=== PATIENT | female | born 1995 | race Two or more races ===

== ENCOUNTER 2021-10-23 14:34 | Inpatient (IN) | payer OTHER, MEDICAID, SELFPAY ==
[2021-10-23 14:47] VITALS: BP 121/83; BP 136/78; PULSE 104; PULSE 106; RESP 16; TEMP 36.9; O2SAT 97; O2SAT 98; BMI 35.5
--- NOTE | 2021-10-23 14:50 | ED_ITS ---
HPI - Psych General Chief Complaint: Psychiatric Symptoms Stated Complaint: SEC 12, SI, auditory hallu, del Time Seen by Provider: 10/23/21 14:46 Source: patient Mode of arrival: EMS Limitations: other (poor historian only answers yes or no, paranoid) History of Present Illness MD complaint: other (delusions, paranoid, not getting better at [facility]) Onset (ago): day(s) (unsure how many days states she has been at respite for a long time. ) Duration: getting worse History of same: Yes Relieving factors: none Exacerbating factors: none Context: other (at [facility] as patient is not improving, delusions, paranoid) Associated psychiatric symptoms: auditory hallucinations, visual hallucinations and delusions Associated symptoms: denies other symptoms Treatments prior to arrival: placed on mental health hold Related Data Allergies Allergy/AdvReac Type Severity Reaction Status Date / Time No Known Allergies Allergy Verified 10/23/21 14:48 Review of Systems Review of Systems: ROS unable to be obtained due to patient being uncooperative and paranoid PMFSH Past Medical History Attestation statement: The following information was validated with the patient. Medical History Schizoaffective disorder Social History Social History (Updated 10/23/21 @ 14:52 by Jyoti Kothari DO) Patient Tobacco Use Status: Never used Tobacco Use of substances other than those prescribed or required for medical reasons: No Physical Exam Vital Signs: Vital Signs: Last Vital Signs Temp 98.1 F 10/23/21 15:30 Pulse 93 10/23/21 15:30 Resp 16 10/23/21 15:30 BP 116/72 10/23/21 15:30 Pulse Ox 98 10/23/21 15:30 O2 Del Method 10/23/21 15:30 BMI result Body Mass Index 35.5 Appearance: Alert. Will not answer most questions she is slow to respond th en stares off and states she doesn't feel safe to talk then looks around room. No acute distress. Eyes: Pupils equal, round and reactive to light. ENT: Pharynx normal. Neck: Normal inspection. Neck supple. CVS: Normal heart rate and rhythm. Pulses normal. Respiratory: No respiratory distress. Breath sounds normal. Abdomen: Soft and non-tender. Skin: Skin warm and dry. Normal skin color. Normal skin turgor. Extremities: No lower extremity edema. No calf ttp Neuro: Will not answer questions as she states she doesn't feel safe to do that here. No motor deficit. No sensory deficit. CN 2-12 intact Course Course Course Narrative: Physician observation started at 339pm. Patient placed in physician observation because the patient needed more time for N to assess the need for psych admission. At the time observation was started the patient's vitals were stable, patient is alert and oriented but slightly anxious, Neuro: nonfocal, CV RRR, Lungs clear MDM - Psych MDM Narrative Medical decision making narrative: 26 yo female with hx of schizoaffective disorder [facility] as she is not improving at this time will need labs, COVID swab, N consult Lab Data Result diagrams: 10/23/21 15:29 10/23/21 15:29 Labs: Lab Results 10/23/21 Range/Units 15:29 WBC 11.2 H (4.8-10.8) X10*3/uL RBC 5.03 (4.20-5.50) X10*6/uL Hgb 14.0 (12.0-16.0) g/dl Hct 42.4 (37.0-47.0) % MCV 84.3 (80.0-98.0) fL MCH 27.8 (27.0-33.0) pg MCHC 33.0 (31.0-35.0) g/dl RDW 12.7 (11.0-16.0) % Plt Count 263 (160-400) X10*3/uL MPV 9.9 (9.4-12.3) fL Immature Gran % (Auto) 0.4 (0.0-0.4) % Neut % (Auto) 73.2 H (45-73) % Lymph % (Auto) 16.8 L (20-40) % Forrest % (Auto) 7.9 (2-11) % Eos % (Auto) 1.2 (0-4) % Baso % (Auto) 0.5 (0-2) % Lymph # (Auto) 1.9 (1.2-4.9) X10*3/uL Forrest # (Auto) 0.9 (0.1-1.2) X10*3/uL Eos # (Auto) 0.1 (0.0-0.4) X10*3/uL Baso # (Auto) 0.1 (0.0-0.2) X10*3/uL Abs Immat Gran (auto) 0.04 H (0.00-0.03) X10*3/uL Absolute Neuts (auto) 8.2 (2.0-8.3) x10*3/uL Absolute Nucleated RBC 0.000 (0.0-0.012) X10*3/uL Nucleated RBC % (auto) 0.0 (0.0-0.2) /100WBC Discharge Plan Discharge Clinical Impression: Schizoaffective disorder Qualifiers: Schizoaffective disorder type: unspecified Qualified Code(s): F25.9 - Schizoaffective disorder, unspecified Patient Disposition: Still a Patient
[2021-10-23 15:30] VITALS: BP 116/72; PULSE 93; RESP 16; TEMP 36.7; O2SAT 98
[2021-10-23 15:36] LABS: MANUAL DIFF FLAG NO
[2021-10-23 15:37] LABS: Basophils Absolute Auto 0.1 X10*3/uL (0.0-0.2); Basophils Percent Auto 0.5 % (0-2); Eosinophils Absolute Auto 0.1 X10*3/uL (0.0-0.4); Eosinophils Percent Auto 1.2 % (0-4); Hematocrit 42.4 % (37.0-47.0); Imm Gran Abs Auto 0.04 X10*3/uL (0.00-0.03); Imm Gran Pct Auto 0.4 % (0.0-0.4); Lymphocytes Absolute Auto 1.9 X10*3/uL (1.2-4.9); Lymphocytes Percent Auto 16.8 % (20-40); Mean Corpuscular Hemoglobin 27.8 pg (27.0-33.0); Mean Corpuscular Volume 84.3 fL (80.0-98.0); Mean Platelet Volume 9.9 fL (9.4-12.3); Monocytes Absolute Auto 0.9 X10*3/uL (0.1-1.2); Monocytes Percent Auto 7.9 % (2-11); Neutrophils Absolute Auto 8.2 x10*3/uL (2.0-8.3); Neutrophils Percent Auto 73.2 % (45-73); Platelet Count 263 X10*3/uL (160-400); Red Blood Count 5.03 X10*6/uL (4.20-5.50); Red Cell Distribution Width 12.7 % (11.0-16.0); White Blood Count 11.2 X10*3/uL (4.8-10.8)
[2021-10-23 15:52] LABS: Amphetamine Screen Urine Not Detected (Not Detect); Barbiturates, Urine Not Detected (Not Detect); Benzodiazepines Screen Urine Not Detected (Not Detect); Cannabinoid Screen Urine Not Detected (Not Detect); Cocaine Screen Urine Not Detected (Not Detect); Fentanyl, urine Not Detected (Not Detect); Opiate Screen Urine Not Detected (Not Detect); Phencyclidine Screen Urine Not Detected (Not Detect)
[2021-10-23 15:54] LABS: Alanine Aminotransferase 22 U/L (0-31); Albumin Level 4.6 g/dL (3.5-5.0); Alkaline Phosphatase 73 U/L (39-117); Anion Gap 13 (12-20); Aspartate Amino Transferase 27 U/L (5-31); Bilirubin Direct 0.2 mg/dL (0.0-0.5); Bilirubin Total 0.4 mg/dL (0.0-1.0); Blood Urea Nitrogen 11 mg/dL (9-16); Calcium 9.7 mg/dL (8.4-10.2); Carbon Dioxide 27 mmol/L (22-29); Chloride 103 mmol/L (96-108); Creatinine Clr Calc Pharmacy 122.7; Estimated Glomerular Filt Rate > 60; Glucose Random 89 mg/dL (60-115); Potassium 4.4 mmol/L (3.3-5.1); Sodium 139 mmol/L (135-145); Total Protein 7.7 g/dL (6.5-8.0)
[2021-10-23 15:59] LABS: HCG Quantitative < 2 mIU/mL
[2021-10-23 16:15] LABS: COVID-19 Test Negative (Negative); IDNOW Serial# 16C4AD1C
--- NOTE | 2021-10-23 16:43 | PC.NURSE ---
Addendum entered by Benjamin Kramer 10/23/21 17:29: Patient continues to refuse to speak/ allow vitals to be taken by this RN. Original Note: Patient refusing to answer questions from this RN.
--- NOTE | 2021-10-23 17:18 | PC.NURSE ---
FAYE SMART SHEET FAXED
[2021-10-23 18:40] VITALS: BP 118/74; PULSE 106; RESP 18; TEMP 36.8; O2SAT 98
[2021-10-23 22:29] VITALS: BP 127/77; PULSE 103; TEMP 37; O2SAT 97
[2021-10-23] MEDS: Ziprasidone 80 MG CAPSULE PO (22:30)
[2021-10-23] MEDS: Prazosin HCL 1 MG CAPSULE PO (22:30)
[2021-10-24 00:12] VITALS: BP 119/73; PULSE 100; RESP 17; TEMP 36.8; O2SAT 98
--- NOTE | 2021-10-24 07:32 | PC.NURSE ---
Patient slept through the night, no distress observed/reported, patient continue to present with disorganized thought process, medication compliant, disposition per care team is section 12 inpatient bed search, will continue to monitor.
--- NOTE | 2021-10-24 08:42 | PC.NURSE ---
Construction Supervisor/Carpenter of [facility] in [place] Ewa [place]in[place]
[2021-10-24] MEDS: Ziprasidone 80 MG CAPSULE PO (10:18)
--- NOTE | 2021-10-24 10:39 | PC.NURSE ---
pt unkempt and disheveled, in [place], her hair covers her face during our conversation. pt with poor eye contact, darting glancing. appears to be thought blocking. she stood in her doorway with her hair covering her face and periodically looking around her for about 45 minutes. when medicating the pt this morning with Geodon, she took the pill into her mouth without difficulty but required about 20 minutes of assistance and support to take a sip of water to wash the pill down. pt appears easily overwhelmed with open ended questions, requires basic yes/no questions. she is pleasant but appears overwhelming with hallucinations, unclear regarding AH/VH or both. pt unable to answer questions due to thought blocking, hallucinations.
[2021-10-24 12:00] VITALS: BP 109/71; PULSE 89; RESP 16; TEMP 36.5; O2SAT 96
[2021-10-24 12:44] VITALS: BP 120/71; PULSE 100; RESP 18; TEMP 36.7; O2SAT 99
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
--- NOTE | 2021-10-24 14:29 | PC.NURSE ---
Diana is admitted to M3 on 12b from [facility], She was transferred to ED from [facility] where she was being restarted on meds for schizoaffective disorder after a period of noncompliance with meds with associated decompensation in the community. Diana has providers through [facility], a PCP through [facility] and psychiatry through [facility] and she attends [facility] day program. On arrival to the unit Diana is alert and minimally cooperative. She allowed VS and followed me to the conference room but participated minimally in the admission assessment. She did not respond to open ended questions. When asked yes or no questions she responded no to many and did not answer others. She declined to sign legals. Diana avoids eye contact and appears hypervigilant with her eyes darting around the room. As mentioned above, throughout the assessment the only word she said to me is no. 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 She appeared to be attending to internal stimuli. She refused to order lunch and did not eat the house meal which was sent. Tox screen was negative. No acute medical issues identified. She denies physical complaint.
[2021-10-24] MEDS: LORazepam 1 MG TABLET PO (16:09)
[2021-10-24 20:37] VITALS: BP 120/59; PULSE 133; TEMP 36.7; O2SAT 95
--- NOTE | 2021-10-25 | ECG_ITS ---
Test Reason : check qtc Blood Pressure : / mmHG Vent. Rate : 097 BPM Atrial Rate : 097 BPM P-R Int : 120 ms QRS Dur : 086 ms QT Int : 350 ms P-R-T Axes : 065 055 005 degrees QTc Int : 444 ms Normal sinus rhythm Possible Left atrial enlargement Nonspecific ST and T wave abnormality Abnormal ECG No previous ECGs available Referred By: Nayla Swain Electronically Signed By:AI BLANCO MD
[2021-10-25 09:00] VITALS: BP 118/60; PULSE 112; RESP 18; TEMP 36.7; O2SAT 96
[2021-10-25] MEDS: LORazepam 1 MG TABLET PO ×3 (09:06→21:05)
[2021-10-25] MEDS: Ziprasidone 80 MG CAPSULE PO ×2 (09:10→21:05)
[2021-10-25 09:42] LABS: Estimated Average Glucose 97 mg/dL
[2021-10-25 09:54] LABS: Thyroid Stimulating Hormone 1.23 uIU/mL (0.32-4.0)
[2021-10-25 09:57] LABS: Alkaline Phosphatase 81 U/L (39-117); Anion Gap 17 (12-20); Aspartate Amino Transferase 34 U/L (5-31); Bilirubin Total 0.6 mg/dL (0.0-1.0); Calcium 9.8 mg/dL (8.4-10.2); Carbon Dioxide 23 mmol/L (22-29); Chloride 102 mmol/L (96-108); Cholesterol 170 mg/dL; Creatinine Clr Calc Pharmacy 125.9; Estimated Glomerular Filt Rate > 60; Glucose Fasting 86 mg/dL (60-99); HDL Cholesterol 46 mg/dL; LDL Cholesterol Calculated 113 mg/dl; Potassium 4.1 mmol/L (3.3-5.1); Sodium 138 mmol/L (135-145); Total Protein 8.4 g/dL (6.5-8.0); Triglycerides 58 mg/dL
[2021-10-25 10:08] LABS: Folate 5.1 ng/mL (> or = 4.0); Vitamin B12 308 pg/mL (200-900)
[2021-10-25 10:16] LABS: Alanine Aminotransferase 34 U/L (0-31); Blood Urea Nitrogen 20 mg/dL (9-16)
--- NOTE | 2021-10-25 10:58 | HO.PSYCHPN ---
Subjective Subjective Date of Service: 10/25/21 Reason For Visit: psychotic Subjective Notes: Section 12B Interim History: Pt staring at door most of the morning. When this designer/writer approach her, pt turning face to other side and finally stated she does not want to talk. Pt very suspicious, hypervigilant, blank stare continues somewhat improved with ativan. MOstly mute, did not sleep last night. decline lunch but did eat dinner, this morning decline breakfast. Medication Compliance: Intermittent Side effects from medications: No Review of Systems Review of Systems ROS unable to be obtained due to patient being uncooperative and paranoid Yes Unobtainable due to mental status Mental Status Exam Mental Status Exam Narrative: Appearance: casually groomed, fair hygiene, sitting in chair, staring at paper Behavior:guarded and suspicious psychomotor:retardation noted Speech: mostly mute, single words, minimally spontaneous Thought process:unable to assess Thought content:unable to assess Mood:unable to assess Affect: guarded, suspicious, intense eye contact at times SI:unable to assess HI:unable to assess VH/AH:appears internally preoccupied Delusions:paranoid behaviors Insight/judgment:impaired x 2. Memory/cog: alert, unable to assess Diagnostics Vital Signs (24Hr): Vital Signs - 24 hr 10/24/21 20:37 10/25/21 09:00 Temperature 98.0 F 98.0 F Pulse Rate 133 H 112 H Respiratory Rate 18 Blood Pressure 120/59 L 118/60 Pulse Oximetry 95 96 Oxygen Delivery Method Room Air Room Air BMI result Body Mass Index 35.5 Labs Results: 10/23/21 15:29 10/25/21 08:30 Labs: Laboratory Results - last 48 hr 10/23/21 10/23/21 10/25/21 15:29 15:29 08:30 Sodium 138 Potassium 4.1 Chloride 102 Carbon Dioxide 23 Anion Gap 17 BUN 20 H D Creatinine 0.80 Estim Creat Clear Calc 125.9 Estimated GFR > 60 Fasting Glucose 86 Estimat Average Glucose Hemoglobin A1c % Calcium 9.8 Total Bilirubin 0.6 AST 34 H ALT 34 H Alkaline Phosphatase 81 Total Protein 8.4 H Albumin 5.0 Triglycerides 58 Cholesterol 170 LDL Cholesterol, Calc 113 HDL Cholesterol 46 Vitamin B12 Folate TSH 1.23 Beta HCG, Quant < 2 COVID-19 (LAKESHA) Negative COVID-19 Clin Com See Note 10/25/21 10/25/21 08:30 08:30 Sodium Potassium Chloride Carbon Dioxide Anion Gap BUN Creatinine Estim Creat Clear Calc Estimated GFR Fasting Glucose Estimat Average Glucose 97 Hemoglobin A1c % 5.0 Calcium Total Bilirubin AST ALT Alkaline Phosphatase Total Protein Albumin Triglycerides Cholesterol LDL Cholesterol, Calc HDL Cholesterol Vitamin B12 308 Folate 5.1 TSH Beta HCG, Quant COVID-19 (LAKESHA) COVID-19 Clin Com Medications Medications Current Medications Acetaminophen (Acetaminophen 325 Mg Tablet) 650 mg PO Q6H PRN PRN Reason: Headache/Pain Mild Scale (1-3) Al Hydroxide/Mg Hydroxide (Magnesium Hydrox/Alum Hydrox 30 Ml Oral.Susp) 30 ml PO Q6H PRN PRN Reason: Heartburn/Nausea Hydroxyzine HCl (Hydroxyzine Hcl 25 Mg Tablet) 25 mg PO Q6H PRN PRN Reason: Anxiety Lorazepam (Lorazepam 1 Mg Tablet) 1 mg PO TID [facility] Last Admin: 10/25/21 14:42 Dose: 1 mg Magnesium Hydroxide (Milk Of Magnesia 30 Ml Oral.Susp) 30 ml PO DAILY PRN PRN Reason: Constipation Prazosin HCl (Prazosin Hcl 1 Mg Capsule) 1 - 2 mg PO BEDTIME RASHI; Protocol Last Admin: 10/24/21 21:06 Dose: Not Given Trazodone HCl (Trazodone Hcl 100 Mg Tablet) 100 mg PO BEDTIME PRN PRN Reason: Insomnia Ziprasidone (Ziprasidone 80 Mg Capsule) 80 mg PO BID [facility] Last Admin: 10/25/21 09:10 Dose: 80 mg Allergies Allergies Allergy/AdvReac Type Severity Reaction Status Date / Time No Known Allergies Allergy Verified 10/23/21 14:48 Assessment & Plan Assessment & Plan (1) Schizoaffective disorder: Qualifiers: Schizoaffective disorder type: unspecified Qualified Code(s): F25.9 - Schizoaffective disorder, unspecified Status: Acute Code(s): F25.9 - Schizoaffective disorder, unspecified Plan Ms. Handley is a 26 years old woman with hx of schizoaffective disorder, living in housing manage by [facility]. Pt was initially assessed by [facility] crisis due to increase paranoia, not taking medications. She was sent to [facility] on 10/17. Pt continue to decompensate, not sleeping, not eating nor taking medications. Pt presents as internally preoccupied, minimally verbal, guarded and paranoid. Utox is neg. PLAN 1. Admit to M3, Sect 12, 15 mins checks for safety 2. continue geodone, will add ativan for catatonic like behaviors- blank staring, psychomotor retardation. 3. Obtain collateral information- unable to reach Med provider through [facility] 4. Aftercare planning. I spent ___25___ minutes with the patient and/or on the patient floor today, greater than?50% of which was spent counseling/coordinating care. Reason for contiued inpatient stay Substantial Risk for: inability to function
[2021-10-25 21:00] VITALS: BP 152/89; PULSE 119; RESP 18; TEMP 36.9; O2SAT 95
[2021-10-25] MEDS: Prazosin HCL 1 MG CAPSULE PO (21:05)
[2021-10-26 06:00] VITALS: BP 122/85; PULSE 93; RESP 17; TEMP 36.8; O2SAT 98
[2021-10-26 07:00] VITALS: BMI 35.8
[2021-10-26] MEDS: LORazepam 1 MG TABLET PO ×4 (09:58→20:21)
[2021-10-26] MEDS: Ziprasidone 80 MG CAPSULE PO ×2 (09:58→20:21)
[2021-10-26] MEDS: HaloperidoL 5 MG TABLET PO (11:17)
[2021-10-26 18:00] VITALS: BP 124/73; PULSE 88; RESP 16; TEMP 36.6; O2SAT 99
[2021-10-26] MEDS: traZODone HCL 50 MG TABLET 150 MG PO (20:21)
[2021-10-26] MEDS: Prazosin HCL 1 MG CAPSULE 2 MG PO (20:21)
[2021-10-27 08:50] VITALS: BP 116/79; PULSE 113; RESP 17; TEMP 36.9; O2SAT 93
[2021-10-27] MEDS: Ziprasidone 80 MG CAPSULE PO ×2 (08:51→21:11)
[2021-10-27] MEDS: LORazepam 1 MG TABLET PO ×3 (08:51→21:11)
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
[2021-10-27 20:58] VITALS: BP 123/75; PULSE 101; RESP 20; TEMP 36.7; O2SAT 97
[2021-10-27] MEDS: Acetaminophen 325 MG TABLET 650 MG PO (21:10)
[2021-10-27] MEDS: Prazosin HCL 1 MG CAPSULE 2 MG PO (21:11)
[2021-10-27] MEDS: traZODone HCL 50 MG TABLET 150 MG PO (21:12)
[2021-10-28 06:00] VITALS: BP 115/56; PULSE 84; RESP 16; TEMP 36.6; O2SAT 100
[2021-10-28] MEDS: Ziprasidone 80 MG CAPSULE PO ×2 (09:06→20:03)
[2021-10-28] MEDS: LORazepam 1 MG TABLET PO ×3 (09:06→20:03)
[2021-10-28] MEDS: Milk of Magnesia 30 ML ORAL.SUSP PO (09:35)
--- NOTE | 2021-10-28 11:41 | P.PNPSI_ITS ---
Subjective Subjective Date of Service: 10/28/21 Reason For Visit: psychotic Subjective Notes: Conditional Voluntary Interim History: Pt still paranoid, easily tearful. initially reluctant to take meds; guarded with this automobile service writer. Medication Compliance: Yes Side effects from medications: No Attending Groups: No Review of Systems Acute medical concerns: Yes constipation Medical Review of Systems: unchanged Review of Systems Review of Systems ROS unable to be obtained due to patient being uncooperative and paranoid Yes Unobtainable due to mental status Mental Status Exam Mental Status Exam Narrative: Appearance: casually groomed, fair hygiene, sitting in chair, staring at paper Behavior:guarded and suspicious psychomotor:retardation noted Speech: mostly mute, single words, minimally spontaneous Thought process:unable to assess Thought content:unable to assess Mood:unable to assess Affect: guarded, suspicious, intense eye contact at times SI:unable to assess HI:unable to assess VH/AH:appears internally preoccupied Delusions:paranoid behaviors Insight/judgment:impaired x 2. Memory/cog: alert, unable to assess Diagnostics Vital Signs (24Hr): Vital Signs - 24 hr 10/27/21 20:58 10/28/21 06:00 Temperature 98.0 F 97.8 F Pulse Rate 101 H 84 Respiratory Rate 20 16 Blood Pressure 123/75 115/56 L Pulse Oximetry 97 100 Oxygen Delivery Method Room Air Room Air BMI result Body Mass Index 35.8 Labs Results: 10/23/21 15:29 10/25/21 08:30 Medications Medications Current Medications Acetaminophen (Acetaminophen 325 Mg Tablet) 650 mg PO Q6H PRN PRN Reason: Headache/Pain Mild Scale (1-3) Last Admin: 10/27/21 21:10 Dose: 650 mg Al Hydroxide/Mg Hydroxide (Magnesium Hydrox/Alum Hydrox 30 Ml Oral.Susp) 30 ml PO Q6H PRN PRN Reason: Heartburn/Nausea Hydroxyzine HCl (Hydroxyzine Hcl 25 Mg Tablet) 25 mg PO Q6H PRN PRN Reason: Anxiety Lorazepam (Lorazepam 1 Mg Tablet) 1 mg PO TID [facility] Last Admin: 10/28/21 09:06 Dose: 1 mg Magnesium Hydroxide (Milk Of Magnesia 30 Ml Oral.Susp) 30 ml PO DAILY PRN PRN Reason: Constipation Last Admin: 10/28/21 09:35 Dose: 30 ml Prazosin HCl (Prazosin Hcl 1 Mg Capsule) 2 mg PO BEDTIME RASHI; Protocol Last Admin: 10/27/21 21:11 Dose: 2 mg Trazodone HCl (Trazodone Hcl 50 Mg Tablet) 150 mg PO BEDTIME RASHI Last Admin: 10/27/21 21:12 Dose: 150 mg Ziprasidone (Ziprasidone 80 Mg Capsule) 80 mg PO BID RASHI Last Admin: 10/28/21 09:06 Dose: 80 mg Allergies Allergies Allergy/AdvReac Type Severity Reaction Status Date / Time No Known Allergies Allergy Verified 10/23/21 14:48 Assessment & Plan Assessment & Plan (1) Schizoaffective disorder: Qualifiers: Schizoaffective disorder type: unspecified Qualified Code(s): F25.9 - Schizoaffective disorder, unspecified Status: Acute Code(s): F25.9 - Schizoaffective disorder, unspecified Plan Ms. Handley is a 26 years old woman with hx of schizoaffective disorder, living in housing manage by [facility]. Pt was initially assessed by [facility] due to increase paranoia, not taking medications. She was sent to [facility] on 10/17. Pt continue to decompensate, not sleeping, not eating nor taking medicat ions. Pt presents as internally preoccupied, minimally verbal, guarded and paranoid. Utox is neg. 10/28 continue PLAN CV 15 mins checks for safety continue geodone, ativan for catatonic like behaviors- blank staring, psychomotor retardation. Obtain collateral information- unable to reach Med provider through [facility] Aftercare planning. I spent minutes with the patient and/or on the patient floor today, greater than?50% of which was spent counseling/coordinating care. Patient educated on: medication risk/benefits and therapeutic strategies Informed Consent: further education needed Reason for contiued inpatient stay Substantial Risk for: harm to self, inability to function and rapid decompensation
[2021-10-28 20:03] VITALS: BP 146/83; PULSE 97; RESP 18; TEMP 36.7; O2SAT 99
[2021-10-28] MEDS: Prazosin HCL 1 MG CAPSULE 2 MG PO (20:03)
[2021-10-28] MEDS: traZODone HCL 50 MG TABLET 150 MG PO (20:03)
[2021-10-28] MEDS: hydrOXYzine HCL 25 MG TABLET PO (20:03)
[2021-10-29] MEDS: hydrOXYzine HCL 25 MG TABLET PO (07:10)
[2021-10-29 08:30] VITALS: BP 98/54; PULSE 78; RESP 16; TEMP 36.7; O2SAT 96
[2021-10-29] MEDS: LORazepam 1 MG TABLET PO (08:34)
[2021-10-29] MEDS: Ziprasidone 80 MG CAPSULE PO ×2 (08:35→20:40)
--- NOTE | 2021-10-29 17:21 | HO.PSYCHPN ---
Subjective Subjective Date of Service: 10/29/21 Reason For Visit: psychotic Interim History: Pt still paranoid, still hearing voices; depressive thoughts; wary of other; taking meds and more willing to engage Medication Compliance: Yes Side effects from medications: No Review of Systems Acute medical concerns: Yes constipation Medical Review of Systems: unchanged Review of Systems Review of Systems ROS unable to be obtained due to patient being uncooperative and paranoid Yes Unobtainable due to mental status Mental Status Exam Mental Status Exam Narrative: Appearance: casually groomed, fair hygiene, sitting in chair, staring at paper Behavior:guarded and suspicious psychomotor:retardation noted Speech: mostly mute, single words, minimally spontaneous Thought process:unable to assess Thought content:unable to assess Mood:unable to assess Affect: guarded, suspicious, intense eye contact at times SI:unable to assess HI:unable to assess VH/AH:appears internally preoccupied Delusions:paranoid behaviors Insight/judgment:impaired x 2. Memory/cog: alert, unable to assess Diagnostics Vital Signs (24Hr): Vital Signs - 24 hr 10/28/21 20:03 10/29/21 08:30 Temperature 98.1 F 98.0 F Pulse Rate 97 78 Respiratory Rate 18 16 Blood Pressure 146/83 H 98/54 L Pulse Oximetry 99 96 Oxygen Delivery Method Room Air Room Air BMI result Body Mass Index 35.8 Labs Results: 10/23/21 15:29 10/25/21 08:30 Medications Medications Current Medications Acetaminophen (Acetaminophen 325 Mg Tablet) 650 mg PO Q6H PRN PRN Reason: Headache/Pain Mild Scale (1-3) Last Admin: 10/27/21 21:10 Dose: 650 mg Al Hydroxide/Mg Hydroxide (Magnesium Hydrox/Alum Hydrox 30 Ml Oral.Susp) 30 ml PO Q6H PRN PRN Reason: Heartburn/Nausea Bisacodyl (Bisacodyl 5 Mg Tablet.Dr) 5 mg PO DAILY PRN PRN Reason: Constipation Hydroxyzine HCl (Hydroxyzine Hcl 25 Mg Tablet) 25 mg PO Q6H PRN PRN Reason: Anxiety Last Admin: 10/29/21 07:10 Dose: 25 mg Magnesium Hydroxide (Milk Of Magnesia 30 Ml Oral.Susp) 30 ml PO DAILY PRN PRN Reason: Constipation Last Admin: 10/28/21 09:35 Dose: 30 ml Prazosin HCl (Prazosin Hcl 1 Mg Capsule) 2 mg PO BEDTIME RASHI; Protocol Last Admin: 10/28/21 20:03 Dose: 2 mg Trazodone HCl (Trazodone Hcl 50 Mg Tablet) 150 mg PO BEDTIME RASHI Last Admin: 10/28/21 20:03 Dose: 150 mg Ziprasidone (Ziprasidone 80 Mg Capsule) 80 mg PO BID RASHI Last Admin: 10/29/21 08:35 Dose: 80 mg Allergies Allergies Allergy/AdvReac Type Severity Reaction Status Date / Time No Known Allergies Allergy Verified 10/23/21 14:48 Assessment & Plan Assessment & Plan (1) Schizoaffective disorder: Qualifiers: Schizoaffective disorder type: unspecified Qualified Code(s): F25.9 - Schizoaffective disorder, unspecified Status: Acute Code(s): F25.9 - Schizoaffective disorder, unspecified Plan Ms. Handley is a 26 years old woman with hx of schizoaffective disorder, living in housing manage by [facility]. Pt was initially assessed by [facility] due to increase paranoia, not taking medications. She was sent to [facility] on 10/17. Pt continue to decompensate, not sleeping, not eating nor taking medications. Pt presents as internally preoccupied, minimally verbal, guarded and paranoid. Utox is neg. 10/29 continue PLAN CV 15 mins checks for safety add dulcolax 5mg daily prn constipation continue geodone, ativan for catatonic like behaviors- blank staring, psychomotor retardation. Obtain collateral information- unable to reach Med provider through [facility] Aftercare planning. I spent ___15___ minutes with the patient and/or on the patient floor today, greater than?50% of which was spent counseling/coordinating care. Reason for contiued inpatient stay Substantial Risk for: harm to self, inability to function and rapid decompensation
[2021-10-29 20:30] VITALS: BP 117/82; PULSE 80; RESP 16; TEMP 36.6; O2SAT 99
[2021-10-29] MEDS: Prazosin HCL 1 MG CAPSULE 2 MG PO (20:40)
[2021-10-29] MEDS: traZODone HCL 50 MG TABLET 150 MG PO (20:40)
[2021-10-30] MEDS: hydrOXYzine HCL 25 MG TABLET PO (01:00)
[2021-10-30 08:47] VITALS: BP 120/68; PULSE 110; RESP 17; TEMP 36.6; O2SAT 96
[2021-10-30] MEDS: Ziprasidone 80 MG CAPSULE PO ×2 (08:49→21:24)
[2021-10-30] MEDS: LORazepam 1 MG TABLET PO ×3 (11:00→21:24)
--- NOTE | 2021-10-30 17:46 | HO.PSYCHPN ---
Subjective Subjective Date of Service: 10/30/21 Reason For Visit: psychotic Subjective Notes: [employer] Warning and Conditional Voluntary Healthcare Proxy: No Guardianship: No Medical Problems Affecting Mental Status: No Interim History: Patient seen and discussed with team. Patient evaluated today and upon interview she complains she is still constipated x 1 week, denies abdominal pain, says her appetite is low but denies this being related to constipation. Declines miralax but willing for it to be a PRN. Med adherent, denies side effects. Feels safe. Has prolonged speech latency, appears internally preoccupied. Reports she hears voices a little and that the content is negative but she does not remember what they say exactly and I just ignore them. Says her depression is still there a little bit but its okay. Denies SI/SIB/HI. Denies anxiety. Says she feels safe. Medication Compliance: Yes Side effects from medications: No Attending Groups: No Review of Systems Acute medical concerns: No Medical Review of Systems: unchanged Mental Status Exam Mental Status Exam Narrative: Appearance: casually groomed, fair hygiene, overweight Behavior:guarded and suspicious psychomotor:retardation noted Speech: mostly mute, single words, minimally spontaneous Thought process: distracted Thought content: paranoid Mood: okay Affect: guarded, suspicious, intense eye contact at times SI:unable to assess HI:unable to assess VH/AH: appears internally preoccupied Delusions:paranoid behaviors Insight/judgment:impaired x 2. Memory/cog: alert, unable to assess Diagnostics Vital Signs (24Hr): Vital Signs - 24 hr 10/29/21 20:30 10/30/21 08:47 Temperature 97.9 F 97.8 F Pulse Rate 80 110 H Respiratory Rate 16 17 Blood Pressure 117/82 120/68 Pulse Oximetry 99 96 Oxygen Delivery Method Room Air Room Air BMI result Body Mass Index 35.8 Labs Results: 10/23/21 15:29 10/25/21 08:30 Medications Medications Current Medications Acetaminophen (Acetaminophen 325 Mg Tablet) 650 mg PO Q6H PRN PRN Reason: Headache/Pain Mild Scale (1-3) Last Admin: 10/27/21 21:10 Dose: 650 mg Al Hydroxide/Mg Hydroxide (Magnesium Hydrox/Alum Hydrox 30 Ml Oral.Susp) 30 ml PO Q6H PRN PRN Reason: Heartburn/Nausea Bisacodyl (Bisacodyl 5 Mg Tablet.) 5 mg PO DAILY PRN PRN Reason: Constipation Hydroxyzine HCl (Hydroxyzine Hcl 25 Mg Tablet) 25 mg PO Q6H PRN PRN Reason: Anxiety Last Admin: 10/30/21 01:00 Dose: 25 mg Lorazepam (Lorazepam 1 Mg Tablet) 1 mg PO TID RASHI Last Admin: 10/30/21 15:54 Dose: 1 mg Magnesium Hydroxide (Milk Of Magnesia 30 Ml Oral.Susp) 30 ml PO DAILY PRN PRN Reason: Constipation Last Admin: 10/28/21 09:35 Dose: 30 ml Prazosin HCl (Prazosin Hcl 1 Mg Capsule) 2 mg PO BEDTIME RASHI; Protocol Last Admin: 10/29/21 20:40 Dose: 2 mg Trazodone HCl (Trazodone Hcl 50 Mg Tablet) 150 mg PO BEDTIME RASHI Last Admin: 10/29/21 20:40 Dose: 150 mg Ziprasidone (Ziprasidone 80 Mg Capsule) 80 mg PO BID RASHI Last Admin: 10/30/21 08:49 Dose: 80 mg Allergies Allergies Allergy/AdvReac Type Severity Reaction Status Date / Time No Known Allergies Allergy Verified 10/23/21 14:48 Assessment & Plan Assessment & Plan (1) Schizoaffective disorder: Qualifiers: Schizoaffective disorder type: unspecified Qualified Code(s): F25.9 - Schizoaffective disorder, unspecified Status: Acute Code(s): F25.9 - Schizoaffective disorder, unspecified Plan Ms. Handley is a 26 years old woman with hx of schizoaffective disorder, living in housing manage by [facility]. Pt was initially assessed by [facility] crisis due to increase paranoia, not taking medications. [facility]. Pt continue to decompensate, not sleeping, not eating nor taking medications. Pt presents as internally preoccupied, minimally verbal, guarded and paranoid. Utox is neg. 10/29 continue PLAN CV 15 mins checks for safety add dulcolax 5mg daily prn constipation continue geodone, ativan for catatonic like behaviors- blank staring, psychomotor retardation. Obtain collateral information- unable to reach Med provider through [facility] After[facility] planning. 10/30 add PRN miralax I spent minutes with the patient and/or on the patient floor today, greater than?50% of which was spent counseling/coordinating care. Patient educated on: medication risk/benefits Reason for contiued inpatient stay Substantial Risk for: inability to function, rapid decompensation and med/psych decompensation
[2021-10-30] MEDS: Prazosin HCL 1 MG CAPSULE 2 MG PO (21:24)
[2021-10-30] MEDS: traZODone HCL 50 MG TABLET 150 MG PO (21:24)
[2021-10-30 21:25] VITALS: BP 118/80; PULSE 116; RESP 18; TEMP 36.8; O2SAT 97
[2021-10-31 08:16] VITALS: BP 115/65; PULSE 87; RESP 16; TEMP 36.8; O2SAT 99
[2021-10-31] MEDS: LORazepam 1 MG TABLET PO ×3 (08:24→21:02)
[2021-10-31] MEDS: Ziprasidone 80 MG CAPSULE PO ×2 (08:24→21:02)
--- NOTE | 2021-10-31 11:01 | HO.PSYCHPN ---
Subjective Subjective Date of Service: 10/31/21 Reason For Visit: psychotic Subjective Notes: Conditional Voluntary Interim History: Pt more talkative, but per report, ativan had been accidentally discontinued and pt regressed to more catatonic s/s. Today, pt reports that she slept well. She did have episode of incontinence which could have been related to prazosin. She reports feeling safer going home and not having as many safety concerns regarding returning there. She denies SI/HI. She appears less fearful, less paranoid, still some delayed in response noted. Medication Compliance: Yes Side effects from medications: No Attending Groups: No Review of Systems Review of Systems ROS unable to be obtained due to patient being uncooperative and paranoid Yes Unobtainable due to mental status Mental Status Exam Mental Status Exam Narrative: Appearance: casually groomed, fair hygiene, overweight Behavior:guarded and suspicious psychomotor:retardation noted Speech: mostly mute, single words, minimally spontaneous Thought process: distracted Thought content: paranoid Mood: okay Affect: guarded, suspicious, intense eye contact at times SI:unable to assess HI:unable to assess VH/AH: appears internally preoccupied Delusions:paranoid behaviors Insight/judgment:impaired x 2. Memory/cog: alert, unable to assess Diagnostics Vital Signs (24Hr): Vital Signs - 24 hr 10/30/21 21:25 10/31/21 08:16 Temperature 98.2 F 98.2 F Pulse Rate 116 H 87 Respiratory Rate 18 16 Blood Pressure 118/80 115/65 Pulse Oximetry 97 99 Oxygen Delivery Method Room Air Room Air BMI result Body Mass Index 35.8 Labs Results: 10/23/21 15:29 10/25/21 08:30 Medications Medications Current Medications Acetaminophen (Acetaminophen 325 Mg Tablet) 650 mg PO Q6H PRN PRN Reason: Headache/Pain Mild Scale (1-3) Last Admin: 10/31/21 15:35 Dose: 650 mg Al Hydroxide/Mg Hydroxide (Magnesium Hydrox/Alum Hydrox 30 Ml Oral.Susp) 30 ml PO Q6H PRN PRN Reason: Heartburn/Nausea Bisacodyl (Bisacodyl 5 Mg Tablet.Dr) 5 mg PO DAILY PRN PRN Reason: Constipation Hydroxyzine HCl (Hydroxyzine Hcl 25 Mg Tablet) 25 mg PO Q6H PRN PRN Reason: Anxiety Last Admin: 10/30/21 01:00 Dose: 25 mg Lorazepam (Lorazepam 1 Mg Tablet) 1 mg PO TID [facility] Last Admin: 10/31/21 15:31 Dose: 1 mg Magnesium Hydroxide (Milk Of Magnesia 30 Ml Oral.Susp) 30 ml PO DAILY PRN PRN Reason: Constipation Last Admin: 10/28/21 09:35 Dose: 30 ml Polyethylene Glycol (Polyethylene Glycol 3350 17 Gm Powd.Pack) 17 gm PO DAILY PRN PRN Reason: constipation Trazodone HCl (Trazodone Hcl 50 Mg Tablet) 150 mg PO BEDTIME [facility] Last Admin: 10/30/21 21:24 Dose: 150 mg Ziprasidone (Ziprasidone 80 Mg Capsule) 80 mg PO BID [facility] Last Admin: 10/31/21 08:24 Dose: 80 mg Allergies Allergies Allergy/AdvReac Type Severity Reaction Status Date / Time No Known Allergies Allergy Verified 10/23/21 14:48 Assessment & Plan Assessment & Plan (1) Schizoaffective disorder: Qualifiers: Schizoaffective disorder type: unspecified Qualified Code(s): F25.9 - Schizoaffective disorder, unspecified Status: Acute Code(s): F25.9 - Schizoaffective disorder, unspecified Plan Ms. Handley is a 26 years old woman with hx of schizoaffective disorder, living in housing manage by [facility]. Pt was initially assessed by [facility] crisis due to increase paranoia, not taking medications. She was sent to [facility] on 10/17. Pt continue to decompensate, not sleeping, not eating nor taking medications. Pt presents as internally preoccupied, minimally verbal, guarded and paranoid. Utox is neg. PLAN 1. Admit to M3, Sect 12, 15 mins checks for safety 2. continue geodone, will add ativan for catatonic like behaviors- blank staring, psychomotor retardation. 3. Obtain collateral information- unable to reach Med provider through [facility] 4. Aftercare planning. 10/27 Sign CV, agreed to continue tx. 10/31- continue current medications. I spent ___25___ minutes with the patient and/or on the patient floor today, greater than?50% of which was spent counseling/coordinating care. Reason for contiued inpatient stay Substantial Risk for: inability to function
[2021-10-31] MEDS: Acetaminophen 325 MG TABLET 650 MG PO (15:35)
[2021-10-31 21:00] VITALS: BP 128/87; PULSE 86; RESP 18; TEMP 36.7; O2SAT 99
[2021-10-31] MEDS: hydrOXYzine HCL 25 MG TABLET PO (21:02)
[2021-10-31] MEDS: traZODone HCL 50 MG TABLET 150 MG PO (21:03)
[2021-11-01] MEDS: LORazepam 1 MG TABLET PO ×3 (08:40→22:18)
[2021-11-01] MEDS: Acetaminophen 325 MG TABLET 650 MG PO (08:40)
[2021-11-01] MEDS: Ziprasidone 80 MG CAPSULE PO ×2 (08:41→22:18)
[2021-11-01 08:45] VITALS: BP 103/58; PULSE 80; RESP 16; TEMP 36.8; O2SAT 100
--- NOTE | 2021-11-01 09:13 | P.PNPSI_ITS ---
Subjective Subjective Date of Service: 11/01/21 Reason For Visit: psychotic Subjective Notes: Conditional Voluntary Interim History: Pt reporting staff yesterday that she did not know who she can trust as she was hearing people talking about her. She reports she had poor sleep last night. She is staring at this repairer typewriter most of the time, she denies SI/HI. She reports AH but can't tell me what they say. We discussed switching gradually to another antipsychotic, she agrees to try risperidone. Medication Compliance: Yes Side effects from medications: No Review of Systems Review of Systems ROS unable to be obtained due to patient being uncooperative and paranoid Yes Unobtainable due to mental status Mental Status Exam Mental Status Exam Narrative: Appearance: casually groomed, fair hygiene, overweight Behavior:guarded and suspicious psychomotor:retardation noted Speech: mostly mute, single words, minimally spontaneous Thought process: distracted Thought content: paranoid Mood: okay Affect: guarded, suspicious, intense eye contact at times SI:unable to assess HI:unable to assess VH/AH: appears internally preoccupied Delusions:paranoid behaviors Insight/judgment:impaired x 2. Memory/cog: alert, unable to assess Diagnostics Vital Signs (24Hr): Vital Signs - 24 hr 10/31/21 21:00 11/01/21 08:45 Temperature 98.1 F 98.3 F Pulse Rate 86 80 Respiratory Rate 18 16 Blood Pressure 128/87 103/58 L Pulse Oximetry 99 100 Oxygen Delivery Method Room Air Room Air BMI result Body Mass Index 35.8 Labs Results: 10/23/21 15:29 10/25/21 08:30 Labs: Laboratory Results - last 48 hr 11/01/21 11:06 Urine Color YELLOW Urine Appearance HAZY Urine pH 6.5 Ur Specific [place] 1.015 Urine Protein NEG Urine Glucose (UA) NEG Urine Ketones NEG Urine Blood NEG Urine Nitrite NEG Ur Leukocyte Esterase TRACE H Urine RBC 0 Urine WBC 1-4 Ur Squamous Epith Cells 1+ Urine Bacteria NONE Medications Medications Current Medications Acetaminophen (Acetaminophen 325 Mg Tablet) 650 mg PO Q6H PRN PRN Reason: Headache/Pain Mild Scale (1-3) Last Admin: 11/01/21 08:40 Dose: 650 mg Al Hydroxide/Mg Hydroxide (Magnesium Hydrox/Alum Hydrox 30 Ml Oral.Susp) 30 ml PO Q6H PRN PRN Reason: Heartburn/Nausea Bisacodyl (Bisacodyl 5 Mg Tablet.Dr) 5 mg PO DAILY PRN PRN Reason: Constipation Hydroxyzine HCl (Hydroxyzine Hcl 25 Mg Tablet) 25 mg PO Q6H PRN PRN Reason: Anxiety Last Admin: 10/31/21 21:02 Dose: 25 mg Lorazepam (Lorazepam 1 Mg Tablet) 1 mg PO TID [facility] Last Admin: 11/01/21 08:40 Dose: 1 mg Magnesium Hydroxide (Milk Of Magnesia 30 Ml Oral.Susp) 30 ml PO DAILY PRN PRN Reason: Constipation Last Admin: 10/28/21 09:35 Dose: 30 ml Polyethylene Glycol (Polyethylene Glycol 3350 17 Gm Powd.Pack) 17 gm PO DAILY PRN PRN Reason: constipation Risperidone (Risperidone 1 Mg Tablet) 1 mg PO BID RASHI Trazodone HCl (Trazodone Hcl 50 Mg Tablet) 150 mg PO BEDTIME [facility] Last Admin: 10/31/21 21:03 Dose: 150 mg Ziprasidone (Ziprasidone 80 Mg Capsule) 80 mg PO BID [facility] Last Admin: 11/01/21 08:41 Dose: 80 mg Allergies Allergies Allergy/AdvReac Type Severity Reaction Status Date / Time No Known Allergies Allergy Verified 10/23/21 14:48 Assessment & Plan Assessment & Plan (1) Schizoaffective disorder: Qualifiers: Schizoaffective disorder type: unspecified Qualified Code(s): F25.9 - Schizoaffective disorder, unspecified Status: Acute Code(s): F25.9 - Schizoaffective disorder, unspecified Plan Ms. Handley is a 26 years old woman with hx of schizoaffective disorder, living in housing manage by [facility]. Pt was initially assessed by [facility] crisis due to increase paranoia, not taking medications. [facility] Pt continue to decompensate, not sleeping, not eating nor taking medications. Pt presents as internally preoccupied, minimally verbal, guarded and paranoid. Utox is neg. PLAN 1. Admit to M3, Sect 12, 15 mins checks for safety 2. continue geodone, will add ativan for catatonic like behaviors- blank staring, psychomotor retardation. 3. Obtain collateral information- unable to reach Med provider through [facility] 4. Aftercare planning. 10/27 Sign CV, agreed to continue tx. 10/31- continue current medications. 11/01- switch from geodon to risperidone, will start risperidone 1mg po BID, continue geodone at current dose, may taper off as pt shows improvement. continue ativan. I spent __25____ minutes with the patient and/or on the patient floor today, greater than?50% of which was spent counseling/coordinating care. Reason for contiued inpatient stay Substantial Risk for: harm to others and inability to function
[2021-11-01 11:19] LABS: Appearance Urine HAZY; Color Urine YELLOW; Glucose Urine UA NEG (NEG); Leukocyte Esterase Urine TRACE (NEG); Nitrite Urine NEG (NEG); PH 6.5 (5.0-8.0); Specific Gravity - Urine 1.015 (1.005-1.025); Urine Blood NEG (NEG); Urine Ketones NEG (NEG); Urine Protein NEG (NEG-TRACE)
[2021-11-01 11:37] LABS: RBC Urine 0 /HPF (0); Squamous Epithelial Cell Urine 1+ /LPF
[2021-11-01] MEDS: risperiDONE 1 MG TABLET PO ×2 (12:51→22:18)
[2021-11-01] MEDS: hydrOXYzine HCL 25 MG TABLET PO ×2 (13:20→22:18)
[2021-11-01 22:12] VITALS: BP 104/54; PULSE 92; RESP 16; TEMP 36.4; O2SAT 97
[2021-11-01] MEDS: traZODone HCL 50 MG TABLET 150 MG PO (22:18)
[2021-11-02 08:45] VITALS: BP 107/57; PULSE 84; RESP 16; TEMP 36.7; O2SAT 97
[2021-11-02] MEDS: Ziprasidone 80 MG CAPSULE PO ×2 (08:47→23:32)
[2021-11-02] MEDS: risperiDONE 1 MG TABLET PO ×2 (08:47→23:32)
[2021-11-02] MEDS: LORazepam 1 MG TABLET PO ×3 (08:47→23:32)
[2021-11-02 10:55] VITALS: BMI 36.3
[2021-11-02 11:20] LABS: Alanine Aminotransferase 17 U/L (0-31); Albumin Level 3.8 g/dL (3.5-5.0); Alkaline Phosphatase 65 U/L (39-117); Anion Gap 12 (12-20); Aspartate Amino Transferase 15 U/L (5-31); Bilirubin Total 0.3 mg/dL (0.0-1.0); Blood Urea Nitrogen 9 mg/dL (9-16); Calcium 8.8 mg/dL (8.4-10.2); Carbon Dioxide 24 mmol/L (22-29); Chloride 105 mmol/L (96-108); Creatinine Clr Calc Pharmacy 124.3; Estimated Glomerular Filt Rate > 60; Glucose Random 115 mg/dL (60-115); Potassium 3.7 mmol/L (3.3-5.1); Sodium 137 mmol/L (135-145); Total Protein 6.3 g/dL (6.5-8.0)
--- NOTE | 2021-11-02 12:13 | P.PNPSI_ITS ---
Subjective Subjective Date of Service: 11/02/21 Reason For Visit: psychotic Subjective Notes: Conditional Voluntary Interim History: Pt continues to present as guarded, pt reports that she does think staff are talking about her and that she does not know who she can trust. She denies SI/HI. She reports she slept better last night. She continues to appear internal ly preoccupied. Mostly in her room, guarded. Medication Compliance: Yes Side effects from medications: No Attending Groups: No Review of Systems Review of Systems ROS unable to be obtained due to patient being uncooperative and paranoid Yes Unobtainable due to mental status Mental Status Exam Mental Status Exam Narrative: Appearance: casually groomed, fair hygiene, overweight Behavior:guarded and suspicious psychomotor:retardation noted Speech: mostly mute, single words, minimally spontaneous Thought process: distracted Thought content: paranoid Mood: okay Affect: guarded, suspicious, intense eye contact at times SI:unable to assess HI:unable to assess VH/AH: appears internally preoccupied Delusions:paranoid behaviors Insight/judgment:impaired x 2. Memory/cog: alert, unable to assess Diagnostics Vital Signs (24Hr): Vital Signs - 24 hr 11/01/21 22:12 11/02/21 08:45 Temperature 97.6 F 98.1 F Pulse Rate 92 84 Respiratory Rate 16 16 Blood Pressure 104/54 L 107/57 L Pulse Oximetry 97 97 Oxygen Delivery Method Room Air Room Air BMI result Body Mass Index 36.3 Labs Results: 10/23/21 15:29 11/02/21 10:48 Labs: Laboratory Results - last 48 hr 11/01/21 11/02/21 11:06 10:48 Sodium 137 Potassium 3.7 Chloride 105 Carbon Dioxide 24 Anion Gap 12 BUN 9 D Creatinine 0.82 Estim Creat Clear Calc 124.3 Estimated GFR > 60 Random Glucose 115 Calcium 8.8 D Total Bilirubin 0.3 AST 15 D ALT 17 Alkaline Phosphatase 65 Total Protein 6.3 L D Albumin 3.8 D Urine Color YELLOW Urine Appearance HAZY Urine pH 6.5 Ur Specific [place] 1.015 Urine Protein NEG Urine Glucose (UA) NEG Urine Ketones NEG Urine Blood NEG Urine Nitrite NEG Ur Leukocyte Esterase TRACE H Urine RBC 0 Urine WBC 1-4 Ur Squamous Epith Cells 1+ Urine Bacteria NONE Medications Medications Current Medications Acetaminophen (Acetaminophen 325 Mg Tablet) 650 mg PO Q6H PRN PRN Reason: Headache/Pain Mild Scale (1-3) Last Admin: 11/01/21 08:40 Dose: 650 mg Al Hydroxide/Mg Hydroxide (Magnesium Hydrox/Alum Hydrox 30 Ml Oral.Susp) 30 ml PO Q6H PRN PRN Reason: Heartburn/Nausea Bisacodyl (Bisacodyl 5 Mg Tablet.Dr) 5 mg PO DAILY PRN PRN Reason: Constipation Hydroxyzine HCl (Hydroxyzine Hcl 25 Mg Tablet) 25 mg PO Q6H PRN PRN Reason: Anxiety Last Admin: 11/01/21 22:18 Dose: 25 mg Lorazepam (Lorazepam 1 Mg Tablet) 1 mg PO TID [facility] Last Admin: 11/02/21 14:30 Dose: 1 mg Magnesium Hydroxide (Milk Of Magnesia 30 Ml Oral.Susp) 30 ml PO DAILY PRN PRN Reason: Constipation Last Admin: 10/28/21 09:35 Dose: 30 ml Polyethylene Glycol (Polyethylene Glycol 3350 17 Gm Powd.Pack) 17 gm PO DAILY PRN PRN Reason: constipation Risperidone (Risperidone 1 Mg Tablet) 1 mg PO BID [facility] Last Admin: 11/02/21 08:47 Dose: 1 mg Trazodone HCl (Trazodone Hcl 50 Mg Tablet) 150 mg PO BEDTIME [facility] Last Admin: 11/01/21 22:18 Dose: 150 mg Ziprasidone (Ziprasidone 80 Mg Capsule) 80 mg PO BID [facility] Last Admin: 11/02/21 08:47 Dose: 80 mg Allergies Allergies Allergy/AdvReac Type Severity Reaction Status Date / Time No Known Allergies Allergy Verified 10/23/21 14:48 Assessment & Plan Assessment & Plan (1) Schizoaffective disorder: Qualifiers: Schizoaffective disorder type: unspecified Qualified Code(s): F25.9 - Schizoaffective disorder, unspecified Status: Acute Code(s): F25.9 - Schizoaffective disorder, unspecified Plan Ms. Handley is a 26 years old woman with hx of schizoaffective disorder, living in housing manage by [facility]. Pt was initially assessed by [facility] crisis due to increase paranoia, not taking medications. She was sent to [facility] on 10/17. Pt continue to decompensate, not sleeping, not eating nor taking medications. Pt presents as internally preoccupied, minimally verbal, guarded and paranoid. Utox is neg. PLAN 1. Admit to M3, Sect 12, 15 mins checks for safety 2. continue geodone, will add ativan for catatonic like behaviors- blank staring, psychomotor retardation. 3. Obtain collateral information- unable to reach Med provider through [facility] 4. Aftercare planning. 10/27 Sign CV, agreed to continue tx. 10/31- continue current medications. 11/01- switch from geodon to risperidone, will start risperidone 1mg po BID, continue geodone at current dose, may taper off as pt shows improvement. continue ativan. 11/02 continue risperidone, will decrease geodone gradually, continue ativan, recheck some labs. I spent ___25___ minutes with the patient and/or on the patient floor today, greater than?50% of which was spent counseling/coordinating care. Reason for contiued inpatient stay Substantial Risk for: inability to function
[2021-11-02 23:28] VITALS: BP 116/59; PULSE 88; TEMP 36.7; O2SAT 96
[2021-11-02] MEDS: traZODone HCL 50 MG TABLET 150 MG PO (23:31)
[2021-11-02] MEDS: hydrOXYzine HCL 25 MG TABLET PO (23:32)
[2021-11-03 08:15] VITALS: BP 107/57; PULSE 86; RESP 15; TEMP 36.7; O2SAT 98
[2021-11-03] MEDS: Ziprasidone 80 MG CAPSULE PO (08:27)
[2021-11-03] MEDS: LORazepam 1 MG TABLET PO ×3 (08:27→21:36)
[2021-11-03] MEDS: risperiDONE 1 MG TABLET PO (08:27)
--- NOTE | 2021-11-03 12:00 | P.PNPSI_ITS ---
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 She reports hearing voices, not sure if she is safe here. She reports her mood changes from depressed, anxious. She is open to continue adjusting meds including increasing risperidone, adding lithium, going down on geodone. Per nursing, poor hygiene, mostly in bed, guarded/ paranoid. Medication Compliance: Yes Side effects from medications: No Attending Groups: No Review of Systems Review of Systems ROS unable to be obtained due to patient being uncooperative and paranoid Yes Unobtainable due to mental status Mental Status Exam Mental Status Exam Narrative: Appearance: casually groomed, fair hygiene, overweight Behavior:guarded and suspicious psychomotor:retardation noted Speech: mostly mute, single words, minimally spontaneous Thought process: distracted Thought content: paranoid Mood: okay Affect: guarded, suspicious, intense eye contact at times SI:unable to assess HI:unable to assess VH/AH: appears internally preoccupied Delusions:paranoid behaviors Insight/judgment:impaired x 2. Memory/cog: alert, unable to assess Diagnostics Vital Signs (24Hr): Vital Signs - 24 hr 11/02/21 23:28 11/03/21 08:15 Temperature 98.0 F 98.1 F Pulse Rate 88 86 Respiratory Rate 15 Blood Pressure 116/59 L 107/57 L Pulse Oximetry 96 98 Oxygen Delivery Method Room Air Room Air BMI result Body Mass Index 36.3 Labs Results: 10/23/21 15:29 11/02/21 10:48 Labs: Laboratory Results - last 48 hr 11/02/21 10:48 Sodium 137 Potassium 3.7 Chloride 105 Carbon Dioxide 24 Anion Gap 12 BUN 9 D Creatinine 0.82 Estim Creat Clear Calc 124.3 Estimated GFR > 60 Random Glucose 115 Calcium 8.8 D Total Bilirubin 0.3 AST 15 D ALT 17 Alkaline Phosphatase 65 Total Protein 6.3 L D Albumin 3.8 D Medications Medications Current Medications Acetaminophen (Acetaminophen 325 Mg Tablet) 650 mg PO Q6H PRN PRN Reason: Headache/Pain Mild Scale (1-3) Last Admin: 11/01/21 08:40 Dose: 650 mg Al Hydroxide/Mg Hydroxide (Magnesium Hydrox/Alum Hydrox 30 Ml Oral.Susp) 30 ml PO Q6H PRN PRN Reason: Heartburn/Nausea Bisacodyl (Bisacodyl 5 Mg Tablet.Dr) 5 mg PO DAILY PRN PRN Reason: Constipation Hydroxyzine HCl (Hydroxyzine Hcl 25 Mg Tablet) 25 mg PO Q6H PRN PRN Reason: Anxiety Last Admin: 11/02/21 23:32 Dose: 25 mg [place] Carbonate ([place] Carbonate 300 Mg Tablet) 150 mg PO BID [facility] Last Admin: 11/03/21 13:32 Dose: 150 mg Lorazepam (Lorazepam 1 Mg Tablet) 1 mg PO TID [facility] Last Admin: 11/03/21 14:39 Dose: 1 mg Magnesium Hydroxide (Milk Of Magnesia 30 Ml Oral.Susp) 30 ml PO DAILY PRN PRN Reason: Constipation Last Admin: 10/28/21 09:35 Dose: 30 ml Polyethylene Glycol (Polyethylene Glycol 3350 17 Gm Powd.Pack) 17 gm PO DAILY PRN PRN Reason: constipation Risperidone (Risperidone 2 Mg Tablet) 2 mg PO BEDTIME [facility] Risperidone (Risperidone 1 Mg Tablet) 1 mg PO DAILY [facility] Trazodone HCl (Trazodone Hcl 50 Mg Tablet) 150 mg PO BEDTIME [facility] Last Admin: 11/02/21 23:31 Dose: 150 mg Ziprasidone (Ziprasidone 40 Mg Capsule) 40 mg PO BID [facility] Stop: 11/05/21 09:01 Allergies Allergies Allergy/AdvReac Type Severity Reaction Status Date / Time No Known Allergies Allergy Verified 10/23/21 14:48 Assessment & Plan Assessment & Plan (1) Schizoaffective disorder: Qualifiers: Schizoaffective disorder type: unspecified Qualified Code(s): F25.9 - Schizoaffective disorder, unspecified Status: Acute Code(s): F25.9 - Schizoaffective disorder, unspecified Plan Ms. Handley is a 26 years old woman with hx of schizoaffective disorder, living in housing manage by [facility]. Pt was initially assessed by [facility] crisis due to increase paranoia, not taking medications. [facility] Pt continue to decompensate, not sleeping, not eating nor taking medications. Pt presents as internally preoccupied, minimally verbal, guarded and paranoid. Utox is neg. PLAN 1. Admit to M3, Sect 12, 15 mins checks for safety 2. continue geodone, will add ativan for catatonic like behaviors- blank staring, psychomotor retardation. 3. Obtain collateral information- unable to reach Med provider through [facility] 4. Aftercare planning. 10/27 Sign CV, agreed to continue tx. 10/31- continue current medications. 11/01- switch from geodon to risperidone, will start risperidone 1mg po BID, continue geodone at current dose, may taper off as pt shows improvement. continue ativan. 11/02 continue risperidone, will decrease geodone gradually, continue ativan, recheck some labs. 11/03 increase risperidone to 1mg po daily and 2mg po qhs, start lithium 150mg po BID, lower geodone to 40mg po BID. continue ativan 1mg po tid/ I spent minutes with the patient and/or on the patient floor today, greater than?50% of which was spent counseling/coordinating care. Reason for contiued inpatient stay Substantial Risk for: inability to function
[2021-11-03] MEDS: Lithium Carbonate 300 MG TABLET 150 MG PO ×2 (13:32→21:35)
[2021-11-03] MEDS: traZODone HCL 50 MG TABLET 150 MG PO (21:36)
[2021-11-03] MEDS: Ziprasidone 40 MG CAPSULE PO (21:37)
[2021-11-03] MEDS: hydrOXYzine HCL 25 MG TABLET PO (21:37)
[2021-11-03] MEDS: risperiDONE 2 MG TABLET PO (21:37)
[2021-11-03 21:45] VITALS: BP 122/71; PULSE 91; RESP 16; TEMP 36.6; O2SAT 97
[2021-11-04 08:46] VITALS: BP 104/52; PULSE 85; RESP 16; TEMP 36.9; O2SAT 94
[2021-11-04] MEDS: LORazepam 1 MG TABLET PO ×3 (08:48→21:26)
[2021-11-04] MEDS: risperiDONE 1 MG TABLET PO (08:48)
[2021-11-04] MEDS: Ziprasidone 40 MG CAPSULE PO ×2 (08:48→21:27)
[2021-11-04] MEDS: Lithium Carbonate 300 MG TABLET 150 MG PO ×2 (08:48→21:26)
[2021-11-04 20:30] VITALS: BP 109/75; PULSE 107; RESP 18; TEMP 36.7; O2SAT 96
[2021-11-04] MEDS: traZODone HCL 50 MG TABLET 150 MG PO (21:27)
[2021-11-04] MEDS: risperiDONE 2 MG TABLET PO (21:27)
--- NOTE | 2021-11-04 23:52 | P.PNPSI_ITS ---
Subjective Subjective Date of Service: 11/04/21 Reason For Visit: psychotic Subjective Notes: Hubbard Warning Interim History: Patient seen and discussed with team. Patient evaluated today and upon interview she says she is good. Says she slept all night. Discloses that sometimes she doesnt want to eat because she is trying to lose weight. Wants info on healthy eating, discussed this but will also place nutrition consult. Pt is in bed/ in her room all day, hospital attire, blank staring, latent response, internally preoccupied. Voices are a little bit, but says they are not saying anything. Feels a little bit sad, a little bit happy, a little bit depressed sometimes. Denies anxiety. Feels safe here. Denies SI/SIB. Denies SE on meds.? Medication Compliance: Yes Side effects from medications: No Attending Groups: No Review of Systems Acute medical concerns: No Medical Review of Systems: unchanged Mental Status Exam Mental Status Exam Narrative: Appearance: casually groomed, fair hygiene, overweight Behavior:guarded and suspicious psychomotor:retardation noted Speech: mostly mute, single words, minimally spontaneous Thought process: distracted Thought content: paranoid Mood: okay Affect: guarded, suspicious, intense eye contact at times SI:unable to assess HI:unable to assess VH/AH: appears internally preoccupied Delusions:paranoid behaviors Insight/judgment:impaired x 2. Memory/cog: alert, unable to assess Diagnostics Vital Signs (24Hr): Vital Signs - 24 hr 11/04/21 20:30 11/05/21 09:03 Temperature 98.1 F 98.0 F Pulse Rate 107 H 87 Respiratory Rate 18 16 Blood Pressure 109/75 114/69 Pulse Oximetry 96 97 Oxygen Delivery Method Room Air Room Air BMI result Body Mass Index 36.3 Labs Results: 10/23/21 15:29 11/02/21 10:48 Medications Medications Current Medications Acetaminophen (Acetaminophen 325 Mg Tablet) 650 mg PO Q6H PRN PRN Reason: Headache/Pain Mild Scale (1-3) Last Admin: 11/01/21 08:40 Dose: 650 mg Al Hydroxide/Mg Hydroxide (Magnesium Hydrox/Alum Hydrox 30 Ml Oral.Susp) 30 ml PO Q6H PRN PRN Reason: Heartburn/Nausea Bisacodyl (Bisacodyl 5 Mg Tablet.) 5 mg PO DAILY PRN PRN Reason: Constipation Hydroxyzine HCl (Hydroxyzine Hcl 25 Mg Tablet) 25 mg PO Q6H PRN PRN Reason: Anxiety Last Admin: 11/03/21 21:37 Dose: 25 mg [place] Carbonate ([place] Carbonate 300 Mg Tablet) 150 mg PO BID [facility] Last Admin: 11/05/21 09:06 Dose: 150 mg Lorazepam (Lorazepam 1 Mg Tablet) 1 mg PO TID [facility] Last Admin: 11/05/21 09:05 Dose: 1 mg Magnesium Hydroxide (Milk Of Magnesia 30 Ml Oral.Susp) 30 ml PO DAILY PRN PRN Reason: Constipation Last Admin: 10/28/21 09:35 Dose: 30 ml Polyethylene Glycol (Polyethylene Glycol 3350 17 Gm Powd.Pack) 17 gm PO DAILY PRN PRN Reason: constipation Risperidone (Risperidone 2 Mg Tablet) 2 mg PO BEDTIME [facility] Last Admin: 11/04/21 21:27 Dose: 2 mg Risperidone (Risperidone 1 Mg Tablet) 1 mg PO DAILY [facility] Last Admin: 11/05/21 09:05 Dose: 1 mg Trazodone HCl (Trazodone Hcl 50 Mg Tablet) 150 mg PO BEDTIME [facility] Last Admin: 11/04/21 21:27 Dose: 150 mg Allergies Allergies Allergy/AdvReac Type Severity Reaction Status Date / Time No Known Allergies Allergy Verified 10/23/21 14:48 Assessment & Plan Assessment & Plan (1) Schizoaffective disorder: Qualifiers: Schizoaffective disorder type: unspecified Qualified Code(s): F25.9 - Schizoaffective disorder, unspecified Status: Acute Code(s): F25.9 - Schizoaffective disorder, unspecified Plan Ms. Handley is a 26 years old woman with hx of schizoaffective disorder, living in housing manage by [facility]. Pt was initially assessed by [facility] crisis due to increase paranoia, not taking medications. She was [facility]. Pt continue to decompensate, not sleeping, not eating nor taking medications. Pt presents as internally preoccupied, minimally verbal, guarded and paranoid. Utox is neg. PLAN 1. Admit to M3, Sect 12, 15 mins checks for safety 2. continue geodone, will add ativan for catatonic like behaviors- blank staring, psychomotor retardation. 3. Obtain collateral information- unable to reach Med provider through [facility] 4. Aftercare planning. 10/27 Sign CV, agreed to continue tx. 10/31- continue current medications. 11/01- switch from geodon to risperidone, will start risperidone 1mg po BID, c ontinue geodone at current dose, may taper off as pt shows improvement. continue ativan. 11/02 continue risperidone, will decrease geodone gradually, continue ativan, recheck some labs. 11/03 increase risperidone to 1mg po daily and 2mg po qhs, start lithium 150mg po BID, lower geodone to 40mg po BID. continue ativan 1mg po tid/ 11/04 No med changes, discussed her intentional restriction of diet I spent minutes with the patient and/or on the patient floor today, great er than?50% of which was spent counseling/coordinating care. Patient educated on: medication risk/benefits Reason for contiued inpatient stay Substantial Risk for: inability to function, rapid decompensation and med/psych decompensation
[2021-11-05 09:03] VITALS: BP 114/69; PULSE 87; RESP 16; TEMP 36.7; O2SAT 97
[2021-11-05] MEDS: Ziprasidone 40 MG CAPSULE PO (09:05)
[2021-11-05] MEDS: LORazepam 1 MG TABLET PO ×3 (09:05→20:47)
[2021-11-05] MEDS: risperiDONE 1 MG TABLET PO (09:05)
[2021-11-05] MEDS: Lithium Carbonate 300 MG TABLET 150 MG PO ×2 (09:06→20:47)
--- NOTE | 2021-11-05 11:52 | P.PNPSI_ITS ---
Subjective Subjective Date of Service: 11/05/21 Reason For Visit: psychotic Subjective Notes: Hubbard Warning Interim History: Patient seen and discussed with team. Patient evaluated today and upon interview pt says she is good, continues with latent response, blank staring, in hospital attire. Denies AH. Mood is a little cranky, doesnt know why. Sleep is good, slept all night. No questions, no concerns. Still not eating, restricting, still worried about her weight. Says she doesnt know what to choose for healthy option despite discussing this with her. Denies SI/SIB/HI. Denies anxiety. Pt is isolative to her room. Medication Compliance: Yes Side effects from medications: No Attending Groups: No Review of Systems Acute medical concerns: No Medical Review of Systems: unchanged Mental Status Exam Mental Status Exam Narrative: Appearance: casually groomed, fair hygiene, overweight Behavior:guarded and suspicious psychomotor:retardation noted Speech: mostly mute, single words, minimally spontaneous Thought process: distracted Thought content: paranoid Mood: okay Affect: guarded, suspicious, intense eye contact at times SI:unable to assess HI:unable to assess VH/AH: appears internally preoccupied Delusions:paranoid behaviors Insight/judgment:impaired x 2. Memory/cog: alert, unable to assess Diagnostics Vital Signs (24Hr): Vital Signs - 24 hr 11/04/21 20:30 11/05/21 09:03 Temperature 98.1 F 98.0 F Pulse Rate 107 H 87 Respiratory Rate 18 16 Blood Pressure 109/75 114/69 Pulse Oximetry 96 97 Oxygen Delivery Method Room Air Room Air BMI result Body Mass Index 36.3 Labs Results: 10/23/21 15:29 11/02/21 10:48 Medications Medications Current Medications Acetaminophen (Acetaminophen 325 Mg Tablet) 650 mg PO Q6H PRN PRN Reason: Headache/Pain Mild Scale (1-3) Last Admin: 11/01/21 08:40 Dose: 650 mg Al Hydroxide/Mg Hydroxide (Magnesium Hydrox/Alum Hydrox 30 Ml Oral.Susp) 30 ml PO Q6H PRN PRN Reason: Heartburn/Nausea Bisacodyl (Bisacodyl 5 Mg Tablet.Dr) 5 mg PO DAILY PRN PRN Reason: Constipation Hydroxyzine HCl (Hydroxyzine Hcl 25 Mg Tablet) 25 mg PO Q6H PRN PRN Reason: Anxiety Last Admin: 11/03/21 21:37 Dose: 25 mg [place] Carbonate ([place] Carbonate 300 Mg Tablet) 150 mg PO BID [facility] Last Admin: 11/05/21 09:06 Dose: 150 mg Lorazepam (Lorazepam 1 Mg Tablet) 1 mg PO TID [facility] Last Admin: 11/05/21 09:05 Dose: 1 mg Magnesium Hydroxide (Milk Of Magnesia 30 Ml Oral.Susp) 30 ml PO DAILY PRN PRN Reason: Constipation Last Admin: 10/28/21 09:35 Dose: 30 ml Polyethylene Glycol (Polyethylene Glycol 3350 17 Gm Powd.Pack) 17 gm PO DAILY PRN PRN Reason: constipation Risperidone (Risperidone 2 Mg Tablet) 2 mg PO BEDTIME [facility] Last Admin: 11/04/21 21:27 Dose: 2 mg Risperidone (Risperidone 1 Mg Tablet) 1 mg PO DAILY [facility] Last Admin: 11/05/21 09:05 Dose: 1 mg Trazodone HCl (Trazodone Hcl 50 Mg Tablet) 150 mg PO BEDTIME [facility] Last Admin: 11/04/21 21:27 Dose: 150 mg Allergies Allergies Allergy/AdvReac Type Severity Reaction Status Date / Time No Known Allergies Allergy Verified 10/23/21 14:48 Assessment & Plan Assessment & Plan (1) Schizoaffective disorder: Qualifiers: Schizoaffective disorder type: unspecified Qualified Code(s): F25.9 - Schizoaffective disorder, unspecified Status: Acute Code(s): F25.9 - Schizoaffective disorder, unspecified Plan Ms. Handley is a 26 years old woman with hx of schizoaffective disorder, living in housing manage by [facility]. Pt was initially assessed by [facility] due to i ncrease paranoia, not taking medications. She was [facility] Pt continue to decompensate, not sleeping, not eating nor taking medications. Pt presents as internally preoccupied, minimally verbal, guarded and paranoid. Utox is neg. PLAN 1. Admit to M3, Sect 12, 15 mins checks for safety 2. continue geodone, will add ativan for catatonic like behaviors- blank staring, psychomotor retardation. 3. Obtain collateral information- unable to reach Med provider through [facility] 4. Aftercare planning. 10/27 Sign CV, agreed to continue tx. 10/31- continue current medications. 11/01- switch from geodon to risperidone, will start risperidone 1mg po BID, continue geodone at current dose, may taper off as pt shows improvement. continue ativan. 11/02 continue risperidone, will decrease geodone gradually, continue ativan, recheck some labs. 11/03 increase risperidone to 1mg po daily and 2mg po qhs, start lithium 150mg po BID, lower geodone to 40mg po BID. continue ativan 1mg po tid/ 11/04 No med changes, discussed her intentional restriction of diet 11/05 No med changes, continue risperdal and lithium, no clear response yet I spent minutes with the patient and/or on the patient floor today, greater than?50% of which was spent counseling/coordinating care. Patient educated on: medication risk/benefits Reason for contiued inpatient stay Substantial Risk for: inability to function, rapid decompensation and med/psych decompensation
[2021-11-05 20:26] VITALS: BP 115/76; PULSE 100; RESP 16; TEMP 36.7; O2SAT 97
[2021-11-05] MEDS: traZODone HCL 50 MG TABLET 150 MG PO (20:47)
[2021-11-05] MEDS: risperiDONE 2 MG TABLET PO (20:47)
[2021-11-05] MEDS: Milk of Magnesia 30 ML ORAL.SUSP PO (20:48)
[2021-11-06] MEDS: hydrOXYzine HCL 25 MG TABLET PO (02:05)
[2021-11-06 08:00] VITALS: BP 101/58; PULSE 91; RESP 16; TEMP 36.8; O2SAT 98
[2021-11-06] MEDS: LORazepam 1 MG TABLET PO ×2 (09:05→15:07)
[2021-11-06] MEDS: Lithium Carbonate 300 MG TABLET 150 MG PO (09:05)
[2021-11-06] MEDS: risperiDONE 1 MG TABLET PO (09:06)
--- NOTE | 2021-11-06 21:43 | HO.PSYCHPN ---
Subjective Subjective Date of Service: 11/06/21 Reason For Visit: psychotic Subjective Notes: Hubbard Warning Interim History: Patient seen and discussed with team. Patient evaluated today and upon interview she reports she has been restricting, only ate one meal today. She is found standing by her door. Says she hears the voices a little bit, they are negative thoughts, and the voices sometimes command her to harm herself. Denies that voices are bothering her and says she can ignore them. Denies SI or urges to self harm. Mood is better. Says she sleeps. Denies depression. Denies constipation or GI distress. Pt continues to endorse paranoid ideations, still feels like police are after her. Disorganized, thought blocked. In the milieu, patient is isolative and withdrawn, in hospital attire. Medication Compliance: Yes Side effects from medications: No Attending Groups: No Review of Systems Acute medical concerns: No Medical Review of Systems: unchanged Mental Status Exam Mental Status Exam Narrative: Appearance: casually groomed, fair hygiene, overweight Behavior:guarded and suspicious psychomotor:retardation noted Speech: mostly mute, single words, minimally spontaneous Thought process: distracted Thought content: paranoid Mood: better Affect: guarded, suspicious, intense eye contact at times SI:unable to assess HI:unable to assess VH/AH: appears internally preoccupied Delusions:paranoid behaviors Insight/judgment:impaired x 2. Memory/cog: alert, unable to assess Diagnostics Vital Signs (24Hr): BMI result Body Mass Index 36.3 Labs Results: 10/23/21 15:29 11/02/21 10:48 Medications Medications Current Medications Acetaminophen (Acetaminophen 325 Mg Tablet) 650 mg PO Q6H PRN PRN Reason: Headache/Pain Mild Scale (1-3) Last Admin: 11/01/21 08:40 Dose: 650 mg Al Hydroxide/Mg Hydroxide (Magnesium Hydrox/Alum Hydrox 30 Ml Oral.Susp) 30 ml PO Q6H PRN PRN Reason: Heartburn/Nausea Bisacodyl (Bisacodyl 5 Mg Tablet.Dr) 5 mg PO DAILY PRN PRN Reason: Constipation Hydroxyzine HCl (Hydroxyzine Hcl 25 Mg Tablet) 25 mg PO Q6H PRN PRN Reason: Anxiety Last Admin: 11/07/21 00:23 Dose: 25 mg [place] Carbonate ([place] Carbonate 300 Mg Tablet) 150 mg PO BID RASHI Last Admin: 11/07/21 09:11 Dose: Not Given Lorazepam (Lorazepam 1 Mg Tablet) 1 mg PO TID [facility] Last Admin: 11/07/21 09:11 Dose: Not Given Magnesium Hydroxide (Milk Of Magnesia 30 Ml Oral.Susp) 30 ml PO DAILY PRN PRN Reason: Constipation Last Admin: 11/05/21 20:48 Dose: 30 ml Polyethylene Glycol (Polyethylene Glycol 3350 17 Gm Powd.Pack) 17 gm PO DAILY PRN PRN Reason: constipation Risperidone (Risperidone 2 Mg Tablet) 2 mg PO BEDTIME [facility] Last Admin: 11/07/21 00:23 Dose: 2 mg Risperidone (Risperidone 1 Mg Tablet) 1 mg PO DAILY [facility] Last Admin: 11/07/21 09:12 Dose: Not Given Trazodone HCl (Trazodone Hcl 50 Mg Tablet) 150 mg PO BEDTIME [facility] Last Admin: 11/07/21 00:23 Dose: 150 mg Allergies Allergies Allergy/AdvReac Type Severity Reaction Status Date / Time No Known Allergies Allergy Verified 10/23/21 14:48 Assessment & Plan Assessment & Plan (1) Schizoaffective disorder: Qualifiers: Schizoaffective disorder type: unspecified Qualified Code(s): F25.9 - Schizoaffective disorder, unspecified Status: Acute Code(s): F25.9 - Schizoaffective disorder, unspecified Plan Ms. Handley is a 26 years old woman with hx of schizoaffective disorder, living in housing manage by [facility]. Pt was initially assessed by [facility] crisis due to increase paranoia, not taking medications. She was sent to [facility] on 10/17. Pt continue to decompensate, not sleeping, not eating nor taking medications. Pt presents as internally preoccupied, minimally verbal, guarded and paranoid. Utox is neg. PLAN 1. Admit to M3, Sect 12, 15 mins checks for safety 2. continue geodone, will add ativan for catatonic like behaviors- blank staring, psychomotor retardation. 3. Obtain collateral information- unable to reach Med provider through [facility] 4. Aftercare planning. 10/27 Sign CV, agreed to continue tx. 10/31- continue current medications. 11/01- switch from geodon to risperidone, will start risperidone 1mg po BID, continue geodone at current dose, may taper off as pt shows improvement. continue ativan. 11/02 continue risperidone, will decrease geodone gradually, continue ativan, recheck some labs. 11/03 increase risperidone to 1mg po daily and 2mg po qhs, start lithium 150mg po BID, lower geodone to 40mg po BID. continue ativan 1mg po tid/ 11/04 No med changes, discussed her intentional restriction of diet 11/05 No med changes, continue risperdal and lithium, no clear response yet 11/06 No med changes, nutrition consult placed due to pt restricting I spent minutes with the patient and/or on the patient floor today, greater than?50% of which was spent counseling/coordinating care. Patient educated on: medication risk/benefits Reason for contiued inpatient stay Substantial Risk for: harm to self, inability to function, rapid decompensation and med/psych decompensation
[2021-11-07] MEDS: LORazepam 1 MG TABLET PO (00:23)
[2021-11-07] MEDS: Lithium Carbonate 300 MG TABLET 150 MG PO ×2 (00:23→21:44)
[2021-11-07] MEDS: risperiDONE 2 MG TABLET PO ×2 (00:23→21:45)
[2021-11-07] MEDS: traZODone HCL 50 MG TABLET 150 MG PO ×2 (00:23→21:45)
[2021-11-07] MEDS: hydrOXYzine HCL 25 MG TABLET PO (00:23)
[2021-11-07 09:00] VITALS: BP 119/81; PULSE 111; RESP 18; TEMP 36.7; O2SAT 96
--- NOTE | 2021-11-07 10:34 | P.PNPSI_ITS ---
Subjective Subjective Date of Service: 11/07/21 Reason For Visit: psychotic Subjective Notes: Conditional Voluntary Interim History: Patient seen and discussed with team. Per nursing, pt increasingly less talkative, staring, refusing medications this morning. More suspicious in last 2 days. Pt seen standing in front of door inside of her room. Pt staring, delayed response rate, reports those are not my medications when asked why she declined her meds this morning. Pt reminded that she had agreed to take those medications, I don't feel safe. Pt continue to stare at door and this television writer. Medication Compliance: Intermittent Review of Systems Review of Systems ROS unable to be obtained due to patient being uncooperative and paranoid Yes Unobtainable due to mental status Mental Status Exam Mental Status Exam Narrative: Appearance: casually groomed, fair hygiene, overweight Behavior:guarded and suspicious psychomotor:retardation noted Speech: mostly mute, single words, minimally spontaneous Thought process: distracted, single words, short brief sentences appears thought blocking Thought content: paranoid Mood: okay Affect: guarded, suspicious, intense eye contact at times SI:unable to assess HI:unable to assess VH/AH: appears internally preoccupied Delusions:paranoid behaviors Insight/judgment:impaired x 2. Memory/cog: alert, unable to assess Diagnostics Vital Signs (24Hr): Vital Signs - 24 hr 11/07/21 09:00 Temperature 98.0 F Pulse Rate 111 H Respiratory Rate 18 Blood Pressure 119/81 Pulse Oximetry 96 Oxygen Delivery Method Room Air BMI result Body Mass Index 36.3 Labs Results: 10/23/21 15:29 11/02/21 10:48 Medications Medications Current Medications Acetaminophen (Acetaminophen 325 Mg Tablet) 650 mg PO Q6H PRN PRN Reason: Headache/Pain Mild Scale (1-3) Last Admin: 11/01/21 08:40 Dose: 650 mg Al Hydroxide/Mg Hydroxide (Magnesium Hydrox/Alum Hydrox 30 Ml Oral.Susp) 30 ml PO Q6H PRN PRN Reason: Heartburn/Nausea Bisacodyl (Bisacodyl 5 Mg Tablet.Dr) 5 mg PO DAILY PRN PRN Reason: Constipation Hydroxyzine HCl (Hydroxyzine Hcl 25 Mg Tablet) 25 mg PO Q6H PRN PRN Reason: Anxiety Last Admin: 11/07/21 00:23 Dose: 25 mg [place] Carbonate ([place] Carbonate 300 Mg Tablet) 150 mg PO BID [facility] Last Admin: 11/07/21 09:11 Dose: Not Given Lorazepam (Lorazepam 1 Mg Tablet) 2 mg PO TID [facility] Magnesium Hydroxide (Milk Of Magnesia 30 Ml Oral.Susp) 30 ml PO DAILY PRN PRN Reason: Constipation Last Admin: 11/05/21 20:48 Dose: 30 ml Polyethylene Glycol (Polyethylene Glycol 3350 17 Gm Powd.Pack) 17 gm PO DAILY PRN PRN Reason: constipation Risperidone (Risperidone 2 Mg Tablet) 2 mg PO BEDTIME [facility] Last Admin: 11/07/21 00:23 Dose: 2 mg Risperidone (Risperidone 1 Mg Tablet) 1 mg PO DAILY [facility] Last Admin: 11/07/21 09:12 Dose: Not Given Trazodone HCl (Trazodone Hcl 50 Mg Tablet) 150 mg PO BEDTIME [facility] Last Admin: 11/07/21 00:23 Dose: 150 mg Allergies Allergies Allergy/AdvReac Type Severity Reaction Status Date / Time No Known Allergies Allergy Verified 10/23/21 14:48 Assessment & Plan Assessment & Plan (1) Schizoaffective disorder: Qualifiers: Schizoaffective disorder type: unspecified Qualified Code(s): F25.9 - Schizoaffective disorder, unspecified Status: Acute Code(s): F25.9 - Schizoaffective disorder, unspecified Plan Ms. Handley is a 26 years old woman with hx of schizoaffective disorder, living in housing manage by [facility]. Pt was initially assessed by [facility] crisis due to increase paranoia, not taking medications. She was sent [facility]. Pt continue to decompensate, not sleeping, not eating nor taking medications. Pt presents as internally preoccupied, minimally verbal, guarded and paranoid. Utox is neg. PLAN 1. Admit to M3, Sect 12, 15 mins checks for safety 2. continue geodone, will add ativan for catatonic like behaviors- blank staring, psychomotor retardation. 3. Obtain collateral information- unable to reach Med provider through [facility] 4. Aftercare planning. 10/27 Sign CV, agreed to continue tx. 10/31- continue current medications. 11/01- switch from geodon to risperidone, will start risperidone 1mg po BID, continue geodone at current dose, may taper off as pt shows improvement. continue ativan. 11/02 continue risperidone, will decrease geodone gradually, continue ativan, recheck some labs. 11/03 increase risperidone to 1mg po daily and 2mg po qhs, start lithium 150mg po BID, lower geodone to 40mg po BID. continue ativan 1mg po tid/ 11/04 No med changes, discussed her intentional restriction of diet 11/05 No med changes, continue risperdal and lithium, no clear response yet 11/07 increase ativan to 2mg po TID, will continue risperidone for now but may change. I spent minutes with the patient and/or on the patient floor today, greater than?50% of which was spent counseling/coordinating care. Reason for contiued inpatient stay Substantial Risk for: inability to function
--- NOTE | 2021-11-07 14:11 | MHC.CLN ---
RE: CONSULT HT 5'6 WT 102KG BMI 35.5 PT IS 173% IBW INDICATES OBESE FOR HT LABS 11/02 UNREMARKABLE ESTIMATED NUTRITION NEEDS: 1674KCALS, 73G PROTEIN, 2190CC FLUID DIET RX: REGULAR-APPROPRIATE NOTED PT REPORTED TO MD WORRIED ABOUT HER WEIGHT AND SHE WANTS TO LOSE WEIGHT MD REPORTS PT IS NOT EATING AND NSG REPORTED REFUSING MEALS TODAY. PT REQUESTING EDUCATION ON HEALTHY EATING CHOICES. MET WITH PT IN [facility] ON M3-REVIEWED HEALTHY EATING HANDOUT AND REVIEWED [facility]'S MENU AND ORDERING OPTIONS WITH PT. PT WAS MINIMALLY VERBAL BUT AGREED TO TAKE HANDOUTS. [facility] TO FOLLOW UP WITH MENU CHOICES AND PROVIDE ASSISTANCE
[2021-11-07] MEDS: LORazepam 1 MG TABLET 2 MG PO ×2 (17:45→21:44)
[2021-11-07 21:40] VITALS: BP 122/71; PULSE 122; RESP 18; TEMP 37; O2SAT 98
[2021-11-07] MEDS: Acetaminophen 325 MG TABLET 650 MG PO (23:54)
--- NOTE | 2021-11-08 02:12 | PC.NURSE ---
Patient is showing bilateral hand tremors.
[2021-11-08] MEDS: risperiDONE 1 MG TABLET PO (08:51)
[2021-11-08] MEDS: LORazepam 1 MG TABLET 2 MG PO ×3 (08:52→21:11)
[2021-11-08] MEDS: Lithium Carbonate 300 MG TABLET 150 MG PO ×2 (08:52→21:10)
[2021-11-08 09:03] VITALS: BP 120/71; PULSE 106; RESP 17; TEMP 36.7; O2SAT 97
[2021-11-08] MEDS: Acetaminophen 325 MG TABLET 650 MG PO (10:18)
--- NOTE | 2021-11-08 17:59 | HO.PSYCHPN ---
Subjective Subjective Date of Service: 11/08/21 Reason For Visit: psychotic Interim History: calm, cooperative, amenable to come to interview room. able to answer questions cogently. feels things are going so-so, and describes her mood as happy and sad. she denies SI/HI/AVH. she spontaneously adds she is a little bit stressed out. per staff, isolative. had no food yesterday, minimal PO fluids eves. catatonic behaviors. B/L tremors. showered and ate this morning, with support. Mental Status Exam Mental Status Exam Narrative: Appearance: casually groomed, fair hygiene, overweight Behavior: less guarded and suspicious psychomotor: mild retardation noted Speech: minimally spontaneous, soft, slight delay Thought process: distracted, short brief sentences. Thought content: no paranoia or delusions expressed Mood: happy and sad, a little bit stressed out. Affect: blunted, hypo-intense SI:unable to assess HI:unable to assess VH/AH: appears internally preoccupied Insight/judgment:impaired x 2. Memory/cog: alert, unable to assess Diagnostics Vital Signs (24Hr): Vital Signs - 24 hr 11/07/21 21:40 11/08/21 09:03 Temperature 98.6 F 98.1 F Pulse Rate 122 H 106 H Respiratory Rate 18 17 Blood Pressure 122/71 120/71 Pulse Oximetry 98 97 Oxygen Delivery Method Room Air Room Air BMI result Body Mass Index 36.3 Labs Results: 10/23/21 15:29 11/02/21 10:48 Medications Medications Current Medications Acetaminophen (Acetaminophen 325 Mg Tablet) 650 mg PO Q6H PRN PRN Reason: Headache/Pain Mild Scale (1-3) Last Admin: 11/08/21 10:18 Dose: 650 mg Al Hydroxide/Mg Hydroxide (Magnesium Hydrox/Alum Hydrox 30 Ml Oral.Susp) 30 ml PO Q6H PRN PRN Reason: Heartburn/Nausea Bisacodyl (Bisacodyl 5 Mg Tablet.Dr) 5 mg PO DAILY PRN PRN Reason: Constipation Hydroxyzine HCl (Hydroxyzine Hcl 25 Mg Tablet) 25 mg PO Q6H PRN PRN Reason: Anxiety Last Admin: 11/07/21 00:23 Dose: 25 mg [place] Carbonate ([place] Carbonate 300 Mg Tablet) 150 mg PO BID RASHI Last Admin: 11/08/21 08:52 Dose: 150 mg Lorazepam (Lorazepam 1 Mg Tablet) 2 mg PO TID [facility] Last Admin: 11/08/21 15:27 Dose: 2 mg Magnesium Hydroxide (Milk Of Magnesia 30 Ml Oral.Susp) 30 ml PO DAILY PRN PRN Reason: Constipation Last Admin: 11/05/21 20:48 Dose: 30 ml Polyethylene Glycol (Polyethylene Glycol 3350 17 Gm Powd.Pack) 17 gm PO DAILY PRN PRN Reason: constipation Risperidone (Risperidone 2 Mg Tablet) 2 mg PO BEDTIME RASHI Last Admin: 11/07/21 21:45 Dose: 2 mg Risperidone (Risperidone 1 Mg Tablet) 1 mg PO DAILY [facility] Last Admin: 11/08/21 08:51 Dose: 1 mg Trazodone HCl (Trazodone Hcl 50 Mg Tablet) 150 mg PO BEDTIME [facility]ASHI Last Admin: 11/07/21 21:45 Dose: 150 mg Allergies Allergies Allergy/AdvReac Type Severity Reaction Status Date / Time No Known Allergies Allergy Verified 10/23/21 14:48 Assessment & Plan Assessment & Plan (1) Schizoaffective disorder: Qualifiers: Schizoaffective disorder type: unspecified Qualified Code(s): F25.9 - Schizoaffective disorder, unspecified Status: Acute Code(s): F25.9 - Schizoaffective disorder, unspecified Plan Ms. Handley is a 26 years old woman with hx of schizoaffective disorder, living in housing manage by [facility]. Pt was initially assessed by [facility] crisis due to increase paranoia, not taking medications. She was sent to [facility]. Pt continue to decompensate, not sleeping, not eating nor taking medications. Pt presents as internally preoccupied, minimally verbal, guarded and paranoid. Utox is neg. PLAN 1. Admit to M3, Sect 12, 15 mins checks for safety 2. continue geodone, will add ativan for catatonic like behaviors- blank staring, psychomotor retardation. 3. Obtain collateral information- unable to reach Med provider through [facility] 4. Aftercare planning. 10/27 Sign CV, agreed to continue tx. 10/31- continue current medications. 11/01- switch from geodon to risperidone, will start risperidone 1mg po BID, continue geodone at current dose, may taper off as pt shows improvement. continue ativan. 6/30 continue risperidone, will decrease geodone gradually, continue ativan, recheck some labs. 11/03 increase risperidone to 1mg po daily and 2mg po qhs, start lithium 150mg po BID, lower geodone to 40mg po BID. continue ativan 1mg po tid/ 11/04 No med changes, discussed her intentional restriction of diet 11/05 No med changes, continue risperdal and lithium, no clear response yet 11/06 No med changes, nutrition consult placed due to pt restricting 11/08: no changes I spent ___20___ minutes with the patient and/or on the patient floor today, greater than?50% of which was spent counseling/coordinating care. Reason for contiued inpatient stay Substantial Risk for: inability to function and rapid decompensation
[2021-11-08 21:00] VITALS: BP 117/81; PULSE 113; RESP 16; TEMP 36.6; O2SAT 100
[2021-11-08] MEDS: risperiDONE 2 MG TABLET PO (21:11)
[2021-11-08] MEDS: traZODone HCL 50 MG TABLET 150 MG PO (21:11)
[2021-11-09] MEDS: LORazepam 1 MG TABLET 2 MG PO ×3 (08:37→20:16)
[2021-11-09] MEDS: risperiDONE 1 MG TABLET PO (08:37)
[2021-11-09] MEDS: Lithium Carbonate 300 MG TABLET 150 MG PO (08:37)
[2021-11-09 08:42] VITALS: BP 109/75; PULSE 122; RESP 17; TEMP 36.8; O2SAT 98; BMI 36.1
--- NOTE | 2021-11-09 12:05 | P.PNPSI_ITS ---
Subjective Subjective Date of Service: 11/09/21 Reason For Visit: psychotic Subjective Notes: Conditional Voluntary Interim History: Pt more visible, but fluctuating mood, at times crying incontrollably to suspicious and paranoid. Pt reports she slept well. She thinks she had fever last night. VS wnl, afebrile. Pt continues to report that she can't return to her apartment because of what happened- which pt does not want to talk about. Pt at times expressing fearful of being on the unit and not knowing who she can trust. Taking medications as prescribed, more talkative with increase ativan dose. Medication Compliance: Yes Review of Systems Review of Systems ROS unable to be obtained due to patient being uncooperative and paranoid Yes Unobtainable due to mental status Mental Status Exam Mental Status Exam Narrative: Appearance: casually groomed, fair hygiene, overweight Behavior: less guarded and suspicious psychomotor: mild retardation noted Speech: minimally spontaneous, soft, slight delay Thought process: distracted, short brief sentences. Thought content: afraid of going to her apartment, fear that she is not safe there or here Mood: happy and sad, a little bit stressed out. Affect: blunted, hypo-intense SI:unable to assess HI:unable to assess VH/AH: appears internally preoccupied Insight/judgment:impaired x 2. Memory/cog: alert, unable to assess Diagnostics Vital Signs (24Hr): Vital Signs - 24 hr 11/08/21 21:00 11/09/21 08:42 Temperature 97.9 F 98.2 F Pulse Rate 113 H 122 H Respiratory Rate 16 17 Blood Pressure 117/81 109/75 Pulse Oximetry 100 98 Oxygen Delivery Method Room Air Room Air BMI result Body Mass Index 36.1 Labs Results: 10/23/21 15:29 11/02/21 10:48 Medications Medications Current Medications Acetaminophen (Acetaminophen 325 Mg Tablet) 650 mg PO Q6H PRN PRN Reason: Headache/Pain Mild Scale (1-3) Last Admin: 11/08/21 10:18 Dose: 650 mg Al Hydroxide/Mg Hydroxide (Magnesium Hydrox/Alum Hydrox 30 Ml Oral.Susp) 30 ml PO Q6H PRN PRN Reason: Heartburn/Nausea Bisacodyl (Bisacodyl 5 Mg Tablet.) 5 mg PO DAILY PRN PRN Reason: Constipation Hydroxyzine HCl (Hydroxyzine Hcl 25 Mg Tablet) 25 mg PO Q6H PRN PRN Reason: Anxiety Last Admin: 11/07/21 00:23 Dose: 25 mg [place] Carbonate ([place] Carbonate 300 Mg Tablet) 300 mg PO BID RASHI Lorazepam (Lorazepam 1 Mg Tablet) 2 mg PO TID RASHI Last Admin: 11/09/21 08:37 Dose: 2 mg Magnesium Hydroxide (Milk Of Magnesia 30 Ml Oral.Susp) 30 ml PO DAILY PRN PRN Reason: Constipation Last Admin: 11/05/21 20:48 Dose: 30 ml Polyethylene Glycol (Polyethylene Glycol 3350 17 Gm Powd.Pack) 17 gm PO DAILY PRN PRN Reason: constipation Risperidone (Risperidone 2 Mg Tablet) 2 mg PO BEDTIME RASHI Last Admin: 11/08/21 21:11 Dose: 2 mg Risperidone (Risperidone 1 Mg Tablet) 1 mg PO DAILY RASHI Last Admin: 11/09/21 08:37 Dose: 1 mg Trazodone HCl (Trazodone Hcl 50 Mg Tablet) 150 mg PO BEDTIME RASHI Last Admin: 11/08/21 21:11 Dose: 150 mg Allergies Allergies Allergy/AdvReac Type Severity Reaction Status Date / Time No Known Allergies Allergy Verified 10/23/21 14:48 Assessment & Plan Assessment & Plan (1) Schizoaffective disorder: Qualifiers: Schizoaffective disorder type: unspecified Qualified Code(s): F25.9 - Schizoaffective disorder, unspecified Status: Acute Code(s): F25.9 - Schizoaffective disorder, unspecified Plan Ms. Handley is a 26 years old woman with hx of schizoaffective disorder, living in housing manage by [facility]. Pt was initially assessed by [facility] crisis due to increase paranoia, not taking medications. She was [facility]. Pt continue to decompensate, not sleeping, not eating nor taking medications. Pt presents as internally preoccupied, minimally verbal, guarded and paranoid. Utox is neg. PLAN 1. Admit to M3, Sect 12, 15 mins checks for safety 2. continue geodone, will add ativan for catatonic like behaviors- blank staring, psychomotor retardation. 3. Obtain collateral information- unable to reach Med provider through [facility] 4. Aftercare planning. 10/27 Sign CV, agreed to continue tx. 10/31- continue current medications. 11/01- switch from geodon to risperidone, will start risperidone 1mg po BID, continue geodone at current dose, may taper off as pt shows improvement. continue ativan. 11/02 continue risperidone, will decrease geodone gradually, continue ativan, recheck some labs. 11/03 increase risperidone to 1mg po daily and 2mg po qhs, start lithium 150mg po BID, lower geodone to 40mg po BID. continue ativan 1mg po tid/ 11/04 No med changes, discussed her intentional restriction of diet 11/05 No med changes, continue risperdal and lithium, no clear response yet 11/06 No med changes, nutrition consult placed due to pt restricting 11/08: no changes 11/09- increase lithium to 300mg po BID, continue risperidone and ativan. check lithium level, cmp, tsh. I spent minutes with the patient and/or on the patient floor today, greater than?50% of which was spent counseling/coordinating care. Reason for contiued inpatient stay Substantial Risk for: inability to function
[2021-11-09] MEDS: traZODone HCL 50 MG TABLET 150 MG PO (20:15)
[2021-11-09] MEDS: Lithium Carbonate 300 MG TABLET PO (20:16)
[2021-11-09] MEDS: risperiDONE 2 MG TABLET PO (20:16)
[2021-11-09 20:20] VITALS: BP 116/78; PULSE 98; TEMP 36.7; O2SAT 98
[2021-11-10 09:20] LABS: Lithium 0.28 mmol/L (0.60-1.20)
[2021-11-10 09:40] LABS: Alanine Aminotransferase 17 U/L (0-31); Albumin Level 4.1 g/dL (3.5-5.0); Alkaline Phosphatase 69 U/L (39-117); Anion Gap 11 (12-20); Aspartate Amino Transferase 21 U/L (5-31); Bilirubin Total < 0.2 mg/dL (0.0-1.0); Blood Urea Nitrogen 16 mg/dL (9-16); Calcium 9.2 mg/dL (8.4-10.2); Carbon Dioxide 28 mmol/L (22-29); Chloride 106 mmol/L (96-108); Creatinine Clr Calc Pharmacy 133.7; Estimated Glomerular Filt Rate > 60; Glucose Random 89 mg/dL (60-115); Potassium 4.3 mmol/L (3.3-5.1); Sodium 141 mmol/L (135-145); Total Protein 6.8 g/dL (6.5-8.0)
[2021-11-10 09:45] VITALS: BP 119/74; PULSE 112; RESP 18; TEMP 36.6; O2SAT 99
[2021-11-10 09:47] LABS: TSH reflex Free T4 1.08 uIU/mL (0.32-4.0)
[2021-11-10] MEDS: Acetaminophen 325 MG TABLET 650 MG PO (10:49)
[2021-11-10] MEDS: LORazepam 1 MG TABLET 2 MG PO ×3 (10:50→22:24)
[2021-11-10] MEDS: Lithium Carbonate 300 MG TABLET PO ×2 (10:50→22:23)
[2021-11-10] MEDS: risperiDONE 1 MG TABLET PO (10:51)
--- NOTE | 2021-11-10 12:11 | HO.PSYCHPN ---
Subjective Subjective Date of Service: 11/10/21 Reason For Visit: psychotic Subjective Notes: Conditional Voluntary Interim History: Per nursing, pt defecated in plastic cups last night. When asked this morning, pt reports that she was afraid to go to bathroom in her room, that she only trust staff bathroom that other peers don't have access to. She continues to report that she can't return to her house, as she is not safe there. She denies SI/HI. She appears internally preoccupied although when asked about VH/AH she denies. She is eating well despite, reports that she has decreased her intake- per staff that monitors amount of food she eats every meal. Medication Compliance: Yes Side effects from medications: No Attending Groups: Intermittent Review of Systems Review of Systems ROS unable to be obtained due to patient being uncooperative and paranoid Yes Unobtainable due to mental status Mental Status Exam Mental Status Exam Narrative: Appearance: casually groomed, fair hygiene, overweight Behavior: less guarded and suspicious psychomotor: mild retardation noted Speech: minimally spontaneous, soft, slight delay Thought process: distracted, short brief sentences. Thought content: afraid of going to her apartment, fear that she is not safe there or here Mood: happy and sad, a little bit stressed out. Affect: blunted, hypo-intense SI:unable to assess HI:unable to assess VH/AH: appears internally preoccupied Insight/judgment:impaired x 2. Memory/cog: alert, unable to assess Diagnostics Vital Signs (24Hr): Vital Signs - 24 hr 11/09/21 20:20 11/10/21 09:45 Temperature 98.1 F 97.8 F Pulse Rate 98 112 H Respiratory Rate 18 Blood Pressure 116/78 119/74 Pulse Oximetry 98 99 Oxygen Delivery Method Room Air Room Air BMI result Body Mass Index 36.1 Labs Results: 10/23/21 15:29 11/10/21 08:40 Labs: Laboratory Results - last 48 hr 11/10/21 11/10/21 08:40 08:40 Sodium 141 Potassium 4.3 Chloride 106 Carbon Dioxide 28 Anion Gap 11 L BUN 16 D Creatinine 0.76 Estim Creat Clear Calc 133.7 Estimated GFR > 60 Random Glucose 89 Calcium 9.2 Total Bilirubin < 0.2 AST 21 ALT 17 Alkaline Phosphatase 69 Total Protein 6.8 Albumin 4.1 TSH 1.08 [place] 0.28 L Medications Medications Current Medications Acetaminophen (Acetaminophen 325 Mg Tablet) 650 mg PO Q6H PRN PRN Reason: Headache/Pain Mild Scale (1-3) Last Admin: 11/10/21 10:49 Dose: 650 mg Al Hydroxide/Mg Hydroxide (Magnesium Hydrox/Alum Hydrox 30 Ml Oral.Susp) 30 ml PO Q6H PRN PRN Reason: Heartburn/Nausea Bisacodyl (Bisacodyl 5 Mg Tablet.Dr) 5 mg PO DAILY PRN PRN Reason: Constipation Hydroxyzine HCl (Hydroxyzine Hcl 25 Mg Tablet) 25 mg PO Q6H PRN PRN Reason: Anxiety Last Admin: 11/07/21 00:23 Dose: 25 mg [place] Carbonate ([place] Carbonate 300 Mg Tablet) 300 mg PO BID [facility] Last Admin: 11/10/21 10:50 Dose: 300 mg Lorazepam (Lorazepam 1 Mg Tablet) 2 mg PO TID [facility] Last Admin: 11/10/21 10:50 Dose: 2 mg Magnesium Hydroxide (Milk Of Magnesia 30 Ml Oral.Susp) 30 ml PO DAILY PRN PRN Reason: Constipation Last Admin: 11/05/21 20:48 Dose: 30 ml Polyethylene Glycol (Polyethylene Glycol 3350 17 Gm Powd.Pack) 17 gm PO DAILY PRN PRN Reason: constipation Risperidone (Risperidone 2 Mg Tablet) 2 mg PO BEDTIME [facility] Last Admin: 11/09/21 20:16 Dose: 2 mg Risperidone (Risperidone 1 Mg Tablet) 1 mg PO DAILY [facility] Last Admin: 11/10/21 10:51 Dose: 1 mg Trazodone HCl (Trazodone Hcl 50 Mg Tablet) 150 mg PO BEDTIME [facility] Last Admin: 11/09/21 20:15 Dose: 150 mg Allergies Allergies Allergy/AdvReac Type Severity Reaction Status Date / Time No Known Allergies Allergy Verified 10/23/21 14:48 Assessment & Plan Assessment & Plan (1) Schizoaffective disorder: Qualifiers: Schizoaffective disorder type: unspecified Qualified Code(s): F25.9 - Schizoaffective disorder, unspecified Status: Acute Code(s): F25.9 - Schizoaffective disorder, unspecified Plan Ms. Hanldey is a 26 years old woman with hx of schizoaffective disorder, living in housing manage by [facility]. Pt was initially assessed by [facility] due to increase paranoia, not taking medications. She was sent to [facility] on 10/17. Pt continue to decompensate, not sleeping, not eating nor taking medications. Pt presents as internally preoccupied, minimally verbal, guarded and paranoid. Utox is neg. PLAN 1. Admit to M3, Sect 12, 15 mins checks for safety 2. continue geodone, will add ativan for catatonic like behaviors- blank staring, psychomotor retardation. 3. Obtain collateral information- unable to reach Med provider through [facility] 4. Aftercare planning. 10/27 Sign CV, agreed to continue tx. 10/31- continue current medications. 11/01- switch from geodon to risperidone, will start risperidone 1mg po BID, continue geodone at current dose, may taper off as pt shows improvement. continue ativan. 11/02 continue risperidone, will decrease geodone gradually, continue ativan, recheck some labs. 11/03 increase risperidone to 1mg po daily and 2mg po qhs, start lithium 150mg po BID, lower geodone to 40mg po BID. continue ativan 1mg po tid/ 11/04 No med changes, discussed her intentional restriction of diet 11/05 No med changes, continue risperdal and lithium, no clear response yet 11/06 No med changes, nutrition consult placed due to pt restricting 11/08: no changes 11/09- increase lithium to 300mg po BID, continue risperidone and ativan. check lithium level, cmp, tsh. 11/10 continue current medications. I spent __25____ minutes with the patient and/or on the patient floor today, greater than?50% of which was spent counseling/coordinating care. Reason for contiued inpatient stay Substantial Risk for: inability to function
[2021-11-10 14:49] LABS: Appearance Urine HAZY; Color Urine YELLOW; Glucose Urine UA NEG (NEG); Leukocyte Esterase Urine 2+ (NEG); Nitrite Urine NEG (NEG); PH 8.5 (5.0-8.0); Urine Blood 3+ (NEG); Urine Ketones NEG (NEG); Urine Protein NEG (NEG-TRACE)
[2021-11-10 15:05] LABS: Squamous Epithelial Cell Urine 4+ /LPF
[2021-11-10 15:06] LABS: Bacteria Urine 3+ /LPF
[2021-11-10 15:07] LABS: RBC Urine 0-2 /HPF (0)
[2021-11-10] MEDS: traZODone HCL 50 MG TABLET 150 MG PO (22:23)
[2021-11-10 22:24] VITALS: BP 127/88; PULSE 96; RESP 18; TEMP 36.8; O2SAT 98
[2021-11-10] MEDS: risperiDONE 2 MG TABLET PO (22:34)
[2021-11-11 08:10] VITALS: BP 110/73; PULSE 93; RESP 18; TEMP 36.7; O2SAT 97
[2021-11-11] MEDS: Lithium Carbonate 300 MG TABLET PO ×2 (08:44→20:58)
[2021-11-11] MEDS: LORazepam 1 MG TABLET 2 MG PO ×3 (08:44→20:58)
[2021-11-11] MEDS: risperiDONE 1 MG TABLET PO (08:44)
--- NOTE | 2021-11-11 17:00 | P.PNPSI_ITS ---
Subjective Subjective Date of Service: 11/11/21 Reason For Visit: psychotic Interim History: pt found in her room resting in bed. no complaints or requests. per staff, improved presentation, more visible, less isolative and anxious. +AH, med- compliant. eating well. Mental Status Exam Mental Status Exam Narrative: Appearance: casually groomed, fair hygiene, overweight Behavior: less guarded and suspicious psychomotor: mild retardation noted Speech: minimally spontaneous, soft, slight delay Thought process: distracted, short brief sentences. Thought content: no delusions or paranoia expressed Mood: not assessed Affect: blunted, hypo-intense SI:unable to assess HI:unable to assess VH/AH: appears internally preoccupied Insight/judgment:impaired x 2. Memory/cog: alert, unable to assess Diagnostics Vital Signs (24Hr): Vital Signs - 24 hr 11/10/21 22:24 11/11/21 08:10 Temperature 98.2 F 98.0 F Pulse Rate 96 93 Respiratory Rate 18 18 Blood Pressure 127/88 110/73 Pulse Oximetry 98 97 Oxygen Delivery Method Room Air Room Air BMI result Body Mass Index 36.1 Labs Results: 10/23/21 15:29 11/10/21 08:40 Labs: Laboratory Results - last 48 hr 11/10/21 11/10/21 11/10/21 08:40 08:40 14:25 Sodium 141 Potassium 4.3 Chloride 106 Carbon Dioxide 28 Anion Gap 11 L BUN 16 D Creatinine 0.76 Estim Creat Clear Calc 133.7 Estimated GFR > 60 Random Glucose 89 Calcium 9.2 Total Bilirubin < 0.2 AST 21 ALT 17 Alkaline Phosphatase 69 Total Protein 6.8 Albumin 4.1 TSH 1.08 Urine Color YELLOW Urine Appearance HAZY Urine pH 8.5 H Ur Specific [place] 1.010 Urine Protein NEG Urine Glucose (UA) NEG Urine Ketones NEG Urine Blood 3+ H Urine Nitrite NEG Ur Leukocyte Esterase 2+ H Urine RBC 0-2 Urine WBC 1-4 Ur Squamous Epith Cells 4+ Urine Bacteria 3+ [place] 0.28 L Medications Medications Current Medications Acetaminophen (Acetaminophen 325 Mg Tablet) 650 mg PO Q6H PRN PRN Reason: Headache/Pain Mild Scale (1-3) Last Admin: 11/10/21 10:49 Dose: 650 mg Al Hydroxide/Mg Hydroxide (Magnesium Hydrox/Alum Hydrox 30 Ml Oral.Susp) 30 ml PO Q6H PRN PRN Reason: Heartburn/Nausea Bisacodyl (Bisacodyl 5 Mg Tablet.Dr) 5 mg PO DAILY PRN PRN Reason: Constipation Hydroxyzine HCl (Hydroxyzine Hcl 25 Mg Tablet) 25 mg PO Q6H PRN PRN Reason: Anxiety Last Admin: 11/07/21 00:23 Dose: 25 mg [place] Carbonate ([place] Carbonate 300 Mg Tablet) 300 mg PO BID [facility] Last Admin: 11/11/21 08:44 Dose: 300 mg Lorazepam (Lorazepam 1 Mg Tablet) 2 mg PO TID [facility] Last Admin: 11/11/21 14:47 Dose: 2 mg Magnesium Hydroxide (Milk Of Magnesia 30 Ml Oral.Susp) 30 ml PO DAILY PRN PRN Reason: Constipation Last Admin: 11/05/21 20:48 Dose: 30 ml Polyethylene Glycol (Polyethylene Glycol 3350 17 Gm Powd.Pack) 17 gm PO DAILY PRN PRN Reason: constipation Risperidone (Risperidone 2 Mg Tablet) 2 mg PO BEDTIME [facility] Last Admin: 11/10/21 22:34 Dose: 2 mg Risperidone (Risperidone 1 Mg Tablet) 1 mg PO DAILY [facility] Last Admin: 11/11/21 08:44 Dose: 1 mg Trazodone HCl (Trazodone Hcl 50 Mg Tablet) 150 mg PO BEDTIME [facility] Last Admin: 11/10/21 22:23 Dose: 150 mg Allergies Allergies Allergy/AdvReac Type Severity Reaction Status Date / Time No Known Allergies Allergy Verified 10/23/21 14:48 Assessment & Plan Assessment & Plan (1) Schizoaffective disorder: Qualifiers: Schizoaffective disorder type: unspecified Qualified Code(s): F25.9 - Schizoaffective disorder, unspecified Status: Acute Code(s): F25.9 - Schizoaffective disorder, unspecified Plan Ms. Handley is a 26 years old woman with hx of schizoaffective disorder, living in housing manage by [facility]. Pt was initially assessed by [facility] crisis due to i ncrease paranoia, not taking medications. She was [facility]. Pt continue to decompensate, not sleeping, not eating nor taking medications. Pt presents as internally preoccupied, minimally verbal, guarded and paranoid. Utox is neg. PLAN 1. Admit to M3, Sect 12, 15 mins checks for safety 2. continue geodone, will add ativan for catatonic like behaviors- blank staring, psychomotor retardation. 3. Obtain collateral information- unable to reach Med provider through [facility] 4. Aftercare planning. 10/27 Sign CV, agreed to continue tx. 10/31- continue current medications. 11/01- switch from geodon to risperidone, will start risperidone 1mg po BID, continue geodone at current dose, may taper off as pt shows improvement. continue ativan. 11/02 continue risperidone, will decrease geodone gradually, continue ativan, recheck some labs. 11/03 increase risperidone to 1mg po daily and 2mg po qhs, start lithium 150mg po BID, lower geodone to 40mg po BID. continue ativan 1mg po tid/ 11/04 No med changes, discussed her intentional restriction of diet 11/05 No med changes, continue risperdal and lithium, no clear response yet 11/06 No med changes, nutrition consult placed due to pt restricting 11/08: no changes 11/09- increase lithium to 300mg po BID, continue risperidone and ativan. check lithium level, cmp, tsh. 11/10 continue current medications. 11/11: continue current mgmt. I spent ___15___ minutes with the patient and/or on the patient floor today, greater than?50% of which was spent counseling/coordinating care. Reason for contiued inpatient stay Substantial Risk for: inability to function and rapid decompensation
[2021-11-11 20:55] VITALS: BP 111/70; PULSE 97; RESP 19; TEMP 36.6; O2SAT 99
[2021-11-11] MEDS: risperiDONE 2 MG TABLET PO (20:59)
[2021-11-12 09:15] VITALS: BP 134/60; PULSE 108; RESP 20; TEMP 36.7; O2SAT 95
[2021-11-12] MEDS: risperiDONE 1 MG TABLET PO (09:42)
[2021-11-12] MEDS: Lithium Carbonate 300 MG TABLET PO ×2 (09:42→20:50)
[2021-11-12] MEDS: LORazepam 1 MG TABLET 2 MG PO ×3 (09:42→20:50)
--- NOTE | 2021-11-12 13:51 | HO.PSYCHPN ---
Subjective Subjective Date of Service: 11/12/21 Reason For Visit: psychotic Interim History: calm, cooperative. comes to interview room. linear and logical, if somewhat delayed and soft speech. states she is a little depressed. migraine. asking for muscle relaxer saying her shoulders and lower back feel tight. MD suggests it is tight muscle from lack of activity, suggests stretching. pt denies knowing any stretches, MD suggests PT consult. per staff, clearer, less delayed. slept well. concern over U'A results, will send another U/A. Mental Status Exam Mental Status Exam Narrative: Appearance: casually groomed, fair hygiene, overweight Behavior: less guarded and suspicious psychomotor: mild retardation noted Speech: minimally spontaneous, soft, slight delay Thought process: distracted, short brief sentences. Thought content: no delusions or paranoia expressed Mood: not assessed Affect: blunted, hypo-intense SI:unable to assess HI:unable to assess VH/AH: appears internally preoccupied Insight/judgment:impaired x 2. Memory/cog: alert, unable to assess Diagnostics Vital Signs (24Hr): Vital Signs - 24 hr 11/11/21 20:55 11/12/21 09:15 Temperature 97.9 F 98.1 F Pulse Rate 97 108 H Respiratory Rate 19 20 Blood Pressure 111/70 134/60 Pulse Oximetry 99 95 Oxygen Delivery Method Room Air Room Air BMI result Body Mass Index 36.1 Labs Results: 10/23/21 15:29 11/10/21 08:40 Labs: Laboratory Results - last 48 hr 11/10/21 14:25 Urine Color YELLOW Urine Appearance HAZY Urine pH 8.5 H Ur Specific [place] 1.010 Urine Protein NEG Urine Glucose (UA) NEG Urine Ketones NEG Urine Blood 3+ H Urine Nitrite NEG Ur Leukocyte Esterase 2+ H Urine RBC 0-2 Urine WBC 1-4 Ur Squamous Epith Cells 4+ Urine Bacteria 3+ Medications Medications Current Medications Acetaminophen (Acetaminophen 325 Mg Tablet) 975 mg PO Q6H PRN PRN Reason: Headache/Pain Mild Scale (1-3) Al Hydroxide/Mg Hydroxide (Magnesium Hydrox/Alum Hydrox 30 Ml Oral.Susp) 30 ml PO Q6H PRN PRN Reason: Heartburn/Nausea Bisacodyl (Bisacodyl 5 Mg Tablet.) 5 mg PO DAILY PRN PRN Reason: Constipation Hydroxyzine HCl (Hydroxyzine Hcl 25 Mg Tablet) 25 mg PO Q6H PRN PRN Reason: Anxiety Last Admin: 11/07/21 00:23 Dose: 25 mg [place] Carbonate ([place] Carbonate 300 Mg Tablet) 300 mg PO BID [facility] Last Admin: 11/12/21 09:42 Dose: 300 mg Lorazepam (Lorazepam 1 Mg Tablet) 2 mg PO TID [facility] Last Admin: 11/12/21 09:42 Dose: 2 mg Magnesium Hydroxide (Milk Of Magnesia 30 Ml Oral.Susp) 30 ml PO DAILY PRN PRN Reason: Constipation Last Admin: 11/05/21 20:48 Dose: 30 ml Polyethylene Glycol (Polyethylene Glycol 3350 17 Gm Powd.Pack) 17 gm PO DAILY PRN PRN Reason: constipation Risperidone (Risperidone 2 Mg Tablet) 2 mg PO BEDTIME [facility] Last Admin: 11/11/21 20:59 Dose: 2 mg Risperidone (Risperidone 1 Mg Tablet) 1 mg PO DAILY [facility] Last Admin: 11/12/21 09:42 Dose: 1 mg Trazodone HCl (Trazodone Hcl 50 Mg Tablet) 150 mg PO BEDTIME [facility] Last Admin: 11/11/21 20:55 Dose: Not Given Allergies Allergies Allergy/AdvReac Type Severity Reaction Status Date / Time No Known Allergies Allergy Verified 10/23/21 14:48 Assessment & Plan Assessment & Plan (1) Schizoaffective disorder: Qualifiers: Schizoaffective disorder type: unspecified Qualified Code(s): F25.9 - Schizoaffective disorder, unspecified Status: Acute Code(s): F25.9 - Schizoaffective disorder, unspecified Plan Ms. Handley is a 26 years old woman with hx of schizoaffective disorder, living in housing manage by [facility]. Pt was initially assessed by [facility] crisis due to increase paranoia, not taking medications. [facility] Pt continue to decompensate, not sleeping, not eating nor taking medications. Pt presents as internally preoccupied, minimally verbal, guarded and paranoid. Utox is neg. PLAN 1. Admit to M3, Sect 12, 15 mins checks for safety 2. continue geodone, will add ativan for catatonic like behaviors- blank staring, psychomotor retardation. 3. Obtain collateral information- unable to reach Med provider through [facility] 4. Aftercare planning. 10/27 Sign CV, agreed to continue tx. 10/31- continue current medications. 11/01- switch from geodon to risperidone, will start risperidone 1mg po BID, continue geodone at current dose, may taper off as pt shows improvement. continue ativan. 11/02 continue risperidone, will decrease geodone gradually, continue ativan, recheck some labs. 11/03 increase risperidone to 1mg po daily and 2mg po qhs, start lithium 150mg po BID, lower geodone to 40mg po BID. continue ativan 1mg po tid/ 11/04 No med changes, discussed her intentional restriction of diet 11/05 No med changes, continue risperdal and lithium, no clear response yet 11/06 No med changes, nutrition consult placed due to pt restricting 11/08: no changes 11/09- increase lithium to 300mg po BID, continue risperidone and ativan. check lithium level, cmp, tsh. 11/10 continue current medications. 11/11: continue current mgmt. 11/12: send for another U/A. incr tylenol to 975 for VALENCIA and body aches. PT consult for muscle tightness/pain. I spent __15____ minutes with the patient and/or on the patient floor today, greater than?50% of which was spent counseling/coordinating care. Reason for contiued inpatient stay Substantial Risk for: inability to function and rapid decompensation
[2021-11-12] MEDS: Acetaminophen 325 MG TABLET 975 MG PO (14:32)
[2021-11-12] MEDS: risperiDONE 2 MG TABLET PO (20:50)
[2021-11-12] MEDS: traZODone HCL 50 MG TABLET 150 MG PO (20:50)
[2021-11-12 20:57] VITALS: BP 96/64; PULSE 94; RESP 16; TEMP 36.8; O2SAT 97
[2021-11-13 09:41] VITALS: BP 126/60; PULSE 98; RESP 16; TEMP 36.6; O2SAT 97
[2021-11-13] MEDS: LORazepam 1 MG TABLET 2 MG PO ×3 (09:43→20:11)
[2021-11-13] MEDS: risperiDONE 1 MG TABLET PO (09:43)
[2021-11-13] MEDS: Lithium Carbonate 300 MG TABLET PO ×2 (09:43→20:11)
[2021-11-13 11:14] LABS: Appearance Urine CLEAR; Color Urine YELLOW; Glucose Urine UA NEG (NEG); Leukocyte Esterase Urine NEG (NEG); Nitrite Urine NEG (NEG); Specific Gravity - Urine 1.015 (1.005-1.025); Urine Blood NEG (NEG); Urine Ketones NEG (NEG); Urine Protein NEG (NEG-TRACE)
--- NOTE | 2021-11-13 12:29 | HO.PSYCHPN ---
Subjective Subjective Date of Service: 11/13/21 Reason For Visit: psychotic Subjective Notes: Conditional Voluntary Interim History: Pt in bed mid morning. She denies feeling tired, and yet was in bed. She reports sleeping well last night. She reports feeling less worried about going to bathroom. She denies SI/HI but continues to present as internally preoccupied. Medication Compliance: Yes Side effects from medications: No Attending Groups: Intermittent Review of Systems Review of Systems ROS unable to be obtained due to patient being uncooperative and paranoid Yes Unobtainable due to mental status Mental Status Exam Mental Status Exam Narrative: Appearance: casually groomed, fair hygiene, overweight Behavior: less guarded and suspicious psychomotor: mild retardation noted Speech: minimally spontaneous, soft, slight delay Thought process: distracted, short brief sentences. Thought content: no delusions or paranoia expressed Mood: not assessed Affect: blunted, hypo-intense SI:unable to assess HI:unable to assess VH/AH: appears internally preoccupied Insight/judgment:impaired x 2. Memory/cog: alert, unable to assess Diagnostics Vital Signs (24Hr): Vital Signs - 24 hr 11/12/21 20:57 11/13/21 09:41 Temperature 98.2 F 97.9 F Pulse Rate 94 98 Respiratory Rate 16 16 Blood Pressure 96/64 126/60 Pulse Oximetry 97 97 Oxygen Delivery Method Room Air Room Air BMI result Body Mass Index 36.1 Labs Results: 10/23/21 15:29 11/10/21 08:40 Labs: Laboratory Results - last 48 hr 11/13/21 10:48 Urine Color YELLOW Urine Appearance CLEAR Urine pH 8.0 Ur Specific [place] 1.015 Urine Protein NEG Urine Glucose (UA) NEG Urine Ketones NEG Urine Blood NEG Urine Nitrite NEG Ur Leukocyte Esterase NEG Medications Medications Current Medications Acetaminophen (Acetaminophen 325 Mg Tablet) 975 mg PO Q6H PRN PRN Reason: Headache/Pain Mild Scale (1-3) Last Admin: 11/12/21 14:32 Dose: 975 mg Al Hydroxide/Mg Hydroxide (Magnesium Hydrox/Alum Hydrox 30 Ml Oral.Susp) 30 ml PO Q6H PRN PRN Reason: Heartburn/Nausea Bisacodyl (Bisacodyl 5 Mg Tablet.Dr) 5 mg PO DAILY PRN PRN Reason: Constipation Hydroxyzine HCl (Hydroxyzine Hcl 25 Mg Tablet) 25 mg PO Q6H PRN PRN Reason: Anxiety Last Admin: 11/07/21 00:23 Dose: 25 mg [place] Carbonate ([place] Carbonate 300 Mg Tablet) 300 mg PO BID [facility] Last Admin: 11/13/21 09:43 Dose: 300 mg Lorazepam (Lorazepam 1 Mg Tablet) 2 mg PO TID [facility] Last Admin: 11/13/21 09:43 Dose: 2 mg Magnesium Hydroxide (Milk Of Magnesia 30 Ml Oral.Susp) 30 ml PO DAILY PRN PRN Reason: Constipation Last Admin: 11/05/21 20:48 Dose: 30 ml Polyethylene Glycol (Polyethylene Glycol 3350 17 Gm Powd.Pack) 17 gm PO DAILY PRN PRN Reason: constipation Risperidone (Risperidone 2 Mg Tablet) 2 mg PO BEDTIME [facility] Last Admin: 11/12/21 20:50 Dose: 2 mg Risperidone (Risperidone 1 Mg Tablet) 1 mg PO DAILY [facility] Last Admin: 11/13/21 09:43 Dose: 1 mg Trazodone HCl (Trazodone Hcl 50 Mg Tablet) 150 mg PO BEDTIME [facility] Last Admin: 11/12/21 20:50 Dose: 150 mg Allergies Allergies Allergy/AdvReac Type Severity Reaction Status Date / Time No Known Allergies Allergy Verified 10/23/21 14:48 Assessment & Plan Assessment & Plan (1) Schizoaffective disorder: Qualifiers: Schizoaffective disorder type: unspecified Qualified Code(s): F25.9 - Schizoaffective disorder, unspecified Status: Acute Code(s): F25.9 - Schizoaffective disorder, unspecified Plan Ms. Handley is a 26 years old woman with hx of schizoaffective disorder, living in housing manage by [facility]. Pt was initially assessed by [facility] crisis due to increase paranoia, not taking medications. She [facility] Pt continue to decompensate, not sleeping, not eating nor taking medications. Pt presents as internally preoccupied, minimally verbal, guarded and paranoid. Utox is neg. PLAN 1. Admit to M3, Sect 12, 15 mins checks for safety 2. continue geodone, will add ativan for catatonic like behaviors- blank staring, psychomotor retardation. 3. Obtain collateral information- unable to reach Med provider through [facility] 4. Aftercare planning. 10/27 Sign CV, agreed to continue tx. 10/31- continue current medications. 11/01- switch from geodon to risperidone, will start risperidone 1mg po BID, continue geodone at current dose, may taper off as pt shows improvement. continue ativan. 11/02 continue risperidone, will decrease geodone gradually, continue ativan, recheck some labs. 11/03 increase risperidone to 1mg po daily and 2mg po qhs, start lithium 150mg po BID, lower geodone to 40mg po BID. continue ativan 1mg po tid/ 11/04 No med changes, discussed her intentional restriction of diet 11/05 No med changes, continue risperdal and lithium, no clear response yet 11/06 No med changes, nutrition consult placed due to pt restricting 11/08: no changes 11/09- increase lithium to 300mg po BID, continue risperidone and ativan. check lithium level, cmp, tsh. 11/10 continue current medications. 11/11: continue current mgmt. 11/12: send for another U/A. incr tylenol to 975 for VALENCIA and body aches. PT consult for muscle tightness/pain. 11/13 continue current medications. I spent minutes with the patient and/or on the patient floor today, greater than?50% of which was spent counseling/coordinating care. Reason for contiued inpatient stay Substantial Risk for: inability to function
[2021-11-13] MEDS: traZODone HCL 50 MG TABLET 150 MG PO (20:11)
[2021-11-13] MEDS: risperiDONE 2 MG TABLET PO (20:11)
[2021-11-13 20:20] VITALS: BP 109/77; PULSE 101; RESP 18; TEMP 36.7; O2SAT 96
[2021-11-14] MEDS: LORazepam 1 MG TABLET 2 MG PO ×3 (08:42→20:31)
[2021-11-14] MEDS: risperiDONE 1 MG TABLET PO (08:42)
[2021-11-14] MEDS: Lithium Carbonate 300 MG TABLET PO ×2 (08:42→20:31)
[2021-11-14 09:00] VITALS: BP 102/61; PULSE 82; RESP 18; TEMP 36.7; O2SAT 96
[2021-11-14 11:49] LABS: COVID-19 Test Negative (Negative); IDNOW Serial# 55D5AD1C
--- NOTE | 2021-11-14 13:20 | P.PNPSI_ITS ---
Subjective Subjective Date of Service: 11/14/21 Reason For Visit: psychotic Subjective Notes: Conditional Voluntary Interim History: Pt again mostly in bed in morning. She denies feeling tired, and yet was in bed. She reports sleeping well last night. She reports feeling less worried about going to bathroom but last evening asking staff to go with her as she did not feel safe. She denies SI/HI but continues to present as internally preoccupied. Medication Compliance: Yes Side effects from medications: No Attending Groups: Intermittent Review of Systems Review of Systems ROS unable to be obtained due to patient being uncooperative and paranoid Yes Unobtainable due to mental status Mental Status Exam Mental Status Exam Narrative: Appearance: casually groomed, fair hygiene, overweight Behavior: less guarded and suspicious psychomotor: mild retardation noted Speech: minimally spontaneous, soft, slight delay Thought process: distracted, short brief sentences. Thought content: no delusions or paranoia expressed Mood: not assessed Affect: blunted, hypo-intense SI:unable to assess HI:unable to assess VH/AH: appears internally preoccupied Insight/judgment:impaired x 2. Memory/cog: alert, unable to assess Diagnostics Vital Signs (24Hr): Vital Signs - 24 hr 11/13/21 20:20 11/14/21 09:00 Temperature 98.1 F 98.1 F Pulse Rate 101 H 82 Respiratory Rate 18 18 Blood Pressure 109/77 102/61 Pulse Oximetry 96 96 Oxygen Delivery Method Room Air Room Air BMI result Body Mass Index 36.1 Labs Results: 10/23/21 15:29 11/10/21 08:40 Labs: Laboratory Results - last 48 hr 11/13/21 11/14/21 10:48 11:17 Urine Color YELLOW Urine Appearance CLEAR Urine pH 8.0 Ur Specific [place] 1.015 Urine Protein NEG Urine Glucose (UA) NEG Urine Ketones NEG Urine Blood NEG Urine Nitrite NEG Ur Leukocyte Esterase NEG COVID-19 ([facility]) Negative COVID-19 Clin Com See Note Medications Medications Current Medications Acetaminophen (Acetaminophen 325 Mg Tablet) 975 mg PO Q6H PRN PRN Reason: Headache/Pain Mild Scale (1-3) Last Admin: 11/12/21 14:32 Dose: 975 mg Al Hydroxide/Mg Hydroxide (Magnesium Hydrox/Alum Hydrox 30 Ml Oral.Susp) 30 ml PO Q6H PRN PRN Reason: Heartburn/Nausea Benzocaine (Throat Lozenge, Medicated Lozenge) 1 lozenge MUCOUS MEM Q4H PRN PRN Reason: Sore Throat Bisacodyl (Bisacodyl 5 Mg Tablet.Dr) 5 mg PO DAILY PRN PRN Reason: Constipation Hydroxyzine HCl (Hydroxyzine Hcl 25 Mg Tablet) 25 mg PO Q6H PRN PRN Reason: Anxiety Last Admin: 11/07/21 00:23 Dose: 25 mg [place] Carbonate ([place] Carbonate 300 Mg Tablet) 300 mg PO BID [facility] Last Admin: 11/14/21 08:42 Dose: 300 mg Lorazepam (Lorazepam 1 Mg Tablet) 2 mg PO TID [facility] Last Admin: 11/14/21 14:46 Dose: 2 mg Magnesium Hydroxide (Milk Of Magnesia 30 Ml Oral.Susp) 30 ml PO DAILY PRN PRN Reason: Constipation Last Admin: 11/05/21 20:48 Dose: 30 ml Polyethylene Glycol (Polyethylene Glycol 3350 17 Gm Powd.Pack) 17 gm PO DAILY PRN PRN Reason: constipation Risperidone (Risperidone 2 Mg Tablet) 2 mg PO BEDTIME [facility] Last Admin: 11/13/21 20:11 Dose: 2 mg Risperidone (Risperidone 1 Mg Tablet) 1 mg PO DAILY [facility] Last Admin: 11/14/21 08:42 Dose: 1 mg Trazodone HCl (Trazodone Hcl 50 Mg Tablet) 150 mg PO BEDTIME [facility] Last Admin: 11/13/21 20:11 Dose: 150 mg Allergies Allergies Allergy/AdvReac Type Severity Reaction Status Date / Time No Known Allergies Allergy Verified 10/23/21 14:48 Assessment & Plan Assessment & Plan (1) Schizoaffective disorder: Qualifiers: Schizoaffective disorder type: unspecified Qualified Code(s): F25.9 - Schizoaffective disorder, unspecified Status: Acute Code(s): F25.9 - Schizoaffective disorder, unspecified Plan Ms. Handley is a 26 years old woman with hx of schizoaffective disorder, living in housing manage by [facility]. Pt was initially assessed by [facility] crisis due to increase paranoia, not taking medications. She was sent to [facility] on 10/17. Pt continue to decompensate, not sleeping, not eating nor taking medications. Pt presents as internally preoccupied, minimally verbal, guarded and paranoid. Utox is neg. PLAN 1. Admit to M3, Sect 12, 15 mins checks for safety 2. continue geodone, will add ativan for catatonic like behaviors- blank staring, psychomotor retardation. 3. Obtain collateral information- unable to reach Med provider through [facility] 4. Aftercare planning. 10/27 Sign CV, agreed to continue tx. 10/31- continue current medications. 11/01- switch from geodon to risperidone, will start risperidone 1mg po BID, continue geodone at current dose, may taper off as pt shows improvement. continue ativan. 11/02 continue risperidone, will decrease geodone gradually, continue ativan, recheck some labs. 11/03 increase risperidone to 1mg po daily and 2mg po qhs, start lithium 150mg po BID, lower geodone to 40mg po BID. continue ativan 1mg po tid/ 11/04 No med changes, discussed her intentional restriction of diet 11/05 No med changes, continue risperdal and lithium, no clear response yet 11/06 No med changes, nutrition consult placed due to pt restricting 11/08: no changes 11/09- increase lithium to 300mg po BID, continue risperidone and ativan. check lithium level, cmp, tsh. 11/10 continue current medications. 11/11: continue current mgmt. 11/12: send for another U/A. incr tylenol to 975 for VALENCIA and body aches. PT consult for muscle tightness/pain. 11/13 continue current medications. 11/14 continue current medications I spent minutes with the patient and/or on the patient floor today, greater than?50% of which was spent counseling/coordinating care. Reason for contiued inpatient stay Substantial Risk for: inability to function
[2021-11-14] MEDS: traZODone HCL 50 MG TABLET 150 MG PO (20:31)
[2021-11-14] MEDS: risperiDONE 2 MG TABLET PO (20:31)
[2021-11-14 20:34] VITALS: BP 125/69; PULSE 104; TEMP 36.6; O2SAT 99
[2021-11-15] MEDS: hydrOXYzine HCL 25 MG TABLET PO (02:45)
[2021-11-15] MEDS: Acetaminophen 325 MG TABLET 975 MG PO (02:45)
[2021-11-15] MEDS: Lithium Carbonate 300 MG TABLET PO ×2 (08:28→20:01)
[2021-11-15] MEDS: risperiDONE 1 MG TABLET PO (08:28)
[2021-11-15] MEDS: LORazepam 1 MG TABLET 2 MG PO ×3 (08:28→20:01)
[2021-11-15 08:30] VITALS: BP 106/64; PULSE 82; RESP 18; TEMP 36.1; O2SAT 97
[2021-11-15 09:29] LABS: Lithium 0.42 mmol/L (0.60-1.20)
--- NOTE | 2021-11-15 11:34 | MHC.CLN ---
F/U VISITED WITH PATIENT IN HER ROOM. REPORTED THAT EATS BREAKFAST AND DRINKS ENSURE. DIFFICULT FOR THIS TILE BURNER TO UNDERSTAND PATIENT. STAFF CHECKED MEAL DOCUMENTATION. ATE 75% LUNCH; 100% DINNER; AND 100% THIS BREAKFAST. OVERALL, INTAKE APPEARS IMPROVED.
--- NOTE | 2021-11-15 12:30 | P.PNPSI_ITS ---
Subjective Subjective Date of Service: 11/15/21 Reason For Visit: psychotic Subjective Notes: Conditional Voluntary Interim History: Pt more visible today. She reports feeling anxious at times, and at times sad. She reports she feels less anxious about going to bathroom but still questions if some of her belongings are in fact hers. She denies SI/HI. She reports polydipsia/polyuria- s/s lithium most likely. Medication Compliance: Yes Side effects from medications: No Attending Groups: Intermittent Review of Systems Acute medical concerns: No Review of Systems Review of Systems ROS unable to be obtained due to patient being uncooperative and paranoid Yes Unobtainable due to mental status Mental Status Exam Mental Status Exam Narrative: Appearance: casually groomed, fair hygiene, overweight Behavior: less guarded and suspicious psychomotor: mild retardation noted Speech: minimally spontaneous, soft, slight delay Thought process: distracted, short brief sentences. Thought content: no delusions or paranoia expressed Mood: okay Affect: blunted, hypo-intense SI:unable to assess HI:unable to assess VH/AH: appears internally preoccupied Insight/judgment:impaired x 2. Memory/cog: alert, unable to assess Diagnostics Vital Signs (24Hr): Vital Signs - 24 hr 11/14/21 20:34 11/15/21 08:30 Temperature 97.8 F 97.0 F Pulse Rate 104 H 82 Respiratory Rate 18 Blood Pressure 125/69 106/64 Pulse Oximetry 99 97 Oxygen Delivery Method Room Air Room Air BMI result Body Mass Index 36.1 Labs Results: 10/23/21 15:29 11/10/21 08:40 Labs: Laboratory Results - last 48 hr 11/14/21 11/15/21 11:17 08:21 [place] 0.42 L COVID-19 ([facility]) Negative COVID-19 Clin Com See Note Medications Medications Current Medications Acetaminophen (Acetaminophen 325 Mg Tablet) 975 mg PO Q6H PRN PRN Reason: Headache/Pain Mild Scale (1-3) Last Admin: 11/15/21 02:45 Dose: 975 mg Al Hydroxide/Mg Hydroxide (Magnesium Hydrox/Alum Hydrox 30 Ml Oral.Susp) 30 ml PO Q6H PRN PRN Reason: Heartburn/Nausea Benzocaine (Throat Lozenge, Medicated Lozenge) 1 lozenge MUCOUS MEM Q4H PRN PRN Reason: Sore Throat Bisacodyl (Bisacodyl 5 Mg Tablet.Dr) 5 mg PO DAILY PRN PRN Reason: Constipation Hydroxyzine HCl (Hydroxyzine Hcl 25 Mg Tablet) 25 mg PO Q6H PRN PRN Reason: Anxiety Last Admin: 11/15/21 02:45 Dose: 25 mg [place] Carbonate ([place] Carbonate 300 Mg Tablet) 300 mg [facility] BID [facility] Last Admin: 11/15/21 08:28 Dose: 300 mg Lorazepam (Lorazepam 1 Mg Tablet) 2 mg PO TID [facility] Last Admin: 11/15/21 14:46 Dose: 2 mg Magnesium Hydroxide (Milk Of Magnesia 30 Ml Oral.Susp) 30 ml PO DAILY PRN PRN Reason: Constipation Last Admin: 11/05/21 20:48 Dose: 30 ml Polyethylene Glycol (Polyethylene Glycol 3350 17 Gm Powd.Pack) 17 gm PO DAILY P RN PRN Reason: constipation Risperidone (Risperidone 2 Mg Tablet) 2 mg PO BEDTIME [facility] Last Admin: 11/14/21 20:31 Dose: 2 mg Risperidone (Risperidone 1 Mg Tablet) 1 mg PO DAILY [facility] Last Admin: 11/15/21 08:28 Dose: 1 mg Trazodone HCl (Trazodone Hcl 50 Mg Tablet) 150 mg PO BEDTIME [facility] Last Admin: 11/14/21 20:31 Dose: 150 mg Allergies Allergies Allergy/AdvReac Type Severity Reaction Status Date / Time No Known Allergies Allergy Verified 10/23/21 14:48 Assessment & Plan Assessment & Plan (1) Schizoaffective disorder: Qualifiers: Schizoaffective disorder type: unspecified Qualified Code(s): F25.9 - Schizoaffective disorder, unspecified Status: Acute Code(s): F25.9 - Schizoaffective disorder, unspecified Plan Ms. Handley is a 26 years old woman with hx of schizoaffective disorder, living in housing manage by [facility]. Pt was initially assessed by [facility] crisis due to increase paranoia, not taking medications. She was sent to [facility]. Pt continue to decompensate, not sleeping, not eating nor taking medications. Pt presents as internally preoccupied, minimally verbal, guarded and paranoid. Utox is neg. PLAN 1. Admit to M3, Sect 12, 15 mins checks for safety 2. continue geodone, will add ativan for catatonic like behaviors- blank staring, psychomotor retardation. 3. Obtain collateral information- unable to reach Med provider through [facility] 4. Aftercare planning. 10/27 Sign CV, agreed to continue tx. 10/31- continue current medications. 11/01- switch from geodon to risperidone, will start risperidone 1mg po BID, continue geodone at current dose, may taper off as pt shows improvement. continue ativan. 11/02 continue risperidone, will decrease geodone gradually, continue ativan, recheck some labs. 11/03 increase risperidone to 1mg po daily and 2mg po qhs, start lithium 150mg po BID, lower geodone to 40mg po BID. continue ativan 1mg po tid/ 11/04 No med changes, discussed her intentional restriction of diet 11/05 No med changes, continue risperdal and lithium, no clear response yet 11/06 No med changes, nutrition consult placed due to pt restricting 11/08: no changes 11/09- increase lithium to 300mg po BID, continue risperidone and ativan. check lithium level, cmp, tsh. 11/10 continue current medications. 11/11: continue current mgmt. 11/12: send for another U/A. incr tylenol to 975 for VALENCIA and body aches. PT consult for muscle tightness/pain. 11/13 continue current medications. 11/14 continue current medications 11/15 continue current medications pending lithium level. I spent minutes with the patient and/or on the patient floor today, greater than?50% of which was spent counseling/coordinating care. Reason for contiued inpatient stay Substantial Risk for: inability to function
[2021-11-15 19:57] VITALS: BP 122/69; PULSE 98; RESP 16; TEMP 36.9; O2SAT 100
[2021-11-15] MEDS: risperiDONE 2 MG TABLET PO (20:01)
[2021-11-15] MEDS: traZODone HCL 50 MG TABLET 150 MG PO (20:01)
[2021-11-16 07:00] VITALS: BMI 36.5
[2021-11-16 09:30] VITALS: BP 106/59; PULSE 79; RESP 20; TEMP 36.4; O2SAT 100
[2021-11-16] MEDS: LORazepam 1 MG TABLET 2 MG PO ×3 (09:59→21:05)
[2021-11-16] MEDS: risperiDONE 1 MG TABLET PO (09:59)
[2021-11-16] MEDS: Lithium Carbonate 300 MG TABLET PO (09:59)
[2021-11-16] MEDS: OLANZapine 5 MG TABLET PO ×2 (10:44→21:05)
--- NOTE | 2021-11-16 12:41 | HO.PSYCHPN ---
Subjective Subjective Date of Service: 11/16/21 Reason For Visit: psychotic Subjective Notes: Conditional Voluntary Interim History: Pt has been more visible in the last 2 days, casually groomed. Speech more spontaneous, but continues to present as internally preoccupied. Fear of going to the bathroom in her room and asking staff to bring her to staff bathroom. Today, pt reports she does not know if they will get mad if she takes lithium at night. When asked who are they, she states I don't know. She continues to think that other talk about he. She reports her attention is better with medications. She denies SI/HI Medication Compliance: Yes Side effects from medications: No Attending Groups: Intermittent Review of Systems Review of Systems ROS unable to be obtained due to patient being uncooperative and paranoid Yes Unobtainable due to mental status Mental Status Exam Mental Status Exam Narrative: Appearance: casually groomed, fair hygiene, overweight Behavior: less guarded and suspicious psychomotor: mild retardation noted Speech: minimally spontaneous, soft, slight delay Thought process: distracted, short brief sentences. Thought content: no delusions or paranoia expressed Mood: okay Affect: blunted, hypo-intense SI:unable to assess HI:unable to assess VH/AH: appears internally preoccupied Insight/judgment:impaired x 2. Memory/cog: alert, unable to assess Diagnostics Vital Signs (24Hr): Vital Signs - 24 hr 11/15/21 19:57 11/16/21 09:30 Temperature 98.4 F 97.6 F Pulse Rate 98 79 Respiratory Rate 16 20 Blood Pressure 122/69 106/59 L Pulse Oximetry 100 100 Oxygen Delivery Method Room Air Room Air BMI result Body Mass Index 36.1 Labs Results: 10/23/21 15:29 11/10/21 08:40 Labs: Laboratory Results - last 48 hr 11/15/21 08:21 [place] 0.42 L Medications Medications Current Medications Acetaminophen (Acetaminophen 325 Mg Tablet) 975 mg PO Q6H PRN PRN Reason: Headache/Pain Mild Scale (1-3) Last Admin: 11/15/21 02:45 Dose: 975 mg Al Hydroxide/Mg Hydroxide (Magnesium Hydrox/Alum Hydrox 30 Ml Oral.Susp) 30 ml PO Q6H PRN PRN Reason: Heartburn/Nausea Benzocaine (Throat Lozenge, Medicated Lozenge) 1 lozenge MUCOUS MEM Q4H PRN PRN Reason: Sore Throat Bisacodyl (Bisacodyl 5 Mg Tablet.Dr) 5 mg PO DAILY PRN PRN Reason: Constipation Hydroxyzine HCl (Hydroxyzine Hcl 25 Mg Tablet) 25 mg PO Q6H PRN PRN Reason: Anxiety Last Admin: 11/15/21 02:45 Dose: 25 mg [place] Carbonate ([place] Carbonate Er 300 Mg Tablet.Er) 600 mg PO BEDTIME [facility] Lorazepam (Lorazepam 1 Mg Tablet) 2 mg PO TID [facility] Last Admin: 11/16/21 09:59 Dose: 2 mg Magnesium Hydroxide (Milk Of Magnesia 30 Ml Oral.Susp) 30 ml PO DAILY PRN PRN Reason: Constipation Last Admin: 11/05/21 20:48 Dose: 30 ml Olanzapine (Olanzapine 5 Mg Tablet) 5 mg PO BID [facility] Last Admin: 11/16/21 10:44 Dose: 5 mg Polyethylene Glycol (Polyethylene Glycol 3350 17 Gm Powd.Pack) 17 gm PO DAILY PRN PRN Reason: constipation Risperidone (Risperidone 2 Mg Tablet) 2 mg PO BEDTIME [facility] Last Admin: 11/15/21 20:01 Dose: 2 mg Risperidone (Risperidone 1 Mg Tablet) 1 mg PO DAILY [facility] Last Admin: 11/16/21 09:59 Dose: 1 mg Trazodone HCl (Trazodone Hcl 50 Mg Tablet) 150 mg PO BEDTIME [facility] Last Admin: 11/15/21 20:01 Dose: 150 mg Allergies Allergies Allergy/AdvReac Type Severity Reaction Status Date / Time No Known Allergies Allergy Verified 10/23/21 14:48 Assessment & Plan Assessment & Plan (1) Schizoaffective disorder: Qualifiers: Schizoaffective disorder type: unspecified Qualified Code(s): F25.9 - Schizoaffective disorder, unspecified Status: Acute Code(s): F25.9 - Schizoaffective disorder, unspecified Plan Ms. Handley is a 26 years old woman with hx of schizoaffective disorder, living in housing manage by [facility]. Pt was initially assessed by [facility] crisis due to increase paranoia, not taking medications. She was sent to [facility] on 10/17. Pt continue to decompensate, not sleeping, not eating nor taking medications. Pt presents as internally preoccupied, minimally verbal, guarded and paranoid. Utox is neg. PLAN 1. Admit to M3, Sect 12, 15 mins checks for safety 2. continue geodone, will add ativan for catatonic like behaviors- blank staring, psychomotor retardation. 3. Obtain collateral information- unable to reach Med provider through [facility] 4. Aftercare planning. 10/27 Sign CV, agreed to continue tx. 10/31- continue current medications. 11/01- switch from geodon to risperidone, will start risperidone 1mg po BID, continue geodone at current dose, may taper off as pt shows improvement. continue ativan. 11/02 continue risperidone, will decrease geodone gradually, continue ativan, recheck some labs. 11/03 increase risperidone to 1mg po daily and 2mg po qhs, start lithium 150mg po BID, lower geodone to 40mg po BID. continue ativan 1mg po tid/ 11/04 No med changes, discussed her intentional restriction of diet 11/05 No med changes, continue risperdal and lithium, no clear response yet 11/06 No med changes, nutrition consult placed due to pt restricting 11/08: no changes 11/09- increase lithium to 300mg po BID, continue risperidone and ativan. check lithium level, cmp, tsh. 11/10 continue current medications. 11/11: continue current mgmt. 11/12: send for another U/A. incr tylenol to 975 for [place]ENC[place] and body aches. PT consult for muscle tightness/pain. 11/13 continue current medications. 11/14 continue current medications 11/15 continue current medications pending lithium level. 11/16 less s/s of catatonia, but continues internally preoccupied, speech with derailment and disorganized. will add olanzapine 5mg po BID, keeping in mind balance between not using high potency antipsychotic that will worsen catatonia (as seen with switch from geodone to risperidone) but more effectively treats underlying psychosis. will continue ativan at current dose 2mg po TID I spent minutes with the patient and/or on the patient floor today, greater than?50% of which was spent counseling/coordinating care. Reason for contiued inpatient stay Substantial Risk for: inability to function
[2021-11-16] MEDS: Milk of Magnesia 30 ML ORAL.SUSP PO (13:53)
[2021-11-16] MEDS: Lithium Carbonate ER 300 MG TABLET.ER 600 MG PO (21:05)
[2021-11-16] MEDS: traZODone HCL 50 MG TABLET 150 MG PO (21:05)
[2021-11-16] MEDS: risperiDONE 2 MG TABLET PO (21:05)
[2021-11-16 21:10] VITALS: BP 115/76; PULSE 96; RESP 14; TEMP 36.4; O2SAT 100
[2021-11-17] MEDS: LORazepam 1 MG TABLET 2 MG PO ×3 (08:34→22:23)
[2021-11-17] MEDS: OLANZapine 5 MG TABLET PO ×2 (08:34→21:13)
[2021-11-17] MEDS: risperiDONE 1 MG TABLET PO (08:34)
[2021-11-17 09:22] VITALS: BP 112/73; PULSE 104; RESP 16; TEMP 36.6; O2SAT 97
--- NOTE | 2021-11-17 10:17 | HO.PSYCHPN ---
Subjective Subjective Date of Service: 11/17/21 Reason For Visit: psychotic Subjective Notes: Conditional Voluntary Interim History: Pt reports sleeping well. She reports feeling tired this morning and resting a little bit. She continues to report feeling worried about them, but when asked who she is referring pt does not provide much details. She reports less racing thoughts- which she notice that is easier for her to concentrate. She denies SI/HI. She continues to present as fearful when going to the bathroom and rather go to staff bathroom. Medication Compliance: Yes Side effects from medications: No Review of Systems Review of Systems ROS unable to be obtained due to patient being uncooperative and paranoid Yes Unobtainable due to mental status Mental Status Exam Mental Status Exam Narrative: Appearance: casually groomed, fair hygiene, overweight Behavior: less guarded and suspicious psychomotor: mild retardation noted Speech: minimally spontaneous, soft, slight delay Thought process: distracted, short brief sentences. Thought content: no delusions or paranoia expressed Mood: okay Affect: blunted, hypo-intense SI:unable to assess HI:unable to assess VH/AH: appears internally preoccupied Insight/judgment:impaired x 2. Memory/cog: alert, unable to assess Diagnostics Vital Signs (24Hr): Vital Signs - 24 hr 11/16/21 21:10 11/17/21 09:22 Temperature 97.6 F 97.9 F Pulse Rate 96 104 H Respiratory Rate 14 16 Blood Pressure 115/76 112/73 Pulse Oximetry 100 97 Oxygen Delivery Method Room Air Room Air BMI result Body Mass Index 36.5 Labs Results: 10/23/21 15:29 11/10/21 08:40 Medications Medications Current Medications Acetaminophen (Acetaminophen 325 Mg Tablet) 975 mg PO Q6H PRN PRN Reason: Headache/Pain Mild Scale (1-3) Last Admin: 11/15/21 02:45 Dose: 975 mg Al Hydroxide/Mg Hydroxide (Magnesium Hydrox/Alum Hydrox 30 Ml Oral.Susp) 30 ml PO Q6H PRN PRN Reason: Heartburn/Nausea Benzocaine (Throat Lozenge, Medicated Lozenge) 1 lozenge MUCOUS MEM Q4H PRN PRN Reason: Sore Throat Bisacodyl (Bisacodyl 5 Mg Tablet.) 5 mg PO DAILY PRN PRN Reason: Constipation Hydroxyzine HCl (Hydroxyzine Hcl 25 Mg Tablet) 25 mg PO Q6H PRN PRN Reason: Anxiety Last Admin: 11/17/21 11:25 Dose: 25 mg [place] Carbonate ([place] Carbonate Er 300 Mg Tablet.Er) 600 mg PO BEDTIME RASHI Last Admin: 11/16/21 21:05 Dose: 600 mg Lorazepam (Lorazepam 1 Mg Tablet) 2 mg PO TID [facility] Last Admin: 11/17/21 08:34 Dose: 2 mg Magnesium Hydroxide (Milk Of Magnesia 30 Ml Oral.Susp) 30 ml PO DAILY PRN PRN Reason: Constipation Last Admin: 11/16/21 13:53 Dose: 30 ml Olanzapine (Olanzapine 5 Mg Tablet) 5 mg PO BID RASHI Last Admin: 11/17/21 08:34 Dose: 5 mg Polyethylene Glycol (Polyethylene Glycol 3350 17 Gm Powd.Pack) 17 gm PO DAILY PRN PRN Reason: constipation Risperidone (Risperidone 2 Mg Tablet) 2 mg PO BEDTIME RASHI Last Admin: 11/16/21 21:05 Dose: 2 mg Risperidone (Risperidone 1 Mg Tablet) 1 mg PO DAILY RASHI Last Admin: 11/17/21 08:34 Dose: 1 mg Trazodone HCl (Trazodone Hcl 50 Mg Tablet) 150 mg PO BEDTIME RASHI Last Admin: 11/16/21 21:05 Dose: 150 mg Allergies Allergies Allergy/AdvReac Type Severity Reaction Status Date / Time No Known Allergies Allergy Verified 10/23/21 14:48 Assessment & Plan Assessment & Plan (1) Schizoaffective disorder: Qualifiers: Schizoaffective disorder type: unspecified Qualified Code(s): F25.9 - Schizoaffective disorder, unspecified Status: Acute Code(s): F25.9 - Schizoaffective disorder, unspecified Plan Ms. Handley is a 26 years old woman with hx of schizoaffective disorder, living in housing manage by [facility]. Pt was initially assessed by [facility] crisis due to increase paranoia, not taking medications. [facility] Pt continue to decompensate, not sleeping, not eating nor taking medications. Pt presents as internally preoccupied, minimally verbal, guarded and paranoid. Utox is neg. PLAN 1. Admit to M3, Sect 12, 15 mins checks for safety 2. continue geodone, will add ativan for catatonic like behaviors- blank staring, psychomotor retardation. 3. Obtain collateral information- unable to reach Med provider through [facility] 4. Aftercare planning. 10/27 Sign CV, agreed to continue tx. 10/31- continue current medications. 11/01- switch from geodon to risperidone, will start risperidone 1mg po BID, continue geodone at current dose, may taper off as pt shows improvement. continue ativan. 11/02 continue risperidone, will decrease geodone gradually, continue ativan, recheck some labs. 11/03 increase risperidone to 1mg po daily and 2mg po qhs, start lithium 150mg po BID, lower geodone to 40mg po BID. continue ativan 1mg po tid/ 11/04 No med changes, discussed her intentional restriction of diet 11/05 No med changes, continue risperdal and lithium, no clear response yet 11/06 No med changes, nutrition consult placed due to pt restricting 11/08: no changes 11/09- increase lithium to 300mg po BID, continue risperidone and ativan. check lithium level, cmp, tsh. 11/10 continue current medications. 11/11: continue current mgmt. 11/12: send for another U/A. incr tylenol to 975 for VALENCIA and body aches. PT consult for muscle tightness/pain. 11/13 continue current medications. 11/14 continue current medications 11/15 continue current medications pending lithium level. 11/16 less s/s of catatonia, but continues internally preoccupied, speech with derailment and disorganized. will add olanzapine 5mg po BID, keeping in mind balance between not using high potency antipsychotic that will worsen catatonia (as seen with switch from geodone to risperidone) but more effectively treats underlying psychosis. will continue ativan at current dose 2mg po TID 11/17 continue current medications. I spent minutes with the patient and/or on the patient floor today, greater than?50% of which was spent counseling/coordinating care. Reason for contiued inpatient stay Substantial Risk for: inability to function
[2021-11-17] MEDS: hydrOXYzine HCL 25 MG TABLET PO (11:25)
[2021-11-17 20:51] VITALS: BP 115/72; PULSE 80; RESP 17; TEMP 36.6; O2SAT 97
[2021-11-17] MEDS: Lithium Carbonate ER 300 MG TABLET.ER 600 MG PO (21:12)
[2021-11-17] MEDS: risperiDONE 2 MG TABLET PO (21:13)
[2021-11-17] MEDS: traZODone HCL 50 MG TABLET 150 MG PO (21:14)
[2021-11-18 08:47] VITALS: BP 119/65; PULSE 93; RESP 18; TEMP 36.8; O2SAT 97
[2021-11-18] MEDS: LORazepam 1 MG TABLET 2 MG PO (09:24)
[2021-11-18] MEDS: OLANZapine 5 MG TABLET PO (09:24)
[2021-11-18] MEDS: risperiDONE 1 MG TABLET PO (09:24)
[2021-11-18] MEDS: Acetaminophen 325 MG TABLET 975 MG PO (10:04)
--- NOTE | 2021-11-18 14:58 | HO.PSYCHPN ---
Subjective Subjective Date of Service: 11/18/21 Reason For Visit: psychotic Healthcare Proxy: No Guardianship: Yes Medical Problems Affecting Mental Status: No Interim History: Patient lying in bed, quite sedated, didn't sleep well last pm but sleeping today also pt had loud snoring like- sounds and asked if she had ever had sleep study for sleep apnea she denied Co weight gain wiht med changes even though more calm Medication Compliance: Yes Side effects from medications: Yes (over sedated in day) Attending Groups: Intermittent Review of Systems Acute medical concerns: Yes ? sleep apnea Review of Systems Review of Systems hx catatonia responding to ativan now ? oversedated on ativan and transition antipsychotic Mental Status Exam Mental Status Exam Narrative: very sedated, kept falling asleep in exam and snoring loudly/abruptly awakening briefly Diagnostics Vital Signs (24Hr): Vital Signs - 24 hr 11/17/21 20:51 11/18/21 08:47 Temperature 97.8 F 98.3 F Pulse Rate 80 93 Respiratory Rate 17 18 Blood Pressure 115/72 119/65 Pulse Oximetry 97 97 Oxygen Delivery Method Room Air BMI result Body Mass Index 36.5 Labs Results: 10/23/21 15:29 11/10/21 08:40 EKG EKG: reviewed (10/25 ) EKG Comment: qtc 444, repeat ekg on new meds Medications Medications Current Medications Acetaminophen (Acetaminophen 325 Mg Tablet) 975 mg PO Q6H PRN PRN Reason: Headache/Pain Mild Scale (1-3) Last Admin: 11/18/21 10:04 Dose: 975 mg Al Hydroxide/Mg Hydroxide (Magnesium Hydrox/Alum Hydrox 30 Ml Oral.Susp) 30 ml PO Q6H PRN PRN Reason: Heartburn/Nausea Benzocaine (Throat Lozenge, Medicated Lozenge) 1 lozenge MUCOUS MEM Q4H PRN PRN Reason: Sore Throat Bisacodyl (Bisacodyl 5 Mg Tablet.Dr) 5 mg PO DAILY PRN PRN Reason: Constipation Hydroxyzine HCl (Hydroxyzine Hcl 25 Mg Tablet) 25 mg PO Q6H PRN PRN Reason: Anxiety Last Admin: 11/17/21 11:25 Dose: 25 mg [place] Carbonate ([place] Carbonate Er 300 Mg Tablet.Er) 600 mg PO BEDTIME RASHI Last Admin: 11/17/21 21:12 Dose: 600 mg Lorazepam (Lorazepam 1 Mg Tablet) 2 mg PO TID [facility] Last Admin: 11/18/21 09:24 Dose: 2 mg Magnesium Hydroxide (Milk Of Magnesia 30 Ml Oral.Susp) 30 ml PO DAILY PRN PRN Reason: Constipation Last Admin: 11/16/21 13:53 Dose: 30 ml Olanzapine (Olanzapine 5 Mg Tablet) 5 mg PO BID [facility] Last Admin: 11/18/21 09:24 Dose: 5 mg Polyethylene Glycol (Polyethylene Glycol 3350 17 Gm Powd.Pack) 17 gm PO DAILY PRN PRN Reason: constipation Risperidone (Risperidone 2 Mg Tablet) 2 mg PO BEDTIME [facility] Last Admin: 11/17/21 21:13 Dose: 2 mg Risperidone (Risperidone 1 Mg Tablet) 1 mg PO DAILY [facility] Last Admin: 11/18/21 09:24 Dose: 1 mg Trazodone HCl (Trazodone Hcl 50 Mg Tablet) 150 mg PO BEDTIME [facility] Last Admin: 11/17/21 21:14 Dose: 150 mg significantly changed these meds today lowering lorazepam and dc trazodone , ? should olanzapine be lowered Allergies Allergies Allergy/AdvReac Type Severity Reaction Status Date / Time No Known Allergies Allergy Verified 10/23/21 14:48 Assessment & Plan Assessment & Plan (1) Schizoaffective disorder: Qualifiers: Schizoaffective disorder type: unspecified Qualified Code(s): F25.9 - Schizoaffective disorder, unspecified Status: Acute Code(s): F25.9 - Schizoaffective disorder, unspecified Assessment and Plan: 11/18pt over medicated today catatonic to paranoid and disorganized- will titrate down ativan, and see about adjusting psych meds further recheck ekg for qtc on combo atypicals doubt she can get sleep study as inpatient Plan Ms. Handley is a 26 years old woman with hx of schizoaffective disorder, living in housing manage by [facility]. Pt was initially assessed by [facility] crisis due to increase paranoia, not taking medications. She was sent to [facility] Pt continue to decompensate, not sleeping, not eating nor taking medications. Pt presents as internally preoccupied, minimally verbal, guarded and paranoid. Utox is neg. PLAN 1. Admit to M3, Sect 12, 15 mins checks for safety 2. continue geodone, will add ativan for catatonic like behaviors- blank staring, psychomotor retardation. 3. Obtain collateral information- unable to reach Med provider through [facility] 4. Aftercare planning. 10/27 Sign CV, agreed to continue tx. 10/31- continue current medications. 11/01- switch from geodon to risperidone, will start risperidone 1mg po BID, continue geodone at current dose, may taper off as pt shows improvement. continue ativan. 11/02 continue risperidone, will decrease geodone gradually, continue ativan, recheck some labs. 11/03 increase risperidone to 1mg po daily and 2mg po qhs, start lithium 150mg po BID, lower geodone to 40mg po BID. continue ativan 1mg po tid/ 11/04 No med changes, discussed her intentional restriction of diet 11/05 No med changes, continue risperdal and lithium, no clear response yet 11/06 No med changes, nutrition consult placed due to pt restricting 11/08: no changes 11/09- increase lithium to 300mg po BID, continue risperidone and ativan. check lithium level, cmp, tsh. 11/10 continue current medications. 11/11: continue current mgmt. 11/12: send for another U/A. incr tylenol to 975 for VALENCIA and body aches. PT consult for muscle tightness/pain. 11/13 continue current medications. 11/14 continue current medications 11/15 continue current medications pending lithium level. 11/16 less s/s of catatonia, but continues internally preoccupied, speech with derailment and disorganized. will add olanzapine 5mg po BID, keeping in mind balance between not using high potency antipsychotic that will worsen catatonia (as seen with switch from geodone to risperidone) but more effectively treats underlying psychosis. will continue ativan at current dose 2mg po TID 11/17 continue current medications. I spent minutes with the patient and/or on the patient floor today, greater than?50% of which was spent counseling/coordinating care. Informed Consent: further education needed (pt too sedated likely to retain info re sleep apnea?) Reason for contiued inpatient stay Substantial Risk for: rapid decompensation and med/psych decompensation
[2021-11-18] MEDS: traZODone HCL 50 MG TABLET 150 MG PO (20:28)
[2021-11-18] MEDS: OLANZapine 10 MG TABLET PO (20:28)
[2021-11-18] MEDS: LORazepam 1 MG TABLET PO (20:29)
[2021-11-18] MEDS: Lithium Carbonate ER 300 MG TABLET.ER 600 MG PO (20:29)
[2021-11-18] MEDS: risperiDONE 2 MG TABLET PO (20:29)
[2021-11-18 20:38] VITALS: BP 104/72; PULSE 96; RESP 17; TEMP 36.9; O2SAT 99
[2021-11-19] MEDS: risperiDONE 1 MG TABLET PO (08:00)
[2021-11-19] MEDS: LORazepam 1 MG TABLET PO ×3 (08:00→20:20)
[2021-11-19 08:01] VITALS: BP 104/51; PULSE 99; RESP 17; TEMP 36.7; O2SAT 98
--- NOTE | 2021-11-19 09:58 | HO.PSYCHPN ---
Subjective Subjective Date of Service: 11/19/21 Reason For Visit: psychotic Subjective Notes: Conditional Voluntary Healthcare Proxy: No Guardianship: No Medical Problems Affecting Mental Status: Yes (? sleep apnea) Interim History: More awake today - , poverty of conversation- not very forth coming needs to be asked specific question nrsing reports more visible on unit, brighter, Medication Compliance: Yes Side effects from medications: Yes (less sedated today , still co inc appetite) Attending Groups: Intermittent Review of Systems Acute medical concerns: No sleep apnea? [place] in [place]? Medical Review of Systems: unchanged Review of Systems Review of Systems less oversedated today Mental Status Exam Mental Status Exam Patient Appearance: Appropriate Patient Orientation: Person, Place and Situation Level of Consciousness: Awake Patient Behavior: Guarded Mood Description: Suspicious Affect Description: Blunted Patient Cognition Impaired: No Ability to Follow Directions: Fair Speech Pattern: Impoverished Hallucinations: None Delusions: Not Present Thought Process: Distracted Thought Content: positive for [place] Judgement: Fair (today) Judgement and Insight: unclear since not engaging much with provider Diagnostics Vital Signs (24Hr): Vital Signs - 24 hr 11/18/21 20:38 11/19/21 08:01 Temperature 98.5 F 98.0 F Pulse Rate 96 99 Respiratory Rate 17 17 Blood Pressure 104/72 104/51 L Pulse Oximetry 99 98 Oxygen Delivery Method Room Air Room Air BMI result Body Mass Index 36.5 Labs Results: 10/23/21 15:29 11/10/21 08:40 Medications Medications Current Medications Acetaminophen (Acetaminophen 325 Mg Tablet) 975 mg PO Q6H PRN PRN Reason: Headache/Pain Mild Scale (1-3) Last Admin: 11/18/21 10:04 Dose: 975 mg Al Hydroxide/Mg Hydroxide (Magnesium Hydrox/Alum Hydrox 30 Ml Oral.Susp) 30 ml PO Q6H PRN PRN Reason: Heartburn/Nausea Benzocaine (Throat Lozenge, Medicated Lozenge) 1 lozenge MUCOUS MEM Q4H PRN PRN Reason: Sore Throat Bisacodyl (Bisacodyl 5 Mg Tablet.Dr) 5 mg PO DAILY PRN PRN Reason: Constipation Hydroxyzine HCl (Hydroxyzine Hcl 50 Mg Tablet) 50 mg PO Q6H PRN PRN Reason: Anxiety [place] Carbonate ([place] Carbonate Er 300 Mg Tablet.Er) 600 mg PO BEDTIME RASHI Last Admin: 11/18/21 20:29 Dose: 600 mg Lorazepam (Lorazepam 1 Mg Tablet) 1 mg PO TID [facility] Last Admin: 11/19/21 08:00 Dose: 1 mg Magnesium Hydroxide (Milk Of Magnesia 30 Ml Oral.Susp) 30 ml PO DAILY PRN PRN Reason: Constipation Last Admin: 11/16/21 13:53 Dose: 30 ml Olanzapine (Olanzapine 10 Mg Tablet) 10 mg PO BEDTIME RASHI Last Admin: 11/18/21 20:28 Dose: 10 mg Polyethylene Glycol (Polyethylene Glycol 3350 17 Gm Powd.Pack) 17 gm PO DAILY PRN PRN Reason: constipation Risperidone (Risperidone 2 Mg Tablet) 2 mg PO BEDTIME RASHI Last Admin: 11/18/21 20:29 Dose: 2 mg Risperidone (Risperidone 1 Mg Tablet) 1 mg PO DAILY RASHI Last Admin: 11/19/21 08:00 Dose: 1 mg Trazodone HCl (Trazodone Hcl 50 Mg Tablet) 150 mg PO BEDTIME RASHI Last Admin: 11/18/21 20:28 Dose: 150 mg Allergies Allergies Allergy/AdvReac Type Severity Reaction Status Date / Time No Known Allergies Allergy Verified 10/23/21 14:48 Assessment & Plan Assessment & Plan (1) Schizoaffective disorder: Qualifiers: Schizoaffective disorder type: unspecified Qualified Code(s): F25.9 - Schizoaffective disorder, unspecified Status: Acute Code(s): F25.9 - Schizoaffective disorder, unspecified Assessment and Plan: better today on lower ativan tolerating other meds Plan Ms. Handley is a 26 years old woman with hx of schizoaffective disorder, living in housing manage by [facility]. Pt was initially assessed by [facility] crisis due to increase paranoia, not taking medications. [facility] Pt continue to decompensate, not sleeping, not eating nor taking medications. Pt presents as internally preoccupied, minimally verbal, guarded and paranoid. Utox is neg. PLAN 1. Admit to M3, Sect 12, 15 mins checks for safety 2. continue geodone, will add ativan for catatonic like behaviors- blank staring, psychomotor retardation. 3. Obtain collateral information- unable to reach Med provider through [facility] 4. Aftercare planning. 10/27 Sign CV, agreed to continue tx. 10/31- continue current medications. 11/01- switch from geodon to risperidone, will start risperidone 1mg po BID, continue geodone at current dose, may taper off as pt shows improvement. continue ativan. 11/02 continue risperidone, will decrease geodone gradually, continue ativan, recheck some labs. 11/03 increase risperidone to 1mg po daily and 2mg po qhs, start lithium 150mg po BID, lower geodone to 40mg po BID. continue ativan 1mg po tid/ 11/04 No med changes, discussed her intentional restriction of diet 11/05 No med changes, continue risperdal and lithium, no clear response yet 11/06 No med changes, nutrition consult placed due to pt restricting 11/08: no changes 11/09- increase lithium to 300mg po BID, continue risperidone and ativan. check lithium level, cmp, tsh. 11/10 continue current medications. 11/11: continue current mgmt. 11/12: send for another U/A. incr tylenol to 975 for VALENCIA and body aches. PT consult for muscle tightness/pain. 11/13 continue current medications. 11/14 continue current medications 11/15 continue current medications pending lithium level. 11/16 less s/s of catatonia, but continues internally preoccupied, speech with derailment and disorganized. will add olanzapine 5mg po BID, keeping in mind balance between not using high potency antipsychotic that will worsen catatonia (as seen with switch from geodone to risperidone) but more effectively treats underlying psychosis. will continue ativan at current dose 2mg po TID 11/17 continue current medications. I spent minutes with the patient and/or on the patient floor today, greater than?50% of which was spent counseling/coordinating care. Patient educated on: medication risk/benefits and medical condition Informed Consent: further education needed Reason for contiued inpatient stay Substantial Risk for: rapid decompensation
[2021-11-19] MEDS: hydrOXYzine HCL 50 MG TABLET PO (15:13)
[2021-11-19 20:09] VITALS: BP 141/69; PULSE 82; RESP 16; TEMP 36.7; O2SAT 99
[2021-11-19] MEDS: Lithium Carbonate ER 300 MG TABLET.ER 600 MG PO (20:20)
[2021-11-19] MEDS: traZODone HCL 50 MG TABLET 150 MG PO (20:20)
[2021-11-19] MEDS: risperiDONE 2 MG TABLET PO (20:21)
[2021-11-19] MEDS: OLANZapine 10 MG TABLET PO (20:21)
[2021-11-20] MEDS: risperiDONE 1 MG TABLET PO (08:34)
[2021-11-20] MEDS: LORazepam 1 MG TABLET PO ×3 (08:34→19:53)
[2021-11-20 08:40] VITALS: BP 117/69; PULSE 79; RESP 20; TEMP 36.6; O2SAT 97
--- NOTE | 2021-11-20 11:00 | P.PNPSI_ITS ---
Subjective Subjective Date of Service: 11/20/21 Reason For Visit: psychotic Subjective Notes: Conditional Voluntary Interim History: Pt reports she slept well. She reports feeling less anxious and fearful. She refers to situation outside of the hospital that they were doing something to her but she can't talk about it. She reports less polydipsia and polyuria with change to extended release formulation for lithium. Per nursing, pt has been more visible on the unit, periods of crying, paranoia times but more social with peers. No aggression. She denies SI/HI. Medication Compliance: Yes Side effects from medications: No Attending Groups: Intermittent Review of Systems Review of Systems less oversedated today Yes Unobtainable due to mental status Mental Status Exam Mental Status Exam Narrative: Appearance: casually groomed, fair hygiene, overweight Behavior: less guarded and suspicious psychomotor: mild retardation noted Speech: clear, less delayed response but still some, soft volume, more spontaneous Thought process: more linear Thought content: feeling calmer, thinks medications are helping Mood: okay Affect: blunted, hypo-intense SI:unable to assess HI:unable to assess VH/AH: appears internally preoccupied Insight/judgment:impaired x 2. Memory/cog: alert, unable to assess Diagnostics Vital Signs (24Hr): Vital Signs - 24 hr 11/19/21 20:09 11/20/21 08:40 Temperature 98.1 F 97.8 F Pulse Rate 82 79 Respiratory Rate 16 20 Blood Pressure 141/69 H 117/69 Pulse Oximetry 99 97 Oxygen Delivery Method Room Air Room Air BMI result Body Mass Index 36.5 Labs Results: 10/23/21 15:29 11/10/21 08:40 Medications Medications Current Medications Acetaminophen (Acetaminophen 325 Mg Tablet) 975 mg PO Q6H PRN PRN Reason: Headache/Pain Mild Scale (1-3) Last Admin: 11/18/21 10:04 Dose: 975 mg Al Hydroxide/Mg Hydroxide (Magnesium Hydrox/Alum Hydrox 30 Ml Oral.Susp) 30 ml PO Q6H PRN PRN Reason: Heartburn/Nausea Benzocaine (Throat Lozenge, Medicated Lozenge) 1 lozenge MUCOUS MEM Q4H PRN PRN Reason: Sore Throat Bisacodyl (Bisacodyl 5 Mg Tablet.Dr) 5 mg PO DAILY PRN PRN Reason: Constipation Hydroxyzine HCl (Hydroxyzine Hcl 50 Mg Tablet) 50 mg PO Q6H PRN PRN Reason: Anxiety Last Admin: 11/19/21 15:13 Dose: 50 mg [place] Carbonate ([place] Carbonate Er 300 Mg Tablet.Er) 600 mg PO BEDTIME RASHI Last Admin: 11/19/21 20:20 Dose: 600 mg Lorazepam (Lorazepam 1 Mg Tablet) 1 mg PO TID RASHI Last Admin: 11/20/21 08:34 Dose: 1 mg Magnesium Hydroxide (Milk Of Magnesia 30 Ml Oral.Susp) 30 ml PO DAILY PRN PRN Reason: Constipation Last Admin: 11/16/21 13:53 Dose: 30 ml Olanzapine (Olanzapine 10 Mg Tablet) 10 mg PO BEDTIME RASHI Last Admin: 11/19/21 20:21 Dose: 10 mg Polyethylene Glycol (Polyethylene Glycol 3350 17 Gm Powd.Pack) 17 gm PO DAILY PRN PRN Reason: constipation Risperidone (Risperidone 2 Mg Tablet) 2 mg PO BEDTIME RASHI Last Admin: 11/19/21 20:21 Dose: 2 mg Risperidone (Risperidone 1 Mg Tablet) 1 mg PO DAILY RASHI Last Admin: 11/20/21 08:34 Dose: 1 mg Trazodone HCl (Trazodone Hcl 50 Mg Tablet) 150 mg PO BEDTIME RASHI Last Admin: 11/19/21 20:20 Dose: 150 mg Allergies Allergies Allergy/AdvReac Type Severity Reaction Status Date / Time No Known Allergies Allergy Verified 10/23/21 14:48 Assessment & Plan Assessment & Plan (1) Schizoaffective disorder: Qualifiers: Schizoaffective disorder type: unspecified Qualified Code(s): F25.9 - Schizoaffective disorder, unspecified Status: Acute Code(s): F25.9 - Schizoaffective disorder, unspecified Plan Ms. Handley is a 26 years old woman with hx of schizoaffective disorder, living in housing manage by [facility]. Pt was initially assessed by [facility] due to increase paranoia, not taking medications. She was sent to [facility] on 10/[facility]. Pt continue to decompensate, not sleeping, not eating nor taking medications. Pt presents as internally preoccupied, minimally verbal, guarded and paranoid. Utox is neg. PLAN 1. Admit to M3, Sect 12, 15 mins checks for safety 2. continue geodone, will add ativan for catatonic like behaviors- blank staring, psychomotor retardation. 3. Obtain collateral information- unable to reach Med provider through [facility] 4. Aftercare planning. 10/27 Sign CV, agreed to continue tx. 10/31- continue current medications. 11/01- switch from geodon to risperidone, will start risperidone 1mg po BID, continue geodone at current dose, may taper off as pt shows improvement. continue ativan. 11/02 continue risperidone, will decrease geodone gradually, continue ativan, recheck some labs. 11/03 increase risperidone to 1mg po daily and 2mg po qhs, start lithium 150mg po BID, lower geodone to 40mg po BID. continue ativan 1mg po tid/ 11/04 No med changes, discussed her intentional restriction of diet 11/05 No med changes, continue risperdal and lithium, no clear response yet 11/06 No med changes, nutrition consult placed due to pt restricting 11/08: no changes 11/09- increase lithium to 300mg po BID, continue risperidone and ativan. check lithium level, cmp, tsh. 11/10 continue current medications. 11/11: continue current mgmt. 11/12: send for another U/A. incr tylenol to 975 for VALENCIA and body aches. PT co nsult for muscle tightness/pain. 11/13 continue current medications. 11/14 continue current medications 11/15 continue current medications pending lithium level. 11/16 less s/s of catatonia, but continues internally preoccupied, speech with derailment and disorganized. will add olanzapine 5mg po BID, keeping in mind balance between not using high potency antipsychotic that will worsen catatonia (as seen with switch from geodone to risperidone) but more effectively treats underlying psychosis. will continue ativan at current dose 2mg po TID 11/17 continue current medications. 11/20 continue current medications. I spent minutes with the patient and/or on the patient floor today, greater than?50% of which was spent counseling/coordinating care. Reason for contiued inpatient stay Substantial Risk for: inability to function
[2021-11-20] MEDS: Throat Lozenge, Medicated LOZENGE 1 LOZENGE MUCOUS MEM (11:14)
[2021-11-20] MEDS: Acetaminophen 325 MG TABLET 975 MG PO (15:46)
[2021-11-20 19:48] VITALS: BP 152/66; PULSE 124; RESP 18; TEMP 36.8; O2SAT 97
[2021-11-20] MEDS: Lithium Carbonate ER 300 MG TABLET.ER 600 MG PO (19:53)
[2021-11-20] MEDS: OLANZapine 10 MG TABLET 20 MG PO (19:53)
[2021-11-20] MEDS: traZODone HCL 50 MG TABLET 150 MG PO (19:53)
[2021-11-20] MEDS: risperiDONE 2 MG TABLET PO (19:53)
[2021-11-21 09:30] VITALS: BP 123/83; PULSE 90; RESP 18; TEMP 36.6; O2SAT 98
[2021-11-21] MEDS: risperiDONE 1 MG TABLET PO (09:41)
[2021-11-21] MEDS: LORazepam 1 MG TABLET PO ×3 (09:41→20:02)
--- NOTE | 2021-11-21 10:16 | P.PNPSI_ITS ---
Subjective Subjective Date of Service: 11/21/21 Reason For Visit: psychotic Subjective Notes: Conditional Voluntary Interim History: Per nursing, pt was visible yesterday most of the day. She attended few groups, needing some support to get through some tasks but appropriate. Today, pt reports she slept well. She reports feeling slightly somnolent, but states that medications helping feel calmer, focused more. She denies SI/HI Still reports she is fearful about going back home but reports she can't talk about incident. Medication Compliance: Yes Side effects from medications: No Review of Systems Review of Systems less oversedated today Yes Unobtainable due to mental status Mental Status Exam Mental Status Exam Narrative: Appearance: casually groomed, fair hygiene, overweight Behavior: less guarded and suspicious psychomotor: mild retardation noted Speech: clear, less delayed response but still some, soft volume, more spontan eous Thought process: more linear Thought content: feeling calmer, thinks medications are helping Mood: okay Affect: blunted, hypo-intense SI:unable to assess HI:unable to assess VH/AH: appears internally preoccupied Insight/judgment:impaired x 2. Memory/cog: alert, unable to assess Patient Appearance: Appropriate Patient Orientation: Person, Place and Situation Level of Consciousness: Awake Patient Behavior: Guarded Mood Description: Suspicious Affect Description: Blunted Patient Cognition Impaired: No Ability to Follow Directions: Fair Speech Pattern: Impoverished Diagnostics Vital Signs (24Hr): Vital Signs - 24 hr 11/20/21 19:48 11/21/21 09:30 Temperature 98.2 F 97.9 F Pulse Rate 124 H 90 Respiratory Rate 18 18 Blood Pressure 152/66 H 123/83 Pulse Oximetry 97 98 Oxygen Delivery Method Room Air Room Air BMI result Body Mass Index 36.5 Labs Results: 10/23/21 15:29 11/10/21 08:40 Medications Medications Current Medications Acetaminophen (Acetaminophen 325 Mg Tablet) 975 mg PO Q6H PRN PRN Reason: Headache/Pain Mild Scale (1-3) Last Admin: 11/20/21 15:46 Dose: 975 mg Al Hydroxide/Mg Hydroxide (Magnesium Hydrox/Alum Hydrox 30 Ml Oral.Susp) 30 ml PO Q6H PRN PRN Reason: Heartburn/Nausea Benzocaine (Throat Lozenge, Medicated Lozenge) 1 lozenge MUCOUS MEM Q4H PRN PRN Reason: Sore Throat Last Admin: 11/20/21 11:14 Dose: 1 lozenge Bisacodyl (Bisacodyl 5 Mg Tablet.Dr) 5 mg PO DAILY PRN PRN Reason: Constipation Hydroxyzine HCl (Hydroxyzine Hcl 50 Mg Tablet) 50 mg PO Q6H PRN PRN Reason: Anxiety Last Admin: 11/19/21 15:13 Dose: 50 mg [place] Carbonate ([place] Carbonate Er 300 Mg Tablet.Er) 600 mg PO BEDTIME RASHI Last Admin: 11/20/21 19:53 Dose: 600 mg Lorazepam (Lorazepam 1 Mg Tablet) 1 mg PO TID RASHI Last Admin: 11/21/21 09:41 Dose: 1 mg Magnesium Hydroxide (Milk Of Magnesia 30 Ml Oral.Susp) 30 ml PO DAILY PRN PRN Reason: Constipation Last Admin: 11/16/21 13:53 Dose: 30 ml Olanzapine (Olanzapine 10 Mg Tablet) 20 mg PO BEDTIME RASHI Last Admin: 11/20/21 19:53 Dose: 20 mg Polyethylene Glycol (Polyethylene Glycol 3350 17 Gm Powd.Pack) 17 gm PO DAILY PRN PRN Reason: constipation Risperidone (Risperidone 2 Mg Tablet) 2 mg PO BEDTIME RASHI Last Admin: 11/20/21 19:53 Dose: 2 mg Risperidone (Risperidone 1 Mg Tablet) 1 mg PO DAILY ARSHI Last Admin: 11/21/21 09:41 Dose: 1 mg Trazodone HCl (Trazodone Hcl 50 Mg Tablet) 150 mg PO BEDTIME RASHI Last Admin: 11/20/21 19:53 Dose: 150 mg Allergies Allergies Allergy/AdvReac Type Severity Reaction Status Date / Time No Known Allergies Allergy Verified 10/23/21 14:48 Assessment & Plan Assessment & Plan (1) Schizoaffective disorder: Qualifiers: Schizoaffective disorder type: unspecified Qualified Code(s): F25.9 - Schizoaffective disorder, unspecified Status: Acute Code(s): F25.9 - Schizoaffective disorder, unspecified Plan Ms. Handley is a 26 years old woman with hx of schizoaffective disorder, living in housing manage by [facility]. Pt was initially assessed by [facility] due to increase paranoia, not taking medications. She was sent to [facility] on 10/17. Pt continue to decompensate, not sleeping, not eating nor taking medications. Pt presents as internally preoccupied, minimally verbal, guarded and paranoid. Utox is neg. PLAN 1. Admit to M3, Sect 12, 15 mins checks for safety 2. continue geodone, will add ativan for catatonic like behaviors- blank staring, psychomotor retardation. 3. Obtain collateral information- unable to reach Med provider through [facility] 4. Aftercare planning. 10/27 Sign CV, agreed to continue tx. 10/31- continue current medications. 11/01- switch from geodon to risperidone, will start risperidone 1mg po BID, continue geodone at current dose, may taper off as pt shows improvement. continue ativan. 11/02 continue risperidone, will decrease geodone gradually, continue ativan, recheck some labs. 11/03 increase risperidone to 1mg po daily and 2mg po qhs, start lithium 150mg po BID, lower geodone to 40mg po BID. continue ativan 1mg po tid/ 11/04 No med changes, discussed her intentional restriction of diet 11/05 No med changes, continue risperdal and lithium, no clear response yet 11/06 No med changes, nutrition consult placed due to pt restricting 11/08: no changes 11/09- increase lithium to 300mg po BID, continue risperidone and ativan. check lithium level, cmp, tsh. 11/10 continue current medications. 11/11: continue current mgmt. 11/12: send for another U/A. incr tylenol to 975 for VALENCIA and body aches. PT consult for muscle tightness/pain. 11/13 continue current medications. 11/14 continue current medications 11/15 continue current medications pending lithium level. 11/16 less s/s of catatonia, but continues internally preoccupied, speech with derailment and disorganized. will add olanzapine 5mg po BID, keeping in mind balance between not using high potency antipsychotic that will worsen catatonia (as seen with switch from geodone to risperidone) but more effectively treats underlying psychosis. will continue ativan at current dose 2mg po TID 11/17 continue current medications. 11/20 continue current medications. 11/21 continue switch from risperidone to olanzapine, continue ativan and lithium. I spent __25____ minutes with the patient and/or on the patient floor today, greater than?50% of which was spent counseling/coordinating care. Reason for contiued inpatient stay Substantial Risk for: inability to function
[2021-11-21 20:00] VITALS: BP 128/61; PULSE 105; RESP 18; TEMP 36.9; O2SAT 97
[2021-11-21] MEDS: risperiDONE 2 MG TABLET PO (20:02)
[2021-11-21] MEDS: Lithium Carbonate ER 300 MG TABLET.ER 600 MG PO (20:02)
[2021-11-21] MEDS: OLANZapine 10 MG TABLET 20 MG PO (20:02)
[2021-11-21] MEDS: traZODone HCL 50 MG TABLET 150 MG PO (20:02)
[2021-11-22] MEDS: risperiDONE 1 MG TABLET PO (08:28)
[2021-11-22] MEDS: LORazepam 1 MG TABLET PO ×3 (08:28→20:18)
[2021-11-22 09:00] VITALS: BP 123/69; PULSE 102; RESP 18; TEMP 37.3; O2SAT 96
--- NOTE | 2021-11-22 09:16 | HO.PSYCHPN ---
Subjective Subjective Date of Service: 11/22/21 Reason For Visit: psychotic Subjective Notes: Conditional Voluntary Interim History: Pt seen in [facility], pt states at times she feels sad but no as often as before. She denies SI/HI. She reports hearing less voices, but still appears internally preoccupied but to lesser extend. She is less fearful and guarded with staff and peers. She reports medications helping and when discussing switching to olanzapine and discontinuing risperidone pt states she feels risperidone is very helpful and would like to keep it. Medication Compliance: Yes Side effects from medications: No Review of Systems Review of Systems less oversedated today Yes Unobtainable due to mental status Mental Status Exam Mental Status Exam Narrative: Appearance: casually groomed, fair hygiene, overweight Behavior: less guarded and suspicious psychomotor: mild retardation noted Speech: clear, less delayed response but still some, soft volume, more spontaneous Thought process: more linear Thought content: feeling calmer, thinks medications are helping Mood: okay Affect: blunted, hypo-intense SI:unable to assess HI:unable to assess VH/AH: appears internally preoccupied Insight/judgment:impaired x 2. Memory/cog: alert, unable to assess Patient Appearance: Appropriate Patient Orientation: Person, Place and Situation Level of Consciousness: Awake Patient Behavior: Guarded Mood Description: Suspicious Affect Description: Blunted Patient Cognition Impaired: No Ability to Follow Directions: Fair Speech Pattern: Impoverished Diagnostics Vital Signs (24Hr): Vital Signs - 24 hr 11/23/21 18:00 Temperature 97.9 F Pulse Rate 84 Blood Pressure 130/80 Pulse Oximetry 95 Oxygen Delivery Method Room Air BMI result Body Mass Index 36.7 Labs Results: 10/23/21 15:29 11/10/21 08:40 Medications Medications Current Medications Acetaminophen (Acetaminophen 325 Mg Tablet) 975 mg PO Q6H PRN PRN Reason: Headache/Pain Mild Scale (1-3) Last Admin: 11/20/21 15:46 Dose: 975 mg Al Hydroxide/Mg Hydroxide (Magnesium Hydrox/Alum Hydrox 30 Ml Oral.Susp) 30 ml PO Q6H PRN PRN Reason: Heartburn/Nausea Benzocaine (Throat Lozenge, Medicated Lozenge) 1 lozenge MUCOUS MEM Q4H PRN PRN Reason: Sore Throat Last Admin: 11/20/21 11:14 Dose: 1 lozenge Bisacodyl (Bisacodyl 5 Mg Tablet.Dr) 5 mg PO DAILY PRN PRN Reason: Constipation Hydroxyzine HCl (Hydroxyzine Hcl 50 Mg Tablet) 50 mg PO Q6H PRN PRN Reason: Anxiety Last Admin: 11/23/21 12:24 Dose: 50 mg [place] Carbonate ([place] Carbonate Er 300 Mg Tablet.Er) 600 mg PO BEDTIME RASHI Last Admin: 11/23/21 20:37 Dose: 600 mg Lorazepam (Lorazepam 1 Mg Tablet) 1 mg PO TID RASHI Magnesium Hydroxide (Milk Of Magnesia 30 Ml Oral.Susp) 30 ml PO DAILY PRN PRN Reason: Constipation Last Admin: 11/16/21 13:53 Dose: 30 ml Multi-Ingred Medicated Throat [place] (Throat [place], Medicated 20 Ml Bottle) 1 spray MUCOUS MEM Q2H PRN PRN Reason: Sore Throat Last Admin: 11/22/21 10:59 Dose: 1 spray Olanzapine (Olanzapine 10 Mg Tablet) 20 mg PO BEDTIME RASHI Last Admin: 11/23/21 20:37 Dose: 20 mg Polyethylene Glycol (Polyethylene Glycol 3350 17 Gm Powd.Pack) 17 gm PO DAILY PRN PRN Reason: constipation Risperidone (Risperidone 2 Mg Tablet) 2 mg PO BEDTIME RASHI Last Admin: 11/23/21 20:38 Dose: 2 mg Risperidone (Risperidone 1 Mg Tablet) 1 mg PO DAILY RASHI Last Admin: 11/23/21 08:58 Dose: 1 mg Trazodone HCl (Trazodone Hcl 50 Mg Tablet) 150 mg PO BEDTIME RASHI Last Admin: 11/23/21 20:36 Dose: 150 mg Allergies Allergies Allergy/AdvReac Type Severity Reaction Status Date / Time No Known Allergies Allergy Verified 10/23/21 14:48 Assessment & Plan Assessment & Plan (1) Schizoaffective disorder: Qualifiers: Schizoaffective disorder type: unspecified Qualified Code(s): F25.9 - Schizoaffective disorder, unspecified Status: Acute Code(s): F25.9 - Schizoaffective disorder, unspecified Plan Ms. Handley is a 26 years old woman with hx of schizoaffective disorder, living in housing manage by [facility]. Pt was initially assessed by [facility] due to increase paranoia, not taking medications. She was sent to [facility] on 6/14. Pt continue to decompensate, not sleeping, not eating nor taking medications. Pt presents as internally preoccupied, minimally verbal, guarded and paranoid. Utox is neg. PLAN 1. Admit to M3, Sect 12, 15 mins checks for safety 2. continue geodone, will add ativan for catatonic like behaviors- blank staring, psychomotor retardation. 3. Obtain collateral information- unable to reach Med provider through [facility] 4. Aftercare planning. 10/27 Sign CV, agreed to continue tx. 10/31- continue current medications. 11/01- switch from geodon to risperidone, will start risperidone 1mg po BID, continue geodone at current dose, may taper off as pt shows improvement. continue ativan. 11/02 continue risperidone, will decrease geodone gradually, continue ativan, recheck some labs. 11/03 increase risperidone to 1mg po daily and 2mg po qhs, start lithium 150mg po BID, lower geodone to 40mg po BID. continue ativan 1mg po tid/ 11/04 No med changes, discussed her intentional restriction of diet 11/05 No med changes, continue risperdal and lithium, no clear response yet 11/06 No med changes, nutrition consult placed due to pt restricting 11/08: no changes 11/09- increase lithium to 300mg po BID, continue risperidone and ativan. check lithium level, cmp, tsh. 11/10 continue current medications. 11/11: continue current mgmt. 11/12: send for another U/A. incr tylenol to 975 for VALENCIA and body aches. PT consult for muscle tightness/pain. 11/13 continue current medications. 11/14 continue current medications 11/15 continue current medications pending lithium level. 11/16 less s/s of catatonia, but continues internally preoccupied, speech with derailment and disorganized. will add olanzapine 5mg po BID, keeping in mind balance between not using high potency antipsychotic that will worsen catatonia (as seen with switch from geodone to risperidone) but more effectively treats underlying psychosis. will continue ativan at current dose 2mg po TID 11/17 continue current medications. 11/20 continue current medications. 11/21 continue switch from risperidone to olanzapine, continue ativan and lithium. 11/22 continue current medications. I spent minutes with the patient and/or on the patient floor today, greater than?50% of which was spent counseling/coordinating care. Reason for contiued inpatient stay Substantial Risk for: inability to function
--- NOTE | 2021-11-22 13:17 | MHC.CLN ---
F/U PATIENT REPORTS THAT SHE IS EATING AND MAKING FOOD CHOICES. REMAINS CONCERNED WITH WEIGHT GAIN. DECREASING SUPPLEMENT TO ENSURE BID (700 KCALS, 40 G PROTEIN).
[2021-11-22] MEDS: Lithium Carbonate ER 300 MG TABLET.ER 600 MG PO (20:18)
[2021-11-22] MEDS: OLANZapine 10 MG TABLET 20 MG PO (20:18)
[2021-11-22] MEDS: risperiDONE 2 MG TABLET PO (20:18)
[2021-11-22] MEDS: traZODone HCL 50 MG TABLET 150 MG PO (20:19)
[2021-11-22 20:23] VITALS: BP 144/79; PULSE 96; RESP 16; TEMP 36.7; O2SAT 97
[2021-11-23 07:00] VITALS: BMI 36.7
[2021-11-23 08:30] VITALS: BP 115/65; PULSE 76; TEMP 36.9; O2SAT 97
[2021-11-23] MEDS: risperiDONE 1 MG TABLET PO (08:58)
[2021-11-23] MEDS: LORazepam 1 MG TABLET PO ×3 (08:58→20:38)
--- NOTE | 2021-11-23 09:20 | HO.PSYCHPN ---
Subjective Subjective Date of Service: 11/23/21 Reason For Visit: psychotic Subjective Notes: Conditional Voluntary Interim History: Pt much brighter today. She reports happier, and more hopeful. She smiles appropriately during our meeting. She denies SI/HI. She reports sleeping and eating well. She has been more visible and social with peers. She is less suspicious. No behavioral concerns. Medication Compliance: Yes Side effects from medications: No Attending Groups: Intermittent Review of Systems Review of Systems less oversedated today Yes Unobtainable due to mental status Mental Status Exam Mental Status Exam Narrative: Appearance: casually groomed, fair hygiene, overweight Behavior: less guarded and suspicious psychomotor: mild retardation noted Speech: clear, less delayed response but still some, soft volume, more spontaneous Thought process: more linear Thought content: feeling calmer, thinks medications are helping Mood: okay Affect: blunted, hypo-intense SI:unable to assess HI:unable to assess VH/AH: appears internally preoccupied Insight/judgment:impaired x 2. Memory/cog: alert, unable to assess Patient Appearance: Appropriate Patient Orientation: Person, Place and Situation Level of Consciousness: Awake Patient Behavior: Guarded Mood Description: Suspicious Affect Description: Blunted Patient Cognition Impaired: No Ability to Follow Directions: Fair Speech Pattern: Impoverished Diagnostics Vital Signs (24Hr): Vital Signs - 24 hr 11/23/21 18:00 Temperature 97.9 F Pulse Rate 84 Blood Pressure 130/80 Pulse Oximetry 95 Oxygen Delivery Method Room Air BMI result Body Mass Index 36.7 Labs Results: 10/23/21 15:29 11/10/21 08:40 Medications Medications Current Medications Acetaminophen (Acetaminophen 325 Mg Tablet) 975 mg PO Q6H PRN PRN Reason: Headache/Pain Mild Scale (1-3) Last Admin: 11/20/21 15:46 Dose: 975 mg Al Hydroxide/Mg Hydroxide (Magnesium Hydrox/Alum Hydrox 30 Ml Oral.Susp) 30 ml PO Q6H PRN PRN Reason: Heartburn/Nausea Benzocaine (Throat Lozenge, Medicated Lozenge) 1 lozenge MUCOUS MEM Q4H PRN PRN Reason: Sore Throat Last Admin: 11/20/21 11:14 Dose: 1 lozenge Bisacodyl (Bisacodyl 5 Mg Tablet.Dr) 5 mg PO DAILY PRN PRN Reason: Constipation Hydroxyzine HCl (Hydroxyzine Hcl 50 Mg Tablet) 50 mg PO Q6H PRN PRN Reason: Anxiety Last Admin: 11/23/21 12:24 Dose: [address] [place] Carbonate ([place] Carbonate Er 300 Mg Tablet.Er) 600 mg PO BEDTIME RASHI Last Admin: 11/23/21 20:37 Dose: 600 mg Lorazepam (Lorazepam 1 Mg Tablet) 1 mg PO TID RASHI Magnesium Hydroxide (Milk Of Magnesia 30 Ml Oral.Susp) 30 ml PO DAILY PRN PRN Reason: Constipation Last Admin: 11/16/21 13:53 Dose: 30 ml Multi-Ingred Medicated Throat [place] (Throat [place], Medicated 20 Ml Bottle) 1 spray MUCOUS MEM Q2H PRN PRN Reason: Sore Throat Last Admin: 11/22/21 10:59 Dose: 1 spray Olanzapine (Olanzapine 10 Mg Tablet) 20 mg PO BEDTIME RASHI Last Admin: 11/23/21 20:37 Dose: 20 mg Polyethylene Glycol (Polyethylene Glycol 3350 17 Gm Powd.Pack) 17 gm PO DAILY PRN PRN Reason: constipation Risperidone (Risperidone 2 Mg Tablet) 2 mg PO BEDTIME RASHI Last Admin: 11/23/21 20:38 Dose: 2 mg Risperidone (Risperidone 1 Mg Tablet) 1 mg PO DAILY RASHI Last Admin: 11/23/21 08:58 Dose: 1 mg Trazodone HCl (Trazodone Hcl 50 Mg Tablet) 150 mg PO BEDTIME RASHI Last Admin: 11/23/21 20:36 Dose: 150 mg Allergies Allergies Allergy/AdvReac Type Severity Reaction Status Date / Time No Known Allergies Allergy Verified 10/23/21 14:48 Assessment & Plan Assessment & Plan (1) Schizoaffective disorder: Qualifiers: Schizoaffective disorder type: unspecified Qualified Code(s): F25.9 - Schizoaffective disorder, unspecified Status: Acute Code(s): F25.9 - Schizoaffective disorder, unspecified Plan Ms. Handley is a 26 years old woman with hx of schizoaffective disorder, living in housing manage by [facility]. Pt was initially assessed by [facility] crisis due to increase paranoia, not taking medications. She was sent to [facility] on 10/17. Pt continue to decompensate, not sleeping, not eating nor taking medications. Pt presents as internally preoccupied, minimally verbal, guarded and paranoid. Utox is neg. PLAN 1. Admit to M3, Sect 12, 15 mins checks for safety 2. continue geodone, will add ativan for catatonic like behaviors- blank staring, psychomotor retardation. 3. Obtain collateral information- unable to reach Med provider through [facility] 4. Aftercare planning. 10/27 Sign CV, agreed to continue tx. 10/31- continue current medications. 11/01- switch from geodon to risperidone, will start risperidone 1mg po BID, continue geodone at current dose, may taper off as pt shows improvement. continue ativan. 11/02 continue risperidone, will decrease geodone gradually, continue ativan, recheck some labs. 11/03 increase risperidone to 1mg po daily and 2mg po qhs, start lithium 150mg po BID, lower geodone to 40mg po BID. continue ativan 1mg po tid/ 11/04 No med changes, discussed her intentional restriction of diet 11/05 No med changes, continue risperdal and lithium, no clear response yet 11/06 No med changes, nutrition consult placed due to pt restricting 11/08: no changes 11/09- increase lithium to 300mg po BID, continue risperidone and ativan. check lithium level, cmp, tsh. 11/10 continue current medications. 11/11: continue current mgmt. 11/12: send for another U/A. incr tylenol to 975 for VALENCIA and body aches. PT consult for muscle tightness/pain. 11/13 continue current medications. 11/14 continue current medications 11/15 continue current medications pending lithium level. 11/16 less s/s of catatonia, but continues internally preoccupied, speech with derailment and disorganized. will add olanzapine 5mg po BID, keeping in mind balance between not using high potency antipsychotic that will worsen catatonia (as seen with switch from geodone to risperidone) but more effectively treats underlying psychosis. will continue ativan at current dose 2mg po TID 11/17 continue current medications. 11/20 continue current medications. 11/21 continue switch from risperidone to olanzapine, continue ativan and lithium. 11/22 continue current medications. 11/23 continue current medications. I spent minutes with the patient and/or on the patient floor today, greater than?50% of which was spent counseling/coordinating care. Reason for contiued inpatient stay Substantial Risk for: inability to function
[2021-11-23] MEDS: hydrOXYzine HCL 50 MG TABLET PO (12:24)
[2021-11-23 18:00] VITALS: BP 130/80; PULSE 84; TEMP 36.6; O2SAT 95
[2021-11-23] MEDS: traZODone HCL 50 MG TABLET 150 MG PO (20:36)
[2021-11-23] MEDS: Lithium Carbonate ER 300 MG TABLET.ER 600 MG PO (20:37)
[2021-11-23] MEDS: OLANZapine 10 MG TABLET 20 MG PO (20:37)
[2021-11-23] MEDS: risperiDONE 2 MG TABLET PO (20:38)
[2021-11-24 10:00] VITALS: BP 115/70; PULSE 105; RESP 18; TEMP 36.8; O2SAT 96
[2021-11-24] MEDS: LORazepam 1 MG TABLET PO ×3 (10:14→20:46)
[2021-11-24] MEDS: risperiDONE 1 MG TABLET PO (10:14)
--- NOTE | 2021-11-24 10:18 | P.PNPSI_ITS ---
Subjective Subjective Date of Service: 11/24/21 Reason For Visit: psychotic Subjective Notes: Conditional Voluntary Interim History: Pt continues to present with brigther affect, much more organized and logical. She denies SI/HI. She has been more visible on the unit. She is awaiting staff from [facility] who is bring her clothes. No behavioral concerns. She is taking m edications as prescribed. Medication Compliance: Yes Side effects from medications: No Review of Systems Review of Systems less oversedated today Yes Unobtainable due to mental status Mental Status Exam Mental Status Exam Narrative: Appearance: casually groomed, fair hygiene, overweight Behavior: less guarded and suspicious psychomotor: no agitation or retardation noted Speech: clear, regular rate, soft volume, more spontaneous Thought process: more linear Thought content: feeling calmer, thinks medications are helping Mood: okay Affect: brighter SI:none HI:none VH/AH: much less Delusions: less paranoia. Insight/judgment:impaired x 2. Memory/cog: alert, unable to assess Diagnostics Vital Signs (24Hr): Vital Signs - 24 hr 11/26/21 09:30 11/26/21 20:00 Temperature 98.3 F 98.1 F Pulse Rate 102 H 100 Respiratory Rate 16 18 Blood Pressure 121/66 126/71 Pulse Oximetry 97 100 Oxygen Delivery Method Room Air Room Air BMI result Body Mass Index 36.7 Labs Results: 10/23/21 15:29 11/10/21 08:40 Medications Medications Current Medications Acetaminophen (Acetaminophen 325 Mg Tablet) 975 mg PO Q6H PRN PRN Reason: Headache/Pain Mild Scale (1-3) Last Admin: 11/20/21 15:46 Dose: 975 mg Al Hydroxide/Mg Hydroxide (Magnesium Hydrox/Alum Hydrox 30 Ml Oral.Susp) 30 ml PO Q6H PRN PRN Reason: Heartburn/Nausea Benzocaine (Throat Lozenge, Medicated Lozenge) 1 lozenge MUCOUS MEM Q4H PRN PRN Reason: Sore Throat Last Admin: 11/20/21 11:14 Dose: 1 lozenge Bisacodyl (Bisacodyl 5 Mg Tablet.Dr) 5 mg PO DAILY PRN PRN Reason: Constipation Hydroxyzine HCl (Hydroxyzine Hcl 50 Mg Tablet) 50 mg PO Q6H PRN PRN Reason: Anxiety Last Admin: 11/26/21 19:14 Dose: 50 mg [place] Carbonate ([place] Carbonate Er 300 Mg Tablet.Er) 600 mg PO BEDTIME RASHI Last Admin: 11/26/21 20:06 Dose: 600 mg Lorazepam (Lorazepam 1 Mg Tablet) 1 mg PO TID RASHI Last Admin: 11/26/21 20:06 Dose: 1 mg Magnesium Hydroxide (Milk Of Magnesia 30 Ml Oral.Susp) 30 ml PO DAILY PRN PRN Reason: Constipation Last Admin: 11/16/21 13:53 Dose: 30 ml Multi-Ingred Medicated Throat [place] (Throat [place], Medicated 20 Ml Bottle) 1 sp ray MUCOUS MEM Q2H PRN PRN Reason: Sore Throat Last Admin: 11/25/21 09:34 Dose: 1 spray Olanzapine (Olanzapine 10 Mg Tablet) 20 mg PO BEDTIME RASHI Last Admin: 11/26/21 20:06 Dose: 20 mg Polyethylene Glycol (Polyethylene Glycol 3350 17 Gm Powd.Pack) 17 gm PO DAILY PRN PRN Reason: constipation Risperidone (Risperidone 2 Mg Tablet) 2 mg PO BEDTIME RASHI Last Admin: 11/26/21 20:06 Dose: 2 mg Risperidone (Risperidone 1 Mg Tablet) 1 mg PO DAILY RASHI Last Admin: 11/26/21 09:45 Dose: 1 mg Trazodone HCl (Trazodone Hcl 50 Mg Tablet) 150 mg PO BEDTIME RASHI Last Admin: 11/26/21 20:06 Dose: 150 mg Allergies Allergies Allergy/AdvReac Type Severity Reaction Status Date / Time No Known Allergies Allergy Verified 10/23/21 14:48 Assessment & Plan Assessment & Plan (1) Schizoaffective disorder: Qualifiers: Schizoaffective disorder type: unspecified Qualified Code(s): F25.9 - Schizoaffective disorder, unspecified Status: Acute Code(s): F25.9 - Schizoaffective disorder, unspecified Plan Ms. Handley is a 26 years old woman with hx of schizoaffective disorder, living in housing manage by [facility]. Pt was initially assessed by [facility] crisis due to increase paranoia, not taking medications. She was sent to [facility] on 10/17. Pt continue to decompensate, not sleeping, not eating nor taking medications. Pt presents as internally preoccupied, minimally verbal, guarded and paranoid. Utox is neg. PLAN 1. Admit to M3, Sect 12, 15 mins checks for safety 2. continue geodone, will add ativan for catatonic like behaviors- blank staring, psychomotor retardation. 3. Obtain collateral information- unable to reach Med provider through [facility] 4. Aftercare planning. 10/27 Sign CV, agreed to continue tx. 10/31- continue current medications. 11/01- switch from geodon to risperidone, will start risperidone 1mg po BID, continue geodone at current dose, may taper off as pt shows improvement. continue ativan. 11/02 continue risperidone, will decrease geodone gradually, continue ativan, recheck some labs. 11/03 increase risperidone to 1mg po daily and 2mg po qhs, start lithium 150mg po BID, lower geodone to 40mg po BID. continue ativan 1mg po tid/ 11/04 No med changes, discussed her intentional restriction of diet 11/05 No med changes, continue risperdal and lithium, no clear response yet 11/06 No med changes, nutrition consult placed due to pt restricting 11/08: no changes 11/09- increase lithium to 300mg po BID, continue risperidone and ativan. check lithium level, cmp, tsh. 11/10 continue current medications. 11/11: continue current mgmt. 11/12: send for another U/A. incr tylenol to 975 for VALENCIA and body aches. PT consult for muscle tightness/pain. 11/13 continue current medications. 11/14 continue current medications 11/15 continue current medications pending lithium level. 11/16 less s/s of catatonia, but continues internally preoccupied, speech with derailment and disorganized. will add olanzapine 5mg po BID, keeping in mind balance between not using high potency antipsychotic that will worsen catatonia (as seen with switch from geodone to risperidone) but more effectively treats underlying psychosis. will continue ativan at current dose 2mg po TID 11/17 continue current medications. 11/20 continue current medications. 11/21 continue switch from risperidone to olanzapine, continue ativan and lithium. 11/22 continue current medications. 11/23 continue current medications. 11/24 continue current medications. I spent minutes with the patient and/or on the patient floor today, greater than?50% of which was spent counseling/coordinating care. Reason for contiued inpatient stay Substantial Risk for: inability to function
[2021-11-24] MEDS: OLANZapine 10 MG TABLET 20 MG PO (20:45)
[2021-11-24 20:46] VITALS: BP 116/74; PULSE 91; RESP 18; TEMP 36.8; O2SAT 97
[2021-11-24] MEDS: hydrOXYzine HCL 50 MG TABLET PO (20:46)
[2021-11-24] MEDS: Lithium Carbonate ER 300 MG TABLET.ER 600 MG PO (20:46)
[2021-11-24] MEDS: traZODone HCL 50 MG TABLET 150 MG PO (20:46)
[2021-11-24] MEDS: risperiDONE 2 MG TABLET PO (20:47)
[2021-11-25 09:00] VITALS: BP 111/69; PULSE 90; RESP 16; TEMP 36.4; O2SAT 98
[2021-11-25] MEDS: risperiDONE 1 MG TABLET PO (09:21)
[2021-11-25] MEDS: LORazepam 1 MG TABLET PO ×3 (09:21→21:18)
--- NOTE | 2021-11-25 10:13 | P.PNPSI_ITS ---
Subjective Subjective Date of Service: 11/25/21 Reason For Visit: psychotic Subjective Notes: Conditional Voluntary Interim History: Pt continues to report that she is doing well. Her affect brightens up. She reports sleeping and eating well. No s/s of catatonia. Pt reports she slept well. Much less suspiciousness and paranoid. Much more visible. Medication Compliance: Yes Side effects from medications: No Review of Systems Review of Systems less oversedated today Yes Unobtainable due to mental status Mental Status Exam Mental Status Exam Narrative: Appearance: casually groomed, fair hygiene, overweight Behavior: less guarded and suspicious psychomotor: mild retardation noted Speech: clear, less delayed response but still some, soft volume, more spontaneous Thought process: more linear Thought content: feeling calmer, thinks medications are helping Mood: okay Affect: blunted, hypo-intense SI:unable to assess HI:unable to assess VH/AH: appears internally preoccupied Insight/judgment:impaired x 2. Memory/cog: alert, unable to assess Patient Appearance: Appropriate Patient Orientation: Person, Place and Situation Level of Consciousness: Awake Patient Behavior: Guarded Mood Description: Suspicious Affect Description: Blunted Patient Cognition Impaired: No Ability to Follow Directions: Fair Speech Pattern: Impoverished Diagnostics Vital Signs (24Hr): Vital Signs - 24 hr 11/26/21 09:30 11/26/21 20:00 Temperature 98.3 F 98.1 F Pulse Rate 102 H 100 Respiratory Rate 16 18 Blood Pressure 121/66 126/71 Pulse Oximetry 97 100 Oxygen Delivery Method Room Air Room Air BMI result Body Mass Index 36.7 Labs Results: 10/23/21 15:29 11/10/21 08:40 Medications Medications Current Medications Acetaminophen (Acetaminophen 325 Mg Tablet) 975 mg PO Q6H PRN PRN Reason: Headache/Pain Mild Scale (1-3) Last Admin: 11/20/21 15:46 Dose: 975 mg Al Hydroxide/Mg Hydroxide (Magnesium Hydrox/Alum Hydrox 30 Ml Oral.Susp) 30 ml PO Q6H PRN PRN Reason: Heartburn/Nausea Benzocaine (Throat Lozenge, Medicated Lozenge) 1 lozenge MUCOUS MEM Q4H PRN PRN Reason: Sore Throat Last Admin: 11/20/21 11:14 Dose: 1 lozenge Bisacodyl (Bisacodyl 5 Mg Tablet.Dr) 5 mg PO DAILY PRN PRN Reason: Constipation Hydroxyzine HCl (Hydroxyzine Hcl 50 Mg Tablet) 50 mg PO Q6H PRN PRN Reason: Anxiety Last Admin: 11/26/21 19:14 Dose: 50 mg [place] Carbonate ([place] Carbonate Er 300 Mg Tablet.Er) 600 mg PO BEDTIME RASHI Last Admin: 11/26/21 20:06 Dose: 600 mg Lorazepam (Lorazepam 1 Mg Tablet) 1 mg PO TID RASHI Last Admin: 11/26/21 20:06 Dose: 1 mg Magnesium Hydroxide (Milk Of Magnesia 30 Ml Oral.Susp) 30 ml PO DAILY PRN PRN Reason: Constipation Last Admin: 11/16/21 13:53 Dose: 30 ml Multi-Ingred Medicated Throat [place] (Throat [place], Medicated 20 Ml Bottle) 1 spray MUCOUS MEM Q2H PRN PRN Reason: Sore Throat Last Admin: 11/25/21 09:34 Dose: 1 spray Olanzapine (Olanzapine 10 Mg Tablet) 20 mg PO BEDTIME RASHI Last Admin: 11/26/21 20:06 Dose: 20 mg Polyethylene Glycol (Polyethylene Glycol 3350 17 Gm Powd.Pack) 17 gm PO DAILY PRN PRN Reason: constipation Risperidone (Risperidone 2 Mg Tablet) 2 mg PO BEDTIME RASHI Last Admin: 11/26/21 20:06 Dose: 2 mg Risperidone (Risperidone 1 Mg Tablet) 1 mg PO DAILY RASHI Last Admin: 11/26/21 09:45 Dose: 1 mg Trazodone HCl (Trazodone Hcl 50 Mg Tablet) 150 mg PO BEDTIME RASHI Last Admin: 11/26/21 20:06 Dose: 150 mg Allergies Allergies Allergy/AdvReac Type Severity Reaction Status Date / Time No Known Allergies Allergy Verified 10/23/21 14:48 Assessment & Plan Assessment & Plan (1) Schizoaffective disorder: Qualifiers: Schizoaffective disorder type: unspecified Qualified Code(s): F25.9 - Schizoaffective disorder, unspecified Status: Acute Code(s): F25.9 - Schizoaffective disorder, unspecified Plan Ms. Handley is a 26 years old woman with hx of schizoaffective disorder, living in housing manage by [facility]. Pt was initially assessed by [facility] due to increase paranoia, not taking medications. She was sent to [facility] on 10/17. Pt continue to decompensate, not sleeping, not eating nor taking medications. Pt presents as internally preoccupied, minimally verbal, guarded and paranoid. Utox is neg. PLAN 1. Admit to M3, Sect 12, 15 mins checks for safety 2. continue geodone, will add ativan for catatonic like behaviors- blank staring, psychomotor retardation. 3. Obtain collateral information- unable to reach Med provider through [facility] 4. Aftercare planning. 10/27 Sign CV, agreed to continue tx. 10/31- continue current medications. 11/01- switch from geodon to risperidone, will start risperidone 1mg po BID, continue geodone at current dose, may taper off as pt shows improvement. continue ativan. 11/02 continue risperidone, will decrease geodone gradually, continue ativan, recheck some labs. 11/03 increase risperidone to 1mg po daily and 2mg po qhs, start lithium 150mg po BID, lower geodone to 40mg po BID. continue ativan 1mg po tid/ 11/04 No med changes, discussed her intentional restriction of diet 11/05 No med changes, continue risperdal and lithium, no clear response yet 11/06 No med changes, nutrition consult placed due to pt restricting 11/08: no changes 11/09- increase lithium to 300mg po BID, continue risperidone and ativan. check li thium level, cmp, tsh. 11/10 continue current medications. 11/11: continue current mgmt. 11/12: send for another U/A. incr tylenol to 975 for VALENCIA and body aches. PT consult for muscle tightness/pain. 11/13 continue current medications. 11/14 continue current medications 11/15 continue current medications pending lithium level. 11/16 less s/s of catatonia, but continues internally preoccupied, speech with derailment and disorganized. will add olanzapine 5mg po BID, keeping in mind balance between not using high potency antipsychotic that will worsen catatonia (as seen with switch from geodone to risperidone) but more effectively treats underlying psychosis. will continue ativan at current dose 2mg po TID 11/17 continue current medications. 11/20 continue current medications. 11/21 continue switch from risperidone to olanzapine, continue ativan and lithium. 11/22 continue current medications. 11/23 continue current medications. 11/24 continue current medications. 11/25 continue current medications, improving. I spent minutes with the patient and/or on the patient floor today, greater than?50% of which was spent counseling/coordinating care. Reason for contiued inpatient stay Substantial Risk for: inability to function
[2021-11-25] MEDS: OLANZapine 10 MG TABLET 20 MG PO (21:00)
[2021-11-25] MEDS: Lithium Carbonate ER 300 MG TABLET.ER 600 MG PO (21:17)
[2021-11-25 21:18] VITALS: BP 119/74; PULSE 94; RESP 18; TEMP 36.8; O2SAT 97
[2021-11-25] MEDS: risperiDONE 2 MG TABLET PO (21:18)
[2021-11-25] MEDS: traZODone HCL 50 MG TABLET 150 MG PO (21:18)
--- NOTE | 2021-11-26 09:15 | HO.PSYCHPN ---
Subjective Subjective Date of Service: 11/26/21 Reason For Visit: psychotic Subjective Notes: Conditional Voluntary Interim History: Pt reports she is doing well. She reports she is looking forward to return home, and eventually go back to work [facility] [facility] program. She appropriately says it may take a bit to return to work as she used to. She denies SI/HI. Much more visible, brighter, less internally preoccupied. no behavioral concerns. Medication Compliance: Yes Side effects from medications: No Review of Systems Review of Systems less oversedated today Yes Unobtainable due to mental status Mental Status Exam Mental Status Exam Narrative: Appearance: casually groomed, fair hygiene, overweight Behavior: less guarded and suspicious psychomotor: no agitation or retardation noted Speech: clear, regular rate, soft volume, more spontaneous Thought process: more linear Thought content: feeling calmer, thinks medications are helping Mood: okay Affect: brighter SI:none HI:none VH/AH: much less Delusions: less paranoia. Insight/judgment:impaired x 2. Memory/cog: alert, unable to assess Diagnostics Vital Signs (24Hr): Vital Signs - 24 hr 11/26/21 09:30 11/26/21 20:00 Temperature 98.3 F 98.1 F Pulse Rate 102 H 100 Respiratory Rate 16 18 Blood Pressure 121/66 126/71 Pulse Oximetry 97 100 Oxygen Delivery Method Room Air Room Air BMI result Body Mass Index 36.7 Labs Results: 10/23/21 15:29 11/10/21 08:40 Medications Medications Current Medications Acetaminophen (Acetaminophen 325 Mg Tablet) 975 mg PO Q6H PRN PRN Reason: Headache/Pain Mild Scale (1-3) Last Admin: 11/20/21 15:46 Dose: 975 mg Al Hydroxide/Mg Hydroxide (Magnesium Hydrox/Alum Hydrox 30 Ml Oral.Susp) 30 ml PO Q6H PRN PRN Reason: Heartburn/Nausea Benzocaine (Throat Lozenge, Medicated Lozenge) 1 lozenge MUCOUS MEM Q4H PRN PRN Reason: Sore Throat Last Admin: 11/20/21 11:14 Dose: 1 lozenge Bisacodyl (Bisacodyl 5 Mg Tablet.) 5 mg PO DAILY PRN PRN Reason: Constipation Hydroxyzine HCl (Hydroxyzine Hcl 50 Mg Tablet) 50 mg PO Q6H PRN PRN Reason: Anxiety Last Admin: 11/26/21 19:14 Dose: 50 mg [place] Carbonate ([place] Carbonate Er 300 Mg Tablet.Er) 600 mg PO BEDTIME RASHI Last Admin: 11/26/21 20:06 Dose: 600 mg Lorazepam (Lorazepam 1 Mg Tablet) 1 mg PO TID RASHI Last Admin: 11/26/21 20:06 Dose: 1 mg Magnesium Hydroxide (Milk Of Magnesia 30 Ml Oral.Susp) 30 ml PO DAILY PRN PRN Reason: Constipation Last Admin: 11/16/21 13:53 Dose: 30 ml Multi-Ingred Medicated Throat [place] (Throat [place], Medicated 20 Ml Bottle) 1 spray MUCOUS MEM Q2H PRN PRN Reason: Sore Throat Last Admin: 11/25/21 09:34 Dose: 1 spray Olanzapine (Olanzapine 10 Mg Tablet) 20 mg PO BEDTIME RASHI Last Admin: 11/26/21 20:06 Dose: 20 mg Polyethylene Glycol (Polyethylene Glycol 3350 17 Gm Powd.Pack) 17 gm PO DAILY PRN PRN Reason: constipation Risperidone (Risperidone 2 Mg Tablet) 2 mg PO BEDTIME RASHI Last Admin: 11/26/21 20:06 Dose: 2 mg Risperidone (Risperidone 1 Mg Tablet) 1 mg PO DAILY RASHI Last Admin: 11/26/21 09:45 Dose: 1 mg Trazodone HCl (Trazodone Hcl 50 Mg Tablet) 150 mg PO BEDTIME RASHI Last Admin: 11/26/21 20:06 Dose: 150 mg Allergies Allergies Allergy/AdvReac Type Severity Reaction Status Date / Time No Known Allergies Allergy Verified 10/23/21 14:48 Assessment & Plan Assessment & Plan (1) Schizoaffective disorder: Qualifiers: Schizoaffective disorder type: unspecified Qualified Code(s): F25.9 - Schizoaffective disorder, unspecified Status: Acute Code(s): F25.9 - Schizoaffective disorder, unspecified Plan Ms. Handley is a 26 years old woman with hx of schizoaffective disorder, living in housing manage by [facility]. Pt was initially assessed by [facility] crisis due to increase paranoia, not taking medications. She was sent to [facility] on 10/17. Pt continue to decompensate, not sleeping, not eating nor taking medications. Pt presents as internally preoccupied, minimally verbal, guarded and paranoid. Utox is neg. PLAN 1. Admit to M3, Sect 12, 15 mins checks for safety 2. continue geodone, will add ativan for catatonic like behaviors- blank staring, psychomotor retardation. 3. Obtain collateral information- unable to reach Med provider through [facility] 4. Aftercare planning. 10/27 Sign CV, agreed to continue tx. 10/31- continue current medications. 11/01- switch from geodon to risperidone, will start risperidone 1mg po BID, continue geodone at current dose, may taper off as pt shows improvement. continue ativan. 11/02 continue risperidone, will decrease geodone gradually, continue ativan, recheck some labs. 11/03 increase risperidone to 1mg po daily and 2mg po qhs, start lithium 150mg po BID, lower geodone to 40mg po BID. continue ativan 1mg po tid/ 11/04 No med changes, discussed her intentional restriction of diet 11/05 No med changes, continue risperdal and lithium, no clear response yet 11/06 No med changes, nutrition consult placed due to pt restricting 11/08: no changes 11/09- increase lithium to 300mg po BID, continue risperidone and ativan. check lithium level, cmp, tsh. 11/10 continue current medications. 11/11: continue current mgmt. 11/12: send for another U/A. incr tylenol to 975 for VALENCIA and body aches. PT consult for muscle tightness/pain. 11/13 continue current medications. 11/14 continue current medications 11/15 continue current medications pending lithium level. 11/16 less s/s of catatonia, but continues internally preoccupied, speech with derailment and disorganized. will add olanzapine 5mg po BID, keeping in mind balance between not using high potency antipsychotic that will worsen catatonia (as seen with switch from geodone to risperidone) but more effectively treats underlying psychosis. will continue ativan at current dose 2mg po TID 11/17 continue current medications. 11/20 continue current medications. 11/21 continue switch from risperidone to olanzapine, continue ativan and lithium. 11/22 continue current medications. 11/23 continue current medications. 11/24 continue current medications. 11/25 continue current medications, improving. 11/26 continue current medications. I spent minutes with the patient and/or on the patient floor today, greater than?50% of which was spent counseling/coordinating care. Reason for contiued inpatient stay Substantial Risk for: inability to function
[2021-11-26 09:30] VITALS: BP 121/66; PULSE 102; RESP 16; TEMP 36.8; O2SAT 97
[2021-11-26] MEDS: LORazepam 1 MG TABLET PO ×3 (09:45→20:06)
[2021-11-26] MEDS: risperiDONE 1 MG TABLET PO (09:45)
[2021-11-26] MEDS: hydrOXYzine HCL 50 MG TABLET PO (19:14)
[2021-11-26 20:00] VITALS: BP 126/71; PULSE 100; RESP 18; TEMP 36.7; O2SAT 100
[2021-11-26] MEDS: risperiDONE 2 MG TABLET PO (20:06)
[2021-11-26] MEDS: Lithium Carbonate ER 300 MG TABLET.ER 600 MG PO (20:06)
[2021-11-26] MEDS: traZODone HCL 50 MG TABLET 150 MG PO (20:06)
[2021-11-26] MEDS: OLANZapine 10 MG TABLET 20 MG PO (20:06)
[2021-11-27] MEDS: LORazepam 1 MG TABLET PO ×3 (08:53→20:29)
[2021-11-27] MEDS: risperiDONE 1 MG TABLET PO (08:53)
[2021-11-27 09:53] VITALS: BP 114/68; PULSE 110; TEMP 36.8; O2SAT 969
--- NOTE | 2021-11-27 12:05 | MHC.CLN ---
F/U DISCONTINUING ENSURE SUPPLEMENT PER CONVERSATION WITH PATIENT.
--- NOTE | 2021-11-27 17:02 | P.PNPSI_ITS ---
Subjective Subjective Date of Service: 11/27/21 Reason For Visit: psychotic Interim History: calm, cooperative. planning for weds DC. good mood, no safety concerns. per staff, pleasant, cooperative. no complaints. anxious, tearful. declined 1:1 mtg. in milieu for about 4 hours. Mental Status Exam Mental Status Exam Narrative: Appearance: casually groomed, fair hygiene, overweight Behavior: less guarded and suspicious psychomotor: no agitation or retardation noted Speech: clear, regular rate, soft volume, more spontaneous Thought process: more linear Thought content: feeling calmer, thinks medications are helping Mood: good Affect: brighter SI:none HI:none VH/AH: none expressed Delusions: less paranoia. Insight/judgment:impaired x 2. Memory/cog: alert, unable to assess Diagnostics Vital Signs (24Hr): Vital Signs - 24 hr 11/26/21 20:00 11/27/21 09:53 Temperature 98.1 F 98.3 F Pulse Rate 100 110 H Respiratory Rate 18 Blood Pressure 126/71 114/68 Pulse Oximetry 100 969 H Oxygen Delivery Method Room Air Room Air BMI result Body Mass Index 36.7 Labs Results: 10/23/21 15:29 11/10/21 08:40 Medications Medications Current Medications Acetaminophen (Acetaminophen 325 Mg Tablet) 975 mg PO Q6H PRN PRN Reason: Headache/Pain Mild Scale (1-3) Last Admin: 11/20/21 15:46 Dose: 975 mg Al Hydroxide/Mg Hydroxide (Magnesium Hydrox/Alum Hydrox 30 Ml Oral.Susp) 30 ml PO Q6H PRN PRN Reason: Heartburn/Nausea Benzocaine (Throat Lozenge, Medicated Lozenge) 1 lozenge MUCOUS MEM Q4H PRN PRN Reason: Sore Throat Last Admin: 11/20/21 11:14 Dose: 1 lozenge Bisacodyl (Bisacodyl 5 Mg Tablet.Dr) 5 mg PO DAILY PRN PRN Reason: Constipation Hydroxyzine HCl (Hydroxyzine Hcl 50 Mg Tablet) 50 mg PO Q6H PRN PRN Reason: Anxiety Last Admin: 11/26/21 19:14 Dose: 50 mg [place] Carbonate ([place] Carbonate Er 300 Mg Tablet.Er) 600 mg PO BEDTIME RASHI Last Admin: 11/26/21 20:06 Dose: 600 mg Lorazepam (Lorazepam 1 Mg Tablet) 1 mg PO TID [facility] Last Admin: 11/27/21 15:10 Dose: 1 mg Magnesium Hydroxide (Milk Of Magnesia 30 Ml Oral.Susp) 30 ml PO DAILY PRN PRN Reason: Constipation Last Admin: 11/16/21 13:53 Dose: 30 ml Multi-Ingred Medicated Throat [place] (Throat [place], Medicated 20 Ml Bottle) 1 spray MUCOUS MEM Q2H PRN PRN Reason: Sore Throat Last Admin: 11/25/21 09:34 Dose: 1 spray Olanzapine (Olanzapine 10 Mg Tablet) 20 mg PO BEDTIME RASHI Last Admin: 11/26/21 20:06 Dose: 20 mg Polyethylene Glycol (Polyethylene Glycol 3350 17 Gm Powd.Pack) 17 gm PO DAILY PRN PRN Reason: constipation Risperidone (Risperidone 2 Mg Tablet) 2 mg PO BEDTIME RASHI Last Admin: 11/26/21 20:06 Dose: 2 mg Risperidone (Risperidone 1 Mg Tablet) 1 mg PO DAILY RASHI Last Admin: 11/27/21 08:53 Dose: 1 mg Trazodone HCl (Trazodone Hcl 50 Mg Tablet) 150 mg PO BEDTIME RASHI Last Admin: 11/26/21 20:06 Dose: 150 mg Allergies Allergies Allergy/AdvReac Type Severity Reaction Status Date / Time No Known Allergies Allergy Verified 10/23/21 14:48 Assessment & Plan Assessment & Plan (1) Schizoaffective disorder: Qualifiers: Schizoaffective disorder type: unspecified Qualified Code(s): F25.9 - Schizoaffective disorder, unspecified Status: Acute Code(s): F25.9 - Schizoaffective disorder, unspecified Plan Ms. Handley is a 26 years old woman with hx of schizoaffective disorder, living in housing manage by [facility]. Pt was initially assessed by [facility] crisis due to increase paranoia, not taking medications. She was sent to [facility] on 10/[facility]. Pt continue to decompensate, not sleeping, not eating nor taking medications. Pt presents as internally preoccupied, minimally verbal, guarded and paranoid. Utox is neg. PLAN 1. Admit to M3, Sect 12, 15 mins checks for safety 2. continue geodone, will add ativan for catatonic like behaviors- blank staring, psychomotor retardation. 3. Obtain collateral information- unable to reach Med provider through [facility] 4. Aftercare planning. 10/27 Sign CV, agreed to continue tx. 10/31- continue current medications. 11/01- switch from geodon to risperidone, will start risperidone 1mg po BID, continue geodone at current dose, may taper off as pt shows improvement. continue ativan. 11/02 continue risperidone, will decrease geodone gradually, continue ativan, recheck some labs. 11/03 increase risperidone to 1mg po daily and 2mg po qhs, start lithium 150mg po BID, lower geodone to 40mg po BID. continue ativan 1mg po tid/ 11/04 No med changes, discussed her intentional restriction of diet 11/05 No med changes, continue risperdal and lithium, no clear response yet 11/06 No med changes, nutrition consult placed due to pt restricting 11/08: no changes 11/09- increase lithium to 300mg po BID, continue risperidone and ativan. check lithium level, cmp, tsh. 11/10 continue current medications. 11/11: continue current mgmt. 11/12: send for another U/A. incr tylenol to 975 for VALENCIA and body aches. PT consult for muscle tightness/pain. 11/13 continue current medications. 11/14 continue current medications 11/15 continue current medications pending lithium level. 11/16 less s/s of catatonia, but continues internally preoccupied, speech with derailment and disorganized. will add olanzapine 5mg po BID, keeping in mind balance between not using high potency antipsychotic that will worsen catatonia (as seen with switch from geodone to risperidone) but more effectively treats underlying psychosis. will continue ativan at current dose 2mg po TID 11/17 continue current medications. 11/20 continue current medications. 11/21 continue switch from risperidone to olanzapine, continue ativan and lithium. 11/22 continue current medications. 11/23 continue current medications. 11/24 continue current medications. 11/27: continue current mgmt. discharge . I spent __20____ minutes with the patient and/or on the patient floor today, greater than?50% of which was spent counseling/coordinating care. Reason for contiued inpatient stay Substantial Risk for: inability to function and rapid decompensation
[2021-11-27] MEDS: traZODone HCL 50 MG TABLET 150 MG PO (20:29)
[2021-11-27] MEDS: OLANZapine 10 MG TABLET 20 MG PO (20:29)
[2021-11-27] MEDS: risperiDONE 2 MG TABLET PO (20:29)
[2021-11-27] MEDS: Lithium Carbonate ER 300 MG TABLET.ER 600 MG PO (20:29)
[2021-11-27 20:30] VITALS: BP 118/71; PULSE 96; RESP 18; TEMP 36.7; O2SAT 98
[2021-11-28 07:57] VITALS: BP 148/66; PULSE 118; RESP 17; TEMP 36.3; O2SAT 99
[2021-11-28] MEDS: risperiDONE 1 MG TABLET PO (08:22)
[2021-11-28] MEDS: LORazepam 1 MG TABLET PO ×3 (08:22→20:18)
--- NOTE | 2021-11-28 15:08 | P.PNPSI_ITS ---
Subjective Subjective Date of Service: 11/28/21 Reason For Visit: psychotic Interim History: calm, cooperative. looking forward to discharge tomorrow. a little anxious about discharge. no requests. per staff, isolative, anxious. visible, social. misses her mother. discharge tomorrow. Mental Status Exam Mental Status Exam Narrative: Appearance: casually groomed, fair hygiene, overweight Behavior: less guarded and suspicious psychomotor: no agitation or retardation noted Speech: clear, regular rate, soft volume, more spontaneous Thought process: more linear Thought content: feeling calmer, thinks medications are helping Mood: a little nervous Affect: brighter SI:none expressed HI:none expressed VH/AH: none expressed Insight/judgment: improved Memory/cog: alert, unable to assess Diagnostics Vital Signs (24Hr): Vital Signs - 24 hr 11/27/21 20:30 11/28/21 07:57 Temperature 98.1 F 97.4 F Pulse Rate 96 118 H Respiratory Rate 18 17 Blood Pressure 118/71 148/66 H Pulse Oximetry 98 99 Oxygen Delivery Method Room Air Room Air BMI result Body Mass Index 36.7 Labs Results: 10/23/21 15:29 11/10/21 08:40 Medications Medications Current Medications Acetaminophen (Acetaminophen 325 Mg Tablet) 975 mg PO Q6H PRN PRN Reason: Headache/Pain Mild Scale (1-3) Last Admin: 11/20/21 15:46 Dose: 975 mg Al Hydroxide/Mg Hydroxide (Magnesium Hydrox/Alum Hydrox 30 Ml Oral.Susp) 30 ml PO Q6H PRN PRN Reason: Heartburn/Nausea Benzocaine (Throat Lozenge, Medicated Lozenge) 1 lozenge MUCOUS MEM Q4H PRN PRN Reason: Sore Throat Last Admin: 11/20/21 11:14 Dose: 1 lozenge Bisacodyl (Bisacodyl 5 Mg Tablet.Dr) 5 mg PO DAILY PRN PRN Reason: Constipation Hydroxyzine HCl (Hydroxyzine Hcl 50 Mg Tablet) 50 mg PO Q6H PRN PRN Reason: Anxiety Last Admin: 11/26/21 19:14 Dose: 50 mg [place] Carbonate ([place] Carbonate Er 300 Mg Tablet.Er) 600 mg PO BEDTIME RASHI Last Admin: 11/27/21 20:29 Dose: 600 mg Lorazepam (Lorazepam 1 Mg Tablet) 1 mg PO TID RASHI Last Admin: 11/28/21 08:22 Dose: 1 mg Magnesium Hydroxide (Milk Of Magnesia 30 Ml Oral.Susp) 30 ml PO DAILY PRN PRN Reason: Constipation Last Admin: 11/16/21 13:53 Dose: 30 ml Multi-Ingred Medicated Throat [place] (Throat [place], Medicated 20 Ml Bottle) 1 sp ray MUCOUS MEM Q2H PRN PRN Reason: Sore Throat Last Admin: 11/25/21 09:34 Dose: 1 spray Olanzapine (Olanzapine 10 Mg Tablet) 20 mg PO BEDTIME RASHI Last Admin: 11/27/21 20:29 Dose: 20 mg Polyethylene Glycol (Polyethylene Glycol 3350 17 Gm Powd.Pack) 17 gm PO DAILY PRN PRN Reason: constipation Risperidone (Risperidone 2 Mg Tablet) 2 mg PO BEDTIME RASHI Last Admin: 11/27/21 20:29 Dose: 2 mg Risperidone (Risperidone 1 Mg Tablet) 1 mg PO DAILY RASHI Last Admin: 11/28/21 08:22 Dose: 1 mg Trazodone HCl (Trazodone Hcl 50 Mg Tablet) 150 mg PO BEDTIME RASHI Last Admin: 11/27/21 20:29 Dose: 150 mg Allergies Allergies Allergy/AdvReac Type Severity Reaction Status Date / Time No Known Allergies Allergy Verified 10/23/21 14:48 Assessment & Plan Assessment & Plan (1) Schizoaffective disorder: Qualifiers: Schizoaffective disorder type: unspecified Qualified Code(s): F25.9 - Schizoaffective disorder, unspecified Status: Acute Code(s): F25.9 - Schizoaffective disorder, unspecified Plan Ms. Handley is a 26 years old woman with hx of schizoaffective disorder, living in housing manage by [facility]. Pt was initially assessed by [facility] crisis due to increase paranoia, not taking medications. She was sent to [facility]. Pt continue to decompensate, not sleeping, not eating nor taking medications. Pt presents as internally preoccupied, minimally verbal, guarded and paranoid. Utox is neg. PLAN 1. Admit to M3, Sect 12, 15 mins checks for safety 2. continue geodone, will add ativan for catatonic like behaviors- blank staring, psychomotor retardation. 3. Obtain collateral information- unable to reach Med provider through [facility] 4. Aftercare planning. 10/27 Sign CV, agreed to continue tx. 10/31- continue current medications. 11/01- switch from geodon to risperidone, will start risperidone 1mg po BID, continue geodone at current dose, may taper off as pt shows improvement. continue ativan. 11/02 continue risperidone, will decrease geodone gradually, continue ativan, recheck some labs. 11/03 increase risperidone to 1mg po daily and 2mg po qhs, start lithium 150mg po BID, lower geodone to 40mg po BID. continue ativan 1mg po tid/ 11/04 No med changes, discussed her intentional restriction of diet 11/05 No med changes, continue risperdal and lithium, no clear response yet 11/06 No med changes, nutrition consult placed due to pt restricting 11/08: no changes 11/09- increase lithium to 300mg po BID, continue risperidone and ativan. check lithium level, cmp, tsh. 11/10 continue current medications. 11/11: continue current mgmt. 11/12: send for another U/A. incr tylenol to 975 for VALENCIA and body aches. PT consult for muscle tightness/pain. 11/13 continue current medications. 11/14 continue current medications 11/15 continue current medications pending lithium level. 11/16 less s/s of catatonia, but continues internally preoccupied, speech with derailment and disorganized. will add olanzapine 5mg po BID, keeping in mind balance between not using high potency antipsychotic that will worsen catatonia (as seen with switch from geodone to risperidone) but more effectively treats underlying psychosis. will continue ativan at current dose 2mg po TID 11/17 continue current medications. 11/20 continue current medications. 11/21 continue switch from risperidone to olanzapine, continue ativan and lithium. 11/22 continue current medications. 11/23 continue current medications. 11/24 continue current medications. 11/27: continue current mgmt. discharge . 11/28: no change. discharge tomorrow. stable. I spent _20 minutes with the patient and/or on the patient floor today, greater than?50% of which was spent counseling/coordinating care. Reason for contiued inpatient stay Substantial Risk for: stable for discharge
[2021-11-28 20:18] VITALS: BP 132/73; PULSE 105; RESP 20; TEMP 36.7; O2SAT 98
[2021-11-28] MEDS: OLANZapine 10 MG TABLET 20 MG PO (20:18)
[2021-11-28] MEDS: risperiDONE 2 MG TABLET PO (20:18)
[2021-11-28] MEDS: Lithium Carbonate ER 300 MG TABLET.ER 600 MG PO (20:18)
[2021-11-28] MEDS: traZODone HCL 50 MG TABLET 150 MG PO (20:18)
[2021-11-28] MEDS: hydrOXYzine HCL 50 MG TABLET PO (20:18)
[2021-11-29] MEDS: risperiDONE 1 MG TABLET PO (09:24)
[2021-11-29 09:28] VITALS: BP 124/76; PULSE 95; RESP 16; TEMP 36.7; O2SAT 97
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
== END 2021-11-29 14:15 | disposition home or self-care (01) | DRG 750 ==
LOC: HO.ED 19:02 → HO.PADLT16 10-24 12:05
PROVIDERS: Psychiatry & Neurology Psychiatry; Registered Nurse; Admitting Provider Social Worker; Emergency Provider Emergency Medicine; Visit Provider Social Worker
DX: F25.9 Schizoaffective disorder, unspecified (principal); F06.1 Catatonic disorder due to known physiological condition; Z20.822 Contact with and (suspected) exposure to COVID-19; Z79.899 Other long term (current) drug therapy
CPT/HCPCS: 36415; 80048; 80053; 80061; 80076; 80178; 80307; 81001; 81003; 82607; 82746; 83036; 84443; 84702; 85025; 87086; 87635; 93005; 97161; 99285

== ENCOUNTER 2023-06-23 12:52 | Inpatient (IN) | payer OTHER, SELFPAY ==
[2023-06-23 13:03] VITALS: BP 124/80; BP 130/80; PULSE 88; PULSE 91; RESP 18; TEMP 36.1; O2SAT 100; O2SAT 99; BMI 39.7
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
[2023-06-23 13:36] LABS: MANUAL DIFF FLAG NO
[2023-06-23 13:40] LABS: Appearance Urine Cloudy; Color Urine Yellow; Glucose Urine UA Negative (Negative); Leukocyte Esterase Urine Negative (Negative); Nitrite Urine Negative (Negative); Specific Gravity - Urine >= 1.030 (1.005-1.025); UMIC TRIGGER UACC YES; Urine Blood Negative (Negative); Urine Ketones 80 mg/dL (Negative); Urine Protein 100 (2+) mg/dL (Neg-Trace)
[2023-06-23 13:50] LABS: Bacteria Urine 4+ (None Seen); Hyaline Casts Urine 0-2 /LPF (0-2); RBC Urine 0-2 /HPF (0-2); UPreg QC Valid YES; Urine Pregnancy NEGATIVE (NEGATIVE); WBC Urine 0-5 /HPF (0-5)
[2023-06-23 13:52] LABS: Basophils Percent Auto 0.6 % (0-2); Imm Gran Abs Auto 0.02 X10*3/uL (0.00-0.03); Imm Gran Pct Auto 0.3 % (0.0-0.4); Mean Platelet Volume 9.6 fL (9.4-12.3); Neutrophils Absolute Auto 4.3 x10*3/uL (2.0-8.3); PLT CLUMP 1; SCAN SMEAR FLAG 1
[2023-06-23 13:54] LABS: Eosinophils Absolute Auto 0.1 X10*3/uL (0.0-0.4); Eosinophils Percent Auto 1.4 % (0-4); Hematocrit 42.3 % (37.0-47.0); Hemoglobin 13.9 g/dl (12.0-16.0); Lymphocytes Absolute Auto 1.7 X10*3/uL (1.2-4.9); Lymphocytes Percent Auto 25.2 % (20-40); Mean Corpuscular HGB Conc 32.9 g/dl (31.0-35.0); Mean Corpuscular Hemoglobin 27.3 pg (27.0-33.0); Mean Corpuscular Volume 82.9 fL (80.0-98.0); Monocytes Absolute Auto 0.5 X10*3/uL (0.1-1.2); Monocytes Percent Auto 7.1 % (2-11); Neutrophils Percent Auto 65.4 % (45-73)
[2023-06-23 13:57] LABS: Amphetamine Screen Urine Not Detected (Not Detect); Barbiturates, Urine Not Detected (Not Detect); Benzodiazepines Screen Urine Not Detected (Not Detect); Cannabinoid Screen Urine Not Detected (Not Detect); Cocaine Screen Urine Not Detected (Not Detect); Fentanyl, urine Not Detected (Not Detect); Opiate Screen Urine Not Detected (Not Detect); Phencyclidine Screen Urine Not Detected (Not Detect)
[2023-06-23 14:03] LABS: White Blood Count 6.7 X10*3/uL (4.8-10.8)
[2023-06-23 14:04] LABS: Platelet Count 260 X10*3/uL (160-400)
[2023-06-23 14:19] LABS: Alanine Aminotransferase 27 U/L (0-31); Albumin Level 4.3 g/dL (3.5-5.0); Alkaline Phosphatase 68 U/L (39-117); Anion Gap 13 (12-20); Aspartate Amino Transferase 42 U/L (5-31); Bilirubin Total 0.4 mg/dL (0.0-1.0); Blood Urea Nitrogen 10 mg/dL (9-16); Calcium 9.3 mg/dL (8.4-10.2); Carbon Dioxide 26 mmol/L (22-29); Chloride 106 mmol/L (96-108); Creatinine Clr Calc Pharmacy 139.5; Estimated Glomerular Filt Rate > 60; Ethanol < 10 mg/dL; Glucose Random 89 mg/dL (60-115); Potassium 4.2 mmol/L (3.3-5.1); Sodium 141 mmol/L (135-145); Total Protein 8.4 g/dL (6.5-8.0)
--- NOTE | 2023-06-23 15:42 | PC.NURSE ---
patient has been sitting quietly in her room waiting doctors maryan, patient requesting ibuprofin for back pain.
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
[2023-06-23 18:35] LABS: Lithium 0.26 mmol/L (0.60-1.20)
[2023-06-23] MEDS: OLANZapine 10 MG TABLET 20 MG PO (20:22)
[2023-06-23] MEDS: risperiDONE 2 MG TABLET PO (20:22)
[2023-06-23] MEDS: traZODone HCL 50 MG TABLET 150 MG PO (20:22)
[2023-06-23] MEDS: Nitrofurantoin Monohyd/M-Cryst 100 MG CAPSULE PO (20:22)
[2023-06-23] MEDS: Lithium Carbonate ER 300 MG TABLET.ER 600 MG PO (20:22)
[2023-06-24 04:10] VITALS: BP 116/76; PULSE 105; RESP 17; TEMP 36.6; O2SAT 100
--- NOTE | 2023-06-24 04:12 | PC.NURSE ---
patient mostly cooperative and pleasant, periods of staring and impulsive dashing towards exits poverty of speech periodic insomnia, patient for the most part able to lettheir needs be known
[2023-06-24 04:32] LABS: COVID-19 Test Negative (Negative); IDNOW Serial# 152EDE1D
[2023-06-24] MEDS: Acetaminophen 325 MG TABLET 650 MG PO ×2 (04:51→22:25)
--- NOTE | 2023-06-24 07:44 | PC.NURSE ---
Assumed care of patient at 0700, patient up eating breakfast without issue at this time, offers no complaints to this RN. Respirations even and unlabored, no apparent distress. Plan of care for IPLOC
[2023-06-24] MEDS: Nitrofurantoin Monohyd/M-Cryst 100 MG CAPSULE PO ×2 (08:34→20:53)
[2023-06-24] MEDS: risperiDONE 1 MG TABLET PO (08:34)
[2023-06-24 08:55] VITALS: BP 109/55; PULSE 110; RESP 18; TEMP 36.6; O2SAT 96
--- NOTE | 2023-06-24 12:10 | PC.NURSE ---
Pt approached this RN at nurses station requesting to talk. Pt reports that she feels a phone ringing 'down there' . This rn asked patient to clarify, to which the patient responded I feel a phone ringing down in my vagina, its not the vibration, its the sound . No further action taken at this time
[2023-06-24] MEDS: Acetaminophen 325 MG TABLET 975 MG PO (14:32)
--- NOTE | 2023-06-24 18:40 | PC.NURSE ---
Patient has uneventful day, spending majority of her day in the milieu, conversing with other patients. Pt offers no complaints to this RN
[2023-06-24 20:12] VITALS: BP 141/87; PULSE 100; RESP 18; TEMP 36.6; O2SAT 99
[2023-06-24] MEDS: Lithium Carbonate ER 300 MG TABLET.ER 600 MG PO (20:52)
[2023-06-24] MEDS: risperiDONE 2 MG TABLET PO (20:53)
[2023-06-24] MEDS: OLANZapine 10 MG TABLET 20 MG PO (20:53)
[2023-06-24] MEDS: traZODone HCL 50 MG TABLET 150 MG PO (20:54)
--- NOTE | 2023-06-25 | ECG_ITS ---
Test Reason : QT INTERVAL Blood Pressure : / mmHG Vent. Rate : 060 BPM Atrial Rate : 060 BPM P-R Int : 132 ms QRS Dur : 090 ms QT Int : 450 ms P-R-T Axes : 045 062 028 degrees QTc Int : 450 ms Normal sinus rhythm with sinus arrhythmia Normal ECG When compared to the previous EKG of Nonspecific ST abnormality is no longer Present Referred By: Sage Yin Electronically Signed By:AI BLANCO MD
[2023-06-25 05:00] VITALS: BP 129/86; PULSE 113; RESP 14; TEMP 36.2; O2SAT 100
[2023-06-25] MEDS: LORazepam 1 MG TABLET PO ×2 (08:15→16:51)
[2023-06-25] MEDS: risperiDONE 1 MG TABLET PO (08:15)
[2023-06-25] MEDS: Nitrofurantoin Monohyd/M-Cryst 100 MG CAPSULE PO ×2 (08:15→20:53)
[2023-06-25] MEDS: Acetaminophen 325 MG TABLET 975 MG PO (09:33)
--- NOTE | 2023-06-25 10:28 | MHC.CARE ---
RAD Team conducted statewide bedsearch, referral being reviewed by [facility], [facility], [facility], [facility] , [facility] , [facility] , [facility] and [place]. RAD team to f/u with facilities to see outcome
[2023-06-25 12:01] LABS: COVID-19 Test Negative (Negative); IDNOW Serial# 58CA691E
[2023-06-25 14:38] VITALS: BP 111/65; PULSE 104; TEMP 36.8; O2SAT 98
--- NOTE | 2023-06-25 15:44 | PC.NURSE ---
Patient appears restless, walking around unit for most of the shift thus far. Intermittently needs redirection to stay away from the door, intermittently crying. Regularly approaching nurses station for many requests, all requests met to the best of our ability.
[2023-06-25] MEDS: OLANZapine 10 MG TABLET 20 MG PO (20:53)
[2023-06-25] MEDS: risperiDONE 2 MG TABLET PO (20:53)
[2023-06-25] MEDS: Lithium Carbonate ER 300 MG TABLET.ER 600 MG PO (20:53)
[2023-06-25] MEDS: traZODone HCL 50 MG TABLET 150 MG PO (20:53)
--- NOTE | 2023-06-25 23:23 | MHC.CARE ---
RAD Team conducted state wide bed search for this pt, referral was sent to [facility], [facility], [facility], [facility], [facility], [facility], [facility], [facility], [facility], [facility] for review. RAD Team to follow up tomorrow
[2023-06-26 00:08] VITALS: BP 127/84; PULSE 101; RESP 18; TEMP 36.6; O2SAT 100
[2023-06-26] MEDS: Ibuprofen 600 MG TABLET PO (02:04)
--- NOTE | 2023-06-26 07:17 | PC.NURSE ---
Assumed care of patient at 0700, patient is ambulating independently around BH pod in no apparent distress at this time. Offers no complaints to this RN. Continue plan of care for Sec 12, inpt bedsearch
[2023-06-26] MEDS: risperiDONE 1 MG TABLET PO (08:25)
[2023-06-26] MEDS: Nitrofurantoin Monohyd/M-Cryst 100 MG CAPSULE PO (08:25)
[2023-06-26 10:52] VITALS: BP 117/73; PULSE 78; RESP 20; TEMP 36.9; O2SAT 98
[2023-06-26 14:40] VITALS: BP 134/84; PULSE 112; RESP 15; TEMP 36.7; O2SAT 99
[2023-06-26 15:08] VITALS: BMI 39.8
--- NOTE | 2023-06-26 15:51 | PC.ADMIT ---
Pt is a 27 year old female, admitted to this unit at 1420. She came up from [facility] ED via wheel chair. She was referred to emergency service through [facility] crisis team on 06/23/23 d/t increased anxiety, hallucinations, poor sleep/hygiene and medication non-compliance. [facility] team found pills in pt.'s sink in her apartment. Pt denies SI/HI/AVH, however, during intake assessment, she asked this typewriter assembler to look down there because I have a phone in my vagina that is ringing, and I want you to get it out . Pt is calm, cooperative and pleasant. She is sometimes slow to answer questions, and sometimes a little difficult to understand. Pt makes good eye contact, although it is sometimes intense. Pt is dressed in hospital gowns. Skin check completed, rash found under right breast-provider contacted for order. Pt appears to have a difficult time speaking about certain things and prefers to write her answers down. She also appears to have a short attention span as she needs reminders about the task at hand. Pt with dx of schizoaffective d/o. Pt is known to [facility] care team from prior admission in 2021 on this unit.
[2023-06-26] MEDS: hydrOXYzine HCL 25 MG TABLET PO (16:24)
[2023-06-26] MEDS: Acetaminophen 325 MG TABLET 650 MG PO (16:24)
[2023-06-26] MEDS: OLANZapine 10 MG TABLET 20 MG PO (20:04)
[2023-06-26] MEDS: traZODone HCL 50 MG TABLET 150 MG PO (20:04)
[2023-06-26] MEDS: Ibuprofen 400 MG TABLET PO (20:05)
[2023-06-26] MEDS: Lithium Carbonate ER 300 MG TABLET.ER 600 MG PO (20:05)
[2023-06-26] MEDS: risperiDONE 2 MG TABLET PO (20:05)
[2023-06-26] MEDS: traZODone HCL 50 MG TABLET PO (22:13)
--- NOTE | 2023-06-27 07:13 | PHA.MEDREC ---
Pharmacy Consult ? Medication Reconciliation Pharmacy has reviewed the medication reconciliation done by nursing.
[2023-06-27 07:41] LABS: Alanine Aminotransferase 24 U/L (0-31); Albumin Level 4.7 g/dL (3.5-5.0); Alkaline Phosphatase 77 U/L (39-117); Anion Gap 14 (12-20); Aspartate Amino Transferase 29 U/L (5-31); Bilirubin Total 0.5 mg/dL (0.0-1.0); Blood Urea Nitrogen 11 mg/dL (9-16); Calcium 10.2 mg/dL (8.4-10.2); Carbon Dioxide 27 mmol/L (22-29); Chloride 106 mmol/L (96-108); Cholesterol 124 mg/dL (<200); Creatinine Clr Calc Pharmacy 139.7; Estimated Glomerular Filt Rate > 60; Glucose Fasting 94 mg/dL (60-99); HDL Cholesterol 43 mg/dL (>40); LDL Cholesterol Calculated 68 mg/dL (<100); Sodium 143 mmol/L (135-145); Total Protein 8.6 g/dL (6.5-8.0); Triglycerides 65 mg/dL (<150)
[2023-06-27 07:58] VITALS: BP 143/63; PULSE 87; RESP 14; TEMP 36.7; O2SAT 93
[2023-06-27] MEDS: risperiDONE 1 MG TABLET PO (08:24)
[2023-06-27] MEDS: hydrOXYzine HCL 25 MG TABLET PO ×2 (08:24→14:39)
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
[2023-06-27] MEDS: risperiDONE 0.5 MG TABLET PO (12:12)
[2023-06-27] MEDS: LORazepam 0.5 MG TABLET PO ×2 (12:12→20:54)
[2023-06-27 12:15] VITALS: BMI 39.9
[2023-06-27 20:07] VITALS: BP 141/70; PULSE 101; RESP 18; TEMP 36.6; O2SAT 96
[2023-06-27] MEDS: Lithium Carbonate ER 300 MG TABLET.ER PO (20:10)
[2023-06-27] MEDS: risperiDONE 2 MG TABLET PO (20:10)
[2023-06-27] MEDS: traZODone HCL 50 MG TABLET 150 MG PO (20:10)
[2023-06-27] MEDS: OLANZapine 10 MG TABLET 20 MG PO (20:10)
[2023-06-28] MEDS: risperiDONE 1 MG TABLET PO (08:16)
[2023-06-28 08:40] VITALS: BP 128/72; PULSE 105; RESP 18; TEMP 36.8; O2SAT 99
--- NOTE | 2023-06-28 08:59 | HO.PSYCHPN ---
Subjective Subjective Date of Service: 06/28/23 Reason For Visit: Crisis Subjective Notes: Conditional Voluntary Interim History: Reviewed with Dr. Kimble. ticket seller present. Patient reports feeling anxious today; pt stated, I just want to go home. I'm not worried about anything. I don't think that my ex boyfriend is here or doing anything. I know he's locked up . Pt reports she stopped taking her medications d/t having the flu and not feeling well. denies SI/HI/VH/AH. Medication Compliance: Yes Side effects from medications: No Attending Groups: Intermittent Review of Systems Constitutional: Reports as per HPI Eyes: Reports as per HPI Reports as per HPI Cardiovascular: Reports as per HPI Respiratory: Reports as per HPI Gastrointestinal: Reports as per HPI Genitourinary: Reports as per HPI Musculoskeletal: Reports as per HPI Skin/Breast: Reports as per HPI Reports as per HPI Psychiatric: Reports as per HPI Endocrine: Reports as per HPI Hematologic/Lymphatic: Reports as per HPI Allergic/Immunologic: Reports as per HPI Mental Status Exam Mental Status Exam Narrative: Pt is alert and oriented; behavior is cooperative and calm; dressed in hospital attire; mood is described as good ; eye contact appropriate; Speech is normal rate, volume and prosody and not pressured; focused on discharge. denies SI/HI/VH/AH. Diagnostics Vital Signs (24Hr): Vital Signs - 24 hr 06/27/23 20:07 06/28/23 08:40 Temperature 97.9 F 98.2 F Pulse Rate 101 H 105 H Respiratory Rate 18 18 Blood Pressure 141/70 H 128/72 Pulse Oximetry 96 99 Oxygen Delivery Method Room Air Room Air BMI result Body Mass Index 39.9 Labs 06/23/23 13:29 06/27/23 07:04 Labs: Laboratory Results - last 48 hr 06/27/23 07:04 Sodium 143 Potassium 4.0 Chloride 106 Carbon Dioxide 27 Anion Gap 14 BUN 11 Creatinine 0.76 Estim Creat Clear Calc 139.7 Estimated GFR > 60 Fasting Glucose 94 Calcium 10.2 D Total Bilirubin 0.5 AST 29 ALT 24 Alkaline Phosphatase 77 Total Protein 8.6 H Albumin 4.7 Triglycerides 65 Cholesterol 124 LDL Cholesterol, Calc 68 HDL Cholesterol 43 Medications Medications Current Medications Acetaminophen (Acetaminophen 325 Mg Tablet) 650 mg PO Q6H PRN PRN Reason: Headache/Pain Mild Scale (1-3) Last Admin: 06/26/23 16:24 Dose: 650 mg Al Hydroxide/Mg Hydroxide (Magnesium Hydrox/Alum Hydrox 30 Ml Oral.Susp) 30 ml PO Q6H PRN PRN Reason: Heartburn/Nausea Hydroxyzine HCl (Hydroxyzine Hcl 25 Mg Tablet) 25 mg PO Q6H PRN PRN Reason: Anxiety Last Admin: 06/27/23 14:39 Dose: 25 mg [place] Carbonate ([place] Carbonate Er 300 Mg Tablet.Er) 300 mg PO BEDTIME RASHI Last Admin: 06/27/23 20:10 Dose: 300 mg Lorazepam (Lorazepam 0.5 Mg Tablet) 0.5 mg PO BID PRN PRN Reason: anxiety/restlessness Last Admin: 06/27/23 20:54 Dose: 0.5 mg Magnesium Hydroxide (Milk Of Magnesia 30 Ml Oral.Susp) 30 ml PO DAILY PRN PRN Reason: Constipation Nystatin (Nystatin Powder 15 Gm Bottle) 1 appl TOPICAL BID RASHI; Protocol Last Admin: 06/28/23 08:30 Dose: Not Given Olanzapine (Olanzapine 10 Mg Tablet) 20 mg PO BEDTIME RASHI Last Admin: 06/27/23 20:10 Dose: 20 mg Polyethylene Glycol (Polyethylene Glycol 3350 17 Gm Powd.Pack) 17 gm PO DAILY PRN PRN Reason: constipation Risperidone (Risperidone 1 Mg Tablet) 1 mg PO DAILY RASHI Last Admin: 06/28/23 08:16 Dose: 1 mg Risperidone (Risperidone 2 Mg Tablet) 2 mg PO BEDTIME RASHI Last Admin: 06/27/23 20:10 Dose: 2 mg Risperidone (Risperidone 0.5 Mg Tablet) 0.5 mg PO BID PRN PRN Reason: Psychosis Last Admin: 06/27/23 12:12 Dose: 0.5 mg Trazodone HCl (Trazodone Hcl 50 Mg Tablet) 150 mg PO BEDTIME RASHI Last Admin: 06/27/23 20:10 Dose: 150 mg Allergies Allergies Allergy/AdvReac Type Severity Reaction Status Date / Time No Known Allergies Allergy Verified 10/23/21 14:48 Assessment & Plan Assessment & Plan (1) Schizoaffective disorder: Status: Acute Code(s): F25.9 - Schizoaffective disorder, unspecified Plan Patient is a 27 year old female with hx of Schizoaffective d/o who presented to [facility] ER via EMS after being assessed by [facility] crisis secondary to increased anxiety, hallucinations and poor sleep d/t medication noncompliance. Plan: CV 15 minute safety checks obtain collateral discharge planning Restart home medications 06/28: ticket seller present. Patient reports feeling anxious today; pt stated, I just want to go home. I'm not worried about anything. I don't think that my ex boyfriend is here or doing anything. I know he's locked up . Pt reports she stopped taking her medications d/t having the flu and not feeling well. denies SI/HI/VH/AH. Continue current tx plan. Patient educated on: diagnosis and medication risk/benefits Informed Consent: understands Reason for continued inpatient stay Substantial Risk for: med/psych decompensation Time Spent With Patient Time: Total time managing care of this patient today _20___ minutes.
[2023-06-28] MEDS: hydrOXYzine HCL 25 MG TABLET PO (13:51)
[2023-06-28 20:30] VITALS: BP 106/71; PULSE 91; RESP 18; TEMP 36.6; O2SAT 98
[2023-06-28] MEDS: LORazepam 0.5 MG TABLET PO (20:48)
[2023-06-28] MEDS: traZODone HCL 50 MG TABLET 150 MG PO (20:48)
[2023-06-28] MEDS: OLANZapine 10 MG TABLET 20 MG PO (20:48)
[2023-06-28] MEDS: risperiDONE 2 MG TABLET PO (20:49)
[2023-06-28] MEDS: Lithium Carbonate ER 300 MG TABLET.ER PO (20:49)
[2023-06-28] MEDS: Acetaminophen 325 MG TABLET 650 MG PO (20:52)
[2023-06-28] MEDS: Nystatin Powder 15 GM BOTTLE 1 APPL TOPICAL (20:53)
[2023-06-29 07:25] VITALS: BP 135/84; PULSE 118; RESP 16; TEMP 36.4; O2SAT 98
[2023-06-29] MEDS: risperiDONE 1 MG TABLET PO (08:50)
[2023-06-29] MEDS: Nystatin Powder 15 GM BOTTLE 1 APPL TOPICAL ×2 (08:51→20:42)
[2023-06-29] MEDS: Acetaminophen 325 MG TABLET 650 MG PO ×2 (08:54→14:55)
--- NOTE | 2023-06-29 14:58 | HO.PSYCHPN ---
Subjective Subjective Date of Service: 06/29/23 Reason For Visit: Crisis Interim History: Patient reports she is feeling better because she is sleeping. Less anxious. Feels improved. More engaged onthe unit and pleasant. Denies SI/HI/AVH. Review of Systems Constitutional: Reports as per HPI, Denies chills and Denies fever(s) Eyes: Reports as per HPI Reports as per HPI Cardiovascular: Reports as per HPI Respiratory: Reports as per HPI Gastrointestinal: Reports as per HPI Musculoskeletal: Reports as per HPI and Reports back pain Skin/Breast: Reports as per HPI Reports as per HPI Psychiatric: Reports as per HPI, Reports difficulty concentrating, Reports auditory hallucinations, Denies homicidal ideation and Denies suicidal ideation Endocrine: Reports as per HPI Hematologic/Lymphatic: Reports as per HPI Allergic/Immunologic: Reports as per HPI Mental Status Exam Mental Status Exam Narrative: Pt is alert and oriented; behavior is cooperative and calm; dressed in hospital attire; mood is described as good ; eye contact appropriate; Speech is normal rate, volume and prosody and not pressured; focused on discharge. denies SI/HI/VH/AH. Diagnostics Vital Signs (24Hr): Vital Signs - 24 hr 06/28/23 20:30 06/29/23 07:25 Temperature 98 F 97.5 F Pulse Rate 91 118 H Respiratory Rate 18 16 Blood Pressure 106/71 135/84 Pulse Oximetry 98 98 Oxygen Delivery Method Room Air Room Air BMI result Body Mass Index 39.9 Labs 06/23/23 13:29 06/27/23 07:04 Medications Medications Current Medications Acetaminophen (Acetaminophen 325 Mg Tablet) 650 mg PO Q6H PRN PRN Reason: Headache/Pain Mild Scale (1-3) Last Admin: 06/29/23 14:55 Dose: 650 mg Al Hydroxide/Mg Hydroxide (Magnesium Hydrox/Alum Hydrox 30 Ml Oral.Susp) 30 ml PO Q6H PRN PRN Reason: Heartburn/Nausea Hydroxyzine HCl (Hydroxyzine Hcl 25 Mg Tablet) 25 mg PO Q6H PRN PRN Reason: Anxiety Last Admin: 06/28/23 13:51 Dose: 25 mg Lidocaine (Lidocaine 4 % Patch Adh..Patch) 1 patch TRANSDERMA DAILY PRN; Protocol PRN Reason: back pain [place] Carbonate ([place] Carbonate Er 300 Mg Tablet.Er) 300 mg PO BEDTIME RASHI Last Admin: 06/28/23 20:49 Dose: 300 mg Lorazepam (Lorazepam 0.5 Mg Tablet) 0.5 mg PO BID PRN PRN Reason: anxiety/restlessness Last Admin: 06/28/23 20:48 Dose: 0.5 mg Magnesium Hydroxide (Milk Of Magnesia 30 Ml Oral.Susp) 30 ml PO DAILY PRN PRN Reason: Constipation Nystatin (Nystatin Powder 15 Gm Bottle) 1 appl TOPICAL BID RASHI; Protocol Last Admin: 06/29/23 08:51 Dose: 1 appl Olanzapine (Olanzapine 10 Mg Tablet) 20 mg PO BEDTIME RASHI Last Admin: 06/28/23 20:48 Dose: 20 mg Polyethylene Glycol (Polyethylene Glycol 3350 17 Gm Powd.Pack) 17 gm PO DAILY PRN PRN Reason: constipation Risperidone (Risperidone 1 Mg Tablet) 1 mg PO DAILY RASHI Last Admin: 06/29/23 08:50 Dose: 1 mg Risperidone (Risperidone 2 Mg Tablet) 2 mg PO BEDTIME RASHI Last Admin: 06/28/23 20:49 Dose: 2 mg Risperidone (Risperidone 0.5 Mg Tablet) 0.5 mg PO BID PRN PRN Reason: Psychosis Last Admin: 06/27/23 12:12 Dose: 0.5 mg Trazodone HCl (Trazodone Hcl 50 Mg Tablet) 150 mg PO BEDTIME RASHI Last Admin: 06/28/23 20:48 Dose: 150 mg Allergies Allergies Allergy/AdvReac Type Severity Reaction Status Date / Time No Known Allergies Allergy Verified 10/23/21 14:48 Assessment & Plan Assessment & Plan (1) Schizoaffective disorder: Status: Acute Code(s): F25.9 - Schizoaffective disorder, unspecified Plan Patient is a 27 year old female with hx of Schizoaffective d/o who presented to [facility] via EMS after being assessed by N crisis secondary to increased anxiety, hallucinations and poor sleep d/t medication noncompliance. Plan: CV 15 minute safety checks obtain collateral discharge planning Restart home medications 06/28: per diem interpreter present. Patient reports feeling anxious today; pt stated, I just want to go home. I'm not worried about anything. I don't think that my ex boyfriend is here or doing anything. I know he's locked up . Pt reports she stopped taking her medications d/t having the flu and not feeling well. denies SI/HI/VH/AH. Continue current tx plan. 06/29: Continue current management and treatment plan. Reason for continued inpatient stay Substantial Risk for: inability to function and rapid decompensation Time Spent With Patient Time: Total time managing care of this patient today ____ minutes.
[2023-06-29 19:55] VITALS: BP 123/74; PULSE 90; RESP 16; TEMP 37; O2SAT 98
[2023-06-29] MEDS: Lidocaine 4 % Patch ADH..PATCH 1 PATCH TRANSDERMA (20:36)
[2023-06-29] MEDS: risperiDONE 2 MG TABLET PO (20:42)
[2023-06-29] MEDS: OLANZapine 10 MG TABLET 20 MG PO (20:42)
[2023-06-29] MEDS: Lithium Carbonate ER 300 MG TABLET.ER PO (20:42)
[2023-06-29] MEDS: LORazepam 0.5 MG TABLET PO (20:42)
[2023-06-29] MEDS: traZODone HCL 50 MG TABLET 150 MG PO (20:42)
[2023-06-30 07:55] VITALS: BP 107/64; PULSE 94; RESP 16; TEMP 36.8; O2SAT 99
[2023-06-30] MEDS: risperiDONE 1 MG TABLET PO (08:22)
[2023-06-30] MEDS: Nystatin Powder 15 GM BOTTLE 1 APPL TOPICAL (08:23)
--- NOTE | 2023-06-30 14:44 | P.PNPSI_ITS ---
Subjective Subjective Date of Service: 06/30/23 Reason For Visit: Crisis Interim History: Patient reports she is feeling better because she is sleeping. Hallucinations are gone. Less anxious. Feels improved. More engaged on the unit and pleasant. Says her right knee hurts. no trauma. no limitation in movement. no swelling. asking for a lidocaine patch. Denies SI/HI/AVH. Review of Systems Constitutional: Reports as per HPI, Denies chills and Denies fever(s) Eyes: Reports as per HPI Reports as per HPI Cardiovascular: Reports as per HPI Respiratory: Reports as per HPI Gastrointestinal: Reports as per HPI Musculoskeletal: Reports as per HPI and Reports back pain Skin/Breast: Reports as per HPI Reports as per HPI Psychiatric: Reports as per HPI, Reports difficulty concentrating, Reports auditory hallucinations, Denies homicidal ideation and Denies suicidal ideation Endocrine: Reports as per HPI Hematologic/Lymphatic: Reports as per HPI Allergic/Immunologic: Reports as per HPI Mental Status Exam Mental Status Exam Narrative: Pt is alert and oriented; behavior is cooperative and calm; dressed in hospital attire; mood is described as good ; eye contact appropriate; Speech is normal rate, volume and prosody and not pressured; focused on discharge. denies SI/HI/VH/AH. Diagnostics Vital Signs (24Hr): Vital Signs - 24 hr 06/29/23 19:55 06/30/23 07:55 Temperature 98.6 F 98.3 F Pulse Rate 90 94 Respiratory Rate 16 16 Blood Pressure 123/74 107/64 Pulse Oximetry 98 99 Oxygen Delivery Method Room Air Room Air BMI result Body Mass Index 39.9 Labs 06/23/23 13:29 06/27/23 07:04 Medications Medications Current Medications Acetaminophen (Acetaminophen 325 Mg Tablet) 650 mg PO Q6H PRN PRN Reason: Headache/Pain Mild Scale (1-3) Last Admin: 06/29/23 14:55 Dose: 650 mg Al Hydroxide/Mg Hydroxide (Magnesium Hydrox/Alum Hydrox 30 Ml Oral.Susp) 30 ml PO Q6H PRN PRN Reason: Heartburn/Nausea Hydroxyzine HCl (Hydroxyzine Hcl 25 Mg Tablet) 25 mg PO Q6H PRN PRN Reason: Anxiety Last Admin: 06/28/23 13:51 Dose: 25 mg Lidocaine (Lidocaine 4 % Patch Adh..Patch) 1 patch TRANSDERMA DAILY PRN; Protocol PRN Reason: back pain Last Admin: 06/29/23 20:36 Dose: 1 patch [place] Carbonate ([place] Carbonate Er 300 Mg Tablet.Er) 300 mg PO BEDTIME RASHI Last Admin: 06/29/23 20:42 Dose: 300 mg Lorazepam (Lorazepam 0.5 Mg Tablet) 0.5 mg PO BID PRN PRN Reason: anxiety/restlessness Last Admin: 06/29/23 20:42 Dose: 0.5 mg Magnesium Hydroxide (Milk Of Magnesia 30 Ml Oral.Susp) 30 ml PO DAILY PRN PRN Reason: Constipation Nystatin (Nystatin Powder 15 Gm Bottle) 1 appl TOPICAL BID RASHI; Protocol Last Admin: 06/30/23 08:23 Dose: 1 appl Olanzapine (Olanzapine 10 Mg Tablet) 20 mg PO BEDTIME RASHI Last Admin: 06/29/23 20:42 Dose: 20 mg Polyethylene Glycol (Polyethylene Glycol 3350 17 Gm Powd.Pack) 17 gm PO DAILY PRN PRN Reason: constipation Risperidone (Risperidone 1 Mg Tablet) 1 mg PO DAILY RASHI Last Admin: 06/30/23 08:22 Dose: 1 mg Risperidone (Risperidone 2 Mg Tablet) 2 mg PO BEDTIME RASHI Last Admin: 06/29/23 20:42 Dose: 2 mg Risperidone (Risperidone 0.5 Mg Tablet) 0.5 mg PO BID PRN PRN Reason: Psychosis Last Admin: 06/27/23 12:12 Dose: 0.5 mg Trazodone HCl (Trazodone Hcl 50 Mg Tablet) 150 mg PO BEDTIME RASHI Last Admin: 06/29/23 20:42 Dose: 150 mg Allergies Allergies Allergy/AdvReac Type Severity Reaction Status Date / Time No Known Allergies Allergy Verified 10/23/21 14:48 Assessment & Plan Assessment & Plan (1) Schizoaffective disorder: Status: Acute Code(s): F25.9 - Schizoaffective disorder, unspecified Plan Patient is a 27 year old female with hx of Schizoaffective d/o who presented to [facility] via EMS after being assessed by N crisis secondary to increased anxiety, hallucinations and poor sleep d/t medication noncompliance. Plan: CV 15 minute safety checks obtain collateral discharge planning Restart home medications 06/28: master carpenter present. Patient reports feeling anxious today; pt stated, I just want to go home. I'm not worried about anything. I don't think that my ex boyfriend is here or doing anything. I know he's locked up . Pt reports she stopped taking her medications d/t having the flu and not feeling well. denies SI/HI/VH/AH. Continue current tx plan. 06/29: Continue current management and treatment plan. 06/30: Lidocaine patch to the knee, otherwise continue current management and treatment plan. Reason for continued inpatient stay Substantial Risk for: inability to function and rapid decompensation Time Spent With Patient Time: Total time managing care of this patient today ____ minutes.
[2023-06-30] MEDS: Lidocaine 4 % Patch ADH..PATCH 1 PATCH TRANSDERMA (19:10)
[2023-06-30 19:50] VITALS: BP 118/69; PULSE 86; RESP 16; TEMP 36.6; O2SAT 97
[2023-06-30] MEDS: OLANZapine 10 MG TABLET 20 MG PO (22:37)
[2023-06-30] MEDS: risperiDONE 2 MG TABLET PO (22:38)
[2023-06-30] MEDS: traZODone HCL 50 MG TABLET 150 MG PO (22:38)
[2023-06-30] MEDS: Lithium Carbonate ER 300 MG TABLET.ER PO (22:38)
[2023-06-30] MEDS: Magnesium Hydrox/Alum Hydrox 30 ML ORAL.SUSP PO (22:42)
[2023-07-01 07:20] VITALS: BP 145/75; PULSE 83; RESP 14; TEMP 36.2; O2SAT 98
[2023-07-01] MEDS: risperiDONE 1 MG TABLET PO (08:04)
[2023-07-01] MEDS: Lidocaine 4 % Patch ADH..PATCH 1 PATCH TRANSDERMA (08:35)
[2023-07-01] MEDS: Acetaminophen 325 MG TABLET 650 MG PO ×2 (08:38→20:54)
[2023-07-01] MEDS: Nystatin Powder 15 GM BOTTLE 1 APPL TOPICAL ×2 (12:45→20:52)
--- NOTE | 2023-07-01 15:07 | HO.PSYCHPN ---
Subjective Subjective Date of Service: 07/01/23 Reason For Visit: Crisis Interim History: calm, cooperative, pleasant. states she wants to be on DARNELL. meds reviewed and discussed with pt. pt informed no feasible zyprexa DARNELL exists, so that is not an option. pt agreeable to switch from risperidone to paliperidone and start sustenna. per staff, brighter, guarded, visible, social. pleasant. feeling better. Mental Status Exam Mental Status Exam Narrative: Pt is alert and oriented; behavior is cooperative and calm; dressed in casual attire; mood is described as good ; eye contact appropriate; Speech is normal rate, volume and prosody and not pressured; focused on DARNELL. no SI/HI/VH/AH expressed. Diagnostics Vital Signs (24Hr): Vital Signs - 24 hr 06/30/23 19:50 07/01/23 07:20 Temperature 97.8 F 97.1 F Pulse Rate 86 83 Respiratory Rate 16 14 Blood Pressure 118/69 145/75 H Pulse Oximetry 97 98 Oxygen Delivery Method Room Air Room Air BMI result Body Mass Index 39.9 Labs 06/23/23 13:29 06/27/23 07:04 Medications Medications Current Medications Acetaminophen (Acetaminophen 325 Mg Tablet) 650 mg PO Q6H PRN PRN Reason: Headache/Pain Mild Scale (1-3) Last Admin: 07/01/23 08:38 Dose: 650 mg Al Hydroxide/Mg Hydroxide (Magnesium Hydrox/Alum Hydrox 30 Ml Oral.Susp) 30 ml PO Q6H PRN PRN Reason: Heartburn/Nausea Last Admin: 06/30/23 22:42 Dose: 30 ml Hydroxyzine HCl (Hydroxyzine Hcl 25 Mg Tablet) 25 mg PO Q6H PRN PRN Reason: Anxiety Last Admin: 06/28/23 13:51 Dose: 25 mg Lidocaine (Lidocaine 4 % Patch Adh..Patch) 1 patch TRANSDERMA DAILY PRN; Protocol PRN Reason: back pain Last Admin: 07/01/23 08:35 Dose: 1 patch [place] Carbonate ([place] Carbonate Er 300 Mg Tablet.Er) 300 mg PO BEDTIME RASHI Last Admin: 06/30/23 22:38 Dose: 300 mg Lorazepam (Lorazepam 0.5 Mg Tablet) 0.5 mg PO BID PRN PRN Reason: anxiety/restlessness Last Admin: 06/29/23 20:42 Dose: 0.5 mg Magnesium Hydroxide (Milk Of Magnesia 30 Ml Oral.Susp) 30 ml PO DAILY PRN PRN Reason: Constipation Nystatin (Nystatin Powder 15 Gm Bottle) 1 appl TOPICAL BID RASHI; Protocol Last Admin: 07/01/23 12:45 Dose: 1 appl Olanzapine (Olanzapine 10 Mg Tablet) 20 mg PO BEDTIME RASHI Last Admin: 06/30/23 22:37 Dose: 20 mg Polyethylene Glycol (Polyethylene Glycol 3350 17 Gm Powd.Pack) 17 gm PO DAILY PRN PRN Reason: constipation Trazodone HCl (Trazodone Hcl 50 Mg Tablet) 150 mg PO BEDTIME RASHI Last Admin: 06/30/23 22:38 Dose: 150 mg Allergies Allergies Allergy/AdvReac Type Severity Reaction Status Date / Time No Known Allergies Allergy Verified 10/23/21 14:48 Assessment & Plan Assessment & Plan (1) Schizoaffective disorder: Status: Acute Code(s): F25.9 - Schizoaffective disorder, unspecified Plan Patient is a 27 year old female with hx of Schizoaffective d/o who presented to [facility] ER via EMS after being assessed by N crisis secondary to increased anxiety, hallucinations and poor sleep d/t medication noncompliance. Plan: CV 15 minute safety checks obtain collateral discharge planning Restart home medications 06/28: limehouse worker present. Patient reports feeling anxious today; pt stated, I just want to go home. I'm not worried about anything. I don't think that my ex boyfriend is here or doing anything. I know he's locked up . Pt reports she stopped taking her medications d/t having the flu and not feeling well. denies SI/HI/VH/AH. Continue current tx plan. 06/29: Continue current management and treatment plan. 06/30: Lidocaine patch to the knee, otherwise continue current management and treatment plan. 07/01: plan to move toward DARNELL as possible. no feasible option with zyprexa, will continue that as prescribed outpt. will switch risperidone to paliperidone and give sustenna prior to discharge. Reason for continued inpatient stay Substantial Risk for: inability to function and rapid decompensation Time Spent With Patient Time: Total time managing care of this patient today _25___ minutes.
[2023-07-01 20:10] VITALS: BP 115/64; PULSE 79; RESP 16; TEMP 36.9; O2SAT 97
[2023-07-01] MEDS: Lithium Carbonate ER 300 MG TABLET.ER PO (20:50)
[2023-07-01] MEDS: Paliperidone ER 3 MG TAB.ER.24 PO (20:50)
[2023-07-01] MEDS: OLANZapine 10 MG TABLET 20 MG PO (20:50)
[2023-07-01] MEDS: traZODone HCL 50 MG TABLET 150 MG PO (20:50)
[2023-07-02 07:42] VITALS: BP 120/64; PULSE 88; RESP 18; TEMP 36.7; O2SAT 98
[2023-07-02] MEDS: Nystatin Powder 15 GM BOTTLE 1 APPL TOPICAL ×2 (08:08→21:55)
[2023-07-02] MEDS: Acetaminophen 325 MG TABLET 650 MG PO ×2 (08:20→16:02)
[2023-07-02] MEDS: Lidocaine 4 % Patch ADH..PATCH 1 PATCH TRANSDERMA ×2 (08:37→17:20)
--- NOTE | 2023-07-02 09:15 | HO.PSYCHPN ---
Subjective Subjective Date of Service: 07/02/23 Reason For Visit: Crisis Subjective Notes: Conditional Voluntary Interim History: Reviewed with Dr. Kimble. supervisor concrete stone fabricating present. Pt reports feeling good today; pt stated, I'm going to groups and talking to people. I stopped hearing voices when I started taking the meds again . Pt to receive Invega Sustenna tomorrow; pt is aware and agreeable. denies SI/HI/VH/AH. Medication Compliance: Yes Side effects from medications: No Attending Groups: Yes Review of Systems Constitutional: Reports as per HPI Eyes: Reports as per HPI Reports as per HPI Cardiovascular: Reports as per HPI Respiratory: Reports as per HPI Gastrointestinal: Reports as per HPI Genitourinary: Reports as per HPI Musculoskeletal: Reports as per HPI Skin/Breast: Reports as per HPI Reports as per HPI Psychiatric: Reports as per HPI Endocrine: Reports as per HPI Hematologic/Lymphatic: Reports as per HPI Allergic/Immunologic: Reports as per HPI Mental Status Exam Mental Status Exam Narrative: Pt is alert and oriented; behavior is cooperative and calm; dressed in casual attire; mood is described as good ; eye contact appropriate; Speech is normal rate, volume and prosody and not pressured; thought process is organized; Thought content is on tx; denies SI/HI/VH/AH. Diagnostics Vital Signs (24Hr): Vital Signs - 24 hr 07/01/23 20:10 07/02/23 07:42 Temperature 98.5 F 98.1 F Pulse Rate 79 88 Respiratory Rate 16 18 Blood Pressure 115/64 120/64 Pulse Oximetry 97 98 Oxygen Delivery Method Room Air Room Air BMI result Body Mass Index 39.9 Labs 06/23/23 13:29 06/27/23 07:04 Medications Medications Current Medications Acetaminophen (Acetaminophen 325 Mg Tablet) 650 mg PO Q6H PRN PRN Reason: Headache/Pain Mild Scale (1-3) Last Admin: 07/02/23 08:20 Dose: 650 mg Al Hydroxide/Mg Hydroxide (Magnesium Hydrox/Alum Hydrox 30 Ml Oral.Susp) 30 ml PO Q6H PRN PRN Reason: Heartburn/Nausea Last Admin: 06/30/23 22:42 Dose: 30 ml Hydroxyzine HCl (Hydroxyzine Hcl 25 Mg Tablet) 25 mg PO Q6H PRN PRN Reason: Anxiety Last Admin: 06/28/23 13:51 Dose: 25 mg Lidocaine (Lidocaine 4 % Patch Adh..Patch) 1 patch TRANSDERMA DAILY PRN; Protocol PRN Reason: back pain Last Admin: 07/02/23 08:37 Dose: 1 patch [place] Carbonate ([place] Carbonate Er 300 Mg Tablet.Er) 300 mg PO BEDTIME RASHI Last Admin: 07/01/23 20:50 Dose: 300 mg Lorazepam (Lorazepam 0.5 Mg Tablet) 0.5 mg PO BID PRN PRN Reason: anxiety/restlessness Last Admin: 06/29/23 20:42 Dose: 0.5 mg Magnesium Hydroxide (Milk Of Magnesia 30 Ml Oral.Susp) 30 ml PO DAILY PRN PRN Reason: Constipation Nystatin (Nystatin Powder 15 Gm Bottle) 1 appl TOPICAL BID RASHI; Protocol Last Admin: 07/02/23 08:08 Dose: 1 appl Olanzapine (Olanzapine 10 Mg Tablet) 20 mg PO BEDTIME RASHI Last Admin: 07/01/23 20:50 Dose: 20 mg Paliperidone (Paliperidone Er 3 Mg Tab.Er.24) 3 mg PO BEDTIME RASHI Last Admin: 07/01/23 20:50 Dose: 3 mg Polyethylene Glycol (Polyethylene Glycol 3350 17 Gm Powd.Pack) 17 gm PO DAILY PRN PRN Reason: constipation Trazodone HCl (Trazodone Hcl 50 Mg Tablet) 150 mg PO BEDTIME RASHI Last Admin: 07/01/23 20:50 Dose: 150 mg Allergies Allergies Allergy/AdvReac Type Severity Reaction Status Date / Time No Known Allergies Allergy Verified 10/23/21 14:48 Assessment & Plan Assessment & Plan (1) Schizoaffective disorder: Status: Acute Code(s): F25.9 - Schizoaffective disorder, unspecified Plan Patient is a 27 year old female with hx of Schizoaffective d/o who presented to [facility] ER via EMS after being assessed by N crisis secondary to increased anxiety, hallucinations and poor sleep d/t medication noncompliance. Plan: CV 15 minute safety checks obtain collateral discharge planning Restart home medications 06/28: supervisor concrete stone fabricating present. Patient reports feeling anxious today; pt stated, I just want to go home. I'm not worried about anything. I don't think that my ex boyfriend is here or doing anything. I know he's locked up . Pt reports she stopped taking her medications d/t having the flu and not feeling well. denies SI/HI/VH/AH. Continue current tx plan. 06/29: Continue current management and treatment plan. 06/30: Lidocaine patch to the knee, otherwise continue current management and treatment plan. 07/01: plan to move toward [place] as possible. no feasible option with zyprexa, will continue that as prescribed outpt. will switch risperidone to paliperidone and give sustenna prior to discharge. 07/02: supervisor concrete stone fabricating present. Pt reports feeling good today; pt stated, I'm going to groups and talking to people. I stopped hearing voices when I started taking the meds again . Pt to receive Invega Sustenna tomorrow; pt is aware and agreeable. denies SI/HI/VH/AH. Patient educated on: diagnosis, medication risk/benefits and therapeutic strategies Informed Consent: understands Reason for continued inpatient stay Substantial Risk for: med/psych decompensation Time Spent With Patient Time: Total time managing care of this patient today _20___ minutes.
[2023-07-02 20:19] VITALS: BP 137/60; PULSE 82; RESP 16; TEMP 36.4; O2SAT 99
[2023-07-02] MEDS: Paliperidone ER 3 MG TAB.ER.24 PO (21:45)
[2023-07-02] MEDS: OLANZapine 10 MG TABLET 20 MG PO (21:46)
[2023-07-02] MEDS: Lithium Carbonate ER 300 MG TABLET.ER PO (21:46)
[2023-07-02] MEDS: traZODone HCL 50 MG TABLET 150 MG PO (21:46)
[2023-07-03 07:15] VITALS: BP 109/64; PULSE 83; RESP 16; TEMP 36.6; O2SAT 99
[2023-07-03] MEDS: Lidocaine 4 % Patch ADH..PATCH 1 PATCH TRANSDERMA (07:54)
[2023-07-03] MEDS: Nystatin Powder 15 GM BOTTLE 1 APPL TOPICAL ×2 (07:56→21:11)
--- NOTE | 2023-07-03 08:59 | P.PNPSI_ITS ---
Subjective Subjective Date of Service: 07/03/23 Reason For Visit: Crisis Subjective Notes: Conditional Voluntary Interim History: Reviewed with Dr. Kimble. public health clinical nurse specialist present. Pt reports feeling good today; pt stated, I'm sleeping well. I showered. I'm just waiting to get my injection . denies SI/HI/VH/AH. Patient to receive IM Invega sustenna today. Medication Compliance: Yes Side effects from medications: No Attending Groups: Yes Review of Systems Constitutional: Reports as per HPI Eyes: Reports as per HPI Reports as per HPI Cardiovascular: Reports as per HPI Respiratory: Reports as per HPI Gastrointestinal: Reports as per HPI Genitourinary: Reports as per HPI Musculoskeletal: Reports as per HPI Skin/Breast: Reports as per HPI Reports as per HPI Psychiatric: Reports as per HPI Endocrine: Reports as per HPI Hematologic/Lymphatic: Reports as per HPI Allergic/Immunologic: Reports as per HPI Mental Status Exam Mental Status Exam Narrative: Pt is alert and oriented; behavior is cooperative and calm; dressed in casual attire; mood is described as good ; eye contact appropriate; Speech is normal rate, volume and prosody and not pressured; thought process is organized; Thought content is on tx; denies SI/HI/VH/AH. Diagnostics Vital Signs (24Hr): Vital Signs - 24 hr 07/02/23 20:19 07/03/23 07:15 Temperature 97.6 F 97.9 F Pulse Rate 82 83 Respiratory Rate 16 16 Blood Pressure 137/60 109/64 Pulse Oximetry 99 99 Oxygen Delivery Method Room Air Room Air BMI result Body Mass Index 39.9 Labs 06/23/23 13:29 07/03/23 10:51 Medications Medications Current Medications Acetaminophen (Acetaminophen 325 Mg Tablet) 650 mg PO Q6H PRN PRN Reason: Headache/Pain Mild Scale (1-3) Last Admin: 07/02/23 16:02 Dose: 650 mg Al Hydroxide/Mg Hydroxide (Magnesium Hydrox/Alum Hydrox 30 Ml Oral.Susp) 30 ml PO Q6H PRN PRN Reason: Heartburn/Nausea Last Admin: 06/30/23 22:42 Dose: 30 ml Hydroxyzine HCl (Hydroxyzine Hcl 25 Mg Tablet) 25 mg PO Q6H PRN PRN Reason: Anxiety Last Admin: 06/28/23 13:51 Dose: 25 mg Lidocaine (Lidocaine 4 % Patch Adh..Patch) 1 patch TRANSDERMA DAILY PRN; Protocol PRN Reason: back pain Last Admin: 07/03/23 07:54 Dose: 1 patch [place] Carbonate ([place] Carbonate Er 300 Mg Tablet.Er) 300 mg PO BEDTIME RASHI Last Admin: 07/02/23 21:46 Dose: 300 mg Lorazepam (Lorazepam 0.5 Mg Tablet) 0.5 mg PO BID PRN PRN Reason: anxiety/restlessness Last Admin: 06/29/23 20:42 Dose: 0.5 mg Magnesium Hydroxide (Milk Of Magnesia 30 Ml Oral.Susp) 30 ml PO DAILY PRN PRN Reason: Constipation Nystatin (Nystatin Powder 15 Gm Bottle) 1 appl TOPICAL BID RASHI; Protocol Last Admin: 07/03/23 07:56 Dose: 1 appl Olanzapine (Olanzapine 10 Mg Tablet) 20 mg PO BEDTIME RASHI Last Admin: 07/02/23 21:46 Dose: 20 mg Paliperidone (Paliperidone Er 3 Mg Tab.Er.24) 3 mg PO BEDTIME RASHI Last Admin: 07/02/23 21:45 Dose: 3 mg Polyethylene Glycol (Polyethylene Glycol 3350 17 Gm Powd.Pack) 17 gm PO DAILY PRN PRN Reason: constipation Trazodone HCl (Trazodone Hcl 50 Mg Tablet) 150 mg PO BEDTIME RASHI Last Admin: 07/02/23 21:46 Dose: 150 mg Allergies Allergies Allergy/AdvReac Type Severity Reaction Status Date / Time No Known Allergies Allergy Verified 10/23/21 14:48 Assessment & Plan Assessment & Plan (1) Schizoaffective disorder: Status: Acute Code(s): F25.9 - Schizoaffective disorder, unspecified Plan Patient is a 27 year old female with hx of Schizoaffective d/o who [place] [facility] [place] after being assessed by N crisis secondary to increased anxiety, hallucinations and poor sleep d/t medication noncompliance. Plan: CV 15 minute safety checks obtain collateral discharge planning Restart home medications 06/28: public health clinical nurse specialist present. Patient reports feeling anxious today; pt stated, I just want to go home. I'm not worried about anything. I don't think that my ex boyfriend is here or doing anything. I know he's locked up . Pt reports she stopped taking her medications d/t having the flu and not feeling well. denies SI/HI/VH/AH. Continue current tx plan. 06/29: Continue current management and treatment plan. 06/30: Lidocaine patch to the knee, otherwise continue current management and treatment plan. 07/01: plan to move toward [place] as possible. no feasible option with zyprexa, will continue that as prescribed outpt. will switch risperidone to paliperidone and give sustenna prior to discharge. 07/02: public health clinical nurse specialist present. Pt reports feeling good today; pt stated, I'm going to groups and talking to people. I stopped hearing voices when I started taking the meds again . Pt to receive Invega Sustenna tomorrow; pt is aware and agreeable. denies SI/HI/VH/AH. 07/03: public health clinical nurse specialist present. Pt reports feeling good today; pt stated, I'm sleeping well. I showered. I'm just waiting to get my injection . denies SI/HI/VH/AH. Patient to receive Invega sustenna 156mg IM once. She will need second dose of 117mg IM given in 1 week. Patient educated on: diagnosis and medication risk/benefits Informed Consent: understands Reason for continued inpatient stay Substantial Risk for: med/psych decompensation Time Spent With Patient Time: Total time managing care of this patient today _20___ minutes.
[2023-07-03 11:23] LABS: Lithium 0.14 mmol/L (0.60-1.20)
[2023-07-03 11:34] LABS: Anion Gap 9 (12-20); Blood Urea Nitrogen 13 mg/dL (9-16); Carbon Dioxide 25 mmol/L (22-29); Chloride 107 mmol/L (96-108); Creatinine Clr Calc Pharmacy 141.8; Estimated Glomerular Filt Rate > 60; Potassium 3.8 mmol/L (3.3-5.1); Sodium 137 mmol/L (135-145)
[2023-07-03] MEDS: Acetaminophen 325 MG TABLET 650 MG PO ×2 (13:45→21:13)
[2023-07-03] MEDS: Paliperidone Palmitate 156 MG/ML SYRINGE IM (15:33)
[2023-07-03 19:45] VITALS: BP 137/72; PULSE 92; RESP 16; TEMP 36.8; O2SAT 100
[2023-07-03] MEDS: Lithium Carbonate ER 300 MG TABLET.ER PO (21:09)
[2023-07-03] MEDS: OLANZapine 10 MG TABLET 20 MG PO (21:09)
[2023-07-03] MEDS: traZODone HCL 50 MG TABLET 150 MG PO (21:10)
[2023-07-04 07:00] VITALS: BMI 40.9
[2023-07-04 07:45] VITALS: BP 119/56; PULSE 93; RESP 18; TEMP 36.4; O2SAT 98
[2023-07-04] MEDS: Nystatin Powder 15 GM BOTTLE 1 APPL TOPICAL ×2 (08:21→20:51)
--- NOTE | 2023-07-04 08:36 | P.PNPSI_ITS ---
Subjective Subjective Date of Service: 07/04/23 Reason For Visit: Crisis Subjective Notes: Conditional Voluntary Interim History: Reviewed with Dr. Kimble. Pt reports feeling good today; social with peers. attending groups. denies SI/HI/VH/AH. denies any side effects from Invega sustenna injection yesterday. Next IM will be given on 07/08/23. Medication Compliance: Yes Side effects from medications: No Attending Groups: Yes Review of Systems Constitutional: Reports as per HPI Eyes: Reports as per HPI Reports as per HPI Cardiovascular: Reports as per HPI Respiratory: Reports as per HPI Gastrointestinal: Reports as per HPI Genitourinary: Reports as per HPI Musculoskeletal: Reports as per HPI Skin/Breast: Reports as per HPI Reports as per HPI Psychiatric: Reports as per HPI Endocrine: Reports as per HPI Hematologic/Lymphatic: Reports as per HPI Allergic/Immunologic: Reports as per HPI Mental Status Exam Mental Status Exam Narrative: Pt is alert and oriented; behavior is cooperative and calm; dressed in casual attire; mood is described as good ; eye contact appropriate; Speech is normal rate, volume and prosody and not pressured; thought process is organized; Thought content is on tx; denies SI/HI/VH/AH. Diagnostics Vital Signs (24Hr): Vital Signs - 24 hr 07/03/23 19:45 07/04/23 07:45 Temperature 98.2 F 97.6 F Pulse Rate 92 93 Respiratory Rate 16 18 Blood Pressure 137/72 119/56 L Pulse Oximetry 100 98 Oxygen Delivery Method Room Air Room Air BMI result Body Mass Index 39.9 Labs 06/23/23 13:29 07/03/23 10:51 Labs: Laboratory Results - last 48 hr 07/03/23 10:51 Sodium 137 Potassium 3.8 Chloride 107 Carbon Dioxide 25 Anion Gap 9 L BUN 13 Creatinine 0.75 Estim Creat Clear Calc 141.8 Estimated GFR > 60 TSH 0.80 [place] 0.14 L Medications Medications Current Medications Acetaminophen (Acetaminophen 325 Mg Tablet) 650 mg PO Q6H PRN PRN Reason: Headache/Pain Mild Scale (1-3) Last Admin: 07/03/23 21:13 Dose: 650 mg Al Hydroxide/Mg Hydroxide (Magnesium Hydrox/Alum Hydrox 30 Ml Oral.Susp) 30 ml PO Q6H PRN PRN Reason: Heartburn/Nausea Last Admin: 06/30/23 22:42 Dose: 30 ml Hydroxyzine HCl (Hydroxyzine Hcl 25 Mg Tablet) 25 mg PO Q6H PRN PRN Reason: Anxiety Last Admin: 06/28/23 13:51 Dose: 25 mg Lidocaine (Lidocaine 4 % Patch Adh..Patch) 1 patch TRANSDERMA DAILY PRN; Protocol PRN Reason: back pain Last Admin: 07/03/23 07:54 Dose: 1 patch Lidocaine (Lidocaine 4 % Patch Adh..Patch) 1 patch TRANSDERMA DAILY PRN; Protocol PRN Reason: knee pain [place] Carbonate ([place] Carbonate Er 300 Mg Tablet.Er) 300 mg PO BEDTIME RASHI Last Admin: 07/03/23 21:09 Dose: 300 mg Magnesium Hydroxide (Milk Of Magnesia 30 Ml Oral.Susp) 30 ml PO DAILY PRN PRN Reason: Constipation Nystatin (Nystatin Powder 15 Gm Bottle) 1 appl TOPICAL BID RASHI; Protocol Last Admin: 07/04/23 08:21 Dose: 1 appl Olanzapine (Olanzapine 10 Mg Tablet) 20 mg PO BEDTIME RASHI Last Admin: 07/03/23 21:09 Dose: 20 mg Polyethylene Glycol (Polyethylene Glycol 3350 17 Gm Powd.Pack) 17 gm PO DAILY PRN PRN Reason: constipation Trazodone HCl (Trazodone Hcl 50 Mg Tablet) 150 mg PO BEDTIME RASHI Last Admin: 07/03/23 21:10 Dose: 150 mg Allergies Allergies Allergy/AdvReac Type Severity Reaction Status Date / Time No Known Allergies Allergy Verified 10/23/21 14:48 Assessment & Plan Assessment & Plan (1) Schizoaffective disorder: Status: Acute Code(s): F25.9 - Schizoaffective disorder, unspecified Plan Patient is a 27 year old female with hx of Schizoaffective d/o who presented to [facility] via EMS after being assessed by N crisis secondary to increased anxiety, hallucinations and poor sleep d/t medication noncompliance. Plan: CV 15 minute safety checks obtain collateral discharge planning Restart home medications 06/28: it network administrator present. Patient reports feeling anxious today; pt stated, I just want to go home. I'm not worried about anything. I don't think that my ex boyfriend is here or doing anything. I know he's locked up . Pt reports she stopped taking her medications d/t having the flu and not feeling well. denies SI/HI/VH/AH. Continue current tx plan. 06/29: Continue current management and treatment plan. 06/30: Lidocaine patch to the knee, otherwise continue current management and treatment plan. 07/01: plan to move toward [place] as possible. no feasible option with zyprexa, will continue that as prescribed outpt. will switch risperidone to paliperidone and give sustenna prior to discharge. 07/02: it network administrator present. Pt reports feeling good today; pt stated, I'm going to groups and talking to people. I stopped hearing voices when I started taking the meds again . Pt to receive Invega Sustenna tomorrow; pt is aware and agreeable. denies SI/HI/VH/AH. 07/03: it network administrator present. Pt reports feeling good today; pt stated, I'm sleeping well. I showered. I'm just waiting to get my injection . denies SI/HI/VH/AH. Patient to receive Invega sustenna 156mg IM once. She will need second dose of 117mg IM given in 1 week. : Pt reports feeling good today; social with peers. attending groups. denies SI/HI/VH/AH. denies any side effects from Invega sustenna injection yesterday. Next IM will be given on 07/08/23. continue current tx plan. Patient educated on: diagnosis and medication risk/benefits Informed Consent: understands Reason for continued inpatient stay Substantial Risk for: med/psych decompensation Time Spent With Patient Time: Total time managing care of this patient today _20___ minutes.
[2023-07-04] MEDS: Acetaminophen 325 MG TABLET 650 MG PO (08:41)
[2023-07-04] MEDS: Lidocaine 4 % Patch ADH..PATCH 1 PATCH TRANSDERMA (12:05)
[2023-07-04] MEDS: hydrOXYzine HCL 25 MG TABLET PO (16:30)
[2023-07-04 20:10] VITALS: BP 121/86; PULSE 85; RESP 17; TEMP 36.7; O2SAT 100
[2023-07-04] MEDS: Lithium Carbonate ER 300 MG TABLET.ER 600 MG PO (20:11)
[2023-07-04] MEDS: traZODone HCL 50 MG TABLET 150 MG PO (20:12)
[2023-07-04] MEDS: OLANZapine 10 MG TABLET 20 MG PO (20:12)
[2023-07-05 07:35] VITALS: BP 144/71; PULSE 115; RESP 12; TEMP 35.7; O2SAT 96
[2023-07-05] MEDS: Lidocaine 4 % Patch ADH..PATCH 1 PATCH TRANSDERMA (08:53)
[2023-07-05] MEDS: Nystatin Powder 15 GM BOTTLE 1 APPL TOPICAL ×2 (08:56→21:49)
--- NOTE | 2023-07-05 08:58 | HO.PSYCHPN ---
Subjective Subjective Date of Service: 07/05/23 Reason For Visit: Crisis Subjective Notes: Conditional Voluntary Interim History: Reviewed with Dr. Kimble. Pt reports feeling good today; Pt stated, I'm just waiting to leave . social with peers. attending groups. denies SI/HI/VH/AH. Medication Compliance: Yes Side effects from medications: No Attending Groups: Yes Review of Systems Constitutional: Reports as per HPI Eyes: Reports as per HPI Reports as per HPI Cardiovascular: Reports as per HPI Respiratory: Reports as per HPI Gastrointestinal: Reports as per HPI Genitourinary: Reports as per HPI Musculoskeletal: Reports as per HPI Skin/Breast: Reports as per HPI Reports as per HPI Psychiatric: Reports as per HPI Endocrine: Reports as per HPI Hematologic/Lymphatic: Reports as per HPI Allergic/Immunologic: Reports as per HPI Mental Status Exam Mental Status Exam Narrative: Pt is alert and oriented; behavior is cooperative and calm; dressed in casual attire; mood is described as good ; eye contact appropriate; Speech is normal rate, volume and prosody and not pressured; thought process is organized; Thought content is on tx; denies SI/HI/VH/AH. Diagnostics Vital Signs (24Hr): Vital Signs - 24 hr 07/04/23 20:10 07/05/23 07:35 Temperature 98.1 F 96.3 F L Pulse Rate 85 115 H Respiratory Rate 17 12 Blood Pressure 121/86 144/71 H Pulse Oximetry 100 96 Oxygen Delivery Method Room Air Room Air BMI result Body Mass Index 40.9 Labs 06/23/23 13:29 07/03/23 10:51 Labs: Laboratory Results - last 48 hr 07/03/23 10:51 Sodium 137 Potassium 3.8 Chloride 107 Carbon Dioxide 25 Anion Gap 9 L BUN 13 Creatinine 0.75 Estim Creat Clear Calc 141.8 Estimated GFR > 60 TSH 0.80 [place] 0.14 L Medications Medications Current Medications Acetaminophen (Acetaminophen 325 Mg Tablet) 650 mg PO Q6H PRN PRN Reason: Headache/Pain Mild Scale (1-3) Last Admin: 07/04/23 08:41 Dose: 650 mg Al Hydroxide/Mg Hydroxide (Magnesium Hydrox/Alum Hydrox 30 Ml Oral.Susp) 30 ml PO Q6H PRN PRN Reason: Heartburn/Nausea Last Admin: 06/30/23 22:42 Dose: 30 ml Benzocaine (Throat Lozenge, Medicated Lozenge) 1 lozenge MUCOUS MEM Q2H PRN PRN Reason: Sore Throat Hydroxyzine HCl (Hydroxyzine Hcl 25 Mg Tablet) 25 mg PO Q6H PRN PRN Reason: Anxiety Last Admin: 07/04/23 16:30 Dose: 25 mg Lidocaine (Lidocaine 4 % Patch Adh..Patch) 1 patch TRANSDERMA DAILY PRN; Protocol PRN Reason: back pain Last Admin: 07/05/23 08:53 Dose: 1 patch Lidocaine (Lidocaine 4 % Patch Adh..Patch) 1 patch TRANSDERMA DAILY PRN; Protocol PRN Reason: knee pain [place] Carbonate ([place] Carbonate Er 300 Mg Tablet.Er) 600 mg PO BEDTIME RASHI Last Admin: 07/04/23 20:11 Dose: 600 mg Magnesium Hydroxide (Milk Of Magnesia 30 Ml Oral.Susp) 30 ml PO DAILY PRN PRN Reason: Constipation Nystatin (Nystatin Powder 15 Gm Bottle) 1 appl TOPICAL BID RASHI; Protocol Last Admin: 07/05/23 08:56 Dose: 1 appl Olanzapine (Olanzapine 10 Mg Tablet) 20 mg PO BEDTIME RASHI Last Admin: 07/04/23 20:12 Dose: 20 mg Polyethylene Glycol (Polyethylene Glycol 3350 17 Gm Powd.Pack) 17 gm PO DAILY PRN PRN Reason: constipation Trazodone HCl (Trazodone Hcl 50 Mg Tablet) 150 mg PO BEDTIME RASHI Last Admin: 07/04/23 20:12 Dose: 150 mg Allergies Allergies Allergy/AdvReac Type Severity Reaction Status Date / Time No Known Allergies Allergy Verified 10/23/21 14:48 Assessment & Plan Assessment & Plan (1) Schizoaffective disorder: Status: Acute Code(s): F25.9 - Schizoaffective disorder, unspecified Plan Patient is a 27 year old female with hx of Schizoaffective d/o who presented to [facility] [place] [facility] via EMS after being assessed by N crisis secondary to increased anxiety, hallucinations and poor sleep d/t medication noncompliance. Plan: CV 15 minute safety checks obtain collateral discharge planning Restart home medications 06/28: educational sign language interpreter present. Patient reports feeling anxious today; pt stated, I just want to go home. I'm not worried about anything. I don't think that my ex boyfriend is here or doing anything. I know he's locked up . Pt reports she stopped taking her medications d/t having the flu and not feeling well. denies SI/HI/VH/AH. Continue current tx plan. 06/29: Continue current management and treatment plan. 06/30: Lidocaine patch to the knee, otherwise continue current management and treatment plan. 07/01: plan to move toward [place] as possible. no feasible option with zyprexa, will continue that as prescribed outpt. will switch risperidone to paliperidone and give sustenna prior to discharge. 07/02: educational sign language interpreter present. Pt reports feeling good today; pt stated, I'm going to groups and talking to people. I stopped hearing voices when I started taking the meds again . Pt to receive Invega Sustenna tomorrow; pt is aware and agreeable. denies SI/HI/VH/AH. 07/03: educational sign language interpreter present. Pt reports feeling good today; pt stated, I'm sleeping well. I showered. I'm just waiting to get my injection . denies SI/HI/VH/AH. Patient to receive Invega sustenna 156mg IM once. She will need second dose of 117mg IM given in 1 week. : Pt reports feeling good today; social with peers. attending groups. denies SI/HI/VH/AH. denies any side effects from Invega sustenna injection yesterday. Next IM will be given on 07/08/23. continue current tx plan. 07/04: Pt reports feeling good today; Pt stated, I'm just waiting to leave . social with peers. attending groups. denies SI/HI/VH/AH. continue current tx plan. Patient educated on: diagnosis and medication risk/benefits Informed Consent: understands Reason for continued inpatient stay Substantial Risk for: med/psych decompensation Time Spent With Patient Time: Total time managing care of this patient today _20___ minutes.
[2023-07-05 19:55] VITALS: BP 129/76; PULSE 93; RESP 18; TEMP 36.9; O2SAT 99
[2023-07-05] MEDS: hydrOXYzine HCL 25 MG TABLET PO (21:09)
[2023-07-05] MEDS: Lithium Carbonate ER 300 MG TABLET.ER 600 MG PO (21:47)
[2023-07-05] MEDS: traZODone HCL 50 MG TABLET 150 MG PO (21:47)
[2023-07-05] MEDS: OLANZapine 10 MG TABLET 20 MG PO (21:47)
[2023-07-06 08:01] VITALS: BP 130/76; PULSE 91; RESP 14; TEMP 36.4; O2SAT 99
[2023-07-06] MEDS: Nystatin Powder 15 GM BOTTLE 1 APPL TOPICAL ×2 (08:39→22:41)
[2023-07-06] MEDS: Lidocaine 4 % Patch ADH..PATCH 1 PATCH TRANSDERMA (08:42)
--- NOTE | 2023-07-06 14:11 | P.PNPSI_ITS ---
Subjective Subjective Date of Service: 07/06/23 Reason For Visit: Crisis Interim History: no issues or concerns, per pt. feeling well, looking forward to discharge on saturday. per staff, dep 0, anx 5. PRN hydroxyzine due to anxiety regarding perception male peer is staring at her. Mental Status Exam Mental Status Exam Narrative: Pt is alert and oriented; behavior is cooperative and calm; dressed in casual attire; mood is described as good ; eye contact appropriate; Speech is normal rate, volume and prosody and not pressured; thought process is organized; Thought content is on tx; no SI/HI/VH/AH expressed. Diagnostics Vital Signs (24Hr): Vital Signs - 24 hr 07/05/23 19:55 07/06/23 08:01 Temperature 98.4 F 97.6 F Pulse Rate 93 91 Respiratory Rate 18 14 Blood Pressure 129/76 130/76 Pulse Oximetry 99 99 Oxygen Delivery Method Room Air Room Air BMI result Body Mass Index 40.9 Labs 06/23/23 13:29 07/03/23 10:51 Medications Medications Current Medications Acetaminophen (Acetaminophen 325 Mg Tablet) 650 mg PO Q6H PRN PRN Reason: Headache/Pain Mild Scale (1-3) Last Admin: 07/04/23 08:41 Dose: 650 mg Al Hydroxide/Mg Hydroxide (Magnesium Hydrox/Alum Hydrox 30 Ml Oral.Susp) 30 ml PO Q6H PRN PRN Reason: Heartburn/Nausea Last Admin: 06/30/23 22:42 Dose: 30 ml Benzocaine (Throat Lozenge, Medicated Lozenge) 1 lozenge MUCOUS MEM Q2H PRN PRN Reason: Sore Throat Hydroxyzine HCl (Hydroxyzine Hcl 25 Mg Tablet) 25 mg PO Q6H PRN PRN Reason: Anxiety Last Admin: 07/05/23 21:09 Dose: 25 mg Lidocaine (Lidocaine 4 % Patch Adh..Patch) 1 patch TRANSDERMA DAILY PRN; Protocol PRN Reason: back pain Last Admin: 07/06/23 08:42 Dose: 1 patch Lidocaine (Lidocaine 4 % Patch Adh..Patch) 1 patch TRANSDERMA DAILY PRN; Protocol PRN Reason: knee pain [place] Carbonate ([place] Carbonate Er 300 Mg Tablet.Er) 600 mg PO BEDTIME RASHI Last Admin: 07/05/23 21:47 Dose: 600 mg Magnesium Hydroxide (Milk Of Magnesia 30 Ml Oral.Susp) 30 ml PO DAILY PRN PRN Reason: Constipation Nystatin (Nystatin Powder 15 Gm Bottle) 1 appl TOPICAL BID RASHI; Protocol Last Admin: 07/06/23 08:39 Dose: 1 appl Olanzapine (Olanzapine 10 Mg Tablet) 20 mg PO BEDTIME RASHI Last Admin: 07/05/23 21:47 Dose: 20 mg Polyethylene Glycol (Polyethylene Glycol 3350 17 Gm Powd.Pack) 17 gm PO DAILY PRN PRN Reason: constipation Trazodone HCl (Trazodone Hcl 50 Mg Tablet) 150 mg PO BEDTIME RASHI Last Admin: 07/05/23 21:47 Dose: 150 mg Allergies Allergies Allergy/AdvReac Type Severity Reaction Status Date / Time No Known Allergies Allergy Verified 10/23/21 14:48 Assessment & Plan Assessment & Plan (1) Schizoaffective disorder: Status: Acute Code(s): F25.9 - Schizoaffective disorder, unspecified Plan Patient is a 27 year old female with hx of Schizoaffective d/o who presented to [facility] via EMS after being assessed by N crisis secondary to increased anxiety, hallucinations and poor sleep d/t medication noncompliance. Plan: CV 15 minute safety checks obtain collateral discharge planning Restart home medications 06/28: sammying machine operator present. Patient reports feeling anxious today; pt stated, I just want to go home. I'm not worried about anything. I don't think that my ex boyfriend is here or doing anything. I know he's locked up . Pt reports she stopped taking her medications d/t having the flu and not feeling well. denies SI/HI/VH/AH. Continue current tx plan. 06/29: Continue current management and treatment plan. 06/30: Lidocaine patch to the knee, otherwise continue current management and treatment plan. 07/01: plan to move toward [facility] as possible. no feasible option with zyprexa, will continue that as prescribed outpt. will switch risperidone to paliperidone and give sustenna prior to discharge. 07/02: sammying machine operator present. Pt reports feeling good today; pt stated, I'm going to groups and talking to people. I stopped hearing voices when I started taking the meds again . Pt to receive Invega Sustenna tomorrow; pt is aware and agreeable. denies SI/HI/VH/AH. 07/03: sammying machine operator present. Pt reports feeling good today; pt stated, I'm sleeping well. I showered. I'm just waiting to get my injection . denies SI/HI/VH/AH. Patient to receive Invega sustenna 156mg IM once. She will need second dose of 117mg IM given in 1 week. : Pt reports feeling good today; social with peers. attending groups. denies SI/HI/VH/AH. denies any side effects from Invega sustenna injection yesterday. Next IM will be given on 07/08/23. continue current tx plan. 07/04: Pt reports feeling good today; Pt stated, I'm just waiting to leave . social with peers. attending groups. denies SI/HI/VH/AH. continue current tx plan. 07/05: continues euthymic. continue current mgmt. Reason for continued inpatient stay Substantial Risk for: inability to function and rapid decompensation Time Spent With Patient Time: Total time managing care of this patient today ____ minutes.
[2023-07-06 22:28] VITALS: BP 135/75; PULSE 98; RESP 16; O2SAT 100
[2023-07-06] MEDS: OLANZapine 10 MG TABLET 20 MG PO (22:37)
[2023-07-06] MEDS: traZODone HCL 50 MG TABLET 150 MG PO (22:38)
[2023-07-06] MEDS: Lithium Carbonate ER 300 MG TABLET.ER 600 MG PO (22:38)
[2023-07-06] MEDS: Acetaminophen 325 MG TABLET 650 MG PO (22:42)
[2023-07-07] MEDS: Lidocaine 4 % Patch ADH..PATCH 1 PATCH TRANSDERMA ×2 (08:10)
[2023-07-07] MEDS: Acetaminophen 325 MG TABLET 650 MG PO ×2 (08:10→21:10)
[2023-07-07] MEDS: Nystatin Powder 15 GM BOTTLE 1 APPL TOPICAL ×2 (08:11→21:16)
--- NOTE | 2023-07-07 14:14 | HO.PSYCHPN ---
Subjective Subjective Date of Service: 07/07/23 Reason For Visit: Crisis Interim History: calm, cooperative, pleasant. planning to discharge tomorrow. no complaints. no AH, medications are working. per staff, c/o 02/12 right knee pain yesterday. getting tylenol for it, lidoderm. denies dep/anx. no AH. Mental Status Exam Mental Status Exam Narrative: Pt is alert and oriented; behavior is cooperative and calm; dressed in casual attire; mood is described as good ; eye contact appropriate; Speech is normal rate, volume and prosody and not pressured; thought process is organized; Thought content is on tx; no SI/HI/VH expressed. no AH. Diagnostics Vital Signs (24Hr): Vital Signs - 24 hr 07/06/23 22:28 Pulse Rate 98 Respiratory Rate 16 Blood Pressure 135/75 Pulse Oximetry 100 Oxygen Delivery Method Room Air BMI result Body Mass Index 40.9 Labs 06/23/23 13:29 07/03/23 10:51 Medications Medications Current Medications Acetaminophen (Acetaminophen 325 Mg Tablet) 650 mg PO Q6H PRN PRN Reason: Headache/Pain Mild Scale (1-3) Last Admin: 07/07/23 08:10 Dose: 650 mg Al Hydroxide/Mg Hydroxide (Magnesium Hydrox/Alum Hydrox 30 Ml Oral.Susp) 30 ml PO Q6H PRN PRN Reason: Heartburn/Nausea Last Admin: 06/30/23 22:42 Dose: 30 ml Benzocaine (Throat Lozenge, Medicated Lozenge) 1 lozenge MUCOUS MEM Q2H PRN PRN Reason: Sore Throat Hydroxyzine HCl (Hydroxyzine Hcl 25 Mg Tablet) 25 mg PO Q6H PRN PRN Reason: Anxiety Last Admin: 07/05/23 21:09 Dose: 25 mg Lidocaine (Lidocaine 4 % Patch Adh..Patch) 1 patch TRANSDERMA DAILY PRN; Protocol PRN Reason: back pain Last Admin: 07/07/23 08:10 Dose: 1 patch Lidocaine (Lidocaine 4 % Patch Adh..Patch) 1 patch TRANSDERMA DAILY PRN; Protocol PRN Reason: knee pain Last Admin: 07/07/23 08:10 Dose: 1 patch [place] Carbonate ([place]edro Carbonate Er 300 Mg Tablet.Er) 600 mg PO BEDTIME RASHI Last Admin: 07/06/23 22:38 Dose: 600 mg Magnesium Hydroxide (Milk Of Magnesia 30 Ml Oral.Susp) 30 ml PO DAILY PRN PRN Reason: Constipation Nystatin (Nystatin Powder 15 Gm Bottle) 1 appl TOPICAL BID RASHI; Protocol Last Admin: 07/07/23 08:11 Dose: 1 appl Olanzapine (Olanzapine 10 Mg Tablet) 20 mg PO BEDTIME RASHI Last Admin: 07/06/23 22:37 Dose: 20 mg Polyethylene Glycol (Polyethylene Glycol 3350 17 Gm Powd.Pack) 17 gm PO DAILY PRN PRN Reason: constipation Trazodone HCl (Trazodone Hcl 50 Mg Tablet) 150 mg PO BEDTIME RASHI Last Admin: 07/06/23 22:38 Dose: 150 mg Allergies Allergies Allergy/AdvReac Type Severity Reaction Status Date / Time No Known Allergies Allergy Verified 10/23/21 14:48 Assessment & Plan Assessment & Plan (1) Schizoaffective disorder: Status: Acute Code(s): F25.9 - Schizoaffective disorder, unspecified Plan Patient is a 27 year old female with hx of Schizoaffective d/o who presented [place] [facility] [place] after being assessed by N crisis secondary to increased anxiety, hallucinations and poor sleep d/t medication noncompliance. Plan: CV 15 minute safety checks obtain collateral discharge planning Restart home medications 06/28: planning and analysis manager present. Patient reports feeling anxious today; pt stated, I just want to go home. I'm not worried about anything. I don't think that my ex boyfriend is here or doing anything. I know he's locked up . Pt reports she stopped taking her medications d/t having the flu and not feeling well. denies SI/HI/VH/AH. Continue current tx plan. 06/29: Continue current management and treatment plan. 06/30: Lidocaine patch to the knee, otherwise continue current management and treatment plan. 07/01: plan to move toward [facility] as possible. no feasible option with zyprexa, will continue that as prescribed outpt. will switch risperidone to paliperidone and give sustenna prior to discharge. 07/02: planning and analysis manager present. Pt reports feeling good today; pt stated, I'm going to groups and talking to people. I stopped hearing voices when I started taking the meds again . Pt to receive Invega Sustenna tomorrow; pt is aware and agreeable. denies SI/HI/VH/AH. 07/03: planning and analysis manager present. Pt reports feeling good today; pt stated, I'm sleeping well. I showered. I'm just waiting to get my injection . denies SI/HI/VH/AH. Patient to receive Invega sustenna 156mg IM once. She will need second dose of 117mg IM given in 1 week. : Pt reports feeling good today; social with peers. attending groups. denies SI/HI/VH/AH. denies any side effects from Invega sustenna injection yesterday. Next IM will be given on 07/08/23. continue current tx plan. 07/04: Pt reports feeling good today; Pt stated, I'm just waiting to leave . social with peers. attending groups. denies SI/HI/VH/AH. continue current tx plan. 07/05: continues euthymic. continue current mgmt. 07/06: continues euthymic. continue current mgmt. planning to discharge tomorrow. Reason for continued inpatient stay Substantial Risk for: stable for discharge Time Spent With Patient Time: Total time managing care of this patient today ____ minutes.
[2023-07-07 14:26] VITALS: BP 119/69; PULSE 97; RESP 16; TEMP 37.1; O2SAT 96
[2023-07-07 18:00] VITALS: BP 161/66; PULSE 97; RESP 18; TEMP 36.5; O2SAT 98
[2023-07-07] MEDS: traZODone HCL 50 MG TABLET 150 MG PO (21:09)
[2023-07-07] MEDS: OLANZapine 10 MG TABLET 20 MG PO (21:10)
[2023-07-07] MEDS: Lithium Carbonate ER 300 MG TABLET.ER 600 MG PO (21:10)
[2023-07-08] MEDS: Throat Lozenge, Medicated LOZENGE 1 LOZENGE MUCOUS MEM (05:18)
[2023-07-08] MEDS: hydrOXYzine HCL 25 MG TABLET PO (05:41)
[2023-07-08 07:25] VITALS: BP 119/65; PULSE 102; RESP 14; TEMP 36.5; O2SAT 96
[2023-07-08] MEDS: Lidocaine 4 % Patch ADH..PATCH 1 PATCH TRANSDERMA ×2 (08:18)
[2023-07-08] MEDS: Nystatin Powder 15 GM BOTTLE 1 APPL TOPICAL (08:32)
[2023-07-08] MEDS: Acetaminophen 325 MG TABLET 650 MG PO (08:32)
[2023-07-08 09:05] LABS: Lithium 0.38 mmol/L (0.60-1.20)
[2023-07-08 09:13] LABS: Anion Gap 12 (12-20); Blood Urea Nitrogen 14 mg/dL (9-16); Carbon Dioxide 26 mmol/L (22-29); Chloride 106 mmol/L (96-108); Creatinine Clr Calc Pharmacy 156.2; Estimated Glomerular Filt Rate > 60; Sodium 140 mmol/L (135-145)
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
[2023-07-08] MEDS: Paliperidone Palmitate 156 MG/ML SYRINGE 117 MG IM (10:41)
== END 2023-07-08 11:59 | disposition home or self-care (01) | DRG 750 ==
LOC: HO.ED 17:07 → HO.PADLT16 06-26 13:39
PROVIDERS: Emergency Medicine; Admitting Provider Registered Nurse; Emergency Provider Student in an Organized Health Care Education/Training Program; Responsible Provider Registered Nurse; Visit Provider Psychiatry & Neurology Psychiatry
DX: F25.9 Schizoaffective disorder, unspecified (principal); Z20.822 Contact with and (suspected) exposure to COVID-19; Z23 Encounter for immunization; Z79.899 Other long term (current) drug therapy
CPT/HCPCS: 36415; 80051; 80053; 80061; 80178; 80307; 81001; 81025; 82565; 84443; 84520; 85025; 87635; 90686; 93005; 99285; J2426; S9485

== ENCOUNTER → 2023-06-25 12:47 | Outpatient (BNV) | payer OTHER, SELFPAY | PROVIDERS: Emergency Provider Student in an Organized Health Care Education/Training Program; Visit Provider Internal Medicine Cardiovascular Disease | DX: F25.9 Schizoaffective disorder, unspecified (principal) | CPT/HCPCS: 93010 ==

== ENCOUNTER → 2023-06-26 12:55 | Outpatient (BNV) | payer OTHER, SELFPAY | PROVIDERS: Admitting Provider Registered Nurse; Emergency Provider Student in an Organized Health Care Education/Training Program; Visit Provider Registered Nurse | DX: F25.9 Schizoaffective disorder, unspecified (principal) | CPT/HCPCS: 90792; 99231; 99232; 99238 ==

== ENCOUNTER 2023-08-20 19:50 | Inpatient (IN) | payer OTHER, SELFPAY ==
[2023-08-20 19:58] VITALS: BP 126/86; PULSE 105; RESP 18; TEMP 37.2; O2SAT 96; BMI 41.5
--- NOTE | 2023-08-20 19:58 | ED.GENADULT ---
HPI - General Adult General Chief complaint: Psychiatric Symptoms Stated complaint: emotional/phych issues/no suicidal thoughts Time Seen by Provider: 08/20/23 20:12 Source: patient Mode of arrival: ambulatory Limitations: no limitations History of Present Illness HPI narrative: Patient is a 28-year-old female who presents to the emergency department with reports of increased anxiety, difficulty sleeping, and worsening depression. She reports over the past 4 days she has been having increasing trouble, feeling more depressed after getting into an argument with boyfriend, and reportedly has had some loss in her family. She states that she lives at home but she has a ?staff member? with her 26/11, she arrived with staff member to triage and a paper form from [facility] regarding her medications. When asked she states she does not reside in a halfway setting, and denies living with any family. She denies any recent changes to her medications and reports that she has been compliant with her medications. I do note that she initially reported at triage that there was some concern she may not have been taking her medications over the past few days. Denies any hallucinations. She denies suicidal or homicidal ideations. She denies any drug or alcohol usage. she has no physical complaints, aside from chronic lower back pain that she states she has had for many years, and is requesting a pain patch for. She denies any genitourinary symptoms or possibility of Related Data Home Medications ?Medication ?Instructions ?Recorded ?Confirmed ibuprofen 600 mg tablet 600 mg PO Q6H 08/20/23 08/20/23 lithium carbonate 600 mg capsule 600 mg PO BEDTIME 08/20/23 08/20/23 methocarbamol 750 mg tablet 750 mg PO Q6H PRN muscle spasm 08/20/23 08/20/23 olanzapine 20 mg tablet 20 mg PO BEDTIME PRN Insomnia 08/20/23 08/20/23 Previous Rx's ?Medication ?Instructions ?Recorded polyethylene glycol 3350 17 gram 17 g PO DAILY PRN constipation 11/29/21 oral powder packet days #510 grams trazodone 50 mg tablet 150 mg (3 x 50 mg) PO BEDTIME 11/29/21 days #90 tabs Allergies Allergy/AdvReac Type Severity Reaction Status Date / Time No Known Allergies Allergy Verified 08/20/23 20:03 Review of Systems Review of Systems: Yes all other systems are reviewed and are negative PMFSH Past Medical History Attestation statement: The following information was validated with the patient. Source: old records reviewed Medical History Schizoaffective disorder Social History Social History (Updated 10/23/21 @ 14:52 by Pita Kothari DO) Household Members: None Housing: Apartment Do you presently have visiting nurse or other home services: No Unable to assess alcohol history related to: Refusing to respond Patient Tobacco Use Status: Never used Tobacco Smoked in Last 30 Days: Yes Use of substances other than those prescribed or required for medical reasons: No Advance Directives: No Advance Directives Information Provided: Yes Patient : No service: No Sexual orientation: Straight/Heterosexual Physical Exam ED Vital Signs: Vital Signs - 24 hr 08/20/23 19:58 08/20/23 20:29 08/20/23 23:35 Temperature 98.9 F 98.6 F 98.2 F Pulse Rate 105 H 105 H 62 Respiratory Rate 18 18 20 Blood Pressure 126/86 126/86 124/78 Pulse Oximetry 96 96 94 Oxygen Delivery Method Room Air Room Air Room Air BMI result Body Mass Index 41.5 Appearance: Alert.?Oriented to person, place and time. No acute distress.?Normal affect. Eyes: Pupils equal, round and reactive to light.? ENT: Pharynx normal.?? Neck: Normal inspection.? Neck supple.?? CVS: Heart sounds normal. Normal heart rate and rhythm.? Pulses normal.?? Respiratory: No respiratory distress.? Lung sounds clear to auscultation bilaterally?? Abdomen: Soft and non-tender. Normoactive bowel sounds. No CVA tenderness. Back: No rashes, no lesions. No midline tenderness, step-offs, deformities. Negative straight leg test bilaterally.?? Skin: Skin warm and dry.? Normal skin color.? Extremities: No lower extremity edema.? No calf ttp? Neuro: Moves all extremities spontaneously. Sensation intact bilaterally. CN II-XII intact. No focal neuro deficits. Ambulates with normal steady gait. Course Course Course Narrative: KANDICE 28 year old female with history of schizoaffective disorder presents for evaluation of panic attacks, anxiety. Has not been taking her meds for the last few days. Plan for medical clearance and likely care de leon consult. She is not suicidal. Medications Administered Discontinued Medications Generic Name Dose Route Start Last Admin Trade Name Niharika PRN Reason Stop Dose Admin Lidocaine 2 patch 08/20/23 20:51 08/20/23 21:20 Lidocaine 4 % Patch Adh..Patch TRANSDERMA 08/20/23 20:52 2 patch ONCE ONE Administration Protocol Medical Decision Making Medical Decision Making [facility] Narrative: Patient is a 28-year-old female who presents emergency department reporting increased depression and anxiety without suicidal or homicidal ideations, varying history from patient and previously present staff member as to whether there has been medication compliance or not. Overall she is calm and cooperative at the time of my examination. Will obtain basic labs for medical clearance in addition to urinalysis/hCG. Regarding her chronic lumbago, she has requesting a pain patch, offered Lidoderm patch and she accepted happily. She will likely require to be placed in physician observation so that care team evaluation can ensue and safe disposition can be determined. 22:27, Dr. Woods's note: Start physician observation The patient was evaluated by the care team clinician and I obtained the following information. The is in an a supervised apartment. Staff is concerned that the patient has decompensated. The patient is afraid to stay in her apartment. She has not sleeping. She has not compliant with her medications. She is yelling and disturbing other occupants of the housing unit. Given these findings, the patient was placed on a Section 12 and will be in in-patient bed search. Patient will remain in the emergency department Behavioral Health Unit until disposition can be determined or until patient's symptoms improve over time. Differential Diagnosis Differential Diagnoses: The differential diagnosis associated with the presentation includes (Schizoaffective disorder, depression, anxiety, suicidal ideation, chronic lumbago, UTI) Admission/Observation Consideration of admission/observation: Escalation of care including admission/observation considered (See narrative above) Consult Healthcare Provider Management of the patient was discussed with: Behavioral Health Provider (Care team) Lab Data [facility] Lab Attestation statement: I reviewed the patient's lab results. 08/20/23 20:46 08/20/23 20:45 Labs: Lab Results 08/20/23 08/20/23 Range/Units 20:45 20:46 WBC 11.7 H (4.8-10.8) X10*3/uL RBC 4.42 (4.20-5.50) X10*6/uL Hgb 12.3 (12.0-16.0) g/dl Hct 37.7 (37.0-47.0) % MCV 85.3 (80.0-98.0) fL MCH 27.8 (27.0-33.0) pg MCHC 32.6 (31.0-35.0) g/dl RDW 14.0 (11.0-16.0) % Plt Count 464 H D (160-400) X10*3/uL MPV 8.6 L (9.4-12.3) fL Immature Gran % (Auto) 0.3 (0.0-0.4) % Neut % (Auto) 53.9 (45-73) % Lymph % (Auto) 34.4 (20-40) % [place] % (Auto) 7.6 (2-11) % Eos % (Auto) 2.3 (0-4) % Baso % (Auto) 1.5 (0-2) % Lymph # (Auto) 4.0 (1.2-4.9) X10*3/uL [place] # (Auto) 0.9 (0.1-1.2) X10*3/uL Eos # (Auto) 0.3 (0.0-0.4) X10*3/uL Baso # (Auto) 0.2 (0.0-0.2) X10*3/uL Abs Immat Gran (auto) 0.03 (0.00-0.03) X10*3/uL Absolute Neuts (auto) 6.3 (2.0-8.3) x10*3/uL Absolute Nucleated RBC 0.000 (0.0-0.012) X10*3/uL Nucleated RBC % (auto) 0.0 (0.0-0.2) /100WBC Sodium 139 (135-145) mmol/L Potassium 4.0 (3.3-5.1) mmol/L Chloride 106 (96-108) mmol/L Carbon Dioxide 24 (22-29) mmol/L Anion Gap 13 (12-20) BUN 17 H (9-16) mg/dL Creatinine 0.79 (0.5-1.4) mg/dL Estim Creat Clear Calc 136.3 Estimated GFR > 60 Random Glucose 96 (60-115) mg/dL Calcium 8.8 D (8.4-10.2) mg/dL Total Bilirubin 0.3 (0.0-1.0) mg/dL AST 25 (5-31) U/L ALT 20 (0-31) U/L Alkaline Phosphatase 109 (39-117) U/L Total Protein 7.7 (6.5-8.0) g/dL Albumin 3.8 (3.5-5.0) g/dL Urine Color Yellow Urine Appearance Clear Urine pH 5.5 (5.0-9.0) Ur Specific [place] >= 1.030 H (1.005-1.025) Urine Protein Negative (Neg-Trace) mg/dL Urine Glucose (UA) Negative (Negative) mg/dL Urine Ketones Negative (Negative) mg/dL Urine Blood Trace H (Negative) Urine Nitrite Negative (Negative) Ur Leukocyte Esterase Negative (Negative) Urine RBC 3-5 H (0-2) /HPF Urine WBC 0-5 (0-5) /HPF Ur Squamous Epith Cells 3-5 (0-2) /HPF Urine Bacteria None Seen (None Seen) Hyaline Casts 0-2 (0-2) /LPF Urine Test NEGATIVE (NEGATIVE) Salicylates < 5.0 L (15-30) mg/dL Urine Opiates Screen Not Detected (Not Detect) Urine Fentanyl Screen Not Detected (Not Detect) Acetaminophen < 3 (<30) mcg/mL Ur Barbiturates Screen Not Detected (Not Detect) Ur Phencyclidine Scrn Not Detected (Not Detect) Ur Amphetamines Screen Not Detected (Not Detect) U Benzodiazepines Scrn Not Detected (Not Detect) Urine Cocaine Screen Not Detected (Not Detect) U Marijuana (THC) Screen Not Detected (Not Detect) Ethyl Alcohol < 10 mg/dL Independent Historian Clinical information obtained from an independent historian. History obtained from or confirmed by: EMS External Record Review External record reviewed: Inpatient record June 27 2023-July 07 2023 : Inpatient psychiatric admission; Chronic Conditions Patient?s care impacted by: Other (Schizoaffective disorder) Discharge Plan Discharge Clinical Impression: Schizoaffective disorder, Depression Patient Disposition: Still a Patient Prescriptions: No Action trazodone 50 mg Tablet 150 mg PO BEDTIME 30 Days Qty: 90 0RF polyethylene glycol 3350 17 gram Powder In Packet 17 g PO DAILY PRN (Reason: constipation) 30 Days Qty: 510 0RF olanzapine 20 mg tablet 20 mg PO BEDTIME PRN (Reason: Insomnia) methocarbamol 750 mg tablet 750 mg PO Q6H PRN (Reason: muscle spasm) lithium carbonate 600 mg capsule 600 mg PO BEDTIME ibuprofen 600 mg tablet 600 mg PO Q6H Interventions: [place]-Suicide Risk Severity Scale Last Done: 08/20/23 20:29 Print Language: Icelandic
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
[2023-08-20 20:29] VITALS: BP 126/86; PULSE 105; RESP 18; TEMP 37; O2SAT 96
[2023-08-20 20:52] LABS: MANUAL DIFF FLAG NO
[2023-08-20 20:53] LABS: Basophils Absolute Auto 0.2 X10*3/uL (0.0-0.2); Basophils Percent Auto 1.5 % (0-2); Eosinophils Absolute Auto 0.3 X10*3/uL (0.0-0.4); Eosinophils Percent Auto 2.3 % (0-4); Hematocrit 37.7 % (37.0-47.0); Hemoglobin 12.3 g/dl (12.0-16.0); Imm Gran Abs Auto 0.03 X10*3/uL (0.00-0.03); Imm Gran Pct Auto 0.3 % (0.0-0.4); Lymphocytes Percent Auto 34.4 % (20-40); Mean Corpuscular HGB Conc 32.6 g/dl (31.0-35.0); Mean Corpuscular Hemoglobin 27.8 pg (27.0-33.0); Mean Corpuscular Volume 85.3 fL (80.0-98.0); Mean Platelet Volume 8.6 fL (9.4-12.3); Monocytes Absolute Auto 0.9 X10*3/uL (0.1-1.2); Monocytes Percent Auto 7.6 % (2-11); Neutrophils Absolute Auto 6.3 x10*3/uL (2.0-8.3); Neutrophils Percent Auto 53.9 % (45-73); Platelet Count 464 X10*3/uL (160-400); Red Blood Count 4.42 X10*6/uL (4.20-5.50); White Blood Count 11.7 X10*3/uL (4.8-10.8)
[2023-08-20 20:56] LABS: Appearance Urine Clear; Color Urine Yellow; Glucose Urine UA Negative (Negative); Leukocyte Esterase Urine Negative (Negative); Nitrite Urine Negative (Negative); PH 5.5 (5.0-9.0); Specific Gravity - Urine >= 1.030 (1.005-1.025); UMIC TRIGGER UA YES; UPreg QC Valid YES; Urine Blood Trace (Negative); Urine Ketones Negative (Negative); Urine Pregnancy NEGATIVE (NEGATIVE); Urine Protein Negative (Neg-Trace)
[2023-08-20 21:01] LABS: Bacteria Urine None Seen (None Seen); Hyaline Casts Urine 0-2 /LPF (0-2); WBC Urine 0-5 /HPF (0-5)
[2023-08-20 21:03] LABS: Amphetamine Screen Urine Not Detected (Not Detect); Barbiturates, Urine Not Detected (Not Detect); Benzodiazepines Screen Urine Not Detected (Not Detect); Cannabinoid Screen Urine Not Detected (Not Detect); Cocaine Screen Urine Not Detected (Not Detect); Fentanyl, urine Not Detected (Not Detect); Opiate Screen Urine Not Detected (Not Detect); Phencyclidine Screen Urine Not Detected (Not Detect)
[2023-08-20 21:08] LABS: Alanine Aminotransferase 20 U/L (0-31); Albumin Level 3.8 g/dL (3.5-5.0); Alkaline Phosphatase 109 U/L (39-117); Anion Gap 13 (12-20); Aspartate Amino Transferase 25 U/L (5-31); Bilirubin Total 0.3 mg/dL (0.0-1.0); Blood Urea Nitrogen 17 mg/dL (9-16); Calcium 8.8 mg/dL (8.4-10.2); Carbon Dioxide 24 mmol/L (22-29); Chloride 106 mmol/L (96-108); Creatinine Clr Calc Pharmacy 136.3; Estimated Glomerular Filt Rate > 60; Ethanol < 10 mg/dL; Glucose Random 96 mg/dL (60-115); Sodium 139 mmol/L (135-145); Total Protein 7.7 g/dL (6.5-8.0)
[2023-08-20 21:10] LABS: Acetaminophen LAB < 3 mcg/mL (<30); Salicylate < 5.0 mg/dL (15-30)
[2023-08-20] MEDS: Lidocaine 4 % Patch ADH..PATCH 2 PATCH TRANSDERMA (21:20)
[2023-08-20 23:35] VITALS: BP 124/78; PULSE 62; RESP 20; TEMP 36.8; O2SAT 94
--- NOTE | 2023-08-21 | ECG_ITS ---
Test Reason : QT INTERVAL Blood Pressure : / mmHG Vent. Rate : 083 BPM Atrial Rate : 083 BPM P-R Int : 130 ms QRS Dur : 088 ms QT Int : 382 ms P-R-T Axes : 015 058 031 degrees QTc Int : 448 ms Normal sinus rhythm with sinus arrhythmia Normal ECG When compared with ECG of 25-JUN-2023 12:47, No significant change was found Referred By: Pita Kothari Electronically Signed By:PARTH POWELL
[2023-08-21 02:38] VITALS: BP 125/74; PULSE 89; RESP 18; TEMP 36.6; O2SAT 100
[2023-08-21] MEDS: LORazepam 1 MG TABLET 2 MG PO (03:40)
--- NOTE | 2023-08-21 03:41 | PC.NURSE ---
Pt woke up slightly disoriented and anxious. She went to the bathroom then requested medications. Pt medicated per JUL.
[2023-08-21] MEDS: Acetaminophen 325 MG TABLET 650 MG PO ×2 (04:04→13:11)
--- NOTE | 2023-08-21 07:08 | PC.NURSE ---
Assumed care of patient at 0645, patient appears to be sleeping, respirations even and unlabored, no apparent distress noted. Continue plan of care for Sec 12 inpatient bedsearch
[2023-08-21 08:44] LABS: COVID-19 Test Negative (Negative); IDNOW Serial# 9DB6401D
[2023-08-21] MEDS: Ibuprofen 600 MG TABLET PO ×3 (09:51→20:15)
[2023-08-21 13:13] VITALS: BMI 41.8
[2023-08-21 13:14] VITALS: BP 119/56; PULSE 87; RESP 20; TEMP 37.1; O2SAT 99
--- NOTE | 2023-08-21 16:30 | P.HPPS_ITS ---
HPI Date of Service: 08/21/23 Chief Complaint: Psychosis paranoia non compliance Sources of Information: patient interviewed, chart reviewed and crisis/core team assessment reviewed HPI Subjective Notes: Hubbard Warning and Conditional Voluntary Narrative: Patient is a 28-year-old female with a history of schizoaffective disorder who was last treated on this unit on . Patient lives in a supportive apartment had been having significant difficulties with her boyfriend feeling rejected and criticized. She is not been taking her medication which includes olanzapine to 20 mg at bedtime lithium 600 mg at bedtime. She was supposed to be on Invega sustain a but had reportedly missed her last injection scheduled as an outpatient for reasons that are not clear patient has been increasingly agitated labile not sleeping causing reported disruption at the apartment she feels like people have been talking about her has not been sleeping poor impulse control and judgment. Past Psychiatric History: Inpatient: hx of multiple inpatient psychiatric admissions. [place] [facility] [place] OP: [facility]- [phone]/ [phone]. [facility] [place] [phone] (Ewa Hope 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 [place] supported apartment. Trauma History: yes Diagnostics Vital Signs (24Hr): Vital Signs - 24 hr 08/20/23 19:58 08/20/23 20:29 08/20/23 23:35 Temperature 98.9 F 98.6 F 98.2 F Pulse Rate 105 H 105 H 62 Respiratory Rate 18 18 20 Blood Pressure 126/86 126/86 124/78 Pulse Oximetry 96 96 94 Oxygen Delivery Method Room Air Room Air Room Air 08/21/23 02:38 08/21/23 13:14 Temperature 97.8 F 98.7 F Pulse Rate 89 87 Respiratory Rate 18 20 Blood Pressure 125/74 119/56 L Pulse Oximetry 100 99 Oxygen Delivery Method Room Air Room Air BMI result Body Mass Index 41.8 Labs 08/20/23 20:46 08/20/23 20:45 Labs: Laboratory Results - last 48 hr 08/20/23 08/20/23 08/21/23 20:45 20:46 08:03 WBC 11.7 H RBC 4.42 Hgb 12.3 Hct 37.7 MCV 85.3 MCH 27.8 MCHC 32.6 RDW 14.0 Plt Count 464 H D MPV 8.6 L Immature Gran % (Auto) 0.3 Neut % (Auto) 53.9 Lymph % (Auto) 34.4 [place] % (Auto) 7.6 Eos % (Auto) 2.3 Baso % (Auto) 1.5 Lymph # (Auto) 4.0 [place] # (Auto) 0.9 Eos # (Auto) 0.3 Baso # (Auto) 0.2 Abs Immat Gran (auto) 0.03 Absolute Neuts (auto) 6.3 Absolute Nucleated RBC 0.000 Nucleated RBC % (auto) 0.0 Sodium 139 Potassium 4.0 Chloride 106 Carbon Dioxide 24 Anion Gap 13 BUN 17 H Creatinine 0.79 Estim Creat Clear Calc 136.3 Estimated GFR > 60 Random Glucose 96 Calcium 8.8 D Total Bilirubin 0.3 AST 25 ALT 20 Alkaline Phosphatase 109 Total Protein 7.7 Albumin 3.8 Urine Color Yellow Urine Appearance Clear Urine pH 5.5 Ur Specific [place] >= 1.030 H Urine Protein Negative Urine Glucose (UA) Negative Urine Ketones Negative Urine Blood Trace H Urine Nitrite Negative Ur Leukocyte Esterase Negative Urine RBC 3-5 H Urine WBC 0-5 Ur Squamous Epith Cells 3-5 Urine Bacteria None Seen Hyaline Casts 0-2 Urine Test NEGATIVE Salicylates < 5.0 L Urine Opiates Screen Not Detected Urine Fentanyl Screen Not Detected Acetaminophen < 3 Ur Barbiturates Screen Not Detected Ur Phencyclidine Scrn Not Detected Ur Amphetamines Screen Not Detected U Benzodiazepines Scrn Not Detected Urine Cocaine Screen Not Detected U Marijuana (THC) Screen Not Detected Ethyl Alcohol < 10 COVID-19 (LAKESHA) Negative COVID-19 Clin Com See Note Meds/Allergies Meds Home Medications ?Medication ?Instructions ?Recorded ?Confirmed ?Type ibuprofen 600 mg tablet 600 mg PO Q6H 08/20/23 08/20/23 History lithium carbonate 600 mg capsule 600 mg PO BEDTIME 08/20/23 08/20/23 History methocarbamol 750 mg tablet 750 mg PO Q6H PRN muscle spasm 08/20/23 08/20/23 History olanzapine 20 mg tablet 20 mg PO BEDTIME PRN Insomnia 08/20/23 08/20/23 History Allergies Allergies Allergy/AdvReac Type Severity Reaction Status Date / Time No Known Allergies Allergy Verified 08/20/23 20:03 Mental Status Exam Mental Status Exam Narrative: Patient is given a Hubbard warning somewhat apprehensive anxious in appearance. Her speech is somewhat pressured some thought disorganization and loudness. Intense affect focused on her treatment by her boyfriend feeling like people had been talking about her at her apartment denied hallucinations denied active thoughts to harm herself she was asking for help could not explain why she was not taking medication impulse control adequate in this setting she is asking for help recent poor judgment Assessment & Plan Assessment & Plan (1) Schizoaffective disorder: Status: Acute Code(s): F25.9 - Schizoaffective disorder, unspecified Plan Patient appears to have had a relapse and to a mixed state with what appears to be some degree of paranoia thought disorganization history of schizoaffective disorder check lithium level was on a combination of olanzapine and Invega sustain a unclear need for both medications consider restarting Invega will trying get additional history of medication response coordination of care with outpatient providers patient admitted on a conditional voluntary Patient educated on: diagnosis and medication risk/benefits Informed Consent: further education needed Reason for continued inpatient stay Substantial Risk for: harm to self, inability to function and rapid decompensation Statement Statement: I have reviewed the history and physical and performed a pertinent examination on my patient. No changes have occurred unless specified. If the History and Physical was not performed prior to admission, the Hospitalist's service will be consulted for completing the admission physical. Time Spent With Patient Time: Total time managing care of this patient today ____ minutes.
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
[2023-08-21] MEDS: Lithium Carbonate 300 MG CAPSULE 600 MG PO (20:15)
[2023-08-21] MEDS: OLANZapine 10 MG TABLET PO (20:15)
[2023-08-21] MEDS: traZODone HCL 50 MG TABLET 150 MG PO (20:15)
[2023-08-21] MEDS: methocarbamoL 750 MG TABLET PO (20:45)
[2023-08-21] MEDS: hydrOXYzine HCL 25 MG TABLET PO (21:25)
[2023-08-21 22:00] VITALS: BP 132/89; PULSE 85; RESP 18; TEMP 36.9; O2SAT 100
[2023-08-22] MEDS: Melatonin 3 MG TABLET 6 MG PO
[2023-08-22] MEDS: Ibuprofen 600 MG TABLET PO ×3 (02:30→14:56)
[2023-08-22] MEDS: hydrOXYzine HCL 25 MG TABLET PO ×2 (04:18→14:56)
[2023-08-22 07:00] VITALS: BMI 41.5
[2023-08-22 08:05] VITALS: BP 125/58; PULSE 86; RESP 16; TEMP 36.6; O2SAT 100
[2023-08-22] MEDS: methocarbamoL 750 MG TABLET PO (08:47)
[2023-08-22 11:15] LABS: Lithium 0.19 mmol/L (0.60-1.20)
[2023-08-22 11:28] LABS: Alanine Aminotransferase 21 U/L (0-31); Albumin Level 4.2 g/dL (3.5-5.0); Alkaline Phosphatase 100 U/L (39-117); Anion Gap 9 (12-20); Aspartate Amino Transferase 23 U/L (5-31); Bilirubin Total 0.3 mg/dL (0.0-1.0); Blood Urea Nitrogen 16 mg/dL (9-16); Calcium 9.5 mg/dL (8.4-10.2); Carbon Dioxide 30 mmol/L (22-29); Chloride 103 mmol/L (96-108); Cholesterol 182 mg/dL (<200); Creatinine Clr Calc Pharmacy 131.4; Estimated Glomerular Filt Rate > 60; Glucose Fasting 68 mg/dL (60-99); HDL Cholesterol 56 mg/dL (>40); LDL Cholesterol Calculated 101 mg/dL (<100); Potassium 3.9 mmol/L (3.3-5.1); Sodium 138 mmol/L (135-145); Total Protein 8.1 g/dL (6.5-8.0); Triglycerides 126 mg/dL (<150)
[2023-08-22 11:38] LABS: Thyroid Stimulating Hormone 0.88 uIU/mL (0.32-4.0)
[2023-08-22] MEDS: Paliperidone ER 6 MG TAB.ER.24 PO (15:12)
[2023-08-22 19:20] VITALS: BP 141/67; PULSE 96; RESP 18; TEMP 37; O2SAT 99
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
[2023-08-22] MEDS: traZODone HCL 50 MG TABLET 150 MG PO (21:31)
[2023-08-22] MEDS: clonazePAM 0.5 MG TABLET PO (21:31)
[2023-08-22] MEDS: OLANZapine 10 MG TABLET PO (21:31)
[2023-08-22] MEDS: Lithium Carbonate 300 MG CAPSULE 900 MG PO (21:31)
[2023-08-23] MEDS: methocarbamoL 750 MG TABLET PO ×2 (04:20→15:58)
[2023-08-23] MEDS: Ibuprofen 400 MG TABLET PO (04:21)
[2023-08-23 07:25] VITALS: BP 133/60; PULSE 101; RESP 16; TEMP 36.5; O2SAT 97
[2023-08-23] MEDS: Paliperidone ER 6 MG TAB.ER.24 PO (08:05)
[2023-08-23] MEDS: clonazePAM 0.5 MG TABLET PO ×2 (16:41→20:46)
[2023-08-23 20:30] VITALS: BP 121/83; PULSE 112; RESP 16; TEMP 37.1; O2SAT 96
[2023-08-23] MEDS: traZODone HCL 50 MG TABLET 150 MG PO (20:45)
[2023-08-23] MEDS: OLANZapine 10 MG TABLET PO (20:45)
[2023-08-23] MEDS: Lithium Carbonate 300 MG CAPSULE 900 MG PO (20:45)
[2023-08-23] MEDS: Melatonin 3 MG TABLET 6 MG PO (20:46)
--- NOTE | 2023-08-23 22:34 | P.PNPSI_ITS ---
Subjective Subjective Date of Service: 08/16/23 Reason For Visit: Psychosis paranoia non compliance Subjective Notes: Conditional Voluntary Interim History: Patient somewhat less labile feels neglected by her family who were not responding to her calls denies hallucinations less agitated seems improved with Klonopin Medication Compliance: Yes Mental Status Exam Mental Status Exam Narrative: Patient cooperative when seen casually dressed appropriately groomed complaints of severe anxiety lability denies SI HI no hallucinations or delusional material elicited asking for help Diagnostics Vital Signs (24Hr): Vital Signs - 24 hr 08/23/23 07:25 08/23/23 20:30 Temperature 97.7 F 98.7 F Pulse Rate 101 H 112 H Respiratory Rate 16 16 Blood Pressure 133/60 121/83 Pulse Oximetry 97 96 Oxygen Delivery Method Room Air Room Air BMI result Body Mass Index 41.5 Labs 08/20/23 20:46 08/22/23 10:31 Labs: Laboratory Results - last 48 hr 08/22/23 10:31 Sodium 138 Potassium 3.9 Chloride 103 Carbon Dioxide 30 H Anion Gap 9 L BUN 16 Creatinine 0.82 Estim Creat Clear Calc 131.4 Estimated GFR > 60 Fasting Glucose 68 Calcium 9.5 D Total Bilirubin 0.3 AST 23 ALT 21 Alkaline Phosphatase 100 Total Protein 8.1 H Albumin 4.2 Triglycerides 126 Cholesterol 182 LDL Cholesterol, Calc 101 H HDL Cholesterol 56 TSH 0.88 [place] 0.19 L Medications Medications Current Medications Acetaminophen (Acetaminophen 325 Mg Tablet) 650 mg PO Q6H PRN PRN Reason: Headache/Pain Mild Scale (1-3) Last Admin: 08/21/23 13:11 Dose: 650 mg Al Hydroxide/Mg Hydroxide (Magnesium Hydrox/Alum Hydrox 30 Ml Oral.Susp) 30 ml PO Q6H PRN PRN Reason: Heartburn/Nausea Clonazepam (Clonazepam 0.5 Mg Tablet) 0.5 mg PO BEDTIME RASHI Last Admin: 08/23/23 20:46 Dose: 0.5 mg Clonazepam (Clonazepam 0.5 Mg Tablet) 0.5 mg PO TID PRN PRN Reason: agitation Last Admin: 08/23/23 16:41 Dose: 0.5 mg Hydroxyzine HCl (Hydroxyzine Hcl 25 Mg Tablet) 25 mg PO Q6H PRN PRN Reason: Anxiety Last Admin: 08/22/23 14:56 Dose: 25 mg Ibuprofen (Ibuprofen 400 Mg Tablet) 400 mg PO Q6H PRN PRN Reason: Pain, Moderate(Pain Scale 4-6) Last Admin: 08/23/23 04:21 Dose: 400 mg Lidocaine (Lidocaine 4 % Patch Adh..Patch) 1 patch TRANSDERMA DAILY [facility]; Protocol Last Admin: 08/23/23 17:06 Dose: Not Given [place] Carbonate ([place] Carbonate 300 Mg Capsule) 900 mg PO BEDTIME RASHI Last Admin: 08/23/23 20:45 Dose: 900 mg Melatonin (Melatonin 3 Mg Tablet) 6 mg PO BEDTIME MRX1 PRN PRN Reason: insomni Last Admin: 08/23/23 20:46 Dose: 6 mg Methocarbamol (Methocarbamol 750 Mg Tablet) 750 mg PO Q6H PRN PRN Reason: muscle spasm Last Admin: 08/23/23 15:58 Dose: 750 mg Olanzapine (Olanzapine 10 Mg Tablet) 10 mg PO BEDTIME RASHI Last Admin: 08/23/23 20:45 Dose: 10 mg Paliperidone (Paliperidone Er 6 Mg Tab.Er.24) 6 mg PO DAILY [facility] Last Admin: 08/23/23 08:05 Dose: 6 mg Polyethylene Glycol (Polyethylene Glycol 3350 17 Gm Powd.Pack) 17 gm PO DAILY PRN PRN Reason: constipation Trazodone HCl (Trazodone Hcl 50 Mg Tablet) 150 mg PO BEDTIME RASHI Last Admin: 08/23/23 20:45 Dose: 150 mg Allergies Allergies Allergy/AdvReac Type Severity Reaction Status Date / Time No Known Allergies Allergy Verified 08/20/23 20:03 Assessment & Plan Assessment & Plan (1) Schizoaffective disorder: Status: Acute Code(s): F25.9 - Schizoaffective disorder, unspecified Plan Patient appears to have had a relapse and to a mixed state with what appears to be some degree of paranoia thought disorganization history of schizoaffective disorder check lithium level was on a combination of olanzapine and Invega sustain a unclear need for both medications consider restarting Invega will trying get additional history of medication response coordination of care with outpatient providers patient admitted on a conditional voluntary 08/22/2023 Restart Invega had missed outpatient injection clonazepam for anxiety agitation increase lithium to 900 mg monitor levels particularly given that she is on Motrin 08/23/2023 Start lidocaine patch. Mood check lithium level Klonopin has been helpful try and clarify need for chronic antipsychotic Patient educated on: diagnosis and medication risk/benefits Reason for continued inpatient stay Substantial Risk for: harm to self, inability to function and rapid decompensation Time Spent With Patient Time: Total time managing care of this patient today ____ minutes.
[2023-08-24] MEDS: Acetaminophen 325 MG TABLET 650 MG PO ×2 (05:35→16:05)
[2023-08-24] MEDS: methocarbamoL 750 MG TABLET PO ×2 (05:40→20:46)
[2023-08-24] MEDS: clonazePAM 0.5 MG TABLET PO ×3 (07:29→20:59)
[2023-08-24 07:54] VITALS: BP 112/66; PULSE 104; RESP 16; TEMP 37; O2SAT 98
[2023-08-24] MEDS: Paliperidone ER 6 MG TAB.ER.24 PO (08:03)
[2023-08-24] MEDS: Lidocaine 4 % Patch ADH..PATCH 1 PATCH TRANSDERMA (08:04)
--- NOTE | 2023-08-24 08:32 | HO.PSYCHPN ---
Subjective Subjective Date of Service: 08/24/23 Reason For Visit: Psychosis paranoia non compliance Subjective Notes: Conditional Voluntary Interim History: Patient was seen and reviewed in rounds today. Records and plans were reviewed. She continues to be anxious with occasional irritability and lability. Some episodes of agitation. Attending some groups. She takes 2 or 3 showers per day!. She still needs a lot of redirection. She is medication compliant. No complaints or side effects. No AVH/SI. Sleeping adequately. No changes were made today Medication Compliance: Yes Side effects from medications: No Attending Groups: Intermittent Review of Systems Review of Systems Yes all other systems are reviewed and are negative Mental Status Exam Mental Status Exam Narrative: In today's visit she is alert, oriented and pleasant. Moderate eye contact. Normal speech. No acute signs of psychosis. No SI. Judgment is marginal. No musculoskeletal abnormalities or difficulties. No abnormalities of gait Diagnostics Vital Signs (24Hr): Vital Signs - 24 hr 08/23/23 20:30 08/24/23 07:54 Temperature 98.7 F 98.6 F Pulse Rate 112 H 104 H Respiratory Rate 16 16 Blood Pressure 121/83 112/66 Pulse Oximetry 96 98 Oxygen Delivery Method Room Air Room Air BMI result Body Mass Index 41.5 Labs 08/20/23 20:46 08/22/23 10:31 Labs: Laboratory Results - last 48 hr 08/22/23 10:31 Sodium 138 Potassium 3.9 Chloride 103 Carbon Dioxide 30 H Anion Gap 9 L BUN 16 Creatinine 0.82 Estim Creat Clear Calc 131.4 Estimated GFR > 60 Fasting Glucose 68 Calcium 9.5 D Total Bilirubin 0.3 AST 23 ALT 21 Alkaline Phosphatase 100 Total Protein 8.1 H Albumin 4.2 Triglycerides 126 Cholesterol 182 LDL Cholesterol, Calc 101 H HDL Cholesterol 56 TSH 0.88 [place] 0.19 L Medications Medications Current Medications Acetaminophen (Acetaminophen 325 Mg Tablet) 650 mg PO Q6H PRN PRN Reason: Headache/Pain Mild Scale (1-3) Last Admin: 08/24/23 05:35 Dose: 650 mg Al Hydroxide/Mg Hydroxide (Magnesium Hydrox/Alum Hydrox 30 Ml Oral.Susp) 30 ml PO Q6H PRN PRN Reason: Heartburn/Nausea Clonazepam (Clonazepam 0.5 Mg Tablet) 0.5 mg PO BEDTIME RASHI Last Admin: 08/23/23 20:46 Dose: 0.5 mg Clonazepam (Clonazepam 0.5 Mg Tablet) 0.5 mg PO TID PRN PRN Reason: agitation Last Admin: 08/24/23 07:29 Dose: 0.5 mg Hydroxyzine HCl (Hydroxyzine Hcl 25 Mg Tablet) 25 mg PO Q6H PRN PRN Reason: Anxiety Last Admin: 08/22/23 14:56 Dose: 25 mg Ibuprofen (Ibuprofen 400 Mg Tablet) 400 mg PO Q6H PRN PRN Reason: Pain, Moderate(Pain Scale 4-6) Last Admin: 08/23/23 04:21 Dose: 400 mg Lidocaine (Lidocaine 4 % Patch Adh..Patch) 1 patch TRANSDERMA DAILY RASHI; Protocol Last Admin: 08/24/23 08:04 Dose: 1 patch [place] Carbonate ([place] Carbonate 300 Mg Capsule) 900 mg PO BEDTIME RASHI Last Admin: 08/23/23 20:45 Dose: 900 mg Melatonin (Melatonin 3 Mg Tablet) 6 mg PO BEDTIME MRX1 PRN PRN Reason: insomni Last Admin: 08/23/23 20:46 Dose: 6 mg Methocarbamol (Methocarbamol 750 Mg Tablet) 750 mg PO Q6H PRN PRN Reason: muscle spasm Last Admin: 08/24/23 05:40 Dose: 750 mg Olanzapine (Olanzapine 10 Mg Tablet) 10 mg PO BEDTIME RASHI Last Admin: 08/23/23 20:45 Dose: 10 mg Paliperidone (Paliperidone Er 6 Mg Tab.Er.24) 6 mg PO DAILY RASHI Last Admin: 08/24/23 08:03 Dose: 6 mg Polyethylene Glycol (Polyethylene Glycol 3350 17 Gm Powd.Pack) 17 gm PO DAILY PRN PRN Reason: constipation Trazodone HCl (Trazodone Hcl 50 Mg Tablet) 150 mg PO BEDTIME RASHI Last Admin: 08/23/23 20:45 Dose: 150 mg Allergies Allergies Allergy/AdvReac Type Severity Reaction Status Date / Time No Known Allergies Allergy Verified 08/20/23 20:03 Assessment & Plan Assessment & Plan (1) Schizoaffective disorder: Status: Acute Code(s): F25.9 - Schizoaffective disorder, unspecified Plan Patient appears to have had a relapse and to a mixed state with what appears to be some degree of paranoia thought disorganization history of schizoaffective disorder check lithium level was on a combination of olanzapine and Invega sustain a unclear need for both medications consider restarting Invega will trying get additional history of medication response coordination of care with outpatient providers patient admitted on a conditional voluntary 08/22/2023 Restart Invega had missed outpatient injection clonazepam for anxiety agitation increase lithium to 900 mg monitor levels particularly given that she is on Motrin 08/23/2023 Start lidocaine patch. Mood check lithium level Klonopin has been helpful try and clarify need for chronic antipsychotic 08/24/2023: Continue current regimen and plans Reason for continued inpatient stay Substantial Risk for: med/psych decompensation Time Spent With Patient Time: Total time managing care of this patient today ____ minutes.
[2023-08-24] MEDS: hydrOXYzine HCL 25 MG TABLET PO ×2 (10:55→20:59)
[2023-08-24] MEDS: Ibuprofen 400 MG TABLET PO (10:56)
[2023-08-24 20:00] VITALS: BP 129/69; PULSE 94; RESP 17; TEMP 36.5; O2SAT 100
[2023-08-24] MEDS: Melatonin 3 MG TABLET 6 MG PO (20:39)
[2023-08-24] MEDS: OLANZapine 10 MG TABLET PO (20:39)
[2023-08-24] MEDS: Lithium Carbonate 300 MG CAPSULE 900 MG PO (20:39)
[2023-08-24] MEDS: traZODone HCL 50 MG TABLET 150 MG PO (20:39)
[2023-08-24 20:43] VITALS: BP 124/72; PULSE 71; RESP 18; TEMP 37.1; O2SAT 97
[2023-08-25] MEDS: Ibuprofen 400 MG TABLET PO ×2 (02:52→19:53)
[2023-08-25] MEDS: methocarbamoL 750 MG TABLET PO ×2 (06:56→19:53)
[2023-08-25] MEDS: Acetaminophen 325 MG TABLET 650 MG PO ×2 (06:56→15:45)
[2023-08-25 07:40] VITALS: BP 114/57; PULSE 90; RESP 16; TEMP 36.9; O2SAT 98
[2023-08-25] MEDS: Lidocaine 4 % Patch ADH..PATCH 1 PATCH TRANSDERMA (08:04)
[2023-08-25] MEDS: Paliperidone ER 6 MG TAB.ER.24 PO (08:05)
[2023-08-25 08:24] LABS: Lithium 0.44 mmol/L (0.60-1.20)
--- NOTE | 2023-08-25 09:04 | P.PNPSI_ITS ---
Subjective Subjective Date of Service: 08/25/23 Reason For Visit: Psychosis paranoia non compliance Subjective Notes: Conditional Voluntary Interim History: Patient was seen and discussed in rounds today. Records and plans were reviewed. She is doing better and has been more visible. Eating and sleeping well. She has been less labile. Continues to be intrusive and needs redirection. Last night she had a severe panic attack for the 1st time in her life and it took awhile to subside. PRNs were used effectively. She is doing better today. No SI. No changes were made Medication Compliance: Yes Side effects from medications: No Attending Groups: Intermittent Review of Systems Review of Systems Yes all other systems are reviewed and are negative Mental Status Exam Mental Status Exam Narrative: In today's visit she is alert, oriented and pleasant. Moderate eye contact. Normal speech. No acute signs of psychosis. No SI. Judgment is marginal. No overt anxiety. No musculoskeletal abnormalities or difficulties. No abnormalities of gait Diagnostics Vital Signs (24Hr): Vital Signs - 24 hr 08/24/23 20:43 08/25/23 07:40 Temperature 98.7 F 98.5 F Pulse Rate 71 90 Respiratory Rate 18 16 Blood Pressure 124/72 114/57 L Pulse Oximetry 97 98 Oxygen Delivery Method Room Air Room Air BMI result Body Mass Index 41.5 Labs 08/20/23 20:46 08/22/23 10:31 Labs: Laboratory Results - last 48 hr 08/25/23 07:51 [place] 0.44 L Medications Medications Current Medications Acetaminophen (Acetaminophen 325 Mg Tablet) 650 mg PO Q6H PRN PRN Reason: Headache/Pain Mild Scale (1-3) Last Admin: 08/25/23 06:56 Dose: 650 mg Al Hydroxide/Mg Hydroxide (Magnesium Hydrox/Alum Hydrox 30 Ml Oral.Susp) 30 ml PO Q6H PRN PRN Reason: Heartburn/Nausea Clonazepam (Clonazepam 0.5 Mg Tablet) 0.5 mg PO BEDTIME RAHSI Last Admin: 08/24/23 20:38 Dose: 0.5 mg Clonazepam (Clonazepam 0.5 Mg Tablet) 0.5 mg PO TID PRN PRN Reason: agitation Last Admin: 08/24/23 20:59 Dose: 0.5 mg Hydroxyzine HCl (Hydroxyzine Hcl 25 Mg Tablet) 25 mg PO Q6H PRN PRN Reason: Anxiety Last Admin: 08/24/23 20:59 Dose: 25 mg Ibuprofen (Ibuprofen 400 Mg Tablet) 400 mg PO Q6H PRN PRN Reason: Pain, Moderate(Pain Scale 4-6) Last Admin: 08/25/23 02:52 Dose: 400 mg Lidocaine (Lidocaine 4 % Patch Adh..Patch) 1 patch TRANSDERMA DAILY RASHI; Protocol Last Admin: 08/25/23 08:04 Dose: 1 patch [place] Carbonate ([place] Carbonate 300 Mg Capsule) 900 mg PO BEDTIME RASHI Last Admin: 08/24/23 20:39 Dose: 900 mg Melatonin (Melatonin 3 Mg Tablet) 6 mg PO BEDTIME MRX1 PRN PRN Reason: insomni Last Admin: 08/24/23 20:39 Dose: 6 mg Methocarbamol (Methocarbamol 750 Mg Tablet) 750 mg PO Q6H PRN PRN Reason: muscle spasm Last Admin: 08/25/23 06:56 Dose: 750 mg Olanzapine (Olanzapine 10 Mg Tablet) 10 mg PO BEDTIME RASHI Last Admin: 08/24/23 20:39 Dose: 10 mg Paliperidone (Paliperidone Er 6 Mg Tab.Er.24) 6 mg PO DAILY RASHI Last Admin: 08/25/23 08:05 Dose: 6 mg Polyethylene Glycol (Polyethylene Glycol 3350 17 Gm Powd.Pack) 17 gm PO DAILY PRN PRN Reason: constipation Trazodone HCl (Trazodone Hcl 50 Mg Tablet) 150 mg PO BEDTIME RASHI Last Admin: 08/24/23 20:39 Dose: 150 mg Allergies Allergies Allergy/AdvReac Type Severity Reaction Status Date / Time No Known Allergies Allergy Verified 08/20/23 20:03 Assessment & Plan Assessment & Plan (1) Schizoaffective disorder: Status: Acute Code(s): F25.9 - Schizoaffective disorder, unspecified Plan Patient appears to have had a relapse and to a mixed state with what appears to be some degree of paranoia thought disorganization history of schizoaffective disorder check lithium level was on a combination of olanzapine and Invega sustain a unclear need for both medications consider restarting Invega will trying get additional history of medication response coordination of care with outpatient providers patient admitted on a conditional voluntary 08/22/2023 Restart Invega had missed outpatient injection clonazepam for anxiety agitation increase lithium to 900 mg monitor levels particularly given that she is on Motrin 08/23/2023 Start lidocaine patch. Mood check lithium level Klonopin has been helpful try and clarify need for chronic antipsychotic 08/24/2023: Continue current regimen and plans 08/25/2023: Continue current regimen and plans Reason for continued inpatient stay Substantial Risk for: med/psych decompensation Time Spent With Patient Time: Total time managing care of this patient today ____ minutes.
[2023-08-25] MEDS: clonazePAM 0.5 MG TABLET PO ×3 (10:28→21:02)
[2023-08-25] MEDS: hydrOXYzine HCL 25 MG TABLET PO ×2 (16:19→22:44)
[2023-08-25] MEDS: traZODone HCL 50 MG TABLET 150 MG PO (21:02)
[2023-08-25] MEDS: Throat Lozenge, Medicated LOZENGE 1 LOZENGE MUCOUS MEM (21:03)
[2023-08-25] MEDS: Lithium Carbonate 300 MG CAPSULE 900 MG PO (21:03)
[2023-08-25] MEDS: Melatonin 3 MG TABLET 6 MG PO ×2 (21:03→22:43)
[2023-08-25] MEDS: OLANZapine 10 MG TABLET PO (21:03)
[2023-08-26] MEDS: Acetaminophen 325 MG TABLET 650 MG PO ×3 (00:53→23:51)
[2023-08-26] MEDS: clonazePAM 0.5 MG TABLET PO ×2 (00:54→20:31)
[2023-08-26] MEDS: hydrOXYzine HCL 25 MG TABLET PO ×2 (05:15→17:20)
--- NOTE | 2023-08-26 07:20 | PC.NURSE ---
Diana is requesting to utilize the phone to call chin before I do something stupid. patient reassured and told she could utilize the phone when it's available
[2023-08-26 08:00] VITALS: BP 106/73; PULSE 94; RESP 16; TEMP 36.7; O2SAT 99
[2023-08-26] MEDS: Lidocaine 4 % Patch ADH..PATCH 1 PATCH TRANSDERMA (08:24)
[2023-08-26] MEDS: Paliperidone ER 6 MG TAB.ER.24 PO (08:24)
[2023-08-26] MEDS: methocarbamoL 750 MG TABLET PO ×2 (08:42→20:21)
--- NOTE | 2023-08-26 08:56 | HO.PSYCHPN ---
Subjective Subjective Date of Service: 08/26/23 Reason For Visit: Psychosis paranoia non compliance Subjective Notes: Conditional Voluntary Interim History: Reviewed with Dr. Kimble. Active on unit, social with peers. Observed walking unit hallway, listening to music on unit headphones. Pt reports being upset at my mom because I called her this morning and she told me to go back to bed. That made me cry . Pt presents labile. Per staff, patient has been calling family and care home multiple times; to a point that they are contacting the desk and asking to have her phone calls limitied. [place] level 0.44 on 08/25/23. [place] increased to 1,200mg PO bedtime. DC Ibuprofen. Medication Compliance: Yes Side effects from medications: No Attending Groups: Yes Review of Systems Constitutional: Reports as per HPI Eyes: Reports as per HPI Reports as per HPI Cardiovascular: Reports as per HPI Respiratory: Reports as per HPI Gastrointestinal: Reports as per HPI Genitourinary: Reports as per HPI Musculoskeletal: Reports as per HPI Skin/Breast: Reports as per HPI Reports as per HPI Psychiatric: Reports as per HPI Endocrine: Reports as per HPI Hematologic/Lymphatic: Reports as per HPI Allergic/Immunologic: Reports as per HPI Mental Status Exam Mental Status Exam Narrative: Pt is alert and oriented; behavior is cooperative and calm; dressed in casual attire; labile; eye contact appropriate; Speech is normal rate, volume and prosody and not pressured; thought process is organized; Thought content is on tx; denies SI/HI/VH/AH. Diagnostics Vital Signs (24Hr): Vital Signs - 24 hr 08/26/23 08:00 Temperature 98.0 F Pulse Rate 94 Respiratory Rate 16 Blood Pressure 106/73 Pulse Oximetry 99 Oxygen Delivery Method Room Air BMI result Body Mass Index 41.5 Labs 08/20/23 20:46 08/22/23 10:31 Labs: Laboratory Results - last 48 hr 08/25/23 07:51 [place] 0.44 L Medications Medications Current Medications Acetaminophen (Acetaminophen 325 Mg Tablet) 650 mg PO Q6H PRN PRN Reason: Headache/Pain Mild Scale (1-3) Last Admin: 08/26/23 08:44 Dose: 650 mg Al Hydroxide/Mg Hydroxide (Magnesium Hydrox/Alum Hydrox 30 Ml Oral.Susp) 30 ml PO Q6H PRN PRN Reason: Heartburn/Nausea Benzocaine (Throat Lozenge, Medicated Lozenge) 1 lozenge MUCOUS MEM Q2H PRN PRN Reason: Sore Throat Last Admin: 08/25/23 21:03 Dose: 1 lozenge Clonazepam (Clonazepam 0.5 Mg Tablet) 0.5 mg PO BEDTIME RASHI Last Admin: 08/25/23 21:02 Dose: 0.5 mg Clonazepam (Clonazepam 0.5 Mg Tablet) 0.5 mg PO TID PRN PRN Reason: agitation Last Admin: 08/26/23 00:54 Dose: 0.5 mg Hydroxyzine HCl (Hydroxyzine Hcl 25 Mg Tablet) 25 mg PO Q6H PRN PRN Reason: Anxiety Last Admin: 08/26/23 05:15 Dose: 25 mg Ibuprofen (Ibuprofen 400 Mg Tablet) 400 mg PO Q6H PRN PRN Reason: Pain, Moderate(Pain Scale 4-6) Last Admin: 08/25/23 19:53 Dose: 400 mg Lidocaine (Lidocaine 4 % Patch Adh..Patch) 1 patch TRANSDERMA DAILY RASHI; Protocol Last Admin: 08/26/23 08:24 Dose: 1 patch [place] Carbonate ([place] Carbonate 300 Mg Capsule) 900 mg PO BEDTIME RASHI Last Admin: 08/25/23 21:03 Dose: 900 mg Melatonin (Melatonin 3 Mg Tablet) 6 mg PO BEDTIME MRX1 PRN PRN Reason: insomni Last Admin: 08/25/23 22:43 Dose: 6 mg Methocarbamol (Methocarbamol 750 Mg Tablet) 750 mg PO Q6H PRN PRN Reason: muscle spasm Last Admin: 08/26/23 08:42 Dose: 750 mg Olanzapine (Olanzapine 10 Mg Tablet) 10 mg PO BEDTIME RASHI Last Admin: 08/25/23 21:03 Dose: 10 mg Paliperidone (Paliperidone Er 6 Mg Tab.Er.24) 6 mg PO DAILY RASHI Last Admin: 08/26/23 08:24 Dose: 6 mg Polyethylene Glycol (Polyethylene Glycol 3350 17 Gm Powd.Pack) 17 gm PO DAILY PRN PRN Reason: constipation Trazodone HCl (Trazodone Hcl 50 Mg Tablet) 150 mg PO BEDTIME RASHI Last Admin: 08/25/23 21:02 Dose: 150 mg Allergies Allergies Allergy/AdvReac Type Severity Reaction Status Date / Time No Known Allergies Allergy Verified 08/20/23 20:03 Assessment & Plan Assessment & Plan (1) Schizoaffective disorder: Status: Acute Code(s): F25.9 - Schizoaffective disorder, unspecified Plan Patient appears to have had a relapse and to a mixed state with what appears to be some degree of paranoia thought disorganization history of schizoaffective disorder check lithium level was on a combination of olanzapine and Invega sustain a unclear need for both medications consider restarting Invega will trying get additional history of medication response coordination of care with outpatient providers patient admitted on a conditional voluntary 08/22/2023 Restart Invega had missed outpatient injection clonazepam for anxiety agitation increase lithium to 900 mg monitor levels particularly given that she is on Motrin 08/23/2023 Start lidocaine patch. Mood check lithium level Klonopin has been helpful try and clarify need for chronic antipsychotic 08/24/2023: Continue current regimen and plans 08/25/2023: Continue current regimen and plans 08/25: Active on unit, social with peers. Observed walking unit hallway, listening to music on unit headphones. Pt reports being upset at my mom because I called her this morning and she told me to go back to bed. That made me cry . Pt presents labile. Per staff, patient has been calling family and care home multiple times; to a point that they are contacting the desk and asking to have her phone calls limitied. [place] level 0.44 on 08/25/23. [place] increased to 1,200mg PO bedtime. DC Ibuprofen. Patient educated on: diagnosis and medication risk/benefits Informed Consent: understands Reason for continued inpatient stay Substantial Risk for: med/psych decompensation Time Spent With Patient Time: Total time managing care of this patient today _20___ minutes.
[2023-08-26 19:50] VITALS: BP 148/79; PULSE 108; RESP 18; TEMP 37.2; O2SAT 98
[2023-08-26] MEDS: OLANZapine 10 MG TABLET PO (21:26)
[2023-08-26] MEDS: traZODone HCL 50 MG TABLET 150 MG PO (21:26)
[2023-08-26] MEDS: Lithium Carbonate 300 MG CAPSULE 1200 MG PO (21:26)
[2023-08-26 21:53] VITALS: BP 138/80
[2023-08-26] MEDS: Melatonin 3 MG TABLET 6 MG PO (22:54)
[2023-08-27] MEDS: Throat Lozenge, Medicated LOZENGE 1 LOZENGE MUCOUS MEM ×4 (03:03→20:41)
[2023-08-27] MEDS: methocarbamoL 750 MG TABLET PO ×2 (03:23→20:53)
[2023-08-27] MEDS: hydrOXYzine HCL 25 MG TABLET PO ×3 (03:38→20:53)
[2023-08-27 07:55] VITALS: BP 113/55; PULSE 94; RESP 16; TEMP 37.2; O2SAT 99
[2023-08-27] MEDS: Paliperidone ER 6 MG TAB.ER.24 PO (08:22)
[2023-08-27] MEDS: Lidocaine 4 % Patch ADH..PATCH 1 PATCH TRANSDERMA (08:23)
--- NOTE | 2023-08-27 09:19 | P.PNPSI_ITS ---
Subjective Subjective Date of Service: 08/27/23 Reason For Visit: Psychosis paranoia non compliance Subjective Notes: 3 Day Interim History: Reviewed with Dr. Kimble. Pt signed 3 day notice yesterday. Pt reports feeling better ;pt stated, I signed a 3 day because I'm feeling better. I'm sleeping very good. I don't need to be here anymore. I feel fine . Pt denies SI/HI/VH/AH. Medication Compliance: Yes Side effects from medications: No Attending Groups: Yes Review of Systems Constitutional: Reports as per HPI Eyes: Reports as per HPI Reports as per HPI Cardiovascular: Reports as per HPI Respiratory: Reports as per HPI Gastrointestinal: Reports as per HPI Musculoskeletal: Reports as per HPI Skin/Breast: Reports as per HPI Reports as per HPI Psychiatric: Reports as per HPI Endocrine: Reports as per HPI Hematologic/Lymphatic: Reports as per HPI Allergic/Immunologic: Reports as per HPI Mental Status Exam Mental Status Exam Narrative: Pt is alert and oriented; behavior is cooperative and calm; dressed in casual attire; labile; eye contact appropriate; Speech is normal rate, volume and prosody and not pressured; thought process is organized; Thought content is on discharge; denies SI/HI/VH/AH. Diagnostics Vital Signs (24Hr): Vital Signs - 24 hr 08/26/23 19:50 08/26/23 21:53 08/27/23 07:55 Temperature 99 F 99.0 F Pulse Rate 108 H 94 Respiratory Rate 18 16 Blood Pressure 148/79 H 138/80 113/55 L Pulse Oximetry 98 99 Oxygen Delivery Method Room Air Room Air BMI result Body Mass Index 41.5 Labs 08/20/23 20:46 08/22/23 10:31 Medications Medications Current Medications Acetaminophen (Acetaminophen 325 Mg Tablet) 650 mg PO Q6H PRN PRN Reason: Headache/Pain Mild Scale (1-3) Last Admin: 08/26/23 23:51 Dose: 650 mg Al Hydroxide/Mg Hydroxide (Magnesium Hydrox/Alum Hydrox 30 Ml Oral.Susp) 30 ml PO Q6H PRN PRN Reason: Heartburn/Nausea Benzocaine (Throat Lozenge, Medicated Lozenge) 1 lozenge MUCOUS MEM Q2H PRN PRN Reason: Sore Throat Last Admin: 08/27/23 07:02 Dose: 1 lozenge Clonazepam (Clonazepam 0.5 Mg Tablet) 0.5 mg PO BEDTIME RASHI Last Admin: 08/26/23 20:31 Dose: 0.5 mg Clonazepam (Clonazepam 0.5 Mg Tablet) 0.5 mg PO TID PRN PRN Reason: agitation Last Admin: 08/26/23 00:54 Dose: 0.5 mg Hydroxyzine HCl (Hydroxyzine Hcl 25 Mg Tablet) 25 mg PO Q6H PRN PRN Reason: Anxiety Last Admin: 08/27/23 03:38 Dose: 25 mg Lidocaine (Lidocaine 4 % Patch Adh..Patch) 1 patch TRANSDERMA DAILY [facility]; Protocol Last Admin: 08/27/23 08:23 Dose: 1 patch [place] Carbonate ([place] Carbonate 300 Mg Capsule) 1,200 mg PO BEDTIME RASHI Last Admin: 08/26/23 21:26 Dose: 1,200 mg Melatonin (Melatonin 3 Mg Tablet) 6 mg PO BEDTIME MRX1 PRN PRN Reason: insomni Last Admin: 08/26/23 22:54 Dose: 6 mg Methocarbamol (Methocarbamol 750 Mg Tablet) 750 mg PO Q6H PRN PRN Reason: muscle spasm Last Admin: 08/27/23 03:23 Dose: 750 mg Olanzapine (Olanzapine 10 Mg Tablet) 10 mg PO BEDTIME RASHI Last Admin: 08/26/23 21:26 Dose: 10 mg Paliperidone (Paliperidone Er 6 Mg Tab.Er.24) 6 mg PO DAILY [facility] Last Admin: 08/27/23 08:22 Dose: 6 mg Polyethylene Glycol (Polyethylene Glycol 3350 17 Gm Powd.Pack) 17 gm PO DAILY PRN PRN Reason: constipation Trazodone HCl (Trazodone Hcl 50 Mg Tablet) 150 mg PO BEDTIME RASHI Last Admin: 08/26/23 21:26 Dose: 150 mg Allergies Allergies Allergy/AdvReac Type Severity Reaction Status Date / Time No Known Allergies Allergy Verified 08/20/23 20:03 Assessment & Plan Assessment & Plan (1) Schizoaffective disorder: Status: Acute Code(s): F25.9 - Schizoaffective disorder, unspecified Plan Patient appears to have had a relapse and to a mixed state with what appears to be some degree of paranoia thought disorganization history of schizoaffective disorder check lithium level was on a combination of olanzapine and Invega sustain a unclear need for both medications consider restarting Invwanda will trying get additional history of medication response coordination of care with outpatient providers patient admitted on a conditional voluntary 08/22/2023 Restart Invwanda had missed outpatient injection clonazepam for anxiety agitation increase lithium to 900 mg monitor levels particularly given that she is on Motrin 08/23/2023 Start lidocaine patch. Mood check lithium level Klonopin has been helpful try and clarify need for chronic antipsychotic 08/24/2023: Continue current regimen and plans 08/25/2023: Continue current regimen and plans 08/25: Active on unit, social with peers. Observed walking unit hallway, listening to music on unit headphones. Pt reports being upset at my mom because I called her this morning and she told me to go back to bed. That made me cry . Pt presents labile. Per staff, patient has been calling family and longterm multiple times; to a point that they are contacting the desk and asking to have her phone calls limitied. [place] level 0.44 on 08/25/23. [place] increased to 1,200mg PO bedtime. DC Ibuprofen. 08/26: Pt signed 3 day notice yesterday. Pt reports feeling better ;pt stated, I signed a 3 day because I'm feeling better. I'm sleeping very good. I don't need to be here anymore. I feel fine . Pt denies SI/HI/VH/AH. Patient educated on: diagnosis and medication risk/benefits Informed Consent: understands Reason for continued inpatient stay Substantial Risk for: med/psych decompensation Time Spent With Patient Time: Total time managing care of this patient today _20___ minutes.
[2023-08-27] MEDS: Acetaminophen 325 MG TABLET 650 MG PO ×2 (11:29→20:53)
[2023-08-27] MEDS: Magnesium Hydrox/Alum Hydrox 30 ML ORAL.SUSP PO (11:30)
[2023-08-27] MEDS: clonazePAM 0.5 MG TABLET PO ×2 (11:57→20:42)
[2023-08-27] MEDS: Ondansetron ODT 4 MG TAB.RAPDIS TRANSLINGU (13:52)
[2023-08-27 18:47] LABS: Influenza A PCR NEGATIVE (Negative); Influenza B PCR NEGATIVE (Negative); Resp Syncy Virus RNA Qual PCR NEGATIVE (Negative); SARS COV2 PCR INHOUSE POSITIVE (Negative)
[2023-08-27] MEDS: Lithium Carbonate 300 MG CAPSULE 1200 MG PO (20:40)
[2023-08-27] MEDS: traZODone HCL 50 MG TABLET 150 MG PO (20:41)
[2023-08-27] MEDS: OLANZapine 10 MG TABLET PO (20:41)
[2023-08-27] MEDS: Melatonin 3 MG TABLET 6 MG PO (20:53)
[2023-08-27 21:17] VITALS: BP 141/82; PULSE 108; RESP 17; TEMP 37.1; O2SAT 100
[2023-08-28] MEDS: methocarbamoL 750 MG TABLET PO ×2 (04:04→21:34)
[2023-08-28] MEDS: hydrOXYzine HCL 25 MG TABLET PO ×3 (04:04→21:34)
[2023-08-28] MEDS: Acetaminophen 325 MG TABLET 650 MG PO ×4 (04:04→21:34)
[2023-08-28 07:45] VITALS: BP 118/71; PULSE 108; RESP 16; TEMP 37.3; O2SAT 99
[2023-08-28] MEDS: clonazePAM 0.5 MG TABLET PO ×2 (08:45→21:46)
[2023-08-28] MEDS: Paliperidone ER 6 MG TAB.ER.24 PO (08:45)
[2023-08-28] MEDS: Lidocaine 4 % Patch ADH..PATCH 1 PATCH TRANSDERMA (08:45)
[2023-08-28] MEDS: Throat Lozenge, Medicated LOZENGE 1 LOZENGE MUCOUS MEM ×2 (08:45→21:35)
--- NOTE | 2023-08-28 09:01 | HO.PSYCHPN ---
Subjective Subjective Date of Service: 08/28/23 Reason For Visit: Psychosis paranoia non compliance Subjective Notes: 3 Day Interim History: Reviewed with Dr. Kimble. Pt tested positive for Covid yesterday. Pt reports feeling good today; pt stated, I'm feeling happy because I've been joking a lot with my room mate. I feel ready to go back to my apartment . Pt denies SI/HI/VH/AH. T/W left message for patient's outpatient psychiatric provider to review medications. Waiting for call back. Patient's 3 day up on 08/30/23. Medication Compliance: Yes Side effects from medications: No Attending Groups: No Review of Systems Constitutional: Reports as per HPI Eyes: Reports as per HPI Reports as per HPI Cardiovascular: Reports as per HPI Respiratory: Reports as per HPI Gastrointestinal: Reports as per HPI Musculoskeletal: Reports as per HPI Skin/Breast: Reports as per HPI Reports as per HPI Psychiatric: Reports as per HPI Endocrine: Reports as per HPI Hematologic/Lymphatic: Reports as per HPI Allergic/Immunologic: Reports as per HPI Mental Status Exam Mental Status Exam Narrative: Pt is alert and oriented; behavior is cooperative and calm; dressed in casual attire; mood described as good ; eye contact appropriate; Speech is normal rate, volume and prosody and not pressured; thought process is organized; Thought content is on discharge; denies SI/HI/VH/AH. Diagnostics Vital Signs (24Hr): Vital Signs - 24 hr 08/27/23 21:17 08/28/23 07:45 Temperature 98.7 F 99.2 F Pulse Rate 108 H 108 H Respiratory Rate 17 16 Blood Pressure 141/82 H 118/71 Pulse Oximetry 100 99 Oxygen Delivery Method Room Air Room Air BMI result Body Mass Index 41.5 Labs 08/20/23 20:46 08/22/23 10:31 Labs: Laboratory Results - last 48 hr 08/27/23 17:42 Influenza Type A (PCR) NEGATIVE Influenza Type B (PCR) NEGATIVE RSV RNA Qual (PCR) NEGATIVE SARS-CoV-2 RNA (RT-PCR) POSITIVE A Medications Medications Current Medications Acetaminophen (Acetaminophen 325 Mg Tablet) 650 mg PO Q6H PRN PRN Reason: Headache/Pain Mild Scale (1-3) Last Admin: 08/28/23 04:04 Dose: 650 mg Al Hydroxide/Mg Hydroxide (Magnesium Hydrox/Alum Hydrox 30 Ml Oral.Susp) 30 ml PO Q6H PRN PRN Reason: Heartburn/Nausea Last Admin: 08/27/23 11:30 Dose: 30 ml Benzocaine (Throat Lozenge, Medicated Lozenge) 1 lozenge MUCOUS MEM Q2H PRN PRN Reason: Sore Throat Last Admin: 08/28/23 08:45 Dose: 1 lozenge Clonazepam (Clonazepam 0.5 Mg Tablet) 0.5 mg PO BEDTIME RASHI Last Admin: 08/27/23 20:42 Dose: 0.5 mg Clonazepam (Clonazepam 0.5 Mg Tablet) 0.5 mg PO TID PRN PRN Reason: agitation Last Admin: 08/28/23 08:45 Dose: 0.5 mg Hydroxyzine HCl (Hydroxyzine Hcl 25 Mg Tablet) 25 mg PO Q6H PRN PRN Reason: Anxiety Last Admin: 08/28/23 04:04 Dose: 25 mg Lidocaine (Lidocaine 4 % Patch Adh..Patch) 1 patch TRANSDERMA DAILY RASHI; Protocol Last Admin: 08/28/23 08:45 Dose: 1 patch [place] Carbonate ([place] Carbonate 300 Mg Capsule) 1,200 mg PO BEDTIME RASHI Last Admin: 08/27/23 20:40 Dose: 1,200 mg Melatonin (Melatonin 3 Mg Tablet) 6 mg PO BEDTIME MRX1 PRN PRN Reason: insomni Last Admin: 08/27/23 20:53 Dose: 6 mg Methocarbamol (Methocarbamol 750 Mg Tablet) 750 mg PO Q6H PRN PRN Reason: muscle spasm Last Admin: 08/28/23 04:04 Dose: 750 mg Olanzapine (Olanzapine 10 Mg Tablet) 10 mg PO BEDTIME RASHI Last Admin: 08/27/23 20:41 Dose: 10 mg Ondansetron HCl (Ondansetron Odt 4 Mg Tab.Rapdis) 4 mg TRANSLINGU Q8H PRN PRN Reason: Nausea and Vomiting Last Admin: 08/27/23 13:52 Dose: 4 mg Paliperidone (Paliperidone Er 6 Mg Tab.Er.24) 6 mg PO DAILY RASHI Last Admin: 08/28/23 08:45 Dose: 6 mg Polyethylene Glycol (Polyethylene Glycol 3350 17 Gm Powd.Pack) 17 gm PO DAILY PRN PRN Reason: constipation Trazodone HCl (Trazodone Hcl 50 Mg Tablet) 150 mg PO BEDTIME RASHI Last Admin: 08/27/23 20:41 Dose: 150 mg Allergies Allergies Allergy/AdvReac Type Severity Reaction Status Date / Time No Known Allergies Allergy Verified 08/20/23 20:03 Assessment & Plan Assessment & Plan (1) Schizoaffective disorder: Status: Acute Code(s): F25.9 - Schizoaffective disorder, unspecified Plan Patient appears to have had a relapse and to a mixed state with what appears to be some degree of paranoia thought disorganization history of schizoaffective disorder check lithium level was on a combination of olanzapine and Invega sustain a unclear need for both medications consider restarting Invega will trying get additional history of medication response coordination of care with outpatient providers patient admitted on a conditional voluntary 08/22/2023 Restart Invega had missed outpatient injection clonazepam for anxiety agitation increase lithium to 900 mg monitor levels particularly given that she is on Motrin 08/23/2023 Start lidocaine patch. Mood check lithium level Klonopin has been helpful try and clarify need for chronic antipsychotic 08/24/2023: Continue current regimen and plans 08/25/2023: Continue current regimen and plans 08/25: Active on unit, social with peers. Observed walking unit hallway, listening to music on unit headphones. Pt reports being upset at my mom because I called her this morning and she told me to go back to bed. That made me cry . Pt presents labile. Per staff, patient has been calling family and custodial multiple times; to a point that they are contacting the desk and asking to have her phone calls limitied. [place] level 0.44 on 08/25/23. [place] increased to 1,200mg PO bedtime. DC Ibuprofen. 08/26: Pt signed 3 day notice yesterday. Pt reports feeling better ;pt stated, I signed a 3 day because I'm feeling better. I'm sleeping very good. I don't need to be here anymore. I feel fine . Pt denies SI/HI/VH/AH. 08/27: Pt tested positive for Covid yesterday. Pt reports feeling good today; pt stated, I'm feeling happy because I've been joking a lot with my room mate. I feel ready to go back to my apartment . Pt denies SI/HI/VH/AH. T/W left message for patient's outpatient psychiatric provider to review medications. Waiting for call back. Patient's 3 day up on 08/30/23. Patient educated on: diagnosis and medication risk/benefits Informed Consent: understands Reason for continued inpatient stay Substantial Risk for: med/psych decompensation Time Spent With Patient Time: Total time managing care of this patient today _20___ minutes.
[2023-08-28 20:00] VITALS: BP 116/70; PULSE 107; RESP 16; TEMP 37; O2SAT 99
[2023-08-28] MEDS: traZODone HCL 50 MG TABLET 150 MG PO (21:33)
[2023-08-28] MEDS: Lithium Carbonate 300 MG CAPSULE 1200 MG PO (21:34)
[2023-08-28] MEDS: OLANZapine 10 MG TABLET PO (21:35)
[2023-08-28] MEDS: Melatonin 3 MG TABLET 6 MG PO (21:35)
[2023-08-29] MEDS: methocarbamoL 750 MG TABLET PO ×2 (06:01→21:18)
[2023-08-29] MEDS: Acetaminophen 325 MG TABLET 650 MG PO ×2 (06:03→21:18)
[2023-08-29 07:58] VITALS: BP 124/62; PULSE 100; RESP 18; TEMP 36.9; O2SAT 97
[2023-08-29] MEDS: Paliperidone ER 6 MG TAB.ER.24 PO (08:36)
[2023-08-29] MEDS: Lidocaine 4 % Patch ADH..PATCH 1 PATCH TRANSDERMA (08:40)
--- NOTE | 2023-08-29 09:44 | P.PNPSI_ITS ---
Subjective Subjective Date of Service: 08/29/23 Reason For Visit: Psychosis paranoia non compliance Subjective Notes: 3 Day Interim History: Reviewed with Dr. Kimble. Pt reports feeling much better than when I came in. I'm not anxious or depressed . Pt denies SI/HI/VH/AH. Pt reports she plans on following up with outpatient providers. [place] level ordered; waiting on results. Medication Compliance: Yes Side effects from medications: No Attending Groups: No Review of Systems Constitutional: Reports as per HPI Eyes: Reports as per HPI Reports as per HPI Cardiovascular: Reports as per HPI Respiratory: Reports as per HPI Gastrointestinal: Reports as per HPI Musculoskeletal: Reports as per HPI Skin/Breast: Reports as per HPI Reports as per HPI Psychiatric: Reports as per HPI Endocrine: Reports as per HPI Hematologic/Lymphatic: Reports as per HPI Allergic/Immunologic: Reports as per HPI Mental Status Exam Mental Status Exam Narrative: Pt is alert and oriented; behavior is cooperative and calm; dressed in casual attire; mood described as good ; eye contact appropriate; Speech is normal rate, volume and prosody and not pressured; thought process is organized; Thought content is on discharge; denies SI/HI/VH/AH. Diagnostics Vital Signs (24Hr): Vital Signs - 24 hr 08/28/23 20:00 08/29/23 07:58 Temperature 98.6 F 98.4 F Pulse Rate 107 H 100 Respiratory Rate 16 18 Blood Pressure 116/70 124/62 Pulse Oximetry 99 97 Oxygen Delivery Method Room Air Room Air BMI result Body Mass Index 41.5 Labs 08/20/23 20:46 08/22/23 10:31 Labs: Laboratory Results - last 48 hr 08/27/23 17:42 Influenza Type A (PCR) NEGATIVE Influenza Type B (PCR) NEGATIVE RSV RNA Qual (PCR) NEGATIVE SARS-CoV-2 RNA (RT-PCR) POSITIVE A Medications Medications Current Medications Acetaminophen (Acetaminophen 325 Mg Tablet) 650 mg PO Q6H PRN PRN Reason: Headache/Pain Mild Scale (1-3) Last Admin: 08/29/23 06:03 Dose: 650 mg Al Hydroxide/Mg Hydroxide (Magnesium Hydrox/Alum Hydrox 30 Ml Oral.Susp) 30 ml PO Q6H PRN PRN Reason: Heartburn/Nausea Last Admin: 08/27/23 11:30 Dose: 30 ml Benzocaine (Throat Lozenge, Medicated Lozenge) 1 lozenge MUCOUS MEM Q2H PRN PRN Reason: Sore Throat Last Admin: 08/28/23 21:35 Dose: 1 lozenge Clonazepam (Clonazepam 0.5 Mg Tablet) 0.5 mg PO BEDTIME RASHI Last Admin: 08/28/23 21:46 Dose: 0.5 mg Clonazepam (Clonazepam 0.5 Mg Tablet) 0.5 mg PO TID PRN PRN Reason: agitation Last Admin: 08/28/23 08:45 Dose: 0.5 mg Hydroxyzine HCl (Hydroxyzine Hcl 25 Mg Tablet) 25 mg PO Q6H PRN PRN Reason: Anxiety Last Admin: 08/28/23 21:34 Dose: 25 mg Lidocaine (Lidocaine 4 % Patch Adh..Patch) 1 patch TRANSDERMA DAILY [facility]; Protocol Last Admin: 08/29/23 08:40 Dose: 1 patch [place] Carbonate ([place] Carbonate 300 Mg Capsule) 1,200 mg PO BEDTIME RASHI Last Admin: 08/28/23 21:34 Dose: 1,200 mg Melatonin (Melatonin 3 Mg Tablet) 6 mg PO BEDTIME MRX1 PRN PRN Reason: insomni Last Admin: 08/28/23 21:35 Dose: 6 mg Methocarbamol (Methocarbamol 750 Mg Tablet) 750 mg PO Q6H PRN PRN Reason: muscle spasm Last Admin: 08/29/23 06:01 Dose: 750 mg Olanzapine (Olanzapine 10 Mg Tablet) 10 mg PO BEDTIME RASHI Last Admin: 08/28/23 21:35 Dose: 10 mg Ondansetron HCl (Ondansetron Odt 4 Mg Tab.Rapdis) 4 mg TRANSLINGU Q8H PRN PRN Reason: Nausea and Vomiting Last Admin: 08/27/23 13:52 Dose: 4 mg Paliperidone (Paliperidone Er 6 Mg Tab.Er.24) 6 mg PO DAILY RASHI Last Admin: 08/29/23 08:36 Dose: 6 mg Polyethylene Glycol (Polyethylene Glycol 3350 17 Gm Powd.Pack) 17 gm PO DAILY PRN PRN Reason: constipation Trazodone HCl (Trazodone Hcl 50 Mg Tablet) 150 mg PO BEDTIME RASHI Last Admin: 08/28/23 21:33 Dose: 150 mg Allergies Allergies Allergy/AdvReac Type Severity Reaction Status Date / Time No Known Allergies Allergy Verified 08/20/23 20:03 Assessment & Plan Assessment & Plan (1) Schizoaffective disorder: Status: Acute Code(s): F25.9 - Schizoaffective disorder, unspecified Plan Patient appears to have had a relapse and to a mixed state with what appears to be some degree of paranoia thought disorganization history of schizoaffective disorder check lithium level was on a combination of olanzapine and Invega sustain a unclear need for both medications consider restarting Invega will trying get additional history of medication response coordination of care with outpatient providers patient admitted on a conditional voluntary 08/22/2023 Restart Invega had missed outpatient injection clonazepam for anxiety agitation increase lithium to 900 mg monitor levels particularly given that she is on Motrin 08/23/2023 Start lidocaine patch. Mood check lithium level Klonopin has been helpful try and clarify need for chronic antipsychotic 08/24/2023: Continue current regimen and plans 08/25/2023: Continue current regimen and plans 08/25: Active on unit, social with peers. Observed walking unit hallway, listening to music on unit headphones. Pt reports being upset at my mom because I called her this morning and she told me to go back to bed. That made me cry . Pt presents labile. Per staff, patient has been calling family and [facility] multiple times; to a point that they are contacting the desk and asking to have her phone calls limitied. Stephens level 0.44 on 08/25/23. Stephens increased to 1,200mg PO bedtime. DC Ibuprofen. 08/26: Pt signed 3 day notice yesterday. Pt reports feeling better ;pt stated, I signed a 3 day because I'm feeling better. I'm sleeping very good. I don't need to be here anymore. I feel fine . Pt denies SI/HI/VH/AH. 08/27: Pt tested positive for Covid yesterday. Pt reports feeling good today; pt stated, I'm feeling happy because I've been joking a lot with my room mate. I feel ready to go back to my apartment . Pt denies SI/HI/VH/AH. T/W left message for patient's outpatient psychiatric provider to review medications. Waiting for call back. Patient's 3 day up on 08/30/23. 08/28: Pt reports feeling much better than when I came in. I'm not anxious or depressed . Pt denies SI/HI/VH/AH. Pt reports she plans on following up with outpatient providers. Stephens level ordered; waiting on result Patient educated on: diagnosis and medication risk/benefits Informed Consent: understands Reason for continued inpatient stay Substantial Risk for: stable for discharge Time Spent With Patient Time: Total time managing care of this patient today _20___ minutes.
[2023-08-29 14:15] LABS: Lithium 0.47 mmol/L (0.60-1.20)
[2023-08-29 14:29] LABS: Anion Gap 9 (12-20); Blood Urea Nitrogen 11 mg/dL (9-16); Carbon Dioxide 29 mmol/L (22-29); Chloride 105 mmol/L (96-108); Creatinine Clr Calc Pharmacy 163.3; Estimated Glomerular Filt Rate > 60; Potassium 3.7 mmol/L (3.3-5.1); Sodium 139 mmol/L (135-145)
[2023-08-29 14:40] LABS: TSH reflex Free T4 1.24 uIU/mL (0.32-4.0)
[2023-08-29 19:55] VITALS: BP 135/70; PULSE 112; RESP 18; TEMP 37.1; O2SAT 99
[2023-08-29] MEDS: Melatonin 3 MG TABLET 6 MG PO (21:18)
[2023-08-29] MEDS: hydrOXYzine HCL 25 MG TABLET PO (21:18)
[2023-08-29] MEDS: Lithium Carbonate 300 MG CAPSULE 1200 MG PO (21:18)
[2023-08-29] MEDS: traZODone HCL 50 MG TABLET 150 MG PO (21:18)
[2023-08-29] MEDS: clonazePAM 0.5 MG TABLET PO (21:18)
[2023-08-29] MEDS: OLANZapine 10 MG TABLET PO (21:19)
[2023-08-29] MEDS: Throat Lozenge, Medicated LOZENGE 1 LOZENGE MUCOUS MEM (21:19)
[2023-08-30] MEDS: methocarbamoL 750 MG TABLET PO (06:40)
[2023-08-30] MEDS: Throat Lozenge, Medicated LOZENGE 1 LOZENGE MUCOUS MEM (06:42)
[2023-08-30 08:10] VITALS: BP 116/84; PULSE 107; RESP 14; TEMP 37; O2SAT 99
[2023-08-30] MEDS: Paliperidone ER 6 MG TAB.ER.24 PO (09:05)
[2023-08-30] MEDS: Lidocaine 4 % Patch ADH..PATCH 1 PATCH TRANSDERMA (09:06)
--- NOTE | 2023-08-30 09:30 | PM.PSYDC ---
DS: Providers Provider Date of Service: 08/30/23 Date of admission: 08/21/23 11:24 Date of discharge: 08/30/23 Primary care physician: Unknown Physician Attending physician on admission: Karan Kimble Attending physician on discharge: Karan Kimble Discharging clinician: Lyn Batista DS: Diagnosis Discharge Diagnosis (1) Schizoaffective disorder: Status: Acute DS: Medications Discharge Medications Home Medications: Home Medications ?Medication ?Instructions ?Recorded ?Confirmed methocarbamol 750 mg tablet 750 mg PO Q6H PRN muscle spasm 08/20/23 08/20/23 Previous Rx's ?Medication ?Instructions ?Recorded polyethylene glycol 3350 17 gram 17 g PO DAILY PRN constipation 30 11/29/21 oral powder packet days #510 grams clonazepam 0.5 mg tablet 0.5 mg PO BEDTIME 30 days #30 tabs 08/29/23 lithium carbonate 300 mg capsule 1,200 mg (4 x 300 mg) PO BEDTIME 08/29/23 30 days #120 caps olanzapine 10 mg tablet 10 mg PO BEDTIME 30 days #30 tabs 08/29/23 paliperidone 6 mg tablet,extended 6 mg PO DAILY 30 days #30 tabs 08/29/23 release 24 hr (Invega) trazodone 150 mg tablet 150 mg PO BEDTIME 30 days #30 tabs 08/29/23 Mental Status Exam Mental Status Exam Narrative: Pt is alert and oriented; behavior is cooperative and calm; dressed in casual attire; mood described as good ; eye contact appropriate; Speech is normal rate, volume and prosody and not pressured; thought process is organized; Thought content is on discharge; denies SI/HI/VH/AH. Data Data Completed and Pending Completed studies during hospitalization [Text1]: 08/25/23 08/27/23 08/29/23 07:51 17:42 13:46 Sodium 139 Potassium 3.7 Chloride 105 Carbon Dioxide 29 Anion Gap 9 L BUN 11 Creatinine 0.66 Estim Creat Clear Calc 163.3 Estimated GFR > 60 TSH 1.24 [place] 0.44 L 0.47 L Influenza Type A (PCR) NEGATIVE Influenza Type B (PCR) NEGATIVE RSV RNA Qual (PCR) NEGATIVE SARS-CoV-2 RNA (RT-PCR) POSITIVE A DS: Summary Hospital Course Hospital Course: Patient is a 28-year-old female with a history of schizoaffective disorder who was last treated on this unit on [phone]. Patient lives in a supportive apartment had been having significant difficulties with her boyfriend feeling rejected and criticized. She is not been taking her medication which includes olanzapine to 20 mg at bedtime lithium 600 mg at bedtime. She was supposed to be on Invega sustain a but had reportedly missed her last injection scheduled as an outpatient for reasons that are not clear patient has been increasingly agitated labile not sleeping causing reported disruption at the apartment she feels like people have been talking about her has not been sleeping poor impulse control and judgment. During hospital course, Patient appears to have had a relapse and to a mixed state with what appears to be some degree of paranoia thought disorganization history of schizoaffective disorder check lithium level was on a combination of olanzapine and Invega sustain a unclear need for both medications consider restarting Invega will trying get additional history of medication response coordination of care with outpatient providers patient admitted on a conditional voluntary Restart Invega had missed outpatient injection clonazepam for anxiety agitation increase lithium to 900 mg monitor levels particularly given that she is on Motrin Start lidocaine patch. Mood check lithium level Klonopin has been helpful try and clarify need for chronic antipsychotic Active on unit, social with peers. Observed walking unit hallway, listening to music on unit headphones. Pt reports being upset at my mom because I called her this morning and she told me to go back to bed. That made me cry . Pt presents labile. Per staff, patient has been calling family and half-way multiple times; to a point that they are contacting the desk and asking to have her phone calls limitied. [place] level 0.44 on 08/25/23. [place] increased to 1,200mg PO bedtime. DC Ibuprofen. Pt signed 3 day notice yesterday. Pt reports feeling better ;pt stated, I signed a 3 day because I'm feeling better. I'm sleeping very good. I don't need to be here anymore. I feel fine . Pt denies SI/HI/VH/AH. Pt tested positive for Covid yesterday. Pt reports feeling good today; pt stated, I'm feeling happy because I've been joking a lot with my room mate. I feel ready to go back to my apartment . Pt denies SI/HI/VH/AH. T/W left message for patient's outpatient psychiatric provider to review medications. Waiting for call back. Patient's 3 day up on 08/30/23. Pt reports feeling much better than when I came in. I'm not anxious or depressed . Pt denies SI/HI/VH/AH. Pt reports she plans on following up with outpatient providers. [place] level ordered; waiting on result [place] level 0.47 on 08/29/23. Pt reports feeling good and ready to leave . pt denies SI/HI/VH/AH. Time spent discussing smoking cessation with patient: 3 to 10 minutes Status at Discharge Cognitive/behavioral status at discharge: Patient was interviewed prior to discharge and found to be fully oriented and without SI or HI. Patient has insight and demonstrates good judgment in terms of wanting to pursue treatment. Patient has a safety plan that includes presenting to the closest ER or calling 911 if feeling unsafe. Functional status at discharge: independent ambulation Overall status at discharge: patient is back to baseline Time Spent with Patient Time attestation: Total time managing care of this patient today _20___ minutes. Time spent: Less than 30 minutes Discharge Plan Discharge Anticipated Discharge Date/Time: 08/30/23 11:00 Patient Disposition: Home, Self-Care Discharge Diagnosis: Schizoaffective d/o Referrals: Dr. Kimberly Paul (Psychiatry) [Other] - 09/17/23 9:20 am (TELEHEALTH APPOINTMENT) Dr Pal/Dr Rutherford [Other] - 09/05/23 10:30 am () Discharge Medications: New trazodone 150 mg tablet 150 mg PO BEDTIME 30 Days Qty: 30 0RF olanzapine 10 mg Tablet 10 mg PO BEDTIME 30 Days Qty: 30 0RF paliperidone [Invega] 6 mg Tablet Extended Release 24hr 6 mg PO DAILY 30 Days Qty: 30 0RF lithium carbonate 300 mg Capsule 1,200 mg PO BEDTIME 30 Days Qty: 120 0RF clonazepam 0.5 mg Tablet 0.5 mg PO BEDTIME 30 Days Qty: 30 0RF Continued polyethylene glycol 3350 17 gram Powder In Packet 17 g PO DAILY PRN (Reason: constipation) 30 Days Qty: 510 0RF methocarbamol 750 mg tablet 750 mg PO Q6H PRN (Reason: muscle spasm) Discontinued trazodone 50 mg Tablet 150 mg PO BEDTIME 30 Days Qty: 90 0RF olanzapine 20 mg tablet 20 mg PO BEDTIME PRN (Reason: Insomnia) lithium carbonate 600 mg capsule 600 mg PO BEDTIME ibuprofen 600 mg tablet 600 mg PO Q6H Discharge Orders: Discharge Order (Routine); Ordered 08/30/23 Ordered By: Lyn Batista Diet: Regular diet Activity on Discharge: As tolerated Stand Alone Forms: Patient Portal Discharge page, Community Support Print Language: Turkmen Care Plan Goals: Maintain mood and safe behaviors Take medications as prescribed Practice coping skills Continue with outpatient providers and reach out to them as needed Health Concerns: Mood stability and behaviors Plan of Treatment: Follow up with your PCP, psychiatric provider and other outpatient providers regarding above concerns Take medications as prescribed Assessment: Patient was interviewed prior to discharge and found to be fully oriented and without SI or HI. Patient has insight and demonstrates good judgment in terms of wanting to pursue treatment. Patient has a safety plan that includes presenting to the closest ER or calling 911 if feeling unsafe.
== END 2023-08-30 11:18 | disposition home or self-care (01) | DRG 750 ==
LOC: HO.ED 08-21 01:33 → HO.PADLT16 08-21 11:29
PROVIDERS: Emergency Medicine; Physician Assistant; Admitting Provider Psychiatry & Neurology Psychiatry; Emergency Provider Emergency Medicine Emergency Medical Services; Responsible Provider Registered Nurse; Visit Provider Psychiatry & Neurology Psychiatry
DX: F25.9 Schizoaffective disorder, unspecified (principal); U07.1 COVID-19; Z91.148 Patient's other noncompliance with medication regimen for other reason; Z79.899 Other long term (current) drug therapy
CPT/HCPCS: 0241U; 36415; 80051; 80053; 80061; 80143; 80178; 80179; 80307; 81001; 81025; 82565; 84443; 84520; 85025; 87635; 93005; 99285; S9485

== ENCOUNTER → 2023-08-21 11:16 | Outpatient (BNV) | payer OTHER, SELFPAY | PROVIDERS: Admitting Provider Psychiatry & Neurology Psychiatry; Emergency Provider Emergency Medicine Emergency Medical Services; Visit Provider Internal Medicine | DX: F25.9 Schizoaffective disorder, unspecified (principal); Z91.148 Patient's other noncompliance with medication regimen for other reason | CPT/HCPCS: 93010 ==

== ENCOUNTER → 2023-08-21 11:24 | Outpatient (BNV) | payer OTHER, SELFPAY | PROVIDERS: Admitting Provider Psychiatry & Neurology Psychiatry; Emergency Provider Emergency Medicine Emergency Medical Services; Responsible Provider Registered Nurse; Visit Provider Psychiatry & Neurology Psychiatry | DX: F25.0 Schizoaffective disorder, bipolar type (principal) | CPT/HCPCS: 90792; 99232 ==

== ENCOUNTER → 2023-08-21 11:24 | Outpatient (BNV) | payer OTHER, SELFPAY | PROVIDERS: Admitting Provider Psychiatry & Neurology Psychiatry; Emergency Provider Emergency Medicine Emergency Medical Services; Responsible Provider Registered Nurse; Visit Provider Psychiatry & Neurology Psychiatry | DX: F25.0 Schizoaffective disorder, bipolar type (principal) | CPT/HCPCS: 99231; 99232; 99238 ==

== ENCOUNTER 2023-09-20 20:12 | Inpatient (IN) | payer OTHER, SELFPAY ==
[2023-09-20 22:37] VITALS: BMI 44.3
[2023-09-21] MEDS: traZODone HCL 50 MG TABLET 150 MG PO ×2 (00:25→20:10)
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
[2023-09-21 03:09] VITALS: BP 116/69; PULSE 80; RESP 18; TEMP 36.7; O2SAT 99
[2023-09-21] MEDS: Acetaminophen 325 MG TABLET 650 MG PO ×2 (03:54→12:53)
[2023-09-21 08:00] VITALS: BP 117/59; PULSE 85; RESP 16; TEMP 36.7; O2SAT 99
--- NOTE | 2023-09-21 12:14 | P.HPPS_ITS ---
HPI Date of Service: 09/21/23 Chief Complaint: Unspcf Schizophrenia Spectrum and other psychosis Sources of Information: patient interviewed, chart reviewed and crisis/core team assessment reviewed HPI Subjective Notes: Hubbard Warning, Conditional Voluntary and 3 Day Narrative: Patient is a 28-year-old female with history of schizoaffective disorder, PTSD who presents for dysregulation in the community, wandering in the streets, . Patient was restarted on her medication in the ED and presents calm, cooperative and friendly. She has not sure why she got dysregulated but she reports she was not feeling herself, crying a lot, depressed, arguing with her mom though she wants to learn to communicate better. Patient said she was not taking her medication consistently however wants to get back on a including long-acting Invega Sustenna. Patient currently denies any AVH or SI. Patient says she very much wants to stay at the hospital and get help. Past Psychiatric History: Inpatient: hx of multiple inpatient psychiatric admissions. [place] [facility] [place] [place]. OP: [facility]- [phone]/ [phone]. 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 Substance History: None Trauma History: yes Diagnostics Vital Signs (24Hr): Vital Signs - 24 hr 09/21/23 03:09 09/21/23 08:00 Temperature 98.0 F 98.0 F Pulse Rate 80 85 Respiratory Rate 18 16 Blood Pressure 116/69 117/59 L Pulse Oximetry 99 99 Oxygen Delivery Method Room Air Room Air BMI result Body Mass Index 44.3 Meds/Allergies Meds Home Medications ?Medication ?Instructions ?Recorded ?Confirmed ?Type methocarbamol 750 mg tablet 750 mg PO Q6H PRN muscle spasm 08/20/23 09/20/23 History Allergies Allergies Allergy/AdvReac Type Severity Reaction Status Date / Time No Known Allergies Allergy Verified 08/20/23 20:03 Mental Status Exam Mental Status Exam Narrative: Pt is alert and oriented; behavior is cooperative, friendly and calm; patient is not in distress; dressed in casual attire with unkempt hair but adequate hygiene; mood is described as good and affect congruent; eye contact appropriate; Speech is normal rate, volume and prosody and not pressured; no psychomotor agitation/retardation present; thought process is organized and goal directed; Thought content is on tx; otherwise pertinent to relevant topics and without any delusional content, paranoid ideations or grandiosity; denies any SI/HI. There is no evidence of perceptual disturbance. Patients insight and judgment appear intact. Assessment & Plan Assessment & Plan (1) PTSD (post-traumatic stress disorder): Status: Acute Code(s): F43.10 - Post-traumatic stress disorder, unspecified Plan Patient is a 28-year-old female with history of schizoaffective disorder, PTSD who presents for dysregulation in the community, wandering in the street, . Patient was restarted on her medication in the ED and presents calm, cooperative and friendly. She has not sure why she got dysregulated but she reports she was not feeling herself, crying a lot, depressed, arguing with her mom though she wants to learn to communicate better. Patient said she was not taking her medication consistently however wants to get back on a including long-acting Invega Sustenna. Patient currently denies any AVH or SI. Patient says she very much wants to stay at the hospital and get help. Formulation/clinical reasoning Now on the unit, patient is organized, cooperative and friendly, likely as medication was restarted in the ED prior to this admission. Patient was recently on M3 about a month ago and was taking lithium 1200 mg, Zyprexa q.h.s. and Invega; will continue this regimen for now although it has not clear if she needs both Invega and Zyprexa. Patient is a little bit of a limited historian though fully cooperative. Will seek more collateral Plan: CV Q 15 minute checks Continue lithium 1200 mg q.h.s. Will get labs; did not see lithium level from presenting ED Continue Zyprexa 10 mg q.h.s. Continue Invega 6 mg daily Patient wants to get on long-acting Invega Sustenna; pharmacy notes recent prescription for this but patient denies having gotten the shot any time recently; will inquire further Reviewed labs from sending facility: CBC, lytes, BUN/creatinine, LFTs all WNL UDS negative QTC 424 on 09/20/2023 Patient educated on: diagnosis and medication risk/benefits Informed Consent: understands and further education needed Reason for continued inpatient stay Substantial Risk for: rapid decompensation Statement Statement: I have reviewed the history and physical and performed a pertinent examination on my patient. No changes have occurred unless specified. If the History and Physical was not performed prior to admission, the Hospitalist's service will be consulted for completing the admission physical. Time Spent With Patient Time: Total time managing care of this patient today ____ minutes.
[2023-09-21] MEDS: Lidocaine 4 % Patch ADH..PATCH 1 PATCH TRANSDERMA (12:53)
--- NOTE | 2023-09-21 13:35 | P.CONHOSP_ITS ---
History of Present Illness Data of Consult Service Date: 09/21/23 Primary Care Provider: Unknown Physician HPI Reason for consult: Admission H&P Pt is a 28-year-old female with a PMH significant for?schizoaffective disorder who is admitted to psychiatry unit for decompensation at home for the past few weeks and feeling like she is having a ?mental breakdown?. Medical consult for admission H&P. ?Patient unavailable at time of interview and exam. Review of admission medical records indicate patient had no acute medical concerns or complaints at time of presentation to [facility]. Workup there was negative for ac [place] issues. Patient also does not appear to have any home medications for any chronic medical conditions. Review of Systems Review of Systems: Patient unavailable for interview and exam [facility] Medical History PTSD (post-traumatic stress disorder) Schizoaffective disorder Schizoaffective disorder Social History Household Members: None Housing: Other Housing Other:: A Do you presently have visiting nurse or other home services: No Unable to assess alcohol history related to: Refusing to respond Patient Tobacco Use Status: Current someday Tobacco user Tobacco use type: Cigarette Smoked in Last 30 Days: No Patient Interested in Nicotine Replacement: No Patient Given Instructions on How to Stop Smoking: Yes Date Education Initiated: 09/20/23 Second Hand Smoke Exposure: No Use of substances other than those prescribed or required for medical reasons: No Currently Displaying Signs/Symptoms of Drug Intoxication Withdrawal: No Any prior treatment program specific to substance use: No Have you been hit, kicked, punched, or otherwise hurt by someone within the past year? If so, by whom?: No Do you feel safe in your current relationship?: No Current Relationship Is there a partner from a previous relationship who is making you feel unsafe n ow?: No Are you made to feel afraid or neglected: No Spiritual Healthcare Practices: none stated Quaker Healthcare Practices: none stated Cultural Healthcare Practices: none stated Advance Directives: No Advance Directives Information Provided: No Do you have thoughts of harming others: None Do you have a plan to hurt others: No Plan Recently lost weight without trying: No Eating poorly because of decreased appetite: No Nutrition Risks: No Nutritional Risk Patient : No : No Poor oral hygiene: No service: No Sexual orientation: Straight/Heterosexual Meds Allergies Allergy/AdvReac Type Severity Reaction Status Date / Time No Known Allergies Allergy Verified 08/20/23 20:03 Active Medications: Current Medications Acetaminophen (Acetaminophen 325 Mg Tablet) 650 mg PO Q6H PRN PRN Reason: Headache/Pain Mild Scale (1-3) Last Admin: 09/21/23 12:53 Dose: 650 mg Al Hydroxide/Mg Hydroxide (Magnesium Hydrox/Alum Hydrox 30 Ml Oral.Susp) 30 ml PO Q6H PRN PRN Reason: Heartburn/Nausea Clonazepam (Clonazepam 0.5 Mg Tablet) 0.5 mg PO BEDTIME RASHI Hydroxyzine HCl (Hydroxyzine Hcl 25 Mg Tablet) 25 mg PO Q6H PRN PRN Reason: Anxiety Lidocaine (Lidocaine 4 % Patch Adh..Patch) 1 patch TRANSDERMA DAILY PRN; Protocol PRN Reason: lower back pain Last Admin: 09/21/23 12:53 Dose: 1 patch [place] Carbonate ([place] Carbonate 300 Mg Capsule) 1,200 mg PO BEDTIME RASHI Magnesium Hydroxide (Milk Of Magnesia 30 Ml Oral.Susp) 30 ml PO DAILY PRN PRN Reason: Constipation Methocarbamol (Methocarbamol 750 Mg Tablet) 750 mg PO Q6H PRN PRN Reason: muscle spasm Nicotine (Nicotine 21 Mg Patch.Td24) 21 mg TRANSDERMA DAILY PRN PRN Reason: smoking cessation Nicotine Polacrilex (Nicotine Polacrilex 2 Mg Gum) 4 mg BUCCAL Q2H PRN PRN Reason: Nicotine Cravings Olanzapine (Olanzapine 5 Mg Tablet) 5 mg PO TID PRN PRN Reason: agitation Olanzapine (Olanzapine 10 Mg Tablet) 10 mg PO BEDTIME RASHI Paliperidone (Paliperidone Er 6 Mg Tab.Er.24) 6 mg PO DAILY RASHI Polyethylene Glycol (Polyethylene Glycol 3350 17 Gm Powd.Pack) 17 gm PO DAILY PRN PRN Reason: constipation Trazodone HCl (Trazodone Hcl 50 Mg Tablet) 150 mg PO BEDTIME PRN PRN Reason: Insomnia Last Admin: 09/21/23 00:25 Dose: 150 mg Trazodone HCl (Trazodone Hcl 50 Mg Tablet) 150 mg PO BEDTIME RASHI Home Medications ?Medication ?Instructions ?Recorded ?Confirmed ?Last Taken ?Type methocarbamol 750 mg tablet 750 mg PO Q6H PRN muscle spasm 08/20/23 09/20/23 08/20/23 17:00 History Physical Exam Vital Signs and Narrative: Vital Signs: Last Vital Signs Temp 98.0 F 09/21/23 08:00 Pulse 85 09/21/23 08:00 Resp 16 09/21/23 08:00 BP 117/59 L 09/21/23 08:00 Pulse Ox 99 09/21/23 08:00 O2 Del Method Room Air 09/21/23 08:00 BMI result Body Mass Index 44.3 Patient unavailable for examination Assessment and Plan (1) Medical clearance for psychiatric admission: Status: Acute Plan Pt is a 28-year-old female with a PMH significant for?schizoaffective disorder who is admitted to M5 psychiatry unit for decompensation at home for the past few weeks and feeling like she is having a ?mental breakdown?. Medical consult for admission H&P. ?Patient unavailable at time of interview and exam. Mood disorder Plan as per Psychiatry Review of admission records indicates pt otherwise does not appear to have any acute medical complaints or chronic medical conditions. Will sign off for now. Please re-consult if any acute issues or questions arise.
[2023-09-21] MEDS: hydrOXYzine HCL 25 MG TABLET PO (18:22)
[2023-09-21 20:00] VITALS: BP 133/80; PULSE 80; RESP 18; TEMP 36.7; O2SAT 99
[2023-09-21] MEDS: clonazePAM 0.5 MG TABLET PO (20:09)
[2023-09-21] MEDS: Lithium Carbonate 300 MG CAPSULE 1200 MG PO (20:09)
[2023-09-21] MEDS: OLANZapine 10 MG TABLET PO (20:09)
[2023-09-22 08:00] VITALS: BP 132/65; PULSE 101; RESP 20; TEMP 36.6; O2SAT 98
[2023-09-22] MEDS: Lidocaine 4 % Patch ADH..PATCH 1 PATCH TRANSDERMA (08:21)
[2023-09-22] MEDS: Paliperidone ER 6 MG TAB.ER.24 PO (08:21)
[2023-09-22 08:31] LABS: Alanine Aminotransferase 21 U/L (0-31); Albumin Level 4.3 g/dL (3.5-5.0); Alkaline Phosphatase 77 U/L (39-117); Anion Gap 14 (12-20); Aspartate Amino Transferase 22 U/L (5-31); Bilirubin Total 0.6 mg/dL (0.0-1.0); Blood Urea Nitrogen 10 mg/dL (9-16); Calcium 9.7 mg/dL (8.4-10.2); Carbon Dioxide 19 mmol/L (22-29); Chloride 107 mmol/L (96-108); Cholesterol 163 mg/dL (<200); Creatinine Clr Calc Pharmacy 133.9; Estimated Glomerular Filt Rate > 60; Glucose Fasting 115 mg/dL (60-99); HDL Cholesterol 51 mg/dL (>40); LDL Cholesterol Calculated 89 mg/dL (<100); Sodium 136 mmol/L (135-145); Triglycerides 116 mg/dL (<150)
[2023-09-22 08:32] LABS: Estimated Average Glucose 97 mg/dL
--- NOTE | 2023-09-22 09:31 | P.PNPSI_ITS ---
Subjective Subjective Date of Service: 09/22/23 Reason For Visit: Unspcf Schizophrenia Spectrum and other psychosis Interim History: Met with patient; discussed with team Patient reports getting triggered by peers on the unit however able to stay calm, discussing her struggles with staff. Dealing with uncomfortable dynamics between her mother and biological father who has come back into her life. Patient asked internal communications writer to call her [facility] worker to make sure she knew she was here. Otherwise patient grateful for the help received. Mental Status Exam Mental Status Exam Narrative: Pt is alert and oriented; behavior is cooperative, friendly and calm; patient is not in distress; dressed in casual attire with unkempt hair but adequate hygiene; mood is described as good and affect congruent; eye contact appropriate; Speech is normal rate, volume and prosody and not pressured; no psychomotor agitation/retardation present; thought process is organized and goal directed; Thought content is on tx; otherwise pertinent to relevant topics and without any delusional content, paranoid ideations or grandiosity; denies any SI/HI. There is no evidence of perceptual disturbance. Patients insight and judgment appear intact. Diagnostics Vital Signs (24Hr): Vital Signs - 24 hr 09/21/23 20:00 09/22/23 08:00 Temperature 98.0 F 97.8 F Pulse Rate 80 101 H Respiratory Rate 18 20 Blood Pressure 133/80 132/65 Pulse Oximetry 99 98 Oxygen Delivery Method Room Air Room Air BMI result Body Mass Index 44.3 Labs 09/22/23 08:02 Labs: Laboratory Results - last 48 hr 09/22/23 08:02 Sodium 136 Potassium 4.0 Chloride 107 Carbon Dioxide 19 L Anion Gap 14 BUN 10 Creatinine 0.78 Estim Creat Clear Calc 133.9 Estimated GFR > 60 Fasting Glucose 115 H Estimat Average Glucose 97 Hemoglobin A1c % 5.0 Calcium 9.7 Total Bilirubin 0.6 AST 22 ALT 21 Alkaline Phosphatase 77 Total Protein 8.0 Albumin 4.3 Triglycerides 116 Cholesterol 163 LDL Cholesterol, Calc 89 HDL Cholesterol 51 Medications Medications Current Medications Acetaminophen (Acetaminophen 325 Mg Tablet) 650 mg PO Q6H PRN PRN Reason: Headache/Pain Mild Scale (1-3) Last Admin: 09/21/23 12:53 Dose: 650 mg Al Hydroxide/Mg Hydroxide (Magnesium Hydrox/Alum Hydrox 30 Ml Oral.Susp) 30 ml PO Q6H PRN PRN Reason: Heartburn/Nausea Clonazepam (Clonazepam 0.5 Mg Tablet) 0.5 mg PO BEDTIME RASHI Last Admin: 09/21/23 20:09 Dose: 0.5 mg Hydroxyzine HCl (Hydroxyzine Hcl 25 Mg Tablet) 25 mg PO Q6H PRN PRN Reason: Anxiety Last Admin: 09/21/23 18:22 Dose: 25 mg Lidocaine (Lidocaine 4 % Patch Adh..Patch) 1 patch TRANSDERMA DAILY PRN; Protocol PRN Reason: lower back pain Last Admin: 09/22/23 08:21 Dose: 1 patch [place] Carbonate (S[place]vester Carbonate 300 Mg Capsule) 1,200 mg PO BEDTIME RASHI Last Admin: 09/21/23 20:09 Dose: 1,200 mg Magnesium Hydroxide (Milk Of Magnesia 30 Ml Oral.Susp) 30 ml PO DAILY PRN PRN Reason: Constipation Methocarbamol (Methocarbamol 750 Mg Tablet) 750 mg PO Q6H PRN PRN Reason: muscle spasm Nicotine (Nicotine 21 Mg Patch.Td24) 21 mg TRANSDERMA DAILY PRN PRN Reason: smoking cessation Nicotine Polacrilex (Nicotine Polacrilex 2 Mg Gum) 4 mg BUCCAL Q2H PRN PRN Reason: Nicotine Cravings Olanzapine (Olanzapine 5 Mg Tablet) 5 mg PO TID PRN PRN Reason: agitation Olanzapine (Olanzapine 10 Mg Tablet) 10 mg PO BEDTIME RASHI Last Admin: 09/21/23 20:09 Dose: 10 mg Paliperidone (Paliperidone Er 6 Mg Tab.Er.24) 6 mg PO DAILY RASHI Last Admin: 09/22/23 08:21 Dose: 6 mg Polyethylene Glycol (Polyethylene Glycol 3350 17 Gm Powd.Pack) 17 gm PO DAILY PRN PRN Reason: constipation Trazodone HCl (Trazodone Hcl 50 Mg Tablet) 150 mg PO BEDTIME PRN PRN Reason: Insomnia Last Admin: 09/21/23 00:25 Dose: 150 mg Trazodone HCl (Trazodone Hcl 50 Mg Tablet) 150 mg PO BEDTIME RASHI Last Admin: 09/21/23 20:10 Dose: 150 mg Allergies Allergies Allergy/AdvReac Type Severity Reaction Status Date / Time No Known Allergies Allergy Verified 08/20/23 20:03 Assessment & Plan Assessment & Plan (1) Medical clearance for psychiatric admission: Status: Acute Code(s): Z00.8 - Encounter for other general examination Plan Patient is a 28-year-old female with history of schizoaffective disorder, PTSD who presents for dysregulation in the community, wandering in the streets, . Patient was restarted on her medication in the ED and presents calm, cooperative and friendly. She has not sure why she got dysregulated but she reports she was not feeling herself, crying a lot, depressed, arguing with her mom though she wants to learn to communicate better. Patient said she was not taking her medication consistently however wants to get back on a including long-acting Invega Sustenna. Patient currently denies any AVH or SI. Patient says she very much wants to stay at the hospital and get help. Formulation/clinical reasoning Now on the unit, patient is organized, cooperative and friendly, likely as medication was restarted in the ED prior to this admission. Patient was recently on M3 about a month ago and was taking lithium 1200 mg, Zyprexa q.h.s. and Invega; will continue this regimen for now although it has not clear if she needs both Invega and Zyprexa. Patient is a little bit of a limited historian though fully cooperative. Will seek more collateral Hospital course: 09/21; emotional but in good behavioral and impulse control. Continue current treatment plan; will work on getting collateral and last time she got Invega Sustenna Plan: CV Q 15 minute checks Continue lithium 1200 mg q.h.s. Will get labs; did not see lithium level from presenting ED Continue Zyprexa 10 mg q.h.s. Continue Invega 6 mg daily Patient wants to get on long-acting Invega Sustenna; pharmacy notes recent prescription for this but patient denies having gotten the shot any time recently; will inquire further Reviewed labs from sending facility: CBC, lytes, BUN/creatinine, LFTs all WNL UDS negative QTC 424 on 09/20/2023 Patient educated on: diagnosis, medication risk/benefits and therapeutic strategies Informed Consent: understands Reason for continued inpatient stay Substantial Risk for: rapid decompensation Time Spent With Patient Time: Total time managing care of this patient today ____ minutes.
[2023-09-22] MEDS: hydrOXYzine HCL 25 MG TABLET PO (12:52)
[2023-09-22] MEDS: Acetaminophen 325 MG TABLET 650 MG PO (19:10)
[2023-09-22 20:00] VITALS: BP 115/66; PULSE 116; TEMP 37.1; O2SAT 98
[2023-09-22] MEDS: Lithium Carbonate 300 MG CAPSULE 1200 MG PO (21:22)
[2023-09-22] MEDS: traZODone HCL 50 MG TABLET 150 MG PO (21:23)
[2023-09-22] MEDS: clonazePAM 0.5 MG TABLET PO (21:23)
[2023-09-22] MEDS: OLANZapine 10 MG TABLET PO (21:24)
[2023-09-23] MEDS: traZODone HCL 50 MG TABLET 150 MG PO ×2 (00:57→21:03)
[2023-09-23] MEDS: OLANZapine 5 MG TABLET PO ×2 (04:30→14:35)
[2023-09-23] MEDS: Acetaminophen 325 MG TABLET 650 MG PO ×3 (04:30→21:07)
[2023-09-23 05:18] VITALS: BP 105/64; PULSE 81
[2023-09-23] MEDS: hydrOXYzine HCL 25 MG TABLET PO ×3 (06:41→17:19)
[2023-09-23 08:00] VITALS: BP 122/79; PULSE 73; RESP 18; TEMP 36.6; O2SAT 100
[2023-09-23] MEDS: Lidocaine 4 % Patch ADH..PATCH 1 PATCH TRANSDERMA (08:16)
[2023-09-23] MEDS: Paliperidone ER 6 MG TAB.ER.24 PO (08:16)
--- NOTE | 2023-09-23 09:44 | HO.PSYCHPN ---
Subjective Subjective Date of Service: 09/23/23 Reason For Visit: Un[facility] Schizophrenia Spectrum and other psychosis Interim History: met with patient; discussed with team Patient having trouble sleeping at night. Friendly but emotional on approach, hyperverbal; patient shares that she has having a lot of emotion she struggling with. Patient launches into a story about a friend of hers who got a woman , that she just heard about it on the unit... And does not want to see this girl at all. Patient could not explain how she heard about this on the unit or why she was worried about seeing the woman given that she is on inpatient unit. Patient then talked about stress at home that there is a tenant in her building who uses racist language. Mental Status Exam Mental Status Exam Narrative: Pt is alert and oriented; behavior is cooperative, friendly but also hypomanic; patient is not in distress; dressed in casual attire with adequate hygiene; mood is described as emotional and affect congruent, a little bit expansive; eye contact appropriate; Speech is mild to moderately pressured; normal volume and prosody and not pressured; intermittent mild psychomotor agitation present; thought process is goal directed but distracted; Thought content is psychosocial stressors at home but also on some delusional thinking; denies any SI/HI. Seems to endorse AH. Patients insight and judgment . Diagnostics Vital Signs (24Hr): Vital Signs - 24 hr 09/22/23 20:00 09/23/23 05:18 09/23/23 08:00 Temperature 98.8 F 98 F Pulse Rate 116 H 81 73 Respiratory Rate 18 Blood Pressure 115/66 105/64 122/79 Pulse Oximetry 98 100 Oxygen Delivery Method Room Air Room Air BMI result Body Mass Index 44.3 Labs 09/22/23 08:02 Labs: Laboratory Results - last 48 hr 09/22/23 08:02 Sodium 136 Potassium 4.0 Chloride 107 Carbon Dioxide 19 L Anion Gap 14 BUN 10 Creatinine 0.78 Estim Creat Clear Calc 133.9 Estimated GFR > 60 Fasting Glucose 115 H Estimat Average Glucose 97 Hemoglobin A1c % 5.0 Calcium 9.7 Total Bilirubin 0.6 AST 22 ALT 21 Alkaline Phosphatase 77 Total Protein 8.0 Albumin 4.3 Triglycerides 116 Cholesterol 163 LDL Cholesterol, Calc 89 HDL Cholesterol 51 Medications Medications Current Medications Acetaminophen (Acetaminophen 325 Mg Tablet) 650 mg PO Q6H PRN PRN Reason: Headache/Pain Mild Scale (1-3) Last Admin: 09/23/23 04:30 Dose: 650 mg Al Hydroxide/Mg Hydroxide (Magnesium Hydrox/Alum Hydrox 30 Ml Oral.Susp) 30 ml PO Q6H PRN PRN Reason: Heartburn/Nausea Clonazepam (Clonazepam 0.5 Mg Tablet) 0.5 mg PO BEDTIME RASHI Last Admin: 09/22/23 21:23 Dose: 0.5 mg Hydroxyzine HCl (Hydroxyzine Hcl 25 Mg Tablet) 25 mg PO Q6H PRN PRN Reason: Anxiety Last Admin: 09/23/23 06:41 Dose: 25 mg Lidocaine (Lidocaine 4 % Patch Adh..Patch) 1 patch TRANSDERMA DAILY PRN; Protocol PRN Reason: lower back pain Last Admin: 09/23/23 08:16 Dose: 1 patch [place] Carbonate ([place] Carbonate 300 Mg Capsule) 1,200 mg PO BEDTIME RASHI Last Admin: 09/22/23 21:22 Dose: 1,200 mg Magnesium Hydroxide (Milk Of Magnesia 30 Ml Oral.Susp) 30 ml PO DAILY PRN PRN Reason: Constipation Methocarbamol (Methocarbamol 750 Mg Tablet) 750 mg PO Q6H PRN PRN Reason: muscle spasm Nicotine (Nicotine 21 Mg Patch.Td24) 21 mg TRANSDERMA DAILY PRN PRN Reason: smoking cessation Nicotine Polacrilex (Nicotine Polacrilex 2 Mg Gum) 4 mg BUCCAL Q2H PRN PRN Reason: Nicotine Cravings Olanzapine (Olanzapine 5 Mg Tablet) 5 mg PO TID PRN PRN Reason: agitation Last Admin: 09/23/23 04:30 Dose: 5 mg Olanzapine (Olanzapine 10 Mg Tablet) 10 mg PO BEDTIME RASHI Last Admin: 09/22/23 21:24 Dose: 10 mg Paliperidone (Paliperidone Er 6 Mg Tab.Er.24) 6 mg PO DAILY RASHI Last Admin: 09/23/23 08:16 Dose: 6 mg Polyethylene Glycol (Polyethylene Glycol 3350 17 Gm Powd.Pack) 17 gm PO DAILY PRN PRN Reason: constipation Trazodone HCl (Trazodone Hcl 50 Mg Tablet) 150 mg PO BEDTIME PRN PRN Reason: Insomnia Last Admin: 09/23/23 00:57 Dose: 150 mg Trazodone HCl (Trazodone Hcl 50 Mg Tablet) 150 mg PO BEDTIME RASHI Last Admin: 09/22/23 21:23 Dose: 150 mg Allergies Allergies Allergy/AdvReac Type Severity Reaction Status Date / Time No Known Allergies Allergy Verified 08/20/23 20:03 Assessment & Plan Assessment & Plan (1) Schizoaffective disorder: Status: Acute Code(s): F25.9 - Schizoaffective disorder, unspecified (2) PTSD (post-traumatic stress disorder): Status: Acute Code(s): F43.10 - Post-traumatic stress disorder, unspecified Plan Patient is a 28-year-old female with history of schizoaffective disorder, PTSD who presents for dysregulation in the community, wandering in the streets, . Patient was restarted on her medication in the ED and presents calm, cooperative and friendly. She has not sure why she got dysregulated but she reports she was not feeling herself, crying a lot, depressed, arguing with her mom though she wants to learn to communicate better. Patient said she was not taking her medication consistently however wants to get back on a including long-acting Invega Sustenna. Patient currently denies any AVH or SI. Patient says she very much wants to stay at the hospital and get help. Formulation/clinical reasoning Now on the unit, patient is organized, cooperative and friendly, likely as medication was restarted in the ED prior to this admission. Patient was recently on M3 about a month ago and was taking lithium 1200 mg, Zyprexa q.h.s. and Invega; will continue this regimen for now although it has not clear if she needs both Invega and Zyprexa. Patient is a little bit of a limited historian though fully cooperative. Will seek more collateral Hospital course: 09/21; emotional but in good behavioral and impulse control. Continue current treatment plan; will work on getting collateral and last time she got Invega Sustenna 09/22 Patient having trouble sleeping at night. Hypomanic with some disorganized/delusional thinking. Plan: CV Q 15 minute checks Increased clonazepam 1 mg q.h.s. Continue lithium 1200 mg q.h.s. Labs ordered Continue Zyprexa 10 mg q.h.s. Continue Invega 6 mg daily Patient wants to get on long-acting Invega Sustenna; pharmacy notes recent prescription for this but patient denies having gotten the shot any time recently; will inquire further Reviewed labs from sending facility: CBC, lytes, BUN/creatinine, LFTs all WNL UDS negative QTC 424 on 09/20/2023 Patient educated on: diagnosis and medication risk/benefits Informed Consent: understands, does not understand and further education needed Reason for continued inpatient stay Substantial Risk for: rapid decompensation Time Spent With Patient Time: Total time managing care of this patient today ____ minutes.
[2023-09-23 20:00] VITALS: BP 120/55; PULSE 110; TEMP 37.2
[2023-09-23] MEDS: Paliperidone Palmitate 234 MG/1.5 ML SYRINGE IM (21:00)
[2023-09-23] MEDS: OLANZapine 10 MG TABLET PO (21:03)
[2023-09-23] MEDS: Lithium Carbonate 300 MG CAPSULE 1200 MG PO (21:03)
[2023-09-23] MEDS: clonazePAM 1 MG TABLET PO (21:04)
[2023-09-24 08:00] VITALS: BP 141/92; PULSE 116; RESP 17; TEMP 36.7; O2SAT 97
[2023-09-24] MEDS: Paliperidone ER 6 MG TAB.ER.24 PO (08:06)
[2023-09-24] MEDS: Acetaminophen 325 MG TABLET 650 MG PO ×3 (08:33→23:17)
[2023-09-24] MEDS: Lidocaine 4 % Patch ADH..PATCH 1 PATCH TRANSDERMA (08:34)
[2023-09-24] MEDS: hydrOXYzine HCL 25 MG TABLET PO ×2 (08:37→16:32)
[2023-09-24] MEDS: methocarbamoL 750 MG TABLET PO ×2 (08:39→13:52)
--- NOTE | 2023-09-24 09:42 | HO.PSYCHPN ---
Subjective Subjective Date of Service: 09/24/23 Reason For Visit: Unspcf Schizophrenia Spectrum and other psychosis Interim History: Met with patient; discussed with team Patient remains hypomanic. Today she said she needs to discharge. She was rambling about the reasons why and repeated that she is feeling a lot of emotions and having lots of thoughts. She described it as feeling like a bouncing ball. She described the conflict between her mother and biological father, that her mother does not want her to see her father and how she feels in the middle of the stress. Patient placed a 3 day notice; however she seemed to understand that the medications still need titrating and need for lab work and also that she is still needs to stabilize further. History from [facility] reports that patient last got Invega Sustenna on 07/08/2023. Also reported was that when she was admitted this past August she was started at that time on lithium and on olanzapine; at some point outpatient provider restarted her on oral Invega since it was difficult to get Invega Sustenna but it is not clear if patient was adherent with medications. Mental Status Exam Mental Status Exam Narrative: Pt is alert and oriented; behavior is cooperative, friendly but also hypomanic, accidentally intrusive and aggravating others; patient is not in distress; dressed in casual attire with adequate hygiene; mood is described as like a bouncing ball and affect congruent, anxious, a little bit expansive; eye contact appropriate; Speech is moderately pressured; normal volume and prosody and not pressured; intermittent mild psychomotor agitation present; thought process is goal directed but distracted; Thought content is psychosocial stressors at home but also on some delusional thinking; denies any SI/HI. Seems to endorse AH. Patients insight and judgment . Diagnostics Vital Signs (24Hr): Vital Signs - 24 hr 09/23/23 20:00 09/24/23 08:00 Temperature 98.9 F 98.1 F Pulse Rate 110 H 116 H Respiratory Rate 17 Blood Pressure 120/55 L 141/92 H Pulse Oximetry 97 Oxygen Delivery Method Room Air BMI result Body Mass Index 44.3 Labs 09/22/23 08:02 Medications Medications Current Medications Acetaminophen (Acetaminophen 325 Mg Tablet) 650 mg PO Q6H PRN PRN Reason: Headache/Pain Mild Scale (1-3) Last Admin: 09/24/23 08:33 Dose: 650 mg Al Hydroxide/Mg Hydroxide (Magnesium Hydrox/Alum Hydrox 30 Ml Oral.Susp) 30 ml PO Q6H PRN PRN Reason: Heartburn/Nausea Clonazepam (Clonazepam 1 Mg Tablet) 1 mg PO BEDTIME RASHI Last Admin: 09/23/23 21:04 Dose: 1 mg Hydroxyzine HCl (Hydroxyzine Hcl 25 Mg Tablet) 25 mg PO Q6H PRN PRN Reason: Anxiety Last Admin: 09/24/23 08:37 Dose: 25 mg Lidocaine (Lidocaine 4 % Patch Adh..Patch) 1 patch TRANSDERMA DAILY PRN; Protocol PRN Reason: lower back pain Last Admin: 09/24/23 08:34 Dose: 1 patch [place] Carbonate ([place] Carbonate 300 Mg Capsule) 1,200 mg PO BEDTIME RASHI Last Admin: 09/23/23 21:03 Dose: 1,200 mg Magnesium Hydroxide (Milk Of Magnesia 30 Ml Oral.Susp) 30 ml PO DAILY PRN PRN Reason: Constipation Methocarbamol (Methocarbamol 750 Mg Tablet) 750 mg PO Q6H PRN PRN Reason: muscle spasm Last Admin: 09/24/23 08:39 Dose: 750 mg Nicotine (Nicotine 21 Mg Patch.Td24) 21 mg TRANSDERMA DAILY PRN PRN Reason: smoking cessation Nicotine Polacrilex (Nicotine Polacrilex 2 Mg Gum) 4 mg BUCCAL Q2H PRN PRN Reason: Nicotine Cravings Olanzapine (Olanzapine 5 Mg Tablet) 5 mg PO TID PRN PRN Reason: agitation Last Admin: 09/23/23 14:35 Dose: 5 mg Olanzapine (Olanzapine 10 Mg Tablet) 10 mg PO BEDTIME RASHI Last Admin: 09/23/23 21:03 Dose: 10 mg Paliperidone (Paliperidone Er 6 Mg Tab.Er.24) 6 mg PO DAILY RASHI Last Admin: 09/24/23 08:06 Dose: 6 mg Polyethylene Glycol (Polyethylene Glycol 3350 17 Gm Powd.Pack) 17 gm PO DAILY PRN PRN Reason: constipation Trazodone HCl (Trazodone Hcl 50 Mg Tablet) 150 mg PO BEDTIME PRN PRN Reason: Insomnia Last Admin: 09/23/23 00:57 Dose: 150 mg Trazodone HCl (Trazodone Hcl 50 Mg Tablet) 150 mg PO BEDTIME RASHI Last Admin: 09/23/23 21:03 Dose: 150 mg Allergies Allergies Allergy/AdvReac Type Severity Reaction Status Date / Time No Known Allergies Allergy Verified 08/20/23 20:03 Assessment & Plan Assessment & Plan (1) Schizoaffective disorder: Status: Acute Code(s): F25.9 - Schizoaffective disorder, unspecified (2) PTSD (post-traumatic stress disorder): Status: Acute Code(s): F43.10 - Post-traumatic stress disorder, unspecified (3) Intellectual disability: Status: Acute Code(s): F79 - Unspecified intellectual disabilities Plan Patient is a 28-year-old female with history of schizoaffective disorder, PTSD who presents for dysregulation in the community, wandering in the streets, . Patient was restarted on her medication in the ED and presents calm, cooperative and friendly. She has not sure why she got dysregulated but she reports she was not feeling herself, crying a lot, depressed, arguing with her mom though she wants to learn to communicate better. Patient said she was not taking her medication consistently however wants to get back on a including long-acting Invega Sustenna. Patient currently denies any AVH or SI. Patient says she very much wants to stay at the hospital and get help. Formulation/clinical reasoning Now on the unit, patient is organized, cooperative and friendly, likely as medication was restarted in the ED prior to this admission. Patient was recently on M3 about a month ago and was taking lithium 1200 mg, Zyprexa q.h.s. and Invega; will continue this regimen for now although it has not clear if she needs both Invega and Zyprexa. Patient is a little bit of a limited historian though fully cooperative. Will seek more collateral Hospital course: 09/21; emotional but in good behavioral and impulse control. Continue current treatment plan; will work on getting collateral and last time she got Invega Sustenna 09/22 Patient having trouble sleeping at night. Hypomanic with some disorganized/delusional thinking. 09/23 Patient remains hypomanic. Today she said she needs to discharge. She was rambling about the reasons why and repeated that she is feeling a lot of emotions and having lots of thoughts. She described it as feeling like a bouncing ball. She described the conflict between her mother and biological father, that her mother does not want her to see her father and how she feels in the middle of the stress. Patient placed a 3 day notice; however she seemed to understand that the medications still need titrating and need for lab work and also that she is still needs to stabilize further. Patient struggling in the milieu, accidentally intrusive and aggravating others. -confirmed patient has DDS services and intellectual disability History from [facility] reports that patient last got Invega Sustenna on 07/08/2023. Also reported was that when she was admitted this past August she was started at that time on lithium and on olanzapine; at some point outpatient provider restarted her on oral Invega since it was difficult to get Invega Sustenna but it is not clear if patient was adherent with medications. Plan: CV Q 15 minute checks Increased clonazepam 1 mg q.h.s. for now since she has trouble sleeping Continue lithium 1200 mg q.h.s. Labs ordered Continue Zyprexa 10 mg q.h.s. Patient received Invega Sustenna 234 mg on 09/22 (last received on 07/08/23); will continue with p.o. Invega until next loading dose of 156 mg Continue Invega 6 mg daily Reviewed labs from sending facility: CBC, lytes, BUN/creatinine, LFTs all WNL UDS negative QTC 424 on 09/20/2023 Patient educated on: diagnosis and medication risk/benefits Informed Consent: understands, does not understand and further education needed Reason for continued inpatient stay Substantial Risk for: rapid decompensation Time Spent With Patient Time: Total time managing care of this patient today ____ minutes.
--- NOTE | 2023-09-24 10:59 | PC.NURSE ---
3 day notice of Intent to Leave Facility signed by patient 09/24/[address] Yates and charge entry, SW informed
[2023-09-24] MEDS: OLANZapine 5 MG TABLET PO ×2 (11:06→18:16)
[2023-09-24] MEDS: Ibuprofen 600 MG TABLET PO ×2 (11:46→19:12)
--- NOTE | 2023-09-24 19:04 | PC.NURSE ---
Pt approached nurses station with several needs this evening, reporting left ear itchiness, and blood coming out. TW took a look at left ear canal and no blood/redness noted. Pt then dug her fingernail into ear and pulled out what looked to be wax, See there is dried blood! Informed pt that I would endorse to noc RN and she should discuss with provider in morning. She started to become agitated and anxious stating I have an ear infection! I can't get an ear infection if I'm going to be flying to [place]! Offered reassurance to her and offered prn zyprexa. Pt reports she spoke with her mom and she will be buying her a plane ticket to [place] when she is DC'd.
[2023-09-24 20:00] VITALS: BP 134/71; PULSE 78; TEMP 36.7; O2SAT 100
[2023-09-24] MEDS: clonazePAM 1 MG TABLET PO (21:05)
[2023-09-24] MEDS: traZODone HCL 50 MG TABLET 150 MG PO ×2 (21:05→23:17)
[2023-09-24] MEDS: Lithium Carbonate 300 MG CAPSULE 1200 MG PO (21:05)
[2023-09-24] MEDS: OLANZapine 10 MG TABLET PO (21:05)
[2023-09-25] MEDS: methocarbamoL 750 MG TABLET PO (00:45)
[2023-09-25] MEDS: Acetaminophen 325 MG TABLET 650 MG PO (06:50)
[2023-09-25] MEDS: Ibuprofen 600 MG TABLET PO (06:50)
[2023-09-25 08:00] VITALS: BP 146/86; PULSE 80; TEMP 36.6; O2SAT 100
[2023-09-25] MEDS: Paliperidone ER 6 MG TAB.ER.24 PO (08:43)
[2023-09-25] MEDS: Lidocaine 4 % Patch ADH..PATCH 1 PATCH TRANSDERMA (09:44)
--- NOTE | 2023-09-25 09:54 | P.PNPSI_ITS ---
Subjective Subjective Date of Service: 09/25/23 Reason For Visit: Unspcf Schizophrenia Spectrum and other psychosis Interim History: Met with patient; discussed with team Patient said that she is feeling more herself. She expresses stress dealing with the argument between her mother and biological father, wanting to go and meet her father in [place] which her mother is against. Of note, patient does have numerous family members in [place] with whom she could stay. Patient said that she still is very worried at night about her brother and her mother and all the Eric on of her family which is why she had wanted to discharge and put in a 3 day notice. Crop Duster and social media assistant discussed her situation and patient came to agree that to handle the stressful situations she needs to be further stabilized and that she will overall do better to remain on the unit, get labs for lithium and get her next installment of Invega Sustenna. Also discussed that in the community, patient was out late, by herself in the neighborhood, socializing with unknown adult men and how her team is worried about her safety. Patient retracted her 3 day notice and said she is fine with staying until next week. Mental Status Exam Mental Status Exam Narrative: Pt is alert and oriented; behavior is cooperative, friendly but also hypomanic, accidentally intrusive and aggravating others; patient is not in distress; dressed in casual attire with adequate hygiene; mood is described as like a bouncing ball and affect congruent, anxious, a little bit expansive; eye contact appropriate; Speech is moderately pressured; normal volume and prosody and not pressured; intermittent mild psychomotor agitation present; thought process is goal directed but distracted; Thought content is psychosocial stressors at home but also on some delusional thinking; denies any SI/HI. Seems to endorse AH. Patients insight and judgment . Diagnostics Vital Signs (24Hr): Vital Signs - 24 hr 09/24/23 20:00 09/25/23 08:00 Temperature 98.0 F 97.9 F Pulse Rate 78 80 Blood Pressure 134/71 146/86 H Pulse Oximetry 100 100 Oxygen Delivery Method Room Air Room Air BMI result Body Mass Index 44.3 Labs 09/26/23 08:50 Medications Medications Current Medications Acetaminophen (Acetaminophen 325 Mg Tablet) 650 mg PO Q6H PRN PRN Reason: Headache/Pain Mild Scale (1-3) Last Admin: 09/25/23 06:50 Dose: 650 mg Al Hydroxide/Mg Hydroxide (Magnesium Hydrox/Alum Hydrox 30 Ml Oral.Susp) 30 ml PO Q6H PRN PRN Reason: Heartburn/Nausea Clonazepam (Clonazepam 1 Mg Tablet) 1 mg PO BEDTIME RASHI Last Admin: 09/24/23 21:05 Dose: 1 mg Guaifenesin (Guaifenesin 200 Mg/10 Ml 10 Ml Liquid) 10 ml PO Q4H PRN PRN Reason: Cough Hydroxyzine HCl (Hydroxyzine Hcl 25 Mg Tablet) 25 mg PO Q6H PRN PRN Reason: Anxiety Last Admin: 09/24/23 16:32 Dose: 25 mg Ibuprofen (Ibuprofen 600 Mg Tablet) 600 mg PO Q8H PRN PRN Reason: Pain, Mild (Pain Scale 1-9) Last Admin: 09/25/23 06:50 Dose: 600 mg Lidocaine (Lidocaine 4 % Patch Adh..Patch) 1 patch TRANSDERMA DAILY PRN; Protocol PRN Reason: lower back pain Last Admin: 09/25/23 09:44 Dose: 1 patch [place] Carbonate ([place] Carbonate 300 Mg Capsule) 1,200 mg PO BEDTIME RASHI Last Admin: 09/24/23 21:05 Dose: 1,200 mg Magnesium Hydroxide (Milk Of Magnesia 30 Ml Oral.Susp) 30 ml PO DAILY PRN PRN Reason: Constipation Methocarbamol (Methocarbamol 750 Mg Tablet) 750 mg PO Q6H PRN PRN Reason: muscle spasm Last Admin: 09/25/23 00:45 Dose: 750 mg Nicotine (Nicotine 21 Mg Patch.Td24) 21 mg TRANSDERMA DAILY PRN PRN Reason: smoking cessation Nicotine Polacrilex (Nicotine Polacrilex 2 Mg Gum) 4 mg BUCCAL Q2H PRN PRN Reason: Nicotine Cravings Olanzapine (Olanzapine 5 Mg Tablet) 5 mg PO TID PRN PRN Reason: agitation Last Admin: 09/24/23 18:16 Dose: 5 mg Olanzapine (Olanzapine 10 Mg Tablet) 10 mg PO BEDTIME RASHI Last Admin: 09/24/23 21:05 Dose: 10 mg Paliperidone (Paliperidone Er 6 Mg Tab.Er.24) 6 mg PO DAILY RASHI Last Admin: 09/25/23 08:43 Dose: 6 mg Paliperidone Palmitate (Paliperidone Palmitate 156 Mg/Ml Syringe) 156 mg IM ONCE ONE Stop: 09/29/23 09:44 Polyethylene Glycol (Polyethylene Glycol 3350 17 Gm Powd.Pack) 17 gm PO DAILY PRN PRN Reason: constipation Trazodone HCl (Trazodone Hcl 50 Mg Tablet) 150 mg PO BEDTIME PRN PRN Reason: Insomnia Last Admin: 09/24/23 23:17 Dose: 150 mg Trazodone HCl (Trazodone Hcl 50 Mg Tablet) 150 mg PO BEDTIME RASHI Last Admin: 09/24/23 21:05 Dose: 150 mg Allergies Allergies Allergy/AdvReac Type Severity Reaction Status Date / Time No Known Allergies Allergy Verified 08/20/23 20:03 Assessment & Plan Assessment & Plan (1) Schizoaffective disorder: Status: Acute Code(s): F25.9 - Schizoaffective disorder, unspecified (2) PTSD (post-traumatic stress disorder): Status: Acute Code(s): F43.10 - Post-traumatic stress disorder, unspecified (3) Intellectual disability: Status: Acute Code(s): F79 - Unspecified intellectual disabilities Plan Patient is a 28-year-old female with history of schizoaffective disorder, PTSD who presents for dysregulation in the community, wandering in the street, . Patient was restarted on her medication in the ED and presents calm, cooperative and friendly. She has not sure why she got dysregulated but she reports she was not feeling herself, crying a lot, depressed, arguing with her mom though she wants to learn to communicate better. Patient said she was not taking her medication consistently however wants to get back on a including long-acting Invega Sustenna. Patient currently denies any AVH or SI. Patient says she very much wants to stay at the hospital and get help. Formulation/clinical reasoning Now on the unit, patient is organized, cooperative and friendly, likely as medication was restarted in the ED prior to this admission. Patient was recently on M3 about a month ago and was taking lithium 1200 mg, Zyprexa q.h.s. and Invega; will continue this regimen for now although it has not clear if she needs both Invega and Zyprexa. Patient is a little bit of a limited historian though fully cooperative. Will seek more collateral Hospital course: 09/21; emotional but in good behavioral and impulse control. Continue current treatment plan; will work on getting collateral and last time she got Invega Sustenna 09/22 Patient having trouble sleeping at night. Hypomanic with some disorganized/delusional thinking. AH 09/23 Patient remains hypomanic. Today she said she needs to discharge. She was rambling about the reasons why and repeated that she is feeling a lot of emotions and having lots of thoughts. She described it as feeling like a bouncing ball. She described the conflict between her mother and biological father, that her mother does not want her to see her father and how she feels in the middle of the stress. Patient placed a 3 day notice; however she seemed to understand that the medications still need titrating and need for lab work and also that she is still needs to stabilize further. Patient struggling in the milieu, accidentally intrusive and aggravating others. -confirmed patient has DDS services and intellectual disability History from [facility] reports that patient last got Invega Sustenna on 07/08/2023. Also reported was that when she was admitted this past August she was started at that time on lithium and on olanzapine; at some point outpatient provider restarted her on oral Invega since it was difficult to get Invega Sustenna but it is not clear if patient was adherent with medications. 09/24 Patient said that she is feeling more herself. She expresses stress dealing with the argument between her mother and biological father, wanting to go and meet her father in [place] which her mother is against. Of note, patient does have numerous family members in [place] with whom she could stay. Patient said that she still is very worried at night about her brother and her mother and all the Eric on of her family which is why she had wanted to discharge and put in a 3 day notice. Crop Duster and social media assistant discussed her situation and patient came to agree that to handle the stressful situations she needs to be further stabilized and that she will overall do better to remain on the unit, get labs for lithium and get her next installment of Invega Sustenna. Also discussed that in the community, patient was out late, by herself in the neighborhood, socializing with unknown adult men and how her team is worried about her safety. Patient retracted her 3 day notice and said she is fine with staying until next week. Plan: CV (retracted 3 day) Q 15 minute checks continue clonazepam 1 mg q.h.s. for now since she has trouble sleeping Continue lithium 1200 mg q.h.s. Labs ordered for 09/25 Continue Zyprexa 10 mg q.h.s. Invega sustenna 156mg due on 09/28 (Patient received Invega Sustenna 234 mg on 09/22 (last received on 07/08/23)) Continue Invega 6 mg daily Reviewed labs from sending facility: CBC, lytes, BUN/creatinine, LFTs all WNL UDS negative QTC 424 on 09/20/2023 Patient educated on: diagnosis, medication risk/benefits and therapeutic strategies Informed Consent: understands and further education needed Reason for continued inpatient stay Substantial Risk for: rapid decompensation Time Spent With Patient Time: Total time managing care of this patient today ____ minutes.
[2023-09-25] MEDS: OLANZapine 5 MG TABLET PO ×2 (12:19→18:39)
[2023-09-25] MEDS: hydrOXYzine HCL 25 MG TABLET PO ×2 (12:19→20:42)
[2023-09-25] MEDS: Throat Lozenge, Medicated LOZENGE 1 LOZENGE MUCOUS MEM (18:39)
[2023-09-25 20:00] VITALS: BP 127/66; PULSE 90; RESP 16; TEMP 37.6; O2SAT 98
[2023-09-25] MEDS: clonazePAM 1 MG TABLET PO (20:40)
[2023-09-25] MEDS: OLANZapine 10 MG TABLET PO (20:40)
[2023-09-25] MEDS: traZODone HCL 50 MG TABLET 150 MG PO (20:40)
[2023-09-25] MEDS: Lithium Carbonate 300 MG CAPSULE 1200 MG PO (20:40)
[2023-09-26] MEDS: Ibuprofen 600 MG TABLET PO ×3 (01:56→17:02)
[2023-09-26] MEDS: traZODone HCL 50 MG TABLET 150 MG PO ×2 (01:57→20:14)
[2023-09-26] MEDS: Acetaminophen 325 MG TABLET 650 MG PO ×3 (01:57→16:09)
[2023-09-26 07:00] VITALS: BMI 44.7
[2023-09-26 08:00] VITALS: BP 119/75; PULSE 88; RESP 17; TEMP 36.7; O2SAT 99
[2023-09-26] MEDS: Paliperidone ER 6 MG TAB.ER.24 PO (09:11)
[2023-09-26] MEDS: OLANZapine 5 MG TABLET PO ×2 (09:11→17:02)
[2023-09-26] MEDS: methocarbamoL 750 MG TABLET PO ×2 (09:11→16:11)
[2023-09-26] MEDS: Lidocaine 4 % Patch ADH..PATCH 1 PATCH TRANSDERMA (09:12)
[2023-09-26 09:20] LABS: Lithium 0.76 mmol/L (0.60-1.20)
[2023-09-26 09:26] LABS: Blood Urea Nitrogen 12 mg/dL (9-16); Creatinine Clr Calc Pharmacy 158.2; Estimated Glomerular Filt Rate > 60
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
--- NOTE | 2023-09-26 16:52 | PC.NURSE ---
Pt signed a Three Day Notice on 09/26/2023 up on Saturday10/02/2023.
[2023-09-26] MEDS: hydrOXYzine HCL 25 MG TABLET PO (17:02)
--- NOTE | 2023-09-26 17:57 | PC.NURSE ---
Pt asked to sign a 3 day notice and all appropriate providers informed. She has been reporting she is anxious to leave and feels that staying in the hospital is not good for her. Medicated with atarax and zyprexa for anxiety and agitation. She feels these medications work well for her.
[2023-09-26 19:53] VITALS: BP 117/59; PULSE 81; RESP 18; TEMP 37.1; O2SAT 100
[2023-09-26 20:14] VITALS: BP 117/59
[2023-09-26] MEDS: OLANZapine 10 MG TABLET PO (20:14)
[2023-09-26] MEDS: cloNIDine HCL 0.1 MG TABLET PO (20:14)
[2023-09-26] MEDS: clonazePAM 0.5 MG TABLET PO (20:14)
[2023-09-26] MEDS: Lithium Carbonate 300 MG CAPSULE 1200 MG PO (20:14)
[2023-09-27 08:00] VITALS: BP 146/78; RESP 18; TEMP 36.4; O2SAT 98
[2023-09-27] MEDS: Paliperidone ER 6 MG TAB.ER.24 PO (08:31)
[2023-09-27] MEDS: Ibuprofen 600 MG TABLET PO (08:36)
[2023-09-27] MEDS: Lidocaine 4 % Patch ADH..PATCH 1 PATCH TRANSDERMA (08:36)
[2023-09-27] MEDS: OLANZapine 5 MG TABLET PO (08:36)
[2023-09-27] MEDS: Throat Lozenge, Medicated LOZENGE 1 LOZENGE MUCOUS MEM (10:09)
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
[2023-09-27 14:04] LABS: HCG Quantitative < 2 mIU/mL
[2023-09-27] MEDS: methocarbamoL 750 MG TABLET PO (18:54)
[2023-09-27] MEDS: Acetaminophen 325 MG TABLET 650 MG PO (18:54)
[2023-09-27 20:00] VITALS: BP 154/68; PULSE 110; RESP 18; TEMP 37.7; O2SAT 100
[2023-09-27] MEDS: Lithium Carbonate 300 MG CAPSULE 1200 MG PO (20:22)
[2023-09-27] MEDS: clonazePAM 0.5 MG TABLET PO (20:22)
[2023-09-27] MEDS: traZODone HCL 50 MG TABLET 150 MG PO (20:22)
[2023-09-27] MEDS: OLANZapine 10 MG TABLET PO (20:22)
[2023-09-27 20:23] VITALS: BP 154/68
[2023-09-27] MEDS: cloNIDine HCL 0.1 MG TABLET PO (20:23)
[2023-09-28] MEDS: Ibuprofen 600 MG TABLET PO (00:35)
[2023-09-28] MEDS: Acetaminophen 325 MG TABLET 650 MG PO ×3 (06:46→19:47)
[2023-09-28] MEDS: methocarbamoL 750 MG TABLET PO ×3 (06:47→19:47)
[2023-09-28] MEDS: Throat Lozenge, Medicated LOZENGE 1 LOZENGE MUCOUS MEM ×3 (06:49→20:16)
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
[2023-09-28 09:07] VITALS: BP 134/60; PULSE 108; RESP 20; TEMP 36.7; O2SAT 98
[2023-09-28] MEDS: Paliperidone ER 6 MG TAB.ER.24 PO (09:10)
[2023-09-28] MEDS: Lidocaine 4 % Patch ADH..PATCH 1 PATCH TRANSDERMA (09:13)
[2023-09-28] MEDS: guaiFENesin 200 MG/10 ML 10 ML LIQUID PO (15:48)
[2023-09-28] MEDS: Fluticasone Propionate Nasal 16 GM SPRAY 1 SPRAY NOSTRIL-B (15:48)
[2023-09-28] MEDS: hydrOXYzine HCL 25 MG TABLET PO (17:07)
--- NOTE | 2023-09-28 17:27 | PC.NURSE ---
Twice during the shift Diana was able to approach TW asking to talk in private about her feelings. She expressed she was feeling really depressed and felt she has been having mood swings this afternoon. After talking to her and utilizing active listening she stated she was able to let the thoughts go and felt better. Able to move past the thoughts that were making her feel depressed Discussed with her how she was doing a great job of feeling her feelings and asking to talk them through with staff. Encouraging her to continue to using coping tools and asking for helps as needed. Reminded her that she does have prn medications ordered for anxiety and agitation as well. Thus far she has asked for Atarax once during shift.
[2023-09-28] MEDS: Lithium Carbonate 300 MG CAPSULE 1200 MG PO (19:47)
[2023-09-28] MEDS: cloNIDine HCL 0.1 MG TABLET PO (19:48)
[2023-09-28] MEDS: OLANZapine 10 MG TABLET PO (19:48)
[2023-09-28] MEDS: clonazePAM 0.5 MG TABLET PO (19:48)
[2023-09-28] MEDS: traZODone HCL 50 MG TABLET 150 MG PO (19:48)
[2023-09-28 20:00] VITALS: BP 122/77; PULSE 98; RESP 18; TEMP 36.7; O2SAT 97
[2023-09-29] MEDS: Acetaminophen 325 MG TABLET 650 MG PO ×3 (06:36→18:17)
[2023-09-29] MEDS: methocarbamoL 750 MG TABLET PO ×3 (06:36→18:17)
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
[2023-09-29 11:03] VITALS: BP 105/63; PULSE 140; RESP 21; TEMP 37.4; O2SAT 98
[2023-09-29] MEDS: Paliperidone ER 6 MG TAB.ER.24 PO (11:09)
[2023-09-29] MEDS: Paliperidone Palmitate 156 MG/ML SYRINGE IM (11:09)
[2023-09-29] MEDS: Lidocaine 4 % Patch ADH..PATCH 1 PATCH TRANSDERMA (11:09)
[2023-09-29 11:26] LABS: MANUAL DIFF FLAG NO
[2023-09-29 11:29] LABS: Basophils Percent Auto 0.3 % (0-2); Eosinophils Absolute Auto 0.2 X10*3/uL (0.0-0.4); Hemoglobin 13.7 g/dl (12.0-16.0); Imm Gran Abs Auto 0.04 X10*3/uL (0.00-0.03); Imm Gran Pct Auto 0.4 % (0.0-0.4); Lymphocytes Absolute Auto 0.6 X10*3/uL (1.2-4.9); Lymphocytes Percent Auto 5.4 % (20-40); Mean Corpuscular HGB Conc 32.6 g/dl (31.0-35.0); Mean Corpuscular Hemoglobin 27.6 pg (27.0-33.0); Mean Corpuscular Volume 84.5 fL (80.0-98.0); Mean Platelet Volume 8.5 fL (9.4-12.3); Monocytes Absolute Auto 0.4 X10*3/uL (0.1-1.2); Monocytes Percent Auto 3.3 % (2-11); Neutrophils Absolute Auto 9.3 x10*3/uL (2.0-8.3); Neutrophils Percent Auto 88.6 % (45-73); Platelet Count 278 X10*3/uL (160-400); Red Blood Count 4.97 X10*6/uL (4.20-5.50); Red Cell Distribution Width 14.2 % (11.0-16.0); White Blood Count 10.5 X10*3/uL (4.8-10.8)
[2023-09-29 11:42] LABS: Lithium 0.52 mmol/L (0.60-1.20)
[2023-09-29 11:55] LABS: Alanine Aminotransferase 16 U/L (0-31); Albumin Level 4.2 g/dL (3.5-5.0); Alkaline Phosphatase 79 U/L (39-117); Anion Gap 15 (12-20); Aspartate Amino Transferase 17 U/L (5-31); Bilirubin Total 0.5 mg/dL (0.0-1.0); Blood Urea Nitrogen 12 mg/dL (9-16); Carbon Dioxide 23 mmol/L (22-29); Chloride 104 mmol/L (96-108); Creatinine Clr Calc Pharmacy 145.7; Estimated Glomerular Filt Rate > 60; Glucose Fasting 107 mg/dL (60-99); Potassium 4.1 mmol/L (3.3-5.1); Sodium 138 mmol/L (135-145); Total Protein 7.9 g/dL (6.5-8.0)
[2023-09-29 12:09] LABS: Thyroid Stimulating Hormone 0.59 uIU/mL (0.32-4.0)
[2023-09-29 13:11] LABS: Influenza A PCR NEGATIVE (Negative); Influenza B PCR NEGATIVE (Negative); Resp Syncy Virus RNA Qual PCR NEGATIVE (Negative); SARS COV2 PCR INHOUSE NEGATIVE (Negative)
[2023-09-29 13:57] VITALS: PULSE 114; TEMP 37.2; O2SAT 98
[2023-09-29 17:53] LABS: Lithium 0.45 mmol/L (0.60-1.20)
[2023-09-29 19:39] LABS: Appearance Urine Clear; Color Urine Yellow; Glucose Urine UA Negative (Negative); Leukocyte Esterase Urine Trace (Negative); Nitrite Urine Negative (Negative); PH 5.5 (5.0-9.0); Specific Gravity - Urine >= 1.030 (1.005-1.025); UMIC TRIGGER UACC YES; Urine Blood Trace (Negative); Urine Ketones Negative (Negative); Urine Protein 30 (1+) mg/dL (Neg-Trace)
[2023-09-29 19:44] LABS: Bacteria Urine 1+ (None Seen); Hyaline Casts Urine 0-2 /LPF (0-2); WBC Urine 0-5 /HPF (0-5)
[2023-09-29 20:00] VITALS: BP 113/69; PULSE 129; RESP 20; TEMP 37.4; O2SAT 99
[2023-09-29] MEDS: traZODone HCL 50 MG TABLET 150 MG PO (21:19)
[2023-09-29] MEDS: Lithium Carbonate 300 MG CAPSULE 1200 MG PO (21:19)
[2023-09-29] MEDS: clonazePAM 0.5 MG TABLET PO (21:20)
[2023-09-29] MEDS: OLANZapine 10 MG TABLET PO (21:20)
[2023-09-29] MEDS: cloNIDine HCL 0.1 MG TABLET PO (21:20)
[2023-09-30] MEDS: Fluticasone Propionate Nasal 16 GM SPRAY 1 SPRAY NOSTRIL-B (07:23)
[2023-09-30 08:00] VITALS: TEMP 37.4
[2023-09-30] MEDS: Paliperidone ER 6 MG TAB.ER.24 PO (08:52)
[2023-09-30] MEDS: Acetaminophen 325 MG TABLET 650 MG PO ×2 (08:55→15:57)
[2023-09-30] MEDS: Lidocaine 4 % Patch ADH..PATCH 1 PATCH TRANSDERMA (08:55)
[2023-09-30] MEDS: methocarbamoL 750 MG TABLET PO ×2 (08:58→20:16)
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
[2023-09-30 20:00] VITALS: BP 104/57; PULSE 111; RESP 18; TEMP 36.2; O2SAT 99
[2023-09-30] MEDS: Lithium Carbonate 300 MG CAPSULE 1200 MG PO (20:15)
[2023-09-30] MEDS: traZODone HCL 50 MG TABLET 150 MG PO (20:15)
[2023-09-30] MEDS: OLANZapine 10 MG TABLET PO (20:16)
[2023-09-30] MEDS: clonazePAM 0.5 MG TABLET PO (20:16)
[2023-09-30] MEDS: cloNIDine HCL 0.1 MG TABLET PO (20:16)
--- NOTE | 2023-09-30 20:18 | PM.EVENT ---
Event Note Date of Service: 09/30/23 Event Note: Hospitalist consult for recommendations regarding UA results. Patient experiencing generalized fatigue and lower back pain. UA showing trace amount amount of leukocyte esterase and 1+ bacteria, though negative for nitrites and wbc's. UA does not appear grossly positive, and does not meet threshold for reflex cultures. Patient not complaining of polyuria or dysuria. Would not recommend treating with antibiotics at this time. Time Spent With Patient Time: Total time managing care of this patient today ____ minutes.
[2023-10-01] MEDS: methocarbamoL 750 MG TABLET PO ×2 (03:59→11:38)
[2023-10-01] MEDS: Paliperidone ER 6 MG TAB.ER.24 PO (08:23)
[2023-10-01] MEDS: Acetaminophen 325 MG TABLET 650 MG PO ×3 (08:25→22:40)
[2023-10-01] MEDS: Fluticasone Propionate Nasal 16 GM SPRAY 1 SPRAY NOSTRIL-B (08:28)
[2023-10-01 08:43] VITALS: BP 120/56; PULSE 100; RESP 18; TEMP 36.7; O2SAT 95
--- NOTE | 2023-10-01 10:07 | P.PNPSI_ITS ---
Subjective Subjective Date of Service: 10/01/23 Reason For Visit: Unspcf Schizophrenia Spectrum and other psychosis Interim History: Met with patient; discussed with team Patient reports she is doing well, overall good mood, feeling back to her regular self. She said she is feeling a little bit down today but only cause her right knee is aching a little bit; she says this is chronic and has been going on and off for months. Patient feels ready to go home. Mental Status Exam Mental Status Exam Narrative: Pt is alert and oriented; behavior is cooperative, friendly, calm, organized and appropriate; dressed in casual attire with adequate hygiene; mood is described as good and affect congruent, calm; eye contact appropriate; Speech is normal rate, normal volume and prosody; no psychomotor agitation present; thought process is goal directed,, organized; Thought content is discharge, knee pain; no delusional thinking; denies any SI/HI. No AH. Patients insight and judgment fair. Diagnostics Vital Signs (24Hr): Vital Signs - 24 hr 09/30/23 20:00 10/01/23 08:43 Temperature 97.2 F 98.1 F Pulse Rate 111 H 100 Respiratory Rate 18 18 Blood Pressure 104/57 L 120/56 L Pulse Oximetry 99 95 Oxygen Delivery Method Room Air Room Air BMI result Body Mass Index 44.7 Labs 09/29/23 11:23 09/29/23 11:23 Labs: Laboratory Results - last 48 hr 09/29/23 09/29/23 09/29/23 11:23 11:30 16:58 WBC 10.5 RBC 4.97 Hgb 13.7 Hct 42.0 MCV 84.5 MCH 27.6 MCHC 32.6 RDW 14.2 Plt Count 278 D MPV 8.5 L Immature Gran % (Auto) 0.4 Neut % (Auto) 88.6 H Lymph % (Auto) 5.4 L [place] % (Auto) 3.3 Eos % (Auto) 2.0 Baso % (Auto) 0.3 Lymph # (Auto) 0.6 L [place] # (Auto) 0.4 Eos # (Auto) 0.2 Baso # (Auto) 0.0 Abs Immat Gran (auto) 0.04 H Absolute Neuts (auto) 9.3 H Absolute Nucleated RBC 0.000 Nucleated RBC % (auto) 0.0 Sodium 138 Potassium 4.1 Chloride 104 Carbon Dioxide 23 Anion Gap 15 BUN 12 Creatinine 0.72 Estim Creat Clear Calc 145.7 Estimated GFR > 60 Fasting Glucose 107 H Calcium 9.0 D Total Bilirubin 0.5 AST 17 ALT 16 Alkaline Phosphatase 79 Total Protein 7.9 Albumin 4.2 TSH 0.59 Urine Color Urine Appearance Urine pH Ur Specific [place] Urine Protein Urine Glucose (UA) Urine Ketones Urine Blood Urine Nitrite Ur Leukocyte Esterase Urine RBC Urine WBC Ur Squamous Epith Cells Urine Bacteria Hyaline Casts [place] 0.52 L 0.45 L Influenza Type A (PCR) NEGATIVE Influenza Type B (PCR) NEGATIVE RSV RNA Qual (PCR) NEGATIVE SARS-CoV-2 RNA (RT-PCR) NEGATIVE 09/29/23 19:34 WBC RBC Hgb Hct MCV MCH MCHC RDW Plt Count MPV Immature Gran % (Auto) Neut % (Auto) Lymph % (Auto) [place] % (Auto) Eos % (Auto) Baso % (Auto) Lymph # (Auto) [place] # (Auto) Eos # (Auto) Baso # (Auto) Abs Immat Gran (auto) Absolute Neuts (auto) Absolute Nucleated RBC Nucleated RBC % (auto) Sodium Potassium Chloride Carbon Dioxide Anion Gap BUN Creatinine Estim Creat Clear Calc Estimated GFR Fasting Glucose Calcium Total Bilirubin AST ALT Alkaline Phosphatase Total Protein Albumin TSH Urine Color Yellow Urine Appearance Clear Urine pH 5.5 Ur Specific [place] >= 1.030 H Urine Protein 30 (1+) H Urine Glucose (UA) Negative Urine Ketones Negative Urine Blood Trace H Urine Nitrite Negative Ur Leukocyte Esterase Trace H Urine RBC 11-20 H Urine WBC 0-5 Ur Squamous Epith Cells 6-10 Urine Bacteria 1+ Hyaline Casts 0-2 [place] Influenza Type A (PCR) Influenza Type B (PCR) RSV RNA Qual (PCR) SARS-CoV-2 RNA (RT-PCR) Medications Medications Current Medications Acetaminophen (Acetaminophen 325 Mg Tablet) 650 mg PO Q6H PRN PRN Reason: Headache/Pain Mild Scale (1-3) Last Admin: 10/01/23 08:25 Dose: 650 mg Al Hydroxide/Mg Hydroxide (Magnesium Hydrox/Alum Hydrox 30 Ml Oral.Susp) 30 ml PO Q6H PRN PRN Reason: Heartburn/Nausea Benzocaine (Throat Lozenge, Medicated Lozenge) 1 lozenge MUCOUS MEM Q2H PRN PRN Reason: Sore Throat Last Admin: 09/28/23 20:16 Dose: 1 lozenge Clonazepam (Clonazepam 0.5 Mg Tablet) 0.5 mg PO BEDTIME RASHI Last Admin: 09/30/23 20:16 Dose: 0.5 mg Clonidine HCl (Clonidine Hcl 0.1 Mg Tablet) 0.1 mg PO BEDTIME RASHI; Protocol Last Admin: 09/30/23 20:16 Dose: 0.1 mg Fluticasone Propionate (Fluticasone Propionate Nasal 16 Gm [place]) 1 spray NOSTRIL-B DAILY PRN PRN Reason: congestion Last Admin: 10/01/23 08:28 Dose: 1 spray Guaifenesin (Guaifenesin 200 Mg/10 Ml 10 Ml Liquid) 10 ml PO Q4H PRN PRN Reason: Cough Last Admin: 09/28/23 15:48 Dose: 10 ml Hydroxyzine HCl (Hydroxyzine Hcl 25 Mg Tablet) 25 mg PO Q6H PRN PRN Reason: Anxiety Last Admin: 09/28/23 17:07 Dose: 25 mg Lidocaine (Lidocaine 4 % Patch Adh..Patch) 1 patch TRANSDERMA DAILY PRN; Protocol PRN Reason: lower back pain Last Admin: 09/30/23 08:55 Dose: 1 patch [place] Carbonate ([place] Carbonate 300 Mg Capsule) 1,200 mg PO BEDTIME RASHI Last Admin: 09/30/23 20:15 Dose: 1,200 mg Magnesium Hydroxide (Milk Of Magnesia 30 Ml Oral.Susp) 30 ml PO DAILY PRN PRN Reason: Constipation Methocarbamol (Methocarbamol 750 Mg Tablet) 750 mg PO Q6H PRN PRN Reason: muscle spasm Last Admin: 10/01/23 03:59 Dose: 750 mg Nicotine (Nicotine 21 Mg Patch.Td24) 21 mg TRANSDERMA DAILY PRN PRN Reason: smoking cessation Nicotine Polacrilex (Nicotine Polacrilex 2 Mg Gum) 4 mg BUCCAL Q2H PRN PRN Reason: Nicotine Cravings Olanzapine (Olanzapine 5 Mg Tablet) 5 mg PO TID PRN PRN Reason: agitation Last Admin: 09/27/23 08:36 Dose: 5 mg Olanzapine (Olanzapine 10 Mg Tablet) 10 mg PO BEDTIME RASHI Last Admin: 09/30/23 20:16 Dose: 10 mg Paliperidone (Paliperidone Er 6 Mg Tab.Er.24) 6 mg PO DAILY RASHI Last Admin: 05/28/24 08:23 Dose: 6 mg Polyethylene Glycol (Polyethylene Glycol 3350 17 Gm Powd.Pack) 17 gm PO DAILY PRN PRN Reason: constipation Trazodone HCl (Trazodone Hcl 50 Mg Tablet) 150 mg PO BEDTIME PRN PRN Reason: Insomnia Last Admin: 09/26/23 01:57 Dose: 150 mg Trazodone HCl (Trazodone Hcl 50 Mg Tablet) 150 mg PO BEDTIME RASHI Last Admin: 09/30/23 20:15 Dose: 150 mg Allergies Allergies Allergy/AdvReac Type Severity Reaction Status Date / Time No Known Allergies Allergy Verified 08/20/23 20:03 Assessment & Plan Assessment & Plan (1) Schizoaffective disorder: Status: Acute Code(s): F25.9 - Schizoaffective disorder, unspecified (2) PTSD (post-traumatic stress disorder): Status: Acute Code(s): F43.10 - Post-traumatic stress disorder, unspecified (3) Intellectual disability: Status: Acute Code(s): F79 - Unspecified intellectual disabilities Plan Patient is a 28-year-old female with history of schizoaffective disorder, PTSD who presents for dysregulation in the community, wandering in the street, . Patient was restarted on her medication in the ED and presents calm, cooperative and friendly. She has not sure why she got dysregulated but she reports she was not feeling herself, crying a lot, depressed, arguing with her mom though she wants to learn to communicate better. Patient said she was not taking her medication consistently however wants to get back on a including long-acting Invega Sustenna. Patient currently denies any AVH or SI. Patient says she very much wants to stay at the hospital and get help. Formulation/clinical reasoning Now on the unit, patient is organized, cooperative and friendly, likely as medication was restarted in the ED prior to this admission. Patient was recently on M3 about a month ago and was taking lithium 1200 mg, Zyprexa q.h.s. and Invega; will continue this regimen for now although it has not clear if she needs both Invega and Zyprexa. Patient is a little bit of a limited historian though fully cooperative. Will seek more collateral Hospital course: 09/21; emotional but in good behavioral and impulse control. Continue current treatment plan; will work on getting collateral and last time she got Invega Sustenna 09/22 Patient having trouble sleeping at night. Hypomanic with some disorganized/delusional thinking. AH 09/23 Patient remains hypomanic. Today she said she needs to discharge. She was rambling about the reasons why and repeated that she is feeling a lot of emotions and having lots of thoughts. She described it as feeling like a bouncing ball. She described the conflict between her mother and biological father, that her mother does not want her to see her father and how she feels in the middle of the stress. Patient placed a 3 day notice; however she seemed to understand that the medications still need titrating and need for lab work and also that she is still needs to stabilize further. Patient struggling in the milieu, accidentally intrusive and aggravating others. -confirmed patient has DDS services and intellectual disability [facility] reports that patient last got Invega Sustenna on 07/08/2023. Also reported was that when she was admitted this past August she was started at that time on lithium and on olanzapine; at some point outpatient provider restarted her on oral Invega since it was difficult to get Invega Sustenna but it is not clear if patient was adherent with medications. 09/24 Patient said that she is feeling more herself. She expresses stress dealing with the argument between her mother and biological father, wanting to go and meet her father in [place] which her mother is against. Of note, patient does have numerous family members in [place] with whom she could stay. Patient said that she still is very worried at night about her brother and her mother and all the Eric on of her family which is why she had wanted to discharge and put in a 3 day notice. Supervisor Assembly and social sciences professor discussed her situation and patient came to agree that to handle the stressful situations she needs to be further stabilized and that she will overall do better to remain on the unit, get labs for lithium and get her next installment of Invega Sustenna. Also discussed that in the community, patient was out late, by herself in the neighborhood, socializing with unknown adult men and how her team is worried about her safety. Patient retracted her 3 day notice and said she is fine with staying until next week. 09/25 Patient seems little more calm today and in better self-control. Staff concur that she is more able to edit herself in groups and is less intrusive. Patient said that she has been sleeping well but has been getting repeat trazodone. She continues to say she is feeling more herself and has no complaints and no requests. Reviewed labs with patient -patient grateful that outpatient team will help her deal with verbally abusive neighbors 09/26 d/c ibuprofen due to increase risk for lithium toxicity and pt also reports methocarbamol more effective for back pain. -encourage methacarbamol for pain. start flonase 09/28 cbc, cmp, lithium level, UA covid, rsv, flu swab , encourage fluids 09/29 UA reviewed discussed withhospitalist and no need for culture; encourage pt to hydrate 09/30 patient remains at baseline, doing well, tolerating medications; her outpatient worker came in today and agrees she is ready to discharge home. Patient is not in imminent risk for harm to self or others and ready to return to the community for treatment. Plan: CV (retracted 3 day) Q 15 minute checks Lowered to clonazepam 0.5 mg q.h.s. (which is what she is prescribed outpatient) Add clonidine 0.1 mg q.h.s. to see if can help with sleep and so patient will not need repeat of trazodone Continue trazodone 150 q.h.s. with p.r.n. repeat Continue lithium 1200 mg q.h.s. ([place] level therapeutic: BUN/creatinine/TSH WNL) Continue Zyprexa 10 mg q.h.s. Invega sustenna 156mg due on 09/28 (Patient received Invega Sustenna 234 mg on 09/22 (last received on 07/08/23)) Continue Invega 6 mg daily (will DC after next shot) Reviewed labs from sending facility: CBC, lytes, BUN/creatinine, LFTs all WNL UDS negative QTC 424 on 09/20/2023 Patient educated on: diagnosis, medication risk/benefits and medical condition Informed Consent: understands Reason for continued inpatient stay Substantial Risk for: stable for discharge Time Spent With Patient Time: Total time managing care of this patient today ____ minutes.
[2023-10-01] MEDS: Throat Lozenge, Medicated LOZENGE 1 LOZENGE MUCOUS MEM (11:38)
[2023-10-01] MEDS: hydrOXYzine HCL 25 MG TABLET PO (18:12)
--- NOTE | 2023-10-01 18:17 | PM.PSYDC ---
DS: Providers Provider Date of Service: 10/02/23 Date of admission: 09/20/23 20:12 Date of discharge: 10/02/23 Primary care physician: Unknown Physician Attending physician on admission: Pantera Yates Consults: 09/21/23 00:00 Consult to Hospitalist Routine Comment: Consulting Provider: Hospitalist Reason For Exam: admission physical Attending physician on discharge: Pantera Yates DS: Diagnosis Discharge Diagnosis (1) Schizoaffective disorder: Status: Acute (2) PTSD (post-traumatic stress disorder): Status: Acute (3) Intellectual disability: Status: Acute DS: Medications Discharge Medications Home Medications: Home Medications ?Medication ?Instructions ?Recorded ?Confirmed methocarbamol 750 mg tablet 750 mg PO Q6H PRN muscle spasm 08/20/23 09/20/23 Previous Rx's ?Medication ?Instructions ?Recorded polyethylene glycol 3350 17 gram 17 g PO DAILY PRN constipation 30 11/29/21 oral powder packet days #510 grams clonazepam 0.5 mg tablet 0.5 mg PO BEDTIME 30 days #30 tabs 10/01/23 clonidine HCl 0.1 mg tablet 0.1 mg PO BEDTIME 30 days #30 tabs 10/01/23 fluticasone propionate 50 1 spray intranasal DAILY PRN 10/01/23 mcg/actuation nasal congestion 30 days #16 grams spray,suspension lithium carbonate 300 mg capsule 1,200 mg (4 x 300 mg) PO BEDTIME 10/01/23 30 days #120 caps olanzapine 10 mg tablet 10 mg PO BEDTIME 30 days #30 tabs 10/01/23 trazodone 150 mg tablet 150 mg PO BEDTIME 30 days #30 tabs 10/01/23 Mental Status Exam Mental Status Exam Narrative: Pt is alert and oriented; behavior is cooperative, friendly, calm, organized and appropriate; dressed in casual attire with adequate hygiene; mood is described as good and affect congruent, calm; eye contact appropriate; Speech is normal rate, normal volume and prosody; no psychomotor agitation present; thought process is goal directed,, organized; Thought content is discharge, knee pain; no delusional thinking; denies any SI/HI. No AH. Patients insight and judgment fair. Data Data Completed and Pending Completed studies during hospitalization [Text1]: 09/26/23 09/29/23 09/29/23 08:50 11:23 11:30 WBC 10.5 RBC 4.97 Hgb 13.7 Hct 42.0 MCV 84.5 MCH 27.6 MCHC 32.6 RDW 14.2 Plt Count 278 D MPV 8.5 L Immature Gran % (Auto) 0.4 Neut % (Auto) 88.6 H Lymph % (Auto) 5.4 L [place] % (Auto) 3.3 Eos % (Auto) 2.0 Baso % (Auto) 0.3 Lymph # (Auto) 0.6 L [place] # (Auto) 0.4 Eos # (Auto) 0.2 Baso # (Auto) 0.0 Abs Immat Gran (auto) 0.04 H Absolute Neuts (auto) 9.3 H Absolute Nucleated RBC 0.000 Nucleated RBC % (auto) 0.0 Sodium 138 Potassium 4.1 Chloride 104 Carbon Dioxide 23 Anion Gap 15 BUN 12 12 Creatinine 0.66 0.72 Estim Creat Clear Calc 158.2 145.7 Estimated GFR > 60 > 60 Fasting Glucose 107 H Calcium 9.0 D Total Bilirubin 0.5 AST 17 ALT 16 Alkaline Phosphatase 79 Total Protein 7.9 Albumin 4.2 TSH 0.59 Beta HCG, Quant < 2 Urine Color Urine Appearance Urine pH Ur Specific [place] Urine Protein Urine Glucose (UA) Urine Ketones Urine Blood Urine Nitrite Ur Leukocyte Esterase Urine RBC Urine WBC Ur Squamous Epith Cells Urine Bacteria Hyaline Casts [place] 0.76 0.52 L Influenza Type A (PCR) NEGATIVE Influenza Type B (PCR) NEGATIVE RSV RNA Qual (PCR) NEGATIVE SARS-CoV-2 RNA (RT-PCR) NEGATIVE 09/29/23 09/29/23 16:58 19:34 WBC RBC Hgb Hct MCV MCH MCHC RDW Plt Count MPV Immature Gran % (Auto) Neut % (Auto) Lymph % (Auto) [place] % (Auto) Eos % (Auto) Baso % (Auto) Lymph # (Auto) [place] # (Auto) Eos # (Auto) Baso # (Auto) Abs Immat Gran (auto) Absolute Neuts (auto) Absolute Nucleated RBC Nucleated RBC % (auto) Sodium Potassium Chloride Carbon Dioxide Anion Gap BUN Creatinine Estim Creat Clear Calc Estimated GFR Fasting Glucose Calcium Total Bilirubin AST ALT Alkaline Phosphatase Total Protein Albumin TSH Beta HCG, Quant Urine Color Yellow Urine Appearance Clear Urine pH 5.5 Ur Specific [place] >= 1.030 H Urine Protein 30 (1+) H Urine Glucose (UA) Negative Urine Ketones Negative Urine Blood Trace H Urine Nitrite Negative Ur Leukocyte Esterase Trace H Urine RBC 11-20 H Urine WBC 0-5 Ur Squamous Epith Cells 6-10 Urine Bacteria 1+ Hyaline Casts 0-2 [place] 0.45 L Influenza Type A (PCR) Influenza Type B (PCR) RSV RNA Qual (PCR) SARS-CoV-2 RNA (RT-PCR) DS: Summary Hospital Course Hospital Course: Patient is a 28-year-old female with history of schizoaffective disorder, PTSD who presents for dysregulation in the community, wandering in the [facility]. Patient was restarted on her medication in the ED and presents calm, cooperative and friendly. She has not sure why she got dysregulated but she reports she was not feeling herself, crying a lot, depressed, arguing with her mom though she wants to learn to communicate better. Patient said she was not taking her medication consistently however wants to get back on a including long-acting Invega Sustenna. Patient currently denies any AVH or SI. Patient says she very much wants to stay at the hospital and get help. Hospital course: Now on the unit, patient is hyomanic, but more organized, cooperative and friendly, likely since medication was restarted in the ED prior to this admission. Patient was recently on M3 about a month ago and was taking lithium 1200 mg, Zyprexa q.h.s. and Invega; will continue this regimen for now although it has not clear if she needs both Invega and Zyprex Patient remained hypomanic, somewhat disorganized in speech for subsequent days and unintentionally intrusive and aggravating to peers. At 1 point patient placed a 3 day notice but was willing to retracted, demonstrating improved judgment. As as medications continued, hypomania subsided and then fully resolved. Patient received loading dose of Invega Sustenna. Patient eventually stabilized and remained in good mood, sleeping and eating well, with bright affect, appropriate with peers and staff, future oriented and feeling ready to discharge home. Patient staff visited her on the unit frequently and agreed that she had returned to baseline and was ready to return to the community. Patient has extensive outpatient support already set up. She was not in imminent risk of harm to self or others and her request for discharge honored. It was unclear to creative services writer if patient required both Invega Sustenna and Zyprexa (which was started last admission), in addition to lithium. As patient stabilized continued this regimen and will defer to outpatient treatment team regarding whether to taper off and have a trial without Zyprexa. Time spent discussing smoking cessation with patient: 3 to 10 minutes Status at Discharge Functional status at discharge: independent ambulation Overall status at discharge: patient is back to baseline Time Spent with Patient Time attestation: Total time managing care of this patient today ____ minutes. Time spent: Greater than 30 minutes Specific discharge activities: Met with patient; discussed with team; note taking, medication clarification with pharmacy Discharge Plan Discharge Anticipated Discharge Date/Time: 10/02/23 11:00 Patient Disposition: Home, Self-Care Discharge Diagnosis: Schizoaffective disorder, bipolar type Referrals: [facility] Psychiatry with Tonya Graham [Other] - 10/22/23 2:40 pm (Telehealth) [facility] Therapy with Blanche [Other] - 1 Week [facility] [Other] - 10/02/23 (Re start visiting RN services as of 10/02/23 Fax- [phone]) Physician,Jeffry J [Primary Care Provider] - 1 Week Discharge Medications: New clonidine HCl 0.1 mg Tablet 0.1 mg PO BEDTIME 30 Days Qty: 30 0RF Protocol: Hold for SBP< HOLD for SBP < : 90 fluticasone propionate 50 mcg/actuation [place],Suspension 1 spray intranasal DAILY PRN (Reason: congestion) 30 Days Qty: 16 0RF Invega Sustenna 234 mg/1.5 mL syringe 234 mg IM Q28D 28 Days Qty: 1.5 0RF Rx Instructions: Due on 10/25/23 (last one on 09/29/23) Continued polyethylene glycol 3350 17 gram Powder In Packet 17 g PO DAILY PRN (Reason: constipation) 30 Days Qty: 510 0RF methocarbamol 750 mg tablet 750 mg PO Q6H PRN (Reason: muscle spasm) clonazepam 0.5 mg Tablet 0.5 mg PO BEDTIME 30 Days Qty: 30 0RF olanzapine 10 mg Tablet 10 mg PO BEDTIME 30 Days Qty: 30 0RF lithium carbonate 300 mg Capsule 1,200 mg PO BEDTIME 30 Days Qty: 120 0RF trazodone 150 mg tablet 150 mg PO BEDTIME 30 Days Qty: 30 0RF Discontinued paliperidone [Invega] 6 mg Tablet Extended Release 24hr 6 mg PO DAILY 30 Days Qty: 30 0RF Discharge Orders: Discharge Order (Routine); Ordered 10/02/23 Ordered By: Pantrea Yates Diet: Regular diet Activity on Discharge: As tolerated Stand Alone Forms: Patient Portal Discharge page Print Language: Mozambican Care Plan Goals: Maintain mood and safe behaviors Take medications as prescribed Practice coping skills Continue with outpatient providers and reach out to them as needed Health Concerns: Mood stability and behaviors Sobriety Plan of Treatment: Follow up with your PCP, psychiatric provider and other outpatient providers regarding above concerns Take medications as prescribed Assessment: Risk assessment at time of discharge:? Patient was interviewed prior to discharge and found to be fully oriented and without any SI or HI. Patient has improved insight and judgment and wants to continue treatment. Patient is not in imminent risk of harm to self or others and has a safety plan that includes presenting to the closest ER or calling 911 if feeling unsafe.? Patient has been observed closely by nursing and unit staff throughout admission; patient has not engaged in any behaviors that suggest dangerousness to self or others and has demonstrated appropriate behaviors and impulse control
[2023-10-01 20:00] VITALS: BP 144/74; PULSE 104; RESP 16; TEMP 36.9; O2SAT 100
[2023-10-01 20:04] VITALS: BP 144/72
[2023-10-01] MEDS: Lithium Carbonate 300 MG CAPSULE 1200 MG PO (20:04)
[2023-10-01] MEDS: clonazePAM 0.5 MG TABLET PO (20:04)
[2023-10-01] MEDS: cloNIDine HCL 0.1 MG TABLET PO (20:04)
[2023-10-01] MEDS: OLANZapine 10 MG TABLET PO (20:04)
[2023-10-01] MEDS: traZODone HCL 50 MG TABLET 150 MG PO (20:06)
[2023-10-02 08:00] VITALS: BP 120/75; PULSE 92; RESP 20; TEMP 36.8; O2SAT 98
[2023-10-02] MEDS: Lidocaine 4 % Patch ADH..PATCH 1 PATCH TRANSDERMA (08:08)
[2023-10-02] MEDS: methocarbamoL 750 MG TABLET PO (08:08)
[2023-10-02] MEDS: Acetaminophen 325 MG TABLET 650 MG PO (08:08)
[2023-10-02] MEDS: Fluticasone Propionate Nasal 16 GM SPRAY 1 SPRAY NOSTRIL-B (09:19)
== END 2023-10-02 11:30 | disposition home or self-care (01) | DRG 750 ==
PROVIDERS: Clinical Nurse Specialist Psychiatric/Mental Health; Social Worker; Admitting Provider Psychiatry & Neurology Psychiatry; Visit Provider Psychiatry & Neurology Psychiatry
DX: F25.0 Schizoaffective disorder, bipolar type (principal); F17.210 Nicotine dependence, cigarettes, uncomplicated; F43.10 Post-traumatic stress disorder, unspecified; Z20.822 Contact with and (suspected) exposure to COVID-19; Z71.6 Tobacco abuse counseling; Z79.51 Long term (current) use of inhaled steroids; Z79.899 Other long term (current) drug therapy
CPT/HCPCS: 0241U; 36415; 80053; 80061; 80178; 81001; 82565; 83036; 84443; 84520; 84702; 85025; J2426

== ENCOUNTER → 2023-09-20 20:12 | Outpatient (BNV) | payer OTHER, SELFPAY | PROVIDERS: Admitting Provider Psychiatry & Neurology Psychiatry; Visit Provider Student in an Organized Health Care Education/Training Program | DX: Z02.2 Encounter for examination for admission to residential institution (principal) | CPT/HCPCS: 99429; 99499 ==

== ENCOUNTER → 2023-09-20 20:12 | Outpatient (BNV) | payer OTHER, SELFPAY | PROVIDERS: Admitting Provider Psychiatry & Neurology Psychiatry; Visit Provider Psychiatry & Neurology Psychiatry | DX: F25.0 Schizoaffective disorder, bipolar type (principal); F43.11 Post-traumatic stress disorder, acute; F79 Unspecified intellectual disabilities | CPT/HCPCS: 90792; 99231; 99232; 99238 ==

== ENCOUNTER 2023-10-09 04:58 | Emergency (ER) | payer OTHER, SELFPAY ==
[2023-10-09 05:05] VITALS: BP 128/60; PULSE 100; O2SAT 97
[2023-10-09 05:08] VITALS: BP 117/70; PULSE 81; RESP 16; TEMP 37.2; O2SAT 93; BMI 46.3
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
[2023-10-09 05:45] VITALS: BP 117/70; PULSE 81; RESP 16; TEMP 37.2; O2SAT 93
[2023-10-09] MEDS: LORazepam 1 MG TABLET PO (05:51)
== END 2023-10-09 05:54 | disposition home or self-care (01) ==
LOC: HO.ED 05:49
PROVIDERS: Emergency Provider Emergency Medicine
DX: F41.9 Anxiety disorder, unspecified (principal); F25.9 Schizoaffective disorder, unspecified; F79 Unspecified intellectual disabilities; F43.10 Post-traumatic stress disorder, unspecified; Z72.89 Other problems related to lifestyle; Z63.8 Other specified problems related to primary support group; F17.210 Nicotine dependence, cigarettes, uncomplicated; Z79.899 Other long term (current) drug therapy
CPT/HCPCS: 99284; 99285